=== PATIENT | female | born 1985 | race African-American/Black ===

== ENCOUNTER 2016-04-25 11:04 | Emergency (ER) | payer MEDICAID ==
[2016-04-25] MEDS ORDERED: IPRATROPIUM/ALBUTEROL 0.5-2.5 MG/3 ML AMPUL NEB ONE (11:44)
[2016-04-25] MEDS ORDERED: PREDNISONE 20 MG TABLET PO ONE (11:44)
--- NOTE | 2016-04-25 11:44 | ER Document Report ---
HPI - HPI Patient complains to provider of: cold sx, cough Onset: Other - few days Onset/Duration: Gradual Quality of pain: Achy Pain Level: 4 Context: 30 yo female c/o head, nasal congestion, cough. Some wheeze, hx asthma. NO fever or chills. No chest pain or SOB. Associated Symptoms: None Exacerbated by: Denies Relieved by: Denies Similar symptoms previously: Yes Recently seen / treated by doctor: No - ROS ROS below otherwise negative: Yes Systems Reviewed and Negative: Yes All other systems reviewed and negative - CONSTITUTIONAL Constitutional: REPORTS: Fever - at home, Chills - EENT EENT: REPORTS: Sore Throat, Nasal Drainage-Purulent, Congestion - NEURO Neurology: REPORTS: Headache - CARDIOVASCULAR Cardiovascular: REPORTS: Chest pain - with cough - RESPIRATORY Respiratory: REPORTS: Trouble Breathing, Coughing - DERM Skin Color: Normal, Silas Skin Problems: None Past Medical History - General Information source: Patient Last Menstrual Period: 04-15-16 - Social History Smoking Status: Never Smoker Cigarette use (# per day): No Chew tobacco use (# tins/day): No Frequency of alcohol use: None Lives with: Family Family History: Arthritis, CVA, DM, Hyperlipidemia, Hypertension - Past Medical History Cardiac Medical History: Reports: Hx Hypertension Pulmonary Medical History: Reports: Hx Asthma, Hx Pneumonia - Apr 2010 Past Surgical History: Reports: Hx Cholecystectomy - Immunizations Immunizations up to date: No Hx Diphtheria, Pertussis, Tetanus Vaccination: No Vertical Provider Document - CONSTITUTIONAL Agree With Documented VS: Yes Exam Limitations: No Limitations General Appearance: No Apparent Distress - INFECTION CONTROL TRAVEL OUTSIDE OF THE [place] IN LAST 30 DAYS: No - HEENT HEENT: Normocephalic, Pharyngeal Erythema. negative: Conjuctival Injection - NECK Neck: Supple - RESPIRATORY Respiratory: Breath Sounds Normal, No Respiratory Distress O2 Sat by Pulse Oximetry: 98 - CARDIOVASCULAR Cardiovascular: Regular Rate, Regular Rhythm - MUSCULOSKELETAL/EXTREMETIES Musculoskeletal/Extremeties: ROSIO DUMONT - DERM Integumentary: Warm, Dry, No Rash Course - Re-evaluation Re-evalutation: 04/25/16 13:25 Lungs clear and chest x-ray is negative - Vital Signs Vital signs: Temp Pulse Resp BP Pulse Ox 98.0 F 86 18 147/88 H 98 04/25/16 11:17 04/25/16 11:17 04/25/16 11:17 04/25/16 11:17 04/25/16 11:17 Discharge - Discharge Clinical Impression: upper respiratory infection, wheeze Condition: Good Disposition: HOME, SELF-CARE Instructions: Acetaminophen, Inhaled Bronchodilators ([facility]), Asthma ([facility]), Steroid Medication, Upper Respiratory Illness ([facility]) Additional Instructions: use the albuterol inhaler, 2 puffs every 3 hours for the cough to er if worse Prescriptions: Albuterol Sulfate [Proair HFA Inhalation Aerosol 8.5 gm MDI] 2 puff IH Q3HP PRN #1 [id number] PRN Reason: Prednisone [Deltasone 20 mg Tablet] 40 mg PO DAILY #8 tablet Forms: Return to Work Referrals: MINDI CONTE PA-C [Primary Care Provider] - Follow up as needed
[2016-04-25 13:24] VITALS: BP 138/98
== END 2016-04-25 13:25 | disposition home or self-care (01) ==
LOC: ER 11:04
DX: J06.9 Acute upper respiratory infection, unspecified (principal); J45.909 Unspecified asthma, uncomplicated; R05 Cough; R09.81 Nasal congestion; J02.9 Acute pharyngitis, unspecified; J34.89 Other specified disorders of nose and nasal sinuses; R07.89 Other chest pain; R06.00 Dyspnea, unspecified; I10 Essential (primary) hypertension; Z87.01 Personal history of pneumonia (recurrent)
CPT/HCPCS: 94640; 99284; 71020; J7512; J7620

== ENCOUNTER 2016-11-19 07:05 | Emergency (ER) | payer MEDICAID, OTHER ==
--- NOTE | 2016-11-19 07:41 | ER Document Report ---
HPI - HPI Patient complains to provider of: Smashed finger Onset: Just prior to arrival Onset/Duration: Sudden Pain Level: 5 Context: 31-year-old female smashed middle finger at the DIP joint of a freezer door at work this morning. There is a small subungual hematoma, pain with flexion of the DIP joint. No previous injury. Associated Symptoms: None Exacerbated by: Movement Relieved by: Denies - ROS ROS below otherwise negative: Yes Systems Reviewed and Negative: Yes All other systems reviewed and negative - REPRODUCTIVE Reproductive: DENIES: : - DERM Skin Color: Normal Past Medical History - General Information source: Patient - Social History Smoking Status: Never Smoker Frequency of alcohol use: None Drug Abuse: None Lives with: Family Family History: Arthritis, CVA, DM, Hyperlipidemia, Hypertension Patient has suicidal ideation: No Patient has homicidal ideation: No - Past Medical History Cardiac Medical History: Reports: Hx Hypertension Pulmonary Medical History: Reports: Hx Asthma, Hx Pneumonia - Apr 2010 Past Surgical History: Reports: Hx Cholecystectomy - Immunizations Immunizations up to date: No Hx Diphtheria, Pertussis, Tetanus Vaccination: No Vertical Provider Document - CONSTITUTIONAL Agree With Documented VS: Yes - hypertensive untreated Exam Limitations: No Limitations General Appearance: No Apparent Distress - INFECTION CONTROL TRAVEL OUTSIDE OF THE [place] IN LAST 30 DAYS: No - HEENT HEENT: Atraumatic - NECK Neck: Supple - RESPIRATORY O2 Sat by Pulse Oximetry: 98 - MUSCULOSKELETAL/EXTREMETIES Musculoskeletal/Extremeties: Tender, Eccymosis - distal middle left finger anterior and posterior, mild subungual hematoma mid finger, able to flex the distal phlanax using both flexor tendons, but the distal tendon strength weaker , n/v intact. Will refer to dr. mckeon because of the weakened distal flexor tendon, - NEURO Level of Consciousness: Awake, Alert Motor/Sensory: No Motor Deficit, No Sensory Deficit - DERM Integumentary: Warm, Dry Course - Re-evaluation Re-evalutation: 11/19/16 08:[address] villavicencio, splint in flexion 11/19/16 08:27 minimal tuft fx per radiologist - Vital Signs Vital signs: Temp Pulse Resp BP Pulse Ox 98.3 F 70 22 H 175/111 H 98 11/19/16 07:06 11/19/16 07:06 11/19/16 07:06 11/19/16 07:06 11/19/16 07:06 Procedures - Immobilization Left Finger 3rd digit Time completed: 08:45 Pre-Proc Neuro Vasc Exam: Normal Immobilizer type: Finger splint (Static) Performed by: RN Post-Proc Neuro Vasc Exam: Normal Alignment checked and good: Yes Discharge - Discharge Clinical Impression: Elevated blood pressure reading, minimal tuft fracture Finger contusion Qualifiers: Encounter type: initial encounter Finger: middle finger Damage to nail status: without damage Laterality: right Qualified Code(s): S60.031A - Contusion of right middle finger without damage to nail, initial encounter Condition: Good Disposition: HOME, SELF-CARE Instructions: Acetaminophen, Contusion ([facility]), Subungual Hematoma ([facility]), Temporary Splint ([facility]), Tuft Fracture of the Finger ([facility]), Oral Narcotic Medication ([facility]) Additional Instructions: keep the splint conduit installer for orthopedic appointment on tuesday to er any concenns see your doctor for blood pressure recheck next week, I suspect that you need to start on blood pressure medicaiton Please complete the patient satisfaction survey if you get one, and return it.. If you do not receive a survey, then you can go to the [facility] website, [email or web address] and place your comments about your very good care. Thank you very much. It was a pleasure being your medical provider today. Prescriptions: Hydrocodone Bit/Acetaminophen [Hydrocodon-Acetaminophen 5-325] 1 each PO Q4HP PRN #15 tablet PRN Reason: Forms: Return to Work Referrals: BRUCE MCKEON DO [ACTIVE STAFF] - Follow up as needed MINDI CONTE PA-C [Primary Care Provider] - Follow up as needed
[2016-11-19] MEDS ORDERED: ACETAMINOPHEN 325 MG TABLET PO ONE (08:09)
--- NOTE | 2016-11-19 08:10 | RADIOLOGY REPORT (SQ) ---
EXAM DESCRIPTION: FINGER LEFT COMPLETED DATE/TIME: 11/19/2016 7:52 am REASON FOR STUDY: left middle finger injury COMPARISON: None. NUMBER OF VIEWS: Three views. TECHNIQUE: AP, lateral, and oblique images acquired of the left third finger. LIMITATIONS: None. FINDINGS: MINERALIZATION: Normal. BONES: Minimal nondisplaced fracture of the tuft of the 3rd finger. SOFT TISSUES: No soft tissue swelling. No foreign body. OTHER: No other significant finding. IMPRESSION: MINIMAL NONDISPLACED FRACTURE OF THE TUFT OF THE LEFT 3RD FINGER. COMMENT: SITE OF TRAUMA/COMPLAINT MARKED/STAMP COMPLETED: YES. TECHNICAL DOCUMENTATION: JOB ID: [id number] [employer]- All Rights Reserved
[2016-11-19 08:20] VITALS: BP 143/101
== END 2016-11-19 08:44 | disposition home or self-care (01) ==
LOC: ER 07:05
DX: S62.663A Nondisplaced fracture of distal phalanx of left middle finger, initial encounter for closed fracture (principal); W23.0XXA Caught, crushed, jammed, or pinched between moving objects, initial encounter; Y99.0 Civilian activity done for income or pay; I10 Essential (primary) hypertension; J45.909 Unspecified asthma, uncomplicated
CPT/HCPCS: 99283

== ENCOUNTER 2017-05-13 20:49 | Emergency (ER) | payer SELFPAY ==
[2017-05-13 22:28] LABS: ABSOLUTE BASOPHILS # (AUTO) 0.1 10^3/uL (0.0-0.2); ABSOLUTE EOSINOPHILS # (AUTO) 0.4 10^3/uL (0.0-0.6); ABSOLUTE LYMPHOCYTES (AUTO) 2.9 10^3/uL (0.5-4.7); ABSOLUTE MONOCYTES (AUTO) 0.7 10^3/uL (0.1-1.4); ABSOLUTE NEUT (AUTO) 6.1 10^3/uL (1.7-8.2); BASOPHILS % (AUTO) 0.9 % (0-2); EOSINOPHILS % (AUTO) 3.8 % (0-6); HEMATOCRIT 37.6 % (36.0-47.0); HEMOGLOBIN 12.3 g/dL (12.0-15.5); LYMPHOCYTES % (AUTO) 28.3 % (13-45); MEAN CORPUSCULAR HEMOGLOBIN 27.8 pg (27.0-33.4); MEAN CORPUSCULAR HGB CONC 32.7 g/dL (32.0-36.0); MEAN CORPUSCULAR VOLUME 85 fl (80-97); MONOCYTES % (AUTO) 6.8 % (3-13); PLATELET COUNT 351 10^3/uL (150-450); RED BLOOD COUNT 4.42 10^6/uL (3.72-5.28); RED CELL DISTRIBUTION WIDTH 14.3 % (11.5-14.0); SEGMENTED NEUTROPHILS % (AUTO) 60.2 % (42-78); TOTAL CELLS COUNTED % (AUTO) 100 %; WHITE BLOOD COUNT 10.1 10^3/uL (4.0-10.5)
[2017-05-13 22:33] LABS: APPEARANCE,URINE CLEAR; BILIRUBIN,URINE NEGATIVE (NEGATIVE); COLOR,URINE YELLOW; GLUCOSE, URINE NEGATIVE (NEGATIVE); KETONES,URINE NEGATIVE (NEGATIVE); LEUKOCYTE ESTERASE,URINE NEGATIVE (NEGATIVE); NITRITE,URINE NEGATIVE (NEGATIVE); PROTEIN,URINE NEGATIVE (NEGATIVE); URINE SPECIFIC GRAVITY 1.015; UROBILINOGEN,URINE NEGATIVE mg/dL (<2.0)
--- NOTE | 2017-05-13 23:28 | ER Document Report ---
ED General - General Chief Complaint: Abdominal Pain Stated Complaint: ABDOMINAL PAIN Time Seen by Provider: 05/13/17 21:42 Notes: Patient is a 31-year-old female with a past medical history of asthma who presents with 24 hours of vomiting, diarrhea, and intermittent generalized abdominal pain. Pain is described as a mild, intermittent cramping most of the left side of her abdomen. Nothing improves or worsens the pain. She states that she has had difficulty tolerating any kind of food intake but has been able to tolerate water without difficulty. She continues to have 4-5 diarrheal bowel movements per day. She is uncertain if there have been any sick contacts. She denies a history of similar symptoms in the past. She has not seen her primary doctor regarding today's concerns. She denies any lightheadedness or syncope. TRAVEL OUTSIDE OF THE [place] IN LAST 30 DAYS: No - Related Data Allergies/Adverse Reactions: aspirin [Aspirin] Allergy (Severe, Verified 05/13/17 20:50) Edema ciprofloxacin [From Cipro] Allergy (Verified 05/13/17 20:50) Past Medical History - General Information source: Patient - Social History Smoking Status: Never Smoker Frequency of alcohol use: None Drug Abuse: None Lives with: Family Family History: Arthritis, CVA, DM, Hyperlipidemia, Hypertension Patient has suicidal ideation: No Patient has homicidal ideation: No - Past Medical History Cardiac Medical History: Reports: Hx Hypertension Denies: Hx Coronary Artery Disease, Hx Heart Attack Pulmonary Medical History: Reports: Hx Asthma, Hx Pneumonia - Apr 2010 Denies: Hx Bronchitis, Hx COPD Neurological Medical History: Denies: Hx Cerebrovascular Accident, Hx Seizures Renal/ Medical History: Denies: Hx Peritoneal Dialysis Musculoskeltal Medical History: Denies Hx Arthritis Past Surgical History: Reports: Hx Cholecystectomy. Denies: Hx Pacemaker - Immunizations Immunizations up to date: No Hx Diphtheria, Pertussis, Tetanus Vaccination: No Review of Systems - Review of Systems Notes: Constitutional: Negative for fever. HENT: Negative for sore throat. Eyes: Negative for visual changes. Cardiovascular: Negative for chest pain. Respiratory: Negative for shortness of breath. Gastrointestinal: Positive for abdominal cramping, vomiting and diarrhea Genitourinary: Negative for dysuria. Musculoskeletal: Negative for back pain. Skin: Negative for rash. Neurological: Negative for headaches, weakness or numbness. 10 point ROS negative except as marked above and in HPI. Physical Exam - Vital signs Vitals: Temp Pulse Resp BP Pulse Ox 98.0 F 77 20 156/97 H 98 05/13/17 21:21 05/13/17 21:21 05/13/17 21:21 05/13/17 21:21 05/13/17 21:21 Interpretation: Hypertensive Notes: PHYSICAL EXAMINATION: GENERAL: Well-appearing, well-nourished and in no acute distress. HEAD: Atraumatic, normocephalic. EYES: Pupils equal round and reactive to light, extraocular movements intact, sclera anicteric, conjunctiva are normal. ENT: nares patent, oropharynx clear without exudates. Moist mucous membranes. NECK: Normal range of motion, supple without lymphadenopathy LUNGS: Breath sounds clear to auscultation bilaterally and equal. No wheezes rales or rhonchi. HEART: Regular rate and rhythm without murmurs ABDOMEN: Soft, nontender, normoactive bowel sounds. No guarding, no rebound. No masses appreciated. EXTREMITIES: Normal range of motion, no pitting or edema. No cyanosis. NEUROLOGICAL: No focal neurological deficits. Moves all extremities spontaneously and on command. PSYCH: Normal mood, normal affect. SKIN: Warm, Dry, normal turgor, no rashes or lesions noted. Course - Re-evaluation Re-evalutation: 05/13/17 23:25 Presentation of an overall well-appearing patient in no acute distress with complaints of nausea, vomiting, diarrhea. Patient also reports some generalized abdominal cramping after multiple episodes of vomiting and diarrhea. This is consistent with likely viral gastroenteritis. Patient has no abdominal tenderness on exam and specifically no tenderness in the RLQ, LLQ, RUQ. Overall well hydrated on exam. Able to tolerate oral intake here in the emergency department. Low clinical suspicion for any acute life-threatening etiology based on exam and history including SBO, appendicitis, nephrolithiasis , or pylonephritis. CMP without evidence of acute hepatitis or significant dehydration. At this time will discharge with return precautions and follow-up recommendations. Verbal discharge instructions given a the bedside and opportunity for questions given. Medication warnings reviewed. Patient is in agreement with this plan and has verbalized understanding of return precautions and the need for primary care follow-up in the next 24-72 hours. - Vital Signs Vital signs: Temp Pulse Resp BP Pulse Ox 98.1 F 64 16 152/94 H 100 05/14/17 00:28 05/14/17 00:28 05/14/17 00:28 05/14/17 00:28 05/14/17 00:28 - Laboratory Result Diagrams: 05/13/17 22:18 05/13/17 23:08 Laboratory results interpreted by me: 05/13/17 05/13/17 22:05 22:18 RDW 14.3 H Urine Blood MODERATE H Discharge - Discharge Clinical Impression: Vomiting and diarrhea, Abdominal cramping Condition: Good Disposition: HOME, SELF-CARE Additional Instructions: Your symptoms are likely due to a viral illness and should resolve in the next several days. You can take [id number] loperamide also known as Imodium as needed for diarrhea per box instructions. Continue to stay hydrated with plenty of solution such as Gatorade or Pedialyte. You are being prescribed Zofran to take as needed for nausea and vomiting. Please return if you develop severe abdominal pain, pass out, become unable to tolerate any oral fluids for 12 more hours, or any other symptoms that are concerning to you. Prescriptions: Ondansetron [Zofran Odt 4 mg Tablet] 1 - 2 tab PO Q4H PRN #15 tab.rapdis PRN Reason: For Nausea/Vomiting Referrals: MINDI CONTE PA-C [Primary Care Provider] - Follow up as needed
[2017-05-13] MEDS ORDERED: NORMAL SALINE 1000 ML 1,000 ML IV ONE (23:31)
[2017-05-13] MEDS ORDERED: ONDANSETRON HCL INJ/PF 4 MG/2 ML SDV IV ONE (23:31)
[2017-05-13 23:56] LABS: ALANINE AMINOTRANSFERASE 41 U/L (9-52); ALKALINE PHOSPHATASE 53 U/L (38-126); ANION GAP 8 (5-19); ASPARTATE AMINO TRANSFERASE 23 U/L (14-36); BILIRUBIN,DIRECT 0.1 mg/dL (0.0-0.4); BILIRUBIN,TOTAL 0.2 mg/dL (0.2-1.3); BLOOD UREA NITROGEN 11 mg/dL (7-20); CALCIUM 8.8 mg/dL (8.4-10.2); CARBON DIOXIDE 29 mmol/L (22-30); CHLORIDE 102 mmol/L (98-107); GLUCOSE 85 mg/dL (75-110); LIPASE 105.1 U/L (23-300); POTASSIUM 4.2 mmol/L (3.6-5.0); SODIUM 138.5 mmol/L (137-145); TOTAL PROTEIN 7.1 g/dL (6.3-8.2)
[2017-05-14 00:30] VITALS: BP 152/94
== END 2017-05-14 00:28 | disposition home or self-care (01) ==
LOC: ER 20:49
DX: R11.2 Nausea with vomiting, unspecified (principal); R19.7 Diarrhea, unspecified; R10.84 Generalized abdominal pain; J45.909 Unspecified asthma, uncomplicated; I10 Essential (primary) hypertension; Z90.49 Acquired absence of other specified parts of digestive tract; Z88.6 Allergy status to analgesic agent; Z88.1 Allergy status to other antibiotic agents
CPT/HCPCS: 99284; 96361; 96374; 36415; 83690; 85025; 81025; 80053; 81001; J2405; J7030

== ENCOUNTER → 2017-06-21 | Outpatient (CLI) | payer SELFPAY ==
[2017-06-21 13:36] LABS: ABSOLUTE EOSINOPHILS # (AUTO) 0.2 10^3/uL (0.0-0.6); ABSOLUTE LYMPHOCYTES (AUTO) 2.1 10^3/uL (0.5-4.7); ABSOLUTE MONOCYTES (AUTO) 0.7 10^3/uL (0.1-1.4); ABSOLUTE NEUT (AUTO) 6.7 10^3/uL (1.7-8.2); BASOPHILS % (AUTO) 0.2 % (0-2); EOSINOPHILS % (AUTO) 1.9 % (0-6); HEMATOCRIT 37.6 % (36.0-47.0); HEMOGLOBIN 12.3 g/dL (12.0-15.5); MEAN CORPUSCULAR HEMOGLOBIN 27.2 pg (27.0-33.4); MEAN CORPUSCULAR HGB CONC 32.7 g/dL (32.0-36.0); MEAN CORPUSCULAR VOLUME 83 fl (80-97); PLATELET COUNT 268 10^3/uL (150-450); RED BLOOD COUNT 4.52 10^6/uL (3.72-5.28); RED CELL DISTRIBUTION WIDTH 14.7 % (11.5-14.0); SEGMENTED NEUTROPHILS % (AUTO) 68.9 % (42-78); TOTAL CELLS COUNTED % (AUTO) 100 %; WHITE BLOOD COUNT 9.7 10^3/uL (4.0-10.5)
--- NOTE | 2017-06-21 14:18 | RADIOLOGY REPORT (SQ) ---
EXAM DESCRIPTION: KUB COMPLETED DATE/TIME: 06/21/2017 1:30 pm REASON FOR STUDY: RIGHT LOWER QUADRANT PAIN COMPARISON: None. NUMBER OF VIEWS: One view. TECHNIQUE: Supine radiographic image of the abdomen acquired. LIMITATIONS: None. FINDINGS: BOWEL GAS PATTERN: There is abundant gas and fecal material throughout the colon, with mor e abundant gas in the right colon. CALCIFICATIONS: No suspicious calcifications. SOFT TISSUES: No gross mass or suggestion of organomegaly. HARDWARE: Clips right upper quadrant. BONES: No bone lesions or fracture. OTHER: No other significant finding. IMPRESSION: Ileus/fecal retention. Reading location - IP/workstation name: [email or web address]
== END ==
LOC: OD 12:48
PROVIDERS: ATTEND Physician Assistant
DX: R10.31 Right lower quadrant pain (principal); K52.9 Noninfective gastroenteritis and colitis, unspecified; K59.00 Constipation, unspecified
CPT/HCPCS: 36415; 74018; 85025

== ENCOUNTER 2017-06-27 10:33 | Emergency (ER) | payer SELFPAY ==
[2017-06-27 10:38] VITALS: BP 144/78
[2017-06-27] MEDS ORDERED: IPRATROPIUM/ALBUTEROL 0.5-2.5 MG/3 ML AMPUL NEB ONE ×2 (10:46→11:32)
[2017-06-27] MEDS ORDERED: PREDNISONE 20 MG TABLET PO ONE (10:46)
--- NOTE | 2017-06-27 11:21 | RADIOLOGY REPORT (SQ) ---
EXAM DESCRIPTION: CHEST PA/LAT COMPLETED DATE/TIME: 06/27/2017 11:06 am REASON FOR STUDY: cough/congest COMPARISON: None. EXAM PARAMETERS: NUMBER OF VIEWS: two views TECHNIQUE: Digital Frontal and Lateral radiographic views of the chest acquired. RADIATION DOSE: NA LIMITATIONS: none FINDINGS: LUNGS AND PLEURA: No opacities, masses or pneumothorax. No pleural effusion. MEDIASTINUM AND HILAR STRUCTURES: No masses or contour abnormalities. HEART AND VASCULAR STRUCTURES: Heart normal size. No evidence for failure. BONES: No acute findings. HARDWARE: None in the chest. OTHER: No other significant finding. IMPRESSION: NO SIGNIFICANT RADIOGRAPHIC FINDING IN THE CHEST. TECHNICAL DOCUMENTATION: JOB ID: [id number] [employer]- All Rights Reserved Reading location - IP/workstation name: [email or web address]
--- NOTE | 2017-06-27 11:25 | ER Document Report ---
ED Medical Screen (RME) - General Chief Complaint: Breathing Difficulty Stated Complaint: BREATHING DIFFICULTIES Time Seen by Provider: 06/27/17 10:46 Notes: Patient states she has been having an asthma exacerbation for 9 days that is progressively getting worse. She states she has had no fevers. She states she has had cough and congestion that is not being relieved with her inhaler or her nebulizer. No recent steroids. In triage patient did have wheezes in all [place]. Steroids were given and breathing treatment was given. No significant change was appreciated either subjectively or objectively. TRAVEL OUTSIDE OF THE [place] IN LAST 30 DAYS: No - Related Data Allergies/Adverse Reactions: aspirin [Aspirin] Allergy (Severe, Verified 06/27/17 10:34) Edema ciprofloxacin [From Cipro] Allergy (Verified 06/27/17 10:34) Past Medical History - Social History Chew tobacco use (# tins/day): No Frequency of alcohol use: None Drug Abuse: None - Past Medical History Cardiac Medical History: Reports: Hx Hypertension Denies: Hx Coronary Artery Disease, Hx Heart Attack Pulmonary Medical History: Reports: Hx Asthma, Hx Pneumonia - Apr 2010 Denies: Hx Bronchitis, Hx COPD Neurological Medical History: Denies: Hx Cerebrovascular Accident, Hx Seizures Renal/ Medical History: Denies: Hx Peritoneal Dialysis Musculoskeltal Medical History: Denies Hx Arthritis Past Surgical History: Reports: Hx Cholecystectomy. Denies: Hx Pacemaker - Immunizations Immunizations up to date: No Hx Diphtheria, Pertussis, Tetanus Vaccination: No Physical Exam - Vital signs Vitals: Temp Pulse Resp BP Pulse Ox 98.5 F 82 24 H 144/78 H 99 06/27/17 10:37 06/27/17 10:37 06/27/17 10:37 06/27/17 10:37 06/27/17 10:37 Course - Vital Signs Vital signs: Temp Pulse Resp BP Pulse Ox 98.5 F 82 24 H 144/78 H 99 06/27/17 10:37 06/27/17 10:37 06/27/17 10:37 06/27/17 10:37 06/27/17 10:37
[2017-06-27] MEDS ORDERED: ALBUTEROL SULFATE 0.083% NEB 2.5 MG/3 ML AMPUL NEB ONE (11:31)
--- NOTE | 2017-06-27 12:04 | ER Document Report ---
ED Respiratory Problem - General Chief Complaint: Breathing Difficulty Stated Complaint: BREATHING DIFFICULTIES Time Seen by Provider: 06/27/17 10:46 Mode of Arrival: Ambulatory Information source: Patient Notes: 31-year-old female presented to ED for complaint of asthma exacerbation for 9 days. She states is getting progressively worse. She states she went to her Dr. Mindi Wheatley last week and they told her it was not that bad and did not change any of her treatments. She states she has not been on any recent steroids. The provider in front states she did have wheezes in all hogan and triage. She had a minimal wheeze when I heard a after her prednisone and first breathing treatment. I will treated with 2 more breathing treatments and then reassess her lungs. Patient states she still feels very short of breath. TRAVEL OUTSIDE OF THE [place] IN LAST 30 DAYS: No - HPI Patient complains to provider of: Asthma Onset: Other Duration: Worse/persistent - 9 days Initiating Event: URI Quality of pain: Achy Severity: Moderate Pain Level: 4 Context: Hx asthma - Related Data Allergies/Adverse Reactions: aspirin [Aspirin] Allergy (Severe, Verified 06/27/17 10:34) Edema ciprofloxacin [From Cipro] Allergy (Verified 06/27/17 10:34) Past Medical History - General Information source: Patient - Social History Smoking Status: Never Smoker Cigarette use (# per day): No Chew tobacco use (# tins/day): No Smoking Education Provided: No Frequency of alcohol use: None Drug Abuse: None Lives with: Family Family History: Arthritis, CVA, DM, Hyperlipidemia, Hypertension. denies: CAD, COPD, Malignancy, Thyroid Disfunction Patient has suicidal ideation: No Patient has homicidal ideation: No - Past Medical History Cardiac Medical History: Reports: Hx Hypertension Pulmonary Medical History: Reports: Hx Asthma, Hx Pneumonia - Apr 2010 EENT Medical History: Reports: None Neurological Medical History: Reports: None Endocrine Medical History: Reports: None Renal/ Medical History: Reports: None Malignancy Medical History: Reports: None GI Medical History: Reports: None Musculoskeltal Medical History: Reports None Skin Medical History: Reports None Psychiatric Medical History: Reports: None Traumatic Medical History: Reports: None Infectious Medical History: Reports: None Past Surgical History: Reports: Hx Cholecystectomy - Immunizations Immunizations up to date: No Hx Diphtheria, Pertussis, Tetanus Vaccination: No Review of Systems - Review of Systems Notes: Constitutional: [PRESENT: as per HPI. ABSENT: chills, fever(s), headache(s), weight gain, weight loss] Eyes: [ABSENT: visual disturbances] Ears: [ABSENT: hearing changes] Nasopharyngeal: Runny nose congestion postnasal drip Cardiovascular: [ABSENT: chest pain, dyspnea on exertion, edema, orthropnea, palpitations] Respiratory: Cough congestion wheezing Gastrointestinal: [ABSENT: abdominal pain, constipation, diarrhea, hematemesis, hematochezia, nausea, vomiting] Genitourinary: [ABSENT: dysuria, hematuria] Musculoskeletal: [ABSENT: joint swelling] Integumentary: [ABSENT: rash, wounds] Neurological: [ABSENT: abnormal gait, abnormal speech, confusion, dizziness, focal weakness, syncope] Psychiatric: [ABSENT: anxiety, depression, homicidal ideation, suicidal ideation ] Endocrine: [ABSENT: cold intolerance, heat intolerance, menstrual abnormalities , polydipsia, polyuria] Hematologic/Lymphatic: [ABSENT: easy bleeding, easy bruising, lymphadenopathy] Physical Exam - Vital signs Vitals: Temp Pulse Resp BP Pulse Ox 98.5 F 82 24 H 144/78 H 99 06/27/17 10:37 06/27/17 10:37 06/27/17 10:37 06/27/17 10:37 06/27/17 10:37 - Notes Notes: PHYSICAL EXAMINATION: GENERAL: Well-appearing, well-nourished and in no acute distress. HEAD: Atraumatic, normocephalic. EYES: Pupils equal round and reactive to light, extraocular movements intact, conjunctiva are normal. ENT: Erythematous swollen nasal turbinates, oropharynx postnasal drip without exudates. Moist mucous membranes. NECK: Normal range of motion, supple without lymphadenopathy LUNGS: Minimal expiratory wheezes all hogan HEART: Regular rate and rhythm without murmurs ABDOMEN: Soft, nontender, nondistended abdomen. No guarding, no rebound. No masses appreciated. Female : deferred Musculoskeletal: Normal range of motion, no pitting or edema. No cyanosis. NEUROLOGICAL: Cranial nerves grossly intact. Normal speech, normal gait. Normal sensory, motor exams PSYCH: Normal mood, normal affect. SKIN: Warm, Dry, normal turgor, no rashes or lesions noted. Course - Re-evaluation Re-evalutation: 03/05/18 20:26 Patient was treated with DuoNeb's 2 albuterol 1 and prednisone. She was then discharged home with prescription for prednisone. Patient states she felt much better after the last nebulizer treatment. Patient was encouraged to follow-up with primary doctor for asthma treatment to prevent exacerbations. Patient was also given prescription for azithromycin as she has been experiencing these symptoms for 9 days. She was encouraged to follow-up with her primary doctor tomorrow and use the azithromycin if she develops any fevers from continued shortness of breath and asthma symptoms. Patient verbalized understanding that she was supposed to use the Zithromax and only for fevers chills. - Vital Signs Vital signs: Temp Pulse Resp BP Pulse Ox 98.5 F 82 24 H 144/78 H 99 06/27/17 10:37 06/27/17 10:37 06/27/17 10:37 06/27/17 10:37 06/27/17 10:37 - Diagnostic Test Radiology reviewed: Image reviewed, Reports reviewed Discharge - Discharge Clinical Impression: Asthma exacerbation Qualifiers: Asthma severity: moderate Asthma persistence: unspecified Qualified Code(s): J45.901 - Unspecified asthma with (acute) exacerbation Condition: Stable Disposition: HOME, SELF-CARE Additional Instructions: ASTHMA: You have been diagnosed as having asthma. This is a condition where there is episodic tightness in the bronchial tubes. Allergies, infections, and polluted or cold air may be contributing factors. Emergency treatment of a severe asthma attack may include adrenaline shots , or bronchodilator aerosol. You may feel lightheaded, have a decreased exercise tolerance and a rapid pulse for an hour or two. Rest and get plenty of fluids. Home treatment of asthma requires bronchodilator drugs. These can be administered by injection, inhalation, or by mouth. Antibiotics and corticosteroids may be required for some patients. You should avoid chemical fumes, dusts, pollens, and exercising in very cold or dry air. If you smoke, stop!! If you develop a fever, increased wheezing, chest pain, or severe shortness of breath, you should contact the doctor immediately. STEROID MEDICATION: You have been given an injection of or oral medicine of the cortisone/ steroid class. This medication is used to control inflammation or allergy. Max t is usually only given for a short period of time, until the acute process subsides. There are usually no side effects from short-term use of cortisone-like medications. Some persons feel an increased sense of well-being and are not sleepy at bedtime. Long-term use of cortisone medications is best avoided, unless required for a severe condition. If your condition does not remit, or relapses after the course of corticosteroid medication, you should consult your physician. INHALED BRONCHODILATORS: You have received treatment(s) of and/or prescription for an inhaled bronchodilator -- a medication which stimulates the airways in the lung to dilate. This improves the flow of air in asthma, bronchitis, and emphysema. These medicines have some similarity to adrenaline, and can cause similar side effects: shakiness, racing heart, and a sense of nervousness. These side effects decrease with time. Contact your doctor if these side effects are severe. Do not over-use the medicine. Too-frequent use of the inhaler may make it ineffective. Call your doctor if the inhaler is not controlling your symptoms at the prescribed doses. AZITHROMYCIN: Azithromycin (Zithromax) is a broad spectrum antibiotic in the same class as erythromycin. It can treat a variety of bacterial infections, but is most frequently used for respiratory infections. Azithromycin is extremely long-lasting. It accumulates in body tissues and continues to kill bacteria for many days. In order to improve absorption, Azithromycin should be taken at least one hour before or two hours after a meal. It does not have the same strong tendency to upset the stomach as erythromycin and is usually very well tolerated. Patients who have had a rash or other true allergic reactions to erythromycin should not take this medication. Call if you develop gastrointestinal distress, severe diarrhea, rash, hives, itching, or shortness of breath. USE OF ACETAMINOPHEN: Acetaminophen may be taken for pain relief or fever control. It's much safer than aspirin, offering a wider range of "safe" dosages. It is safe during . Some brand names are Tylenol, Panadol, Datril, Anacin 3, Tempra, and Liquiprin. Acetaminophen can be repeated every four hours. The following are maximum recommended dosages: USE OF ACETAMINOPHEN (Tylenol): Acetaminophen may be taken for pain relief or fever control. It's much safer than aspirin, offering a wider range of "safe" dosages. It is safe during . Some brand names are Tylenol, Panadol, Datril, Anacin 3, Tempra, and Liquiprin. Acetaminophen can be repeated every four hours. The following are maximum recommended dosages: WEIGHT Dose Drops Elixir Chewable( 80mg) (LBS.) drprs=droppers tsp=teaspoon 6 40 mg 0.4 ml (1/2) 6-11 80 mg 0.8 ml (full) tsp 1 tab 12-16 120 mg 1 1/2 drprs 3/4 tsp 1 1/2 tabs 17-23 160 mg 2 drprs 1 tsp 2 tabs 24-30 240 mg 3 drprs 1 1/2 tsp 3 tabs 30-35 320 mg 2 tsp 4 tabs 36-41 360 mg 2 1/4 tsp 4 1/2 tabs 42-47 400 mg 2 1/2 tsp 5 tabs 48-53 480 mg 3 tsp 6 tabs 54-59 520 mg 3 1/4 tsp 6 1/2 tabs 60-64 560 mg 3 1/2 tsp 7 tabs 65-70 600 mg 3 3/4 tsp 7 1/2 tabs 71-76 640 mg 4 tsp 8 tabs 77-82 720 mg 4 1/2 tsp 9 tabs 83-88 800 mg 5 tsp 10 tabs >89 pounds or adults 650 mg to 900 mg Acetaminophen can be repeated every four hours. Maximum dose not to exceed 4000 mg a day. These maximum recommended dosages are slightly higher than the dosages written on the product container, but these dosages are very safe and below the toxic dosage for acetaminophen. FOLLOW-UP CARE: If you have been referred to a physician for follow-up care, call the physician s office for an appointment as you were instructed or within the next two days. If you experience worsening or a significant change in your symptoms, notify the physician immediately or return to the Emergency Department at any time for re-evaluation. Prescriptions: Azithromycin [Zithromax 250 mg Tablet] 250 mg PO ASDIR PRN #6 tablet PRN Reason: Prednisone [Sterapred Ds] 1 pkg PO ASDIR PRN 12 Days tab.ds.pk PRN Reason: Forms: Elevated Blood Pressure, Return to Work Referrals: MINDI CONTE PA-C [Primary Care Provider] - 06/28/17
== END 2017-06-27 13:15 | disposition home or self-care (01) ==
LOC: ER 10:33
DX: J45.901 Unspecified asthma with (acute) exacerbation (principal); R09.82 Postnasal drip; R05 Cough; I10 Essential (primary) hypertension; R09.89 Other specified symptoms and signs involving the circulatory and respiratory systems; Z79.01 Long term (current) use of anticoagulants; Z88.6 Allergy status to analgesic agent; Z88.1 Allergy status to other antibiotic agents
CPT/HCPCS: 94640 ×2; 99284; 71046; J7512; J7620

== ENCOUNTER 2017-09-27 07:16 | Emergency (ER) | payer MEDICAID ==
[2017-09-27] MEDS ORDERED: IPRATROPIUM/ALBUTEROL 0.5-2.5 MG/3 ML AMPUL NEB ONE (07:42)
[2017-09-27] MEDS ORDERED: PREDNISONE 20 MG TABLET PO ONE (07:42)
[2017-09-27] MEDS ORDERED: ALBUTEROL SULFATE 0.083% NEB 2.5 MG/3 ML AMPUL NEB ONE ×2 (07:42→09:08)
--- NOTE | 2017-09-27 08:17 | RADIOLOGY REPORT (SQ) ---
EXAM DESCRIPTION: CHEST 2 VIEWS COMPLETED DATE/TIME: 09/27/2017 7:59 am REASON FOR STUDY: sob COMPARISON: 06/27/2017 EXAM PARAMETERS: NUMBER OF VIEWS: two views TECHNIQUE: Digital Frontal and Lateral radiographic views of the chest acquired. RADIATION DOSE: NA LIMITATIONS: none FINDINGS: LUNGS AND PLEURA: Patchy parenchymal opacity at the left base. Right lung is clear. MEDIASTINUM AND HILAR STRUCTURES: No masses or contour abnormalities. HEART AND VASCULAR STRUCTURES: Heart normal size. No evidence for failure. BONES: No acute findings. HARDWARE: None in the chest. OTHER: No other significant finding. IMPRESSION: Left lower lobe pneumonia. TECHNICAL DOCUMENTATION: JOB ID: [id number] [employer]- All Rights Reserved Reading location - IP/workstation name: [email or web address]
[2017-09-27] MEDS ORDERED: CEFTRIAXONE 1 GM/D5W RTU 1 GM/50 ML RTUPB IV ONE (09:07)
[2017-09-27] MEDS ORDERED: AZITHROMYCIN INJ 500 MG VIAL IV ONE (09:07)
[2017-09-27] MEDS ORDERED: TERBUTALINE SULFATE INJ/PF 1 MG/1 ML SDV SUBCUT ONE (09:07)
[2017-09-27] MEDS ORDERED: MAGNESIUM SULFATE/D5W 1 GM/100 ML RTUPB IV ONE (09:07)
[2017-09-27] MEDS ORDERED: NORMAL SALINE 1000 ML 1,000 ML IV ONE (09:08)
[2017-09-27 09:54] LABS: ABSOLUTE LYMPHOCYTES (AUTO) 1.3 10^3/uL (0.5-4.7); ABSOLUTE MONOCYTES (AUTO) 0.5 10^3/uL (0.1-1.4); ABSOLUTE NEUT (AUTO) 6.3 10^3/uL (1.7-8.2); BASOPHILS % (AUTO) 0.4 % (0-2); EOSINOPHILS % (AUTO) 0.5 % (0-6); HEMATOCRIT 37.2 % (36.0-47.0); HEMOGLOBIN 12.4 g/dL (12.0-15.5); LYMPHOCYTES % (AUTO) 16.4 % (13-45); MEAN CORPUSCULAR HEMOGLOBIN 28.5 pg (27.0-33.4); MEAN CORPUSCULAR HGB CONC 33.2 g/dL (32.0-36.0); MEAN CORPUSCULAR VOLUME 86 fl (80-97); MONOCYTES % (AUTO) 5.6 % (3-13); PLATELET COUNT 235 10^3/uL (150-450); RED BLOOD COUNT 4.33 10^6/uL (3.72-5.28); RED CELL DISTRIBUTION WIDTH 14.7 % (11.5-14.0); SEGMENTED NEUTROPHILS % (AUTO) 77.1 % (42-78); TOTAL CELLS COUNTED % (AUTO) 100 %; VENOUS BLOOD BASE EXCESS -0.2 mmol/L; VENOUS BLOOD HCO3 25.2 mmol/L (20-32); VENOUS BLOOD PCO2 43.5 mmHg (35-63); VENOUS BLOOD PH 7.38 (7.30-7.42); WHITE BLOOD COUNT 8.2 10^3/uL (4.0-10.5)
[2017-09-27 10:24] LABS: ALANINE AMINOTRANSFERASE 29 U/L (9-52); ALBUMIN 3.9 g/dL (3.5-5.0); ALKALINE PHOSPHATASE 75 U/L (38-126); ANION GAP 8 (5-19); ASPARTATE AMINO TRANSFERASE 29 U/L (14-36); BILIRUBIN,DIRECT 0.4 mg/dL (0.0-0.4); BILIRUBIN,TOTAL 0.5 mg/dL (0.2-1.3); BLOOD UREA NITROGEN 10 mg/dL (7-20); CALCIUM 9.1 mg/dL (8.4-10.2); CARBON DIOXIDE 29 mmol/L (22-30); CHLORIDE 101 mmol/L (98-107); GLUCOSE 96 mg/dL (75-110); LIPASE 70.8 U/L (23-300); SODIUM 137.9 mmol/L (137-145); TOTAL PROTEIN 7.3 g/dL (6.3-8.2)
--- NOTE | 2017-09-27 12:10 | ER Document Report ---
ED General - General Chief Complaint: Breathing Difficulty Stated Complaint: BREATHING ISSUES Time Seen by Provider: 09/27/17 07:38 TRAVEL OUTSIDE OF THE [place] IN LAST 30 DAYS: No - HPI Patient complains to provider of: Shortness of breath difficulty breathing productive cough Notes: Patient coming in for the above-stated symptoms. Patient states fever yesterday however no temperature was taken denies any chills or night sweats. Patient denies any recent antibiotics patient states she has been compliant with her asthma medications. No recent travel no recent steroids. Patient denies any chest pain abdominal pain. Patient otherwise is sitting up in the room upon my evaluation. Denies any ICU admissions or intubations - Related Data Allergies/Adverse Reactions: aspirin [Aspirin] Allergy (Severe, Verified 06/27/17 10:34) Edema ciprofloxacin [From Cipro] Allergy (Verified 06/27/17 10:34) Past Medical History - Social History Smoking Status: Unknown if Ever Smoked Chew tobacco use (# tins/day): No Frequency of alcohol use: None Drug Abuse: None Family History: Arthritis, CVA, DM, Hyperlipidemia, Hypertension. denies: CAD, COPD, Malignancy, Thyroid Disfunction Patient has suicidal ideation: No Patient has homicidal ideation: No - Past Medical History Cardiac Medical History: Reports: Hx Hypertension Denies: Hx Coronary Artery Disease, Hx Heart Attack Pulmonary Medical History: Reports: Hx Asthma, Hx Pneumonia - Apr 2010 Denies: Hx Bronchitis, Hx COPD Neurological Medical History: Denies: Hx Cerebrovascular Accident, Hx Seizures Renal/ Medical History: Denies: Hx Peritoneal Dialysis Musculoskeltal Medical History: Denies Hx Arthritis Past Surgical History: Reports: Hx Cholecystectomy. Denies: Hx Pacemaker - Immunizations Immunizations up to date: No Hx Diphtheria, Pertussis, Tetanus Vaccination: No Review of Systems - Review of Systems Constitutional: No symptoms reported EENT: No symptoms reported Cardiovascular: No symptoms reported Respiratory: Short of breath, Sputum, Wheezing Gastrointestinal: No symptoms reported Genitourinary: No symptoms reported Female Genitourinary: No symptoms reported Musculoskeletal: No symptoms reported Skin: No symptoms reported Hematologic/Lymphatic: No symptoms reported Neurological/Psychological: No symptoms reported Physical Exam - Vital signs Vitals: Temp Pulse Resp BP Pulse Ox 100.3 F 93 26 H 143/87 H 95 09/27/17 07:24 09/27/17 07:24 09/27/17 07:24 09/27/17 07:24 09/27/17 07:24 Interpretation: Normal - General General appearance: Appears well, Alert - HEENT Head: Normocephalic, Atraumatic Eyes: Normal Pupils: PERRL - Respiratory Respiratory status: No respiratory distress Chest status: Nontender Breath sounds: Productive cough, Wheezing Chest palpation: Normal - Cardiovascular Rhythm: Regular Heart sounds: Normal auscultation Murmur: No - Abdominal Inspection: Normal Distension: No distension Bowel sounds: Normal Tenderness: Nontender Organomegaly: No organomegaly - Back Back: Normal, Nontender - Extremities General upper extremity: Normal inspection, Nontender, Normal color, Normal ROM , Normal temperature General lower extremity: Normal inspection, Nontender, Normal color, Normal ROM , Normal temperature, Normal weight bearing. No: Shana's sign - Neurological Neuro grossly intact: Yes Cognition: Normal Orientation: AAOx4 Will Coma Scale Eye Opening: Spontaneous Wyatt Coma Scale Verbal: Oriented Wyatt Coma Scale Motor: Obeys Commands Will Coma Scale Total: 15 Speech: Normal Motor strength normal: LUE, RUE, LLE, RLE Sensory: Normal - Psychological Associated symptoms: Normal affect, Normal mood - Skin Skin Temperature: Warm Skin Moisture: Dry Skin Color: Normal Course - Re-evaluation Re-evalutation: 09/27/17 15:49 Chest x-ray shows development of left lower lobe pneumonia. No white count no temperature 100.1. Patient was given multiple treatments with improvement of her lung sounds no signs of hypoxia patient was ambulated around the ER again with no signs of hypoxia. Patient was to be a good candidate for outpatient treatment of her pneumonia. Patient was given Rocephin here will treat with Zithromax steroids bronchodilator therapy will add on Atrovent to her medication list patient agrees with plan was discharged home - Vital Signs Vital signs: Temp Pulse Resp BP Pulse Ox 100.3 F 93 16 144/96 H 96 09/27/17 07:24 09/27/17 07:24 09/27/17 12:02 09/27/17 12:02 09/27/17 12:02 - Laboratory Result Diagrams: 09/27/17 09:25 09/27/17 09:25 Laboratory results interpreted by me: 09/27/17 09:25 RDW 14.7 H Discharge - Discharge Clinical Impression: Asthma Qualifiers: Asthma severity: unspecified severity Asthma persistence: unspecified Asthma complication type: uncomplicated Qualified Code(s): J45.909 - Unspecified asthma , uncomplicated Pneumonia Qualifiers: Aspiration pneumonia type: unspecified Laterality: left Lung location: lower lobe of lung Condition: Good Instructions: Asthma ([facility]), Pneumonia ([facility]) Additional Instructions: Your evaluation today shows a or developing left lower lobe pneumonia more likely exacerbating her asthma. I recommend taking Tylenol Motrin for any fevers. Please take antibiotics as prescribed. Take steroids as prescribed please use your nebulizer at home 1 treatment every 2-4 hours please use the Atrovent once a day twice daily. Follow-up with your primary care physician return to ER symptoms worsen Prescriptions: Azithromycin 500 mg PO DAILY #4 tablet Ipratropium [place] [Atrovent 0.02% Neb 0.5 mg/2.5 ml Ampul] 0.5 mg NEB BID #30 vial.neb Prednisone [Deltasone] 60 mg PO DAILY #24 tablet Forms: Return to Work Referrals: MINDI CONTE PA-C [Primary Care Provider] - Follow up as needed
[2017-09-27 12:15] VITALS: BP 144/96
== END 2017-09-27 12:26 | disposition home or self-care (01) ==
LOC: ER 07:16
DX: J18.9 Pneumonia, unspecified organism (principal); J45.909 Unspecified asthma, uncomplicated; R06.02 Shortness of breath; R05 Cough; I10 Essential (primary) hypertension; Z79.899 Other long term (current) drug therapy; Z88.6 Allergy status to analgesic agent; Z88.1 Allergy status to other antibiotic agents
CPT/HCPCS: 94640 ×2; 99285; 96372; 96375; 96365; 96368; 36415; 87040; 83690; 83735; 85025; 80053; 82803; 71046; J3475; J7512; J3105; J7030; J0456; J0696; J7620

== ENCOUNTER 2018-02-01 06:02 | Emergency (ER) | payer SELFPAY ==
--- NOTE | 2018-02-01 07:17 | ER Document Report ---
ED General - General Chief Complaint: Abdominal Pain Stated Complaint: ABDOMINAL PAIN Time Seen by Provider: 02/01/18 06:39 Mode of Arrival: Ambulatory Information source: Patient Notes: 32-year-old female presents to the emergency department with complaints of lower abdominal pain, nausea, vomiting, diarrhea. Patient states that this is been ongoing for the last day. She denies any alleviating or exacerbating factors. No history of sick contacts. Patient denies any medical problems. She is not currently on any medications. Patient describes the pain as an aching sensation in the lower abdomen. No radiation of the pain. Patient denies any melena, hematochezia, hematemesis, vaginal bleeding, vaginal discharge, dysuria, hematuria. TRAVEL OUTSIDE OF THE [place] IN LAST 30 DAYS: No - HPI Onset: Other - Intermittent over the last year. Onset/Duration: Gradual Quality of pain: No pain Severity: None Associated symptoms: Shortness of breath Exacerbated by: Denies Relieved by: Denies Similar symptoms previously: Yes Recently seen / treated by doctor: No - Related Data Allergies/Adverse Reactions: aspirin [Aspirin] Allergy (Severe, Verified 06/27/17 10:34) Edema ciprofloxacin [From Cipro] Allergy (Verified 06/27/17 10:34) Past Medical History - Social History Smoking Status: Never Smoker Chew tobacco use (# tins/day): No Frequency of alcohol use: None Drug Abuse: None Family History: Arthritis, CVA, DM, Hyperlipidemia, Hypertension. denies: CAD, COPD, Malignancy, Thyroid Disfunction Patient has suicidal ideation: No Patient has homicidal ideation: No - Past Medical History Cardiac Medical History: Reports: Hx Hypertension Denies: Hx Coronary Artery Disease, Hx Heart Attack Pulmonary Medical History: Reports: Hx Asthma, Hx Pneumonia - Apr 2010 Denies: Hx Bronchitis, Hx COPD Neurological Medical History: Denies: Hx Cerebrovascular Accident, Hx Seizures Renal/ Medical History: Denies: Hx Peritoneal Dialysis Musculoskeletal Medical History: Denies Hx Arthritis Past Surgical History: Reports: Hx Cholecystectomy. Denies: Hx Pacemaker - Immunizations Immunizations up to date: No Hx Diphtheria, Pertussis, Tetanus Vaccination: No Review of Systems - Review of Systems Constitutional: No symptoms reported EENT: No symptoms reported Cardiovascular: Chest pain, Lightheaded Respiratory: Short of breath Gastrointestinal: No symptoms reported Genitourinary: No symptoms reported Musculoskeletal: No symptoms reported Skin: No symptoms reported Hematologic/Lymphatic: No symptoms reported Neurological/Psychological: No symptoms reported -: Yes All other systems reviewed and negative Physical Exam - Vital signs Vitals: Temp Pulse Resp BP Pulse Ox 98.7 F 69 20 149/104 H 99 02/01/18 06:05 02/01/18 06:05 02/01/18 06:05 02/01/18 06:05 02/01/18 06:05 - Notes Notes: PHYSICAL EXAMINATION: GENERAL: Well-appearing, well-nourished and in no acute distress. HEAD: Atraumatic, normocephalic. EYES: Pupils equal round and reactive to light, extraocular movements intact, conjunctiva are normal. ENT: Nares patent, oropharynx clear without exudates. Moist mucous membranes. NECK: Normal range of motion, supple without lymphadenopathy LUNGS: Breath sounds clear to auscultation bilaterally and equal. No wheezes rales or rhonchi. HEART: Regular rate and rhythm without murmurs ABDOMEN: Soft, suprapubic tenderness to palpation. Nondistended abdomen. No guarding, no rebound. No masses appreciated. No CVA tenderness. Female : deferred Musculoskeletal: Normal range of motion, no pitting or edema. No cyanosis. NEUROLOGICAL: Cranial nerves grossly intact. Normal speech, normal gait. Normal sensory, motor exams PSYCH: Normal mood, normal affect. SKIN: Warm, Dry, normal turgor, no rashes or lesions noted. Course - Re-evaluation Re-evalutation: 02/01/18 07:20 02/01/18 09:43 Labs and imaging obtained. Patient has elevated white blood cells and leukocyte esterase in the urine. Possible dirty specimen versus UTI. With the patient complaining of suprapubic pain and having suprapubic pubic tenderness to palpation, I will start the patient on Keflex. On re-evaluation, patient says the abdominal pain has resolved. She feels comfortable with discharge home and following up outpatient with her PCP. Patient instructed to take the medication as directed, to follow-up with her primary care physician this week, and to return to the emergency department for worsening symptoms. Patient is agreeable to plan of care. 02/01/18 09:51 - Vital Signs Vital signs: Temp Pulse Resp BP Pulse Ox 98.7 F 69 20 149/104 H 99 02/01/18 06:05 02/01/18 06:05 02/01/18 06:05 02/01/18 06:05 02/01/18 06:05 - Laboratory Result Diagrams: 02/01/18 07:56 02/01/18 07:56 Laboratory results interpreted by me: 02/01/18 02/01/18 07:56 07:56 RDW 15.1 H Urine Blood SMALL H Ur Leukocyte Esterase TRACE H Discharge - Discharge Clinical Impression: UTI (urinary tract infection) Qualifiers: Urinary tract infection type: acute cystitis Hematuria presence: with hematuria Qualified Code(s): N30.01 - Acute cystitis with hematuria Condition: Good Disposition: HOME, SELF-CARE Instructions: Abdominal Pain ([facility]), Urinary Tract Infection, Child ([facility]) Prescriptions: Cephalexin Monohydrate [Keflex 500 mg Capsule] 500 mg PO BID 5 Days #10 capsule Referrals: MINDI CONTE PA-C [Primary Care Provider] - Follow up as needed
[2018-02-01] MEDS ORDERED: ONDANSETRON 4 MG TAB.RAPDIS PO ONE (07:32)
[2018-02-01] MEDS ORDERED: MORPHINE SULFATE 10 MG/ML INJ IV ONE (07:33)
[2018-02-01 08:19] LABS: ABSOLUTE EOSINOPHILS # (AUTO) 0.2 10^3/uL (0.0-0.6); ABSOLUTE LYMPHOCYTES (AUTO) 2.3 10^3/uL (0.5-4.7); ABSOLUTE MONOCYTES (AUTO) 0.4 10^3/uL (0.1-1.4); ABSOLUTE NEUT (AUTO) 5.8 10^3/uL (1.7-8.2); BASOPHILS % (AUTO) 0.4 % (0-2); EOSINOPHILS % (AUTO) 2.3 % (0-6); HEMATOCRIT 38.2 % (36.0-47.0); HEMOGLOBIN 12.5 g/dL (12.0-15.5); LYMPHOCYTES % (AUTO) 25.8 % (13-45); MEAN CORPUSCULAR HEMOGLOBIN 27.6 pg (27.0-33.4); MEAN CORPUSCULAR HGB CONC 32.7 g/dL (32.0-36.0); MEAN CORPUSCULAR VOLUME 84 fl (80-97); MONOCYTES % (AUTO) 5.1 % (3-13); PLATELET COUNT 280 10^3/uL (150-450); RED BLOOD COUNT 4.52 10^6/uL (3.72-5.28); RED CELL DISTRIBUTION WIDTH 15.1 % (11.5-14.0); SEGMENTED NEUTROPHILS % (AUTO) 66.4 % (42-78); TOTAL CELLS COUNTED % (AUTO) 100 %; WHITE BLOOD COUNT 8.8 10^3/uL (4.0-10.5)
[2018-02-01 08:26] LABS: APPEARANCE,URINE CLEAR; BILIRUBIN,URINE NEGATIVE (NEGATIVE); COLOR,URINE YELLOW; GLUCOSE, URINE NEGATIVE (NEGATIVE); KETONES,URINE NEGATIVE (NEGATIVE); LEUKOCYTE ESTERASE,URINE TRACE (NEGATIVE); NITRITE,URINE NEGATIVE (NEGATIVE); PROTEIN,URINE NEGATIVE (NEGATIVE); UROBILINOGEN,URINE NEGATIVE mg/dL (<2.0)
[2018-02-01 08:32] LABS: URINE SPECIFIC GRAVITY 1.019
[2018-02-01 08:33] LABS: ALANINE AMINOTRANSFERASE 27 U/L (9-52); ALBUMIN 3.9 g/dL (3.5-5.0); ALKALINE PHOSPHATASE 73 U/L (38-126); ANION GAP 7 (5-19); ASPARTATE AMINO TRANSFERASE 25 U/L (14-36); BILIRUBIN,DIRECT 0.1 mg/dL (0.0-0.4); BILIRUBIN,TOTAL 0.5 mg/dL (0.2-1.3); BLOOD UREA NITROGEN 9 mg/dL (7-20); CALCIUM 8.9 mg/dL (8.4-10.2); CARBON DIOXIDE 30 mmol/L (22-30); CHLORIDE 102 mmol/L (98-107); GLUCOSE 85 mg/dL (75-110); LIPASE 79.1 U/L (23-300); POTASSIUM 4.1 mmol/L (3.6-5.0); SODIUM 138.6 mmol/L (137-145)
--- NOTE | 2018-02-01 09:07 | RADIOLOGY REPORT (SQ) ---
EXAM DESCRIPTION: ACUTE ABDOMEN SERIES COMPLETED DATE/TIME: 02/01/2018 8:57 am REASON FOR STUDY: diffuse abdominal pain COMPARISON: Chest films 09/27/2017, 06/27/2017 Supine and erect views the abdomen 06/21/2017 NUMBER OF VIEWS: Three views. TECHNIQUE: Frontal chest, supine abdomen and upright abdomen radiographic images acquired. LIMITATIONS: None. FINDINGS: CHEST: No acute infiltrates. No pleural effusion. No pneumothorax. No cardiomegaly. FREE AIR: None. No abnormal gas collections. BOWEL GAS PATTERN: Nonspecific nonobstructive bowel gas pattern with few borderline distended small b owel loops in the mid epigastrium. Stomach and colon decompressed. CALCIFICATIONS: No suspicious calcifications. HARDWARE: Clips right upper quadrant post cholecystectomy SOFT TISSUES: No gross mass or suggestion of organomegaly. BONES: No acute fracture. No worrisome bone lesions. OTHER: No other significant finding. IMPRESSION: Nonspecific bowel gas pattern with few air filled borderline distended small bowel loops in the mid epigastrium TECHNICAL DOCUMENTATION: JOB ID: [id number] [employer]- All Rights Reserved Reading location - IP/workstation name: [email or web address]
[2018-02-01 10:59] VITALS: BP 132/76
== END 2018-02-01 10:56 | disposition home or self-care (01) ==
LOC: ER 06:02
DX: N30.01 Acute cystitis with hematuria (principal); R10.30 Lower abdominal pain, unspecified; R11.2 Nausea with vomiting, unspecified; R19.7 Diarrhea, unspecified; I10 Essential (primary) hypertension; Z88.6 Allergy status to analgesic agent; Z88.3 Allergy status to other anti-infective agents; Z90.49 Acquired absence of other specified parts of digestive tract
CPT/HCPCS: 99284; 96374; 36415; 83690; 84703; 85025; 80053; 81001; 74022; S0119; J2270

== ENCOUNTER 2018-03-23 19:06 | Emergency (ER) | payer SELFPAY ==
[2018-03-23 19:44] VITALS: BP 152/89
--- NOTE | 2018-03-23 20:36 | ER Document Report ---
ED Respiratory Problem - General Chief Complaint: Cold Symptoms Stated Complaint: LEFT EAR HEARING LOSS, COLD CONGESTION Time Seen by Provider: 03/23/18 20:31 Mode of Arrival: Ambulatory Information source: Patient Notes: Chief complaint: Cough, left ear pain History of complain:( obtained from----patient) 32 years old female presents today with loss of hearing from the left ear, and nasal congestion coughing on and off for the last few days. No fever chills. Onset: As above Duration: Last few days Severity: Mild to moderate Quality: As above Context: As above Exacerbating factor and relieving factors: REVIEW OF SYSTEMS: CONSTITUTIONAL : Denies fever, chills, or sweats. Denies recent illness. EENT: Denies eye, ear, throat, or mouth pain or symptoms. Denies nasal or sinus congestion or discharge. Denies throat, tongue, or mouth swelling or difficulty swallowing. CARDIOVASCULAR: Denies chest pain. Denies palpitations or racing or irregular heart beat. Denies ankle edema. RESPIRATORY: Denies cough, cold, or chest congestion. Denies shortness of breath, difficulty breathing, or wheezing. GASTROINTESTINAL: Denies distention. Denies nausea, vomiting, or diarrhea. Denies blood in vomitus, stools, or per rectum. Denies black, tarry stools. Denies constipation. GENITOURINARY: Denies difficulty urinating, painful urination, burning, frequency, blood in urine, or discharge. FEMALE GENITOURINARY: Denies vaginal bleeding, heavy or abnormal periods, irregular periods. Denies vaginal discharge or odor. MUSCULOSKELETAL: Denies back or neck pain or stiffness. Denies joint pain or swelling. SKIN: Denies rash, lesions or sores. HEMATOLOGIC : Denies easy bruising or bleeding. LYMPHATIC: Denies swollen, enlarged glands. NEUROLOGICAL: Denies confusion or altered mental status. Denies passing out or loss of consciousness. Denies dizziness or lightheadedness. Denies headache. Denies weakness or paralysis or loss of use of either side. Denies problems with gait or speech. Denies sensory loss, numbness, or tingling. Denies seizures. PSYCHIATRIC: Denies anxiety or stress. Denies depression, suicidal ideation, or homicidal ideation. ALL OTHER SYSTEMS REVIEWED AND NEGATIVE. PHYSICAL EXAMINATION: GENERAL: Well-appearing, well-nourished and in mild acute distress. Morbid obesity HEAD: Atraumatic, normocephalic. EYES: Pupils equal round and reactive to light, extraocular movements intact, conjunctiva are normal. ENT: Nares patent, oropharynx clear w. Moist mucous membranes. Left ear is erythematous not bulging no discharges noted NECK: Normal range of motion, supple without lymphadenopathy LUNGS: Breath sounds clear to auscultation bilaterally and equal. No wheezes rales or rhonchi. HEART: Regular rate and rhythm without murmurs ABDOMEN: Soft, nontender, nondistended abdomen. No guarding, no rebound. No masses appreciated. Examination of genitals-deferred Musculoskeletal: Normal range of motion, no pitting or edema. No cyanosis. NEUROLOGICAL: Cranial nerves grossly intact. Normal speech, normal gait. Normal sensory, motor exams PSYCH: Normal mood, normal affect. SKIN: Warm, Dry, normal turgor, no rashes or lesions noted. Dictation was performed using [employer] voice recognition software TRAVEL OUTSIDE OF THE [place] IN LAST 30 DAYS: No - HPI Notes: Dictated - Related Data Allergies/Adverse Reactions: aspirin [Aspirin] Allergy (Severe, Verified 06/27/17 10:34) Edema ciprofloxacin [From Cipro] Allergy (Verified 06/27/17 10:34) Past Medical History - Social History Smoking Status: Never Smoker Frequency of alcohol use: None Lives with: Family Family History: Arthritis, CVA, DM, Hyperlipidemia, Hypertension. denies: CAD, COPD, Malignancy, Thyroid Disfunction - Past Medical History Cardiac Medical History: Reports: Hx Hypertension Denies: Hx Coronary Artery Disease, Hx Heart Attack Pulmonary Medical History: Reports: Hx Asthma, Hx Pneumonia - Apr 2010 Denies: Hx Bronchitis, Hx COPD Neurological Medical History: Denies: Hx Cerebrovascular Accident, Hx Seizures Renal/ Medical History: Denies: Hx Peritoneal Dialysis Musculoskeletal Medical History: Denies Hx Arthritis Past Surgical History: Reports: Hx Cholecystectomy. Denies: Hx Pacemaker - Immunizations Immunizations up to date: No Hx Diphtheria, Pertussis, Tetanus Vaccination: No Review of Systems - Review of Systems Notes: Dictated Physical Exam - Vital signs Vitals: Temp Pulse Resp BP Pulse Ox 98.2 F 73 16 152/89 H 99 03/23/18 19:43 03/23/18 19:43 03/23/18 19:43 03/23/18 19:43 03/23/18 19:43 - Notes Notes: Dictated Course - Vital Signs Vital signs: Temp Pulse Resp BP Pulse Ox 98.2 F 73 16 152/89 H 99 03/23/18 19:43 03/23/18 19:43 03/23/18 19:43 03/23/18 19:43 03/23/18 19:43 Discharge - Discharge Clinical Impression: Otitis media Qualifiers: Otitis media type: suppurative Chronicity: acute Laterality: left Recurrence: not specified as recurrent Spontaneous tympanic membrane rupture: without spontaneous rupture Qualified Code(s): H66.002 - Acute suppurative otitis media without spontaneous rupture of ear drum, left ear URI (upper respiratory infection) Qualifiers: URI type: unspecified viral URI Qualified Code(s): J06.9 - Acute upper respiratory infection, unspecified Condition: Fair Disposition: HOME, SELF-CARE Instructions: Upper Respiratory Infection, Infant or Child ([facility]), Serous Otitis Media ([facility]) Prescriptions: Amox Tr/Potassium Clavulanate [Augmentin 875-125 mg Tablet] 1 tab PO BID #20 tablet Hydrocodone/Chlorphen P-Stirex [Tussionex Pennkinetic Susp] 5 ml PO BID #90 [id number] Referrals: MINDI CONTE PA-C [Primary Care Provider] - Follow up as needed
== END 2018-03-23 20:38 | disposition home or self-care (01) ==
LOC: ER 19:06
DX: J06.9 Acute upper respiratory infection, unspecified (principal); H66.002 Acute suppurative otitis media without spontaneous rupture of ear drum, left ear; H91.92 Unspecified hearing loss, left ear; R05 Cough; H92.02 Otalgia, left ear
CPT/HCPCS: 99283

== ENCOUNTER 2018-05-30 02:42 | Emergency (ER) | payer SELFPAY ==
[2018-05-30] MEDS ORDERED: ONDANSETRON HCL INJ/PF 4 MG/2 ML SDV IV ONE (03:26)
[2018-05-30] MEDS ORDERED: NORMAL SALINE 1000 ML 1,000 ML IV ONE (03:26)
--- NOTE | 2018-05-30 03:28 | ER Document Report ---
ED General - General Chief Complaint: Flu Symptoms Stated Complaint: FLU SYMPTOMS Time Seen by Provider: 05/30/18 03:21 Primary Care Provider: MINDI CONTE PA-C [Primary Care Provider] - Follow up as needed Notes: Patient is a 32-year-old female who presents to the emergency department with a chief complaint of nausea, vomiting, and diarrhea. Symptoms started yesterday at 11:00 in the morning. She also has an associated runny nose. She states that she had a fever earlier and had taken some Tylenol for her fever. She also complains of abdominal cramping, in which she thinks is from her vomiting. She states that her cramping is "not that bad." She denies any dysuria, vaginal pain, or vaginal discharge. Denies hematochezia, hematemesis. She has not seen her primary care provider for this issue. She has a past medical history of endometriosis. Her last menstrual cycle was in the middle of April. TRAVEL OUTSIDE OF THE [place] IN LAST 30 DAYS: No - Related Data Allergies/Adverse Reactions: aspirin [Aspirin] Allergy (Severe, Verified 06/27/17 10:34) Edema ciprofloxacin [From Cipro] Allergy (Verified 06/27/17 10:34) Past Medical History - General Information source: Patient - Social History Smoking Status: Unknown if Ever Smoked Family History: Arthritis, CVA, DM, Hyperlipidemia, Hypertension. denies: CAD, COPD, Malignancy, Thyroid Disfunction - Past Medical History Cardiac Medical History: Reports: Hx Hypertension Denies: Hx Coronary Artery Disease, Hx Heart Attack Pulmonary Medical History: Reports: Hx Asthma, Hx Pneumonia - Apr 2010 Denies: Hx Bronchitis, Hx COPD Neurological Medical History: Denies: Hx Cerebrovascular Accident, Hx Seizures Renal/ Medical History: Denies: Hx Peritoneal Dialysis Musculoskeletal Medical History: Denies Hx Arthritis Past Surgical History: Reports: Hx Cholecystectomy. Denies: Hx Pacemaker - Immunizations Immunizations up to date: No Hx Diphtheria, Pertussis, Tetanus Vaccination: No Review of Systems - Review of Systems Notes: REVIEW OF SYSTEMS: CONSTITUTIONAL : Denies recent illness. Denies recent unintentional weight loss. Denies fever, chills, or sweats. EENT: Denies eye, ear, throat, or mouth pain, discharge, or symptoms. Denies nasal or sinus congestion. CARDIOVASCULAR: Denies chest pain. RESPIRATORY: Denies shortness of breath, cough, congestion, difficulty breathing, or wheezing. GASTROINTESTINAL: See HPI GENITOURINARY: Denies difficulty urinating, burning, blood in urine, urgency or frequency. MUSCULOSKELETAL: Denies neck and back pain. Denies joint pain or swelling. SKIN: Denies rash, itchiness, or lesions HEMATOLOGIC : Denies easy bruising or bleeding. LYMPHATIC: Denies swollen, painful, enlarged glands. NEUROLOGICAL: Denies no numbness or tingling denies weakness. Denies headache. Denies altered mental status. Denies alteration in speech. PSYCHIATRIC: Denies stress, anxiety, alteration in sleep patterns, or depression. All other systems reviewed and negative. Physical Exam - Vital signs Vitals: Temp Pulse Resp BP Pulse Ox 98.6 F 85 16 146/88 H 98 05/30/18 02:48 05/30/18 02:48 05/30/18 02:48 05/30/18 02:48 05/30/18 02:48 - Notes Notes: PHYSICAL EXAMINATION: GENERAL: Appears well, obese, well-nourished, no acute distress. HEAD: Normocephalic, atraumatic. EYES: PERRL, conjunctiva normal, all extraocular movements intact, sclera nonicteric ENT: Dry mucous membranes. NECK: Supple, no noticeable swelling, redness, rash. Normal range of motion. LUNGS: Equal breath sounds bilaterally and clear to auscultation. No wheezes rales or rhonchi. CARDIOVASCULAR: S1-S2, regular rate, regular rhythm. Radial pulses 2+, normal. ABDOMEN: Normoactive bowel sounds. Soft, nontender, no guarding, no rebound tenderness, and no masses palpated. EXTREMITIES: Normal strength and range of motion, no pitting or edema. No cyanosis. NEUROLOGICAL: Moves all extremities upon command. Strength 5/5 in all extremities. PSYCH: Normal mood, normal affect. SKIN: Warm, dry. No rash, lesions, ulcerations noted. Normal skin turgor. Course - Re-evaluation Re-evalutation: 05/30/18 The patient does feel better after receiving Zofran and IV fluids. The fact that she has not been given pain medication and her states she feels better, makes me suspect she has gastroenteritis. I do not suspect she has acute appendicitis. Her CBC is unremarkable. Her chemistries are normal. Her hCG is negative. Her lipase is negative, no indication of pancreatitis. She states that she was diagnosed with endometriosis. She denies any dysuria or flank pain, therefore I do not suspect a urinary tract infection at this time. She does have some blood in her urine, but has very minimal pain in her abdomen. I have discussed with her return precautions if she continues to have symptoms or abdominal pain. Verbal discharge instructions were given to the patient. They verbalized understanding. They are stable for discharge. - Vital Signs Vital signs: Temp Pulse Resp BP Pulse Ox 97.9 F 66 18 142/84 H 100 05/30/18 06:00 05/30/18 06:00 05/30/18 06:00 05/30/18 06:00 05/30/18 06:00 - Laboratory Result Diagrams: 05/30/18 03:40 05/30/18 03:40 Laboratory results interpreted by me: 05/30/18 05/30/18 03:40 03:40 RDW 14.6 H Urine Blood MODERATE H Ur Leukocyte Esterase SMALL H Discharge - Discharge Clinical Impression: Runny nose Vomiting Qualifiers: Vomiting type: unspecified Vomiting Intractability: non-intractable Nausea presence: with nausea Qualified Code(s): R11.2 - Nausea with vomiting, unspecified Diarrhea Qualifiers: Diarrhea type: unspecified type Qualified Code(s): R19.7 - Diarrhea, unspecified Condition: Stable Disposition: HOME, SELF-CARE Additional Instructions: You were seen today in the emergency department for vomiting, diarrhea, and cold symptoms. Your symptoms are most consistent with gastroenteritis. You have been provided Zofran, nausea medication to help with your nausea and vomiting. Please make sure you stay well-hydrated. If you develop a fever greater than 100.4 F, or unable to keep any food or water down while on Zofran, or have any symptoms that are worrisome to you, please return to the emergency department. Referrals: MINDI CONTE PA-C [Primary Care Provider] - Follow up as needed
[2018-05-30 03:55] LABS: ABSOLUTE EOSINOPHILS # (AUTO) 0.1 10^3/uL (0.0-0.6); ABSOLUTE LYMPHOCYTES (AUTO) 1.1 10^3/uL (0.5-4.7); ABSOLUTE MONOCYTES (AUTO) 0.4 10^3/uL (0.1-1.4); BASOPHILS % (AUTO) 0.2 % (0-2); EOSINOPHILS % (AUTO) 2.1 % (0-6); HEMOGLOBIN 12.5 g/dL (12.0-15.5); MEAN CORPUSCULAR HEMOGLOBIN 27.8 pg (27.0-33.4); MEAN CORPUSCULAR HGB CONC 32.8 g/dL (32.0-36.0); MEAN CORPUSCULAR VOLUME 85 fl (80-97); MONOCYTES % (AUTO) 5.8 % (3-13); PLATELET COUNT 249 10^3/uL (150-450); RED BLOOD COUNT 4.49 10^6/uL (3.72-5.28); RED CELL DISTRIBUTION WIDTH 14.6 % (11.5-14.0); SEGMENTED NEUTROPHILS % (AUTO) 75.9 % (42-78); TOTAL CELLS COUNTED % (AUTO) 100 %; WHITE BLOOD COUNT 6.6 10^3/uL (4.0-10.5)
[2018-05-30 03:57] LABS: APPEARANCE,URINE CLOUDY; BILIRUBIN,URINE NEGATIVE (NEGATIVE); COLOR,URINE YELLOW; GLUCOSE, URINE NEGATIVE (NEGATIVE); KETONES,URINE NEGATIVE (NEGATIVE); LEUKOCYTE ESTERASE,URINE SMALL (NEGATIVE); NITRITE,URINE NEGATIVE (NEGATIVE); PROTEIN,URINE NEGATIVE (NEGATIVE); URINE SPECIFIC GRAVITY 1.021; UROBILINOGEN,URINE NEGATIVE mg/dL (<2.0)
[2018-05-30 04:14] LABS: ALANINE AMINOTRANSFERASE 29 U/L (9-52); ALBUMIN 3.9 g/dL (3.5-5.0); ALKALINE PHOSPHATASE 69 U/L (38-126); ANION GAP 8 (5-19); ASPARTATE AMINO TRANSFERASE 29 U/L (14-36); BILIRUBIN,DIRECT 0.2 mg/dL (0.0-0.4); BILIRUBIN,TOTAL 0.8 mg/dL (0.2-1.3); BLOOD UREA NITROGEN 11 mg/dL (7-20); CALCIUM 8.5 mg/dL (8.4-10.2); CARBON DIOXIDE 29 mmol/L (22-30); CHLORIDE 102 mmol/L (98-107); GLUCOSE 83 mg/dL (75-110); LIPASE 86.7 U/L (23-300); POTASSIUM 3.9 mmol/L (3.6-5.0); SODIUM 139.2 mmol/L (137-145)
[2018-05-30] MEDS ORDERED: ONDANSETRON ODT 4 MG TAB (6 TAB/ER DISP) PO PRN (05:46)
[2018-05-30 06:16] VITALS: BP 142/84
== END 2018-05-30 06:17 | disposition home or self-care (01) ==
LOC: ER 02:42
DX: R11.2 Nausea with vomiting, unspecified (principal); R19.7 Diarrhea, unspecified; R09.89 Other specified symptoms and signs involving the circulatory and respiratory systems; R31.9 Hematuria, unspecified; R50.9 Fever, unspecified; R10.9 Unspecified abdominal pain; E66.9 Obesity, unspecified; I10 Essential (primary) hypertension; J45.909 Unspecified asthma, uncomplicated; Z88.1 Allergy status to other antibiotic agents; Z90.49 Acquired absence of other specified parts of digestive tract
CPT/HCPCS: 99284; 96361; 96374; 36415; 83690; 85025; 81025; 80053; 81001; J2405; J7030

== ENCOUNTER 2018-08-26 04:58 | Emergency (ER) | payer OTHER ==
[2018-08-26 06:33] LABS: APPEARANCE,URINE SLIGHTLY-CLOUDY; BILIRUBIN,URINE NEGATIVE (NEGATIVE); COLOR,URINE YELLOW; GLUCOSE, URINE NEGATIVE (NEGATIVE); KETONES,URINE NEGATIVE (NEGATIVE); LEUKOCYTE ESTERASE,URINE LARGE (NEGATIVE); NITRITE,URINE NEGATIVE (NEGATIVE); PROTEIN,URINE 100 mg/dL (NEGATIVE); URINE SPECIFIC GRAVITY 1.011; UROBILINOGEN,URINE NEGATIVE mg/dL (<2.0)
[2018-08-26] MEDS ORDERED: FENTANYL CITRATE INJ/PF 100 MCG/2 ML AMPUL IV ONE (06:33)
[2018-08-26] MEDS ORDERED: ONDANSETRON HCL INJ/PF 4 MG/2 ML SDV IV ONE (06:34)
--- NOTE | 2018-08-26 06:41 | ER Document Report ---
ED General - General TRAVEL OUTSIDE OF THE [place] IN LAST 30 DAYS: No <BREANNECHEYENNELORIEEUNICEKOMAL - Last Filed: 08/26/18 08:14> <DAKSHA OTTO - Last Filed: 08/26/18 17:50> - General Chief Complaint: Sore Throat Stated Complaint: SORE THROAT/ABDOMINAL PAIN Time Seen by Provider: 08/26/18 06:33 Primary Care Provider: MINDI CONTE PA-C [Primary Care Provider] - Follow up as needed Notes: Patient is a morbidly obese 33-year-old female presents to the emergency department for generalized right lower abdominal pain for last 24 hours. Patient is also complaining of generalized nausea but is denying any vomiting or diarrhea. Patient is denying any fever. Patient is complaining of dysuria but is denying any vaginal discharge. Patient is also complaining of a generalized sore throat. Last menstrual period 08/14/2018 (RAMONASILVESTRE) - Related Data Allergies/Adverse Reactions: aspirin [Aspirin] Allergy (Severe, Verified 06/27/17 10:34) Edema ciprofloxacin [From Cipro] Allergy (Verified 06/27/17 10:34) Past Medical History - General Information source: Patient - Social History Smoking Status: Never Smoker Frequency of alcohol use: Occasional Drug Abuse: None Family History: Arthritis, CVA, DM, Hyperlipidemia, Hypertension. denies: CAD, COPD, Malignancy, Thyroid Disfunction Patient has suicidal ideation: No Patient has homicidal ideation: No - Past Medical History Cardiac Medical History: Reports: Hx Hypertension Denies: Hx Coronary Artery Disease, Hx Heart Attack Pulmonary Medical History: Reports: Hx Asthma, Hx Pneumonia - Apr 2010 Denies: Hx Bronchitis, Hx COPD Neurological Medical History: Denies: Hx Cerebrovascular Accident, Hx Seizures Renal/ Medical History: Denies: Hx Peritoneal Dialysis Musculoskeletal Medical History: Denies Hx Arthritis Past Surgical History: Reports: Hx Cholecystectomy, Hx Oral Surgery - Various dental surgeries. Denies: Hx Pacemaker - Immunizations Immunizations up to date: No Hx Diphtheria, Pertussis, Tetanus Vaccination: No <SILVESTRE GREENE - Last Filed: 08/26/18 08:14> Review of Systems - Review of Systems Constitutional: No symptoms reported. denies: Fever EENT: See HPI Cardiovascular: No symptoms reported Respiratory: No symptoms reported Gastrointestinal: See HPI Genitourinary: See HPI Female Genitourinary: See HPI Musculoskeletal: No symptoms reported Skin: No symptoms reported Hematologic/Lymphatic: No symptoms reported Neurological/Psychological: No symptoms reported <SILVESTRE GREENE - Last Filed: 08/26/18 08:14> Physical Exam <SILVESTRE GREENE - Last Filed: 08/26/18 08:14> - Vital signs Vitals: Temp Pulse Resp BP Pulse Ox 97.6 F 84 16 152/93 H 100 08/26/18 04:59 08/26/18 04:59 08/26/18 04:59 08/26/18 04:59 08/26/18 04:59 - Notes Notes: GENERAL: Alert, interacts well. No acute distress. HEAD: Normocephalic, atraumatic. EYES: Pupils equal, round, and reactive to light. Extraocular movements intact. ENT: Oral mucosa moist, tongue midline. Nares patent, TM's intact, nonerythematous, nonbulging bilaterally. Pharynx minorly erythematous no palatal petechiae noted NECK: Full range of motion. Supple. Trachea midline. No lymphadenopathy appreciated LUNGS: Clear to auscultation bilaterally, no wheezes, rales, or rhonchi. No respiratory distress. HEART: Regular rate and rhythm. No murmur ABDOMEN: Soft, morbidly obese, positive right lower quadrant and left lower quadrant abdominal pain noted. More so right lower quadrant than on the left lower quadrant. Non-distended. Bowel sounds present in all 4 quadrants. EXTREMITIES: Moves all 4 extremities spontaneously. No edema, normal radial and dorsalis pedis pulses bilaterally. No cyanosis. BACK: no cervical, thoracic, lumbar midline tenderness. No saddle anesthesia, normal distal neurovascular exam. No CVA tenderness noted bilaterally NEUROLOGICAL: Alert and oriented x3. Normal speech. cranial nerves II through XII grossly intact PSYCH: Normal affect, normal mood. SKIN: Warm, dry, normal turgor. No rashes or lesions noted. (TRACYMONSTERSILVESTRE) Course - Laboratory Result Diagrams: 08/26/18 06:52 08/26/18 06:52 <TRACYLORIE HOOKCHRISSY - Last Filed: 08/26/18 08:14> - Laboratory Result Diagrams: 08/26/18 06:52 08/26/18 06:52 <DAKSHA OTTO - Last Filed: 08/26/18 17:50> - Re-evaluation Re-evalutation: 08/26/18 06:39 Patient's urine does appear infected. Sent for culture. I have discussed with patient treatment modalities. Discussed use of antibiotics for urinary tract infection and chocking lower abdominal pain due to that urinary tract infection. I have also discussed the risks versus benefits of continued evaluation of her abdominal pain with CT imaging. Patient wishes for CT imaging at this time. Continue with treatment plan. 08/26/18 08:15 Nurse brings to my attention that the patient had an episode of emesis in CT. Patient states she continues to feel nauseated after Zofran administration. Patient was treated with Phenergan. Currently awaiting CT imaging results. Patient care and report transferred to Richard Lara PA-C for review of patient's CT imaging, and hopeful discharge. (SILVESTRE GREENE) 08/26/18 17:50 Late entry: CT was negative for any evidence of bowel obstruction, perforation, vascular pathology, did show a large stool burden. Patient symptoms most consistent with a urinary tract infection and she has been treated appropriately with Keflex and discharged home. Signs were stable at discharge. (DAKSHA OTTO) - Vital Signs Vital signs: Temp Pulse Resp BP Pulse Ox 98 F 70 18 133/69 H 100 08/26/18 10:37 08/26/18 10:37 08/26/18 10:37 08/26/18 10:37 08/26/18 10:37 - Laboratory Laboratory results interpreted by me: 08/26/18 08/26/18 05:47 06:52 WBC 13.0 H Hgb 11.5 L MCH 26.9 L RDW 14.9 H Absolute Neutrophils 10.1 H Urine Protein 100 H Urine Blood LARGE H Ur Leukocyte Esterase LARGE H Discharge <SILVESTRE GREENE - Last Filed: 08/26/18 08:14> <DAKSHA OTTO - Last Filed: 08/26/18 17:50> - Discharge Clinical Impression: Urinary tract infection Qualifiers: Urinary tract infection type: acute cystitis Hematuria presence: with hematuria Qualified Code(s): N30.01 - Acute cystitis with hematuria Condition: Good Disposition: HOME, SELF-CARE Additional Instructions: You were seen in the emergency department this morning for abdominal pain. CT scan did not show any concerning findings that would require surgery or hospital admission. The cause of your pain and discomfort is from a urinary tract infection. Your urine shows findings consistent with a urinary tract infection. Please take all the antibiotics as directed even if your symptoms have improved. Please follow-up with your primary care physician as needed. Return to emergency room if you develop fever >101F, persistent vomiting, become l ethargic, have severe pain in your sides, or any other symptoms that are concerning to you. Prescriptions: Cephalexin Monohydrate [Keflex 500 mg Capsule] 500 mg PO BID 7 Days capsule Referrals: MINDI CONTE PA-C [Primary Care Provider] - Follow up as needed
[2018-08-26 07:21] LABS: ABSOLUTE EOSINOPHILS # (AUTO) 0.2 10^3/uL (0.0-0.6); ABSOLUTE LYMPHOCYTES (AUTO) 1.9 10^3/uL (0.5-4.7); ABSOLUTE MONOCYTES (AUTO) 0.8 10^3/uL (0.1-1.4); ABSOLUTE NEUT (AUTO) 10.1 10^3/uL (1.7-8.2); BASOPHILS % (AUTO) 0.3 % (0-2); EOSINOPHILS % (AUTO) 1.4 % (0-6); HEMOGLOBIN 11.5 g/dL (12.0-15.5); LYMPHOCYTES % (AUTO) 14.4 % (13-45); MEAN CORPUSCULAR HEMOGLOBIN 26.9 pg (27.0-33.4); MEAN CORPUSCULAR HGB CONC 32.1 g/dL (32.0-36.0); MEAN CORPUSCULAR VOLUME 84 fl (80-97); PLATELET COUNT 263 10^3/uL (150-450); RED CELL DISTRIBUTION WIDTH 14.9 % (11.5-14.0); SEGMENTED NEUTROPHILS % (AUTO) 77.9 % (42-78); TOTAL CELLS COUNTED % (AUTO) 100 %
[2018-08-26] MEDS ORDERED: CEFTRIAXONE 1 GM/D5W RTU 1 GM/50 ML RTUPB IV ONE (07:30)
[2018-08-26 07:36] LABS: ALANINE AMINOTRANSFERASE 29 U/L (9-52); ALBUMIN 3.7 g/dL (3.5-5.0); ALKALINE PHOSPHATASE 68 U/L (38-126); ANION GAP 9 (5-19); ASPARTATE AMINO TRANSFERASE 22 U/L (14-36); BILIRUBIN,DIRECT 0.2 mg/dL (0.0-0.4); BILIRUBIN,TOTAL 0.5 mg/dL (0.2-1.3); BLOOD UREA NITROGEN 13 mg/dL (7-20); CALCIUM 8.9 mg/dL (8.4-10.2); CARBON DIOXIDE 27 mmol/L (22-30); CHLORIDE 103 mmol/L (98-107); GLUCOSE 83 mg/dL (75-110); POTASSIUM 4.1 mmol/L (3.6-5.0); SODIUM 139.4 mmol/L (137-145); TOTAL PROTEIN 6.8 g/dL (6.3-8.2)
[2018-08-26] MEDS ORDERED: PROMETHAZINE HCL INJ 25 MG/1 ML VIAL IV ONE (07:58)
--- NOTE | 2018-08-26 08:23 | RADIOLOGY REPORT (SQ) ---
EXAM DESCRIPTION: CT ABD/PELVIS WITH IV ONLY COMPLETED DATE/TIME: 08/26/2018 8:00 am REASON FOR STUDY: RLQ pain COMPARISON: None. TECHNIQUE: CT scan of the abdomen and pelvis performed using helical scanning technique with dynamic intravenous contrast injection. No oral contrast. Images reviewed with lung, soft tissue, and bone windows. Reconstructed coronal and sagittal MPR images reviewed. Delayed images for evaluation of the urinary system also acquired. All images stored on PACS. All CT scanners at this facility use dose modulation, iterative reconstruction, and/or weight based d osing when appropriate to reduce radiation dose to as low as reasonably achievable (ALARA). [facility]: Dose Right [facility]: CareDose [facility]: Dose Right [facility]: Teradose 4D [facility]: [place] CONTRAST TYPE AND DOSE: contrast/concentration: Isovue 350.00 mg/ml; Total Contrast Delivered: 100.0 ml; Total Saline Delivered: 72.0 ml RENAL FUNCTION: None required. The patient is less than 50 years old. RADIATION DOSE: CT Rad equipment meets quality standard of care and radiation dose reduction techniq ues were employed. CTDIvol: 21.1 - 29.6 mGy. DLP: 3137 mGy-cm.. LIMITATIONS: None. FINDINGS: LOWER CHEST: No significant findings. No nodules or infiltrates. LIVER: Normal size. No masses. No dilated ducts. SPLEEN: Normal size. No focal lesions. PANCREAS: No masses. No significant calcifications. No adjacent inflammation or peripancreatic fluid collections. Pancreatic duct not dilated. GALLBLADDER: Surgically absent. ADRENAL GLANDS: No significant masses or asymmetry. RIGHT KIDNEY AND URETER: No solid masses. No significant calcifications. No hydronephrosis or hyd roureter. LEFT KIDNEY AND URETER: No solid masses. No significant calcifications. No hydronephrosis or hydr oureter. AORTA AND VESSELS: No aneurysm. No dissection. Renal arteries, SMA, celiac without stenosis. RETROPERITONEUM: No retroperitoneal adenopathy, hemorrhage or masses. BOWEL AND PERITONEAL CAVITY: No masses or inflammatory changes. No free fluid or peritoneal masses. APPENDIX: Normal. PELVIS: No mass. Minimal physiologic pelvic free fluid. Normal bladder. ABDOMINAL WALL: No masses. No hernias. BONES: No significant or acute findings. OTHER: No other significant finding. IMPRESSION: NO SIGNIFICANT OR ACUTE FINDING IN THE ABDOMEN OR PELVIS ON CT SCAN WITH IV CONTRAST. TECHNICAL DOCUMENTATION: JOB ID: [id number] Quality ID # [id number]: Final reports with documentation of one or more dose reduction techniques (e.g., Au tomated exposure control, adjustment of the mA and/or kV according to patient size, use of iterative reconstruction technique) 2010 [employer]- All Rights Reserved Reading location - IP/workstation name: [email or web address]
[2018-08-26 10:38] VITALS: BP 133/69
== END 2018-08-26 10:41 | disposition home or self-care (01) ==
LOC: ER 04:58
DX: N30.01 Acute cystitis with hematuria (principal); R10.31 Right lower quadrant pain; R10.32 Left lower quadrant pain; R11.2 Nausea with vomiting, unspecified; R30.0 Dysuria; J02.9 Acute pharyngitis, unspecified; I10 Essential (primary) hypertension; J45.909 Unspecified asthma, uncomplicated; Z88.6 Allergy status to analgesic agent; Z88.1 Allergy status to other antibiotic agents
CPT/HCPCS: 99283; 96375; 96365; 36415; 87070; 87086; 87880; 85025; 81025; 87088; 80053; 81001; 87186; 74177; J3010; J2550; J2405; J0696

== ENCOUNTER 2018-11-06 09:15 | Emergency (ER) | payer OTHER ==
[2018-11-06] MEDS ORDERED: OXYCODONE-ACETAMINOPHEN 5-325 MG TABLET PO ONE (11:04)
[2018-11-06] MEDS ORDERED: LIDOCAINE 1.5% INJ-MPF (15 MG/ML) 20 ML AMPUL INJ ONE (11:12)
--- NOTE | 2018-11-06 12:02 | ER Document Report ---
HPI - HPI Patient complains to provider of: wound re-check Time Seen by Provider: 11/06/18 11:00 Pain Level: 4 Context: Patient is an otherwise healthy 33-year-old female presents to the emergency department for her packing to be removed. Patient presented to this facility on 11/03/2018 for an abscess noted to her left upper back. That abscess was incised and drained with packing placed. Patient states she is been taking antibiotics as prescribed, Keflex, Bactrim. Patient states she was not given any pain medication, is denying taking any generalized Tylenol or Motrin for pain. Patient's denying any history of MRSA infections in the past. - CONSTITUTIONAL Constitutional: DENIES: Fever, Chills - NEURO Neurology: DENIES: Headache - REPRODUCTIVE Reproductive: DENIES: : Past Medical History - General Information source: Patient - Social History Smoking Status: Unknown if Ever Smoked Family History: Arthritis, CVA, DM, Hyperlipidemia, Hypertension. denies: CAD, COPD, Malignancy, Thyroid Disfunction Patient has suicidal ideation: No Patient has homicidal ideation: No - Past Medical History Cardiac Medical History: Reports: Hx Hypertension Denies: Hx Coronary Artery Disease, Hx Heart Attack Pulmonary Medical History: Reports: Hx Asthma, Hx Pneumonia - Apr 2010 Denies: Hx Bronchitis, Hx COPD Neurological Medical History: Denies: Hx Cerebrovascular Accident, Hx Seizures Renal/ Medical History: Denies: Hx Peritoneal Dialysis Musculoskeletal Medical History: Denies Hx Arthritis Past Surgical History: Reports: Hx Cholecystectomy, Hx Oral Surgery - Various dental surgeries. Denies: Hx Pacemaker - Immunizations Immunizations up to date: No Hx Diphtheria, Pertussis, Tetanus Vaccination: No Vertical Provider Document - CONSTITUTIONAL Agree With Documented VS: Yes Notes: GENERAL: Alert, interacts well. No acute distress. HEAD: Normocephalic, atraumatic. EYES: Pupils equal, round, and reactive to light. Extraocular movements intact. ENT: Oral mucosa moist, tongue midline. NECK: Full range of motion. Supple. Trachea midline. LUNGS: Clear to auscultation bilaterally, no wheezes, rales, or rhonchi. No respiratory distress. HEART: Regular rate and rhythm. No murmur ABDOMEN: Soft, non-tender. Non-distended. Bowel sounds present in all 4 quadrants. EXTREMITIES: Moves all 4 extremities spontaneously. No edema, normal radial and dorsalis pedis pulses bilaterally. No cyanosis. BACK: no cervical, thoracic, lumbar midline tenderness. No saddle anesthesia, normal distal neurovascular exam. NEUROLOGICAL: Alert and oriented x3. Normal speech. cranial nerves II through XII grossly intact PSYCH: Normal affect, normal mood. SKIN: Warm, dry, normal turgor. Area of erythema noted left upper back with a approximately 1 cm opening noted with continued copious purulent drainage. - INFECTION CONTROL TRAVEL OUTSIDE OF THE [place] IN LAST 30 DAYS: No Course - Re-evaluation Re-evalutation: 11/06/18 11:58 Patient's family member in the room states "oh that looks a lot better." Family member states the redness has decreased in significance since initial visit. Patient was in significant pain upon my initial evaluation of the wound. Oral medications given. Wounds was then anesthetized with lidocaine as packing was not easily found. Easy exploration of the wounds showed packing and broke up more loculations, copious amounts of purulent drainage noted. Patient tolerated well. Discussed with patient her cultures grew back MRSA. Discussed Bactrim is the appropriate treatment. Discussed continued use of Keflex and Bactrim. At this time will discharge with return precautions and follow-up recommendations. Verbal discharge instructions given a the bedside and opportunity for questions given. Medication warnings reviewed. Patient is in agreement with this plan and has verbalized understanding of return precautions and the need for primary care follow-up in the next 24-72 hours. This medical record was dictated with voice recognizing software. There may be grammatical, syntax errors that are unintended. - Vital Signs Vital signs: Temp Pulse Resp BP Pulse Ox 97.9 F 82 16 117/54 L 98 11/06/18 09:30 11/06/18 09:30 11/06/18 09:30 11/06/18 09:30 11/06/18 09:30 Discharge - Discharge Clinical Impression: Encounter for wound re-check, MRSA cellulitis Condition: Stable Disposition: HOME, SELF-CARE Instructions: MRSA Cellulitis ([facility]), Abscess ([facility]), Cellulitis ([facility]), Oral Narcotic Medication ([facility]) Additional Instructions: As we discussed you have been seen and treated in the emergency department for removal of your packing. Please make sure you continue to take both antibiotics as prescribed. Please also make sure you take [id number] Motrin for generalized pain. Please make sure you only take narcotic medication for breakthrough pain. Please follow-up with your primary care provider in the next 24 to 48 hours. Please return to the emergency room for any other concerns. Prescriptions: Hydrocodone/Acetaminophen [[place] 5-325 mg Tablet] 1 tab PO Q4 PRN #15 tablet PRN Reason: Forms: Return to Work Referrals: MINDI CONTE PA-C [Primary Care Provider] - Follow up as needed
[2018-11-06 12:30] VITALS: BP 127/73
== END 2018-11-06 12:30 | disposition home or self-care (01) ==
LOC: ER 09:15
DX: Z48.01 Encounter for change or removal of surgical wound dressing (principal); L03.90 Cellulitis, unspecified; B95.62 Methicillin resistant Staphylococcus aureus infection as the cause of diseases classified elsewhere; L02.212 Cutaneous abscess of back [any part, except buttock and flank]; I10 Essential (primary) hypertension; J45.909 Unspecified asthma, uncomplicated
CPT/HCPCS: 99282; J3490

== ENCOUNTER 2019-03-05 09:23 | Emergency (ER) | payer OTHER ==
--- NOTE | 2019-03-05 10:51 | ER Document Report ---
ED General - General Chief Complaint: Asthma Exacerbation Stated Complaint: ASTHMA ISSUES Time Seen by Provider: 03/05/19 10:24 Primary Care Provider: MINDI CONTE PA-C [Primary Care Provider] - Follow up as needed TRAVEL OUTSIDE OF THE [place] IN LAST 30 DAYS: No - Related Data Allergies/Adverse Reactions: aspirin [Aspirin] Allergy (Severe, Verified 06/27/17 10:34) Edema ciprofloxacin [From Cipro] Allergy (Verified 06/27/17 10:34) Home Medications: albuterol Past Medical History - Social History Smoking Status: Never Smoker Frequency of alcohol use: None Drug Abuse: None Family History: Arthritis, CVA, DM, Hyperlipidemia, Hypertension. denies: CAD, COPD, Malignancy, Thyroid Disfunction Patient has suicidal ideation: No Patient has homicidal ideation: No - Past Medical History Cardiac Medical History: Reports: Hx Hypertension Denies: Hx Coronary Artery Disease, Hx Heart Attack Pulmonary Medical History: Reports: Hx Asthma, Hx Pneumonia - Apr 2010 Denies: Hx Bronchitis, Hx COPD Neurological Medical History: Denies: Hx Cerebrovascular Accident, Hx Seizures Renal/ Medical History: Denies: Hx Peritoneal Dialysis Musculoskeletal Medical History: Denies Hx Arthritis Past Surgical History: Reports: Hx Cholecystectomy, Hx Oral Surgery - Various dental surgeries. Denies: Hx Pacemaker - Immunizations Immunizations up to date: No Hx Diphtheria, Pertussis, Tetanus Vaccination: No Physical Exam - Notes Notes: Patient presents with some ongoing shortness of breath is going on for the past week. This is able to cough this been nonproductive and some URI symptoms. She reports she had fevers for the past 2 days up to 101. Is also had some chest pain that started yesterday. Is in the substernal area going down across the right costal margin. Pain is been constant. Increases with breathing and coughing. Has some nausea with this but no vomiting or abdominal pain no urinary symptoms diarrhea or rash. Using a machine about 3 times a day with only minimal relief. Also reports some intermittent blurry vision the left eye drainage. Right eye is normal Past medical history is negative for hypertension diabetes or coronary artery disease. social history does not smoke drink at all. Last missed period was February 08. She status post BTL. Family history is noncontributory medications she denies being on control pills Review of systems pertinent positives and negatives as in HPI otherwise all the systems were reviewed and acutely negative PHYSICAL EXAMINATION: Vital signs were noted GENERAL: Well-appearing, well-nourished and in no acute distress. HEAD: Atraumatic, normocephalic. EYES: Pupils equal round and reactive to light, extraocular movements intact, sclera anicteric, conjunctiva are normal. ENT: nares patent, and congested oropharynx clear without exudates. Tonsils are nonenlarged. The uvula is midline there is no trismus is lane secretions well TMs are clear she is. Face is nontender moist mucous membranes. NECK: Normal range of motion, supple without lymphadenopathy LUNGS: Breath sounds clear to auscultation bilaterally and equal. There is an occasional wheeze. She does have some tenderness along the parasternal border that reproduces her pain. There is no crepitus HEART: Regular rate and rhythm without murmurs ABDOMEN: Soft, nontender, normoactive bowel sounds. EXTREMITIES: No deformity no pitting or edema. No cyanosis. No palpable cords no calf or thigh tenderness NEUROLOGICAL: Cranial nerves symmetrical smile facies and shoulder shrug. Strength is symmetric throughout. Sensation intact to light touch. Negative Romberg and normal gait PSYCH: Normal mood, normal affect. SKIN: Warm, Dry, normal turgor, no rashes or lesions noted. Back is nontender in the midline Course - Re-evaluation Re-evalutation: 03/05/19 13:13 ED patient is remained stable she is given prednisone and a DuoNeb repeat exam she says she is feeling better she seems to move more air and I do not appreciate any wheezes. Visual acuity was 20/50 on the right 20/70 on the left and 20/50 bilaterally Medical decision-making patient presents with exacerbation of her asthma. She is known to have a pneumonia. Suspect the fever is more related to a viral syndrome. O2 sats are good she looks chronically to be discharged home. We will go ahead and add Atrovent to use with her albuterol prescription for pre dnisone and advised only to follow-up with an eye doctor to recheck her vision with the current readings she will probably need glasses the pain appears to be related to her asthma. I see no life-threatening cause of her chest pain also advised only to have her blood pressure rechecked - Diagnostic Test Radiology reviewed: Reports reviewed Discharge - Discharge Clinical Impression: Elevated blood pressure reading Asthmatic bronchitis with acute exacerbation Qualifiers: Asthma severity: mild Asthma persistence: intermittent Qualified Code(s): J45.21 - Mild intermittent asthma with (acute) exacerbation Disposition: HOME, SELF-CARE Instructions: Asthma ([facility]) Additional Instructions: Use your aerosol machine 4 times a day-be sure to use the albuterol and the Atrovent which we will give you a prescription for Please review the discharge instructions Follow-up with your family doctor in 2 3 days if not improved otherwise in 2 weeks. Return to the ED if you get worse Your blood pressure was elevated today needs to be rechecked again in 1 to 2 weeks. If untreated high blood pressure can cause heart attack and stroke You need to have your eyes checked again in the next 3 to 5 days to determine if you need glasses Prescriptions: Ipratropium [place] [Atrovent 0.02% Neb 0.5 Mg/2.5 Ml Vial.Neb] 0.5 mg IH QID #1 vial.neb Prednisone [Deltasone 20 mg Tablet] 60 mg PO DAILY #15 tablet Forms: Elevated Blood Pressure Referrals: MINDI CONTE PA-C [Primary Care Provider] - Follow up as needed
[2019-03-05] MEDS ORDERED: PREDNISONE 20 MG TABLET PO ONE (10:59)
[2019-03-05] MEDS ORDERED: IPRATROPIUM/ALBUTEROL 0.5-2.5 MG/3 ML AMPUL NEB ONE (10:59)
--- NOTE | 2019-03-05 12:01 | RADIOLOGY REPORT (SQ) ---
EXAM DESCRIPTION: CHEST 2 VIEWS COMPLETED DATE/TIME: 03/05/2019 11:23 am REASON FOR STUDY: Short of breath COMPARISON: 09/27/2017 EXAM PARAMETERS: NUMBER OF VIEWS: two views TECHNIQUE: Digital Frontal and Lateral radiographic views of the chest acquired. RADIATION DOSE: NA LIMITATIONS: none FINDINGS: LUNGS AND PLEURA: Resolution of previously seen left lower lobe pneumonia. No pleural eff usion or pneumothorax. MEDIASTINUM AND HILAR STRUCTURES: No masses or contour abnormalities. HEART AND VASCULAR STRUCTURES: Heart normal size. No evidence for failure. BONES: No acute findings. HARDWARE: None in the chest. OTHER: Bilateral nipple piercings noted. IMPRESSION: Resolution of previously seen left lower lobe pneumonia. No evidence of new acute cardi opulmonary process. TECHNICAL DOCUMENTATION: JOB ID: [id number] [employer]- All Rights Reserved Reading location - IP/workstation name: [email or web address]
[2019-03-05 14:02] VITALS: BP 149/94
== END 2019-03-05 14:15 | disposition home or self-care (01) ==
LOC: ER 09:23
DX: J45.21 Mild intermittent asthma with (acute) exacerbation (principal); Z79.899 Other long term (current) drug therapy; R03.0 Elevated blood-pressure reading, without diagnosis of hypertension; R06.02 Shortness of breath; R07.2 Precordial pain; R50.9 Fever, unspecified; R11.0 Nausea; H53.8 Other visual disturbances; Z88.8 Allergy status to other drugs, medicaments and biological substances; Z88.1 Allergy status to other antibiotic agents
CPT/HCPCS: 71046; J7512; J7620; 94640; 99284

== ENCOUNTER 2019-03-08 11:52 | Emergency (ER) | payer OTHER ==
[2019-03-08] MEDS ORDERED: DEXAMETHASONE SOD PHOS INJ 10 MG/1 ML VIAL IV ONE (16:01)
--- NOTE | 2019-03-08 16:03 | ER Document Report ---
ED General - General Chief Complaint: Leg Pain Stated Complaint: LEG NUMBNESS Time Seen by Provider: 03/08/19 15:27 Primary Care Provider: MINDI CONTE PA-C [Primary Care Provider] - Follow up as needed TRAVEL OUTSIDE OF THE [place] IN LAST 30 DAYS: No - HPI Notes: Patient is a 33-year-old female presents emergency department for evaluation of bilateral leg numbness and weakness. 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 She turned around, had a sudden pain feeling that went from her back to bilateral legs. She states that her legs felt "rubbery." She states that she felt numbness and tingling. She did not fall to the ground, but was afraid to walk as she thought she would not be able to. She was lowered to a sitting position, and needed assistance with standing upon EMS arrival. She states she still feels weak, has numbness and tingling. She has a history of chronic back issues, but she states that this is more intense. She points to her mid lumbar region. - Related Data Allergies/Adverse Reactions: aspirin [Aspirin] Allergy (Severe, Verified 06/27/17 10:34) Edema ciprofloxacin [From Cipro] Allergy (Verified 06/27/17 10:34) Home Medications: Prednisone, albuterol Past Medical History - General Information source: Patient - Social History Smoking Status: Never Smoker Family History: Arthritis, CVA, DM, Hyperlipidemia, Hypertension. denies: CAD, COPD, Malignancy, Thyroid Disfunction Patient has suicidal ideation: No Patient has homicidal ideation: No - Past Medical History Cardiac Medical History: Reports: Hx Hypertension Denies: Hx Coronary Artery Disease, Hx Heart Attack Pulmonary Medical History: Reports: Hx Asthma, Hx Pneumonia - Apr 2010 Denies: Hx Bronchitis, Hx COPD Neurological Medical History: Denies: Hx Cerebrovascular Accident, Hx Seizures Renal/ Medical History: Denies: Hx Peritoneal Dialysis Musculoskeletal Medical History: Denies Hx Arthritis Past Surgical History: Reports: Hx Cholecystectomy, Hx Oral Surgery - Various dental surgeries. Denies: Hx Pacemaker - Immunizations Immunizations up to date: No Hx Diphtheria, Pertussis, Tetanus Vaccination: No Review of Systems - Review of Systems Constitutional: No symptoms reported EENT: No symptoms reported Cardiovascular: No symptoms reported Respiratory: See HPI Gastrointestinal: No symptoms reported Genitourinary: No symptoms reported Musculoskeletal: See HPI Skin: No symptoms reported Neurological/Psychological: See HPI Physical Exam - Vital signs Vitals: Resp 16 03/08/19 12:02 - Notes Notes: This is an obese 33-year-old female who appears her stated age, no acute distress. Vital signs reviewed, please refer to chart. Head is normocephalic, atraumatic. Pupils equal round, reactive to light. Neck is supple without meningismus. Heart is regular rate and rhythm. Lungs are clear to auscultation bilaterally. Abdomen is soft, nontender, normoactive bowel sounds throughout. Extremities without cyanosis, clubbing. Posterior calves are nontender. Peripheral pulses are equal. Skin is warm and dry. Examination of the spine yields midline tenderness at approximately L3-L4 without associated step-off. She has paraspinal musculature tenderness bilaterally in the corresponding a reas. Strength testing revealed minimally diminished strength in dorsiflexion, but I suspect this is somewhat secondary to pain. Reflexes were difficult secondary to patient's body habitus. She did have 2+ Achilles, 1+ patellar reflexes. Patient complains of diminished sensation to the inner thighs bilaterally regarding light touch. Course - Re-evaluation Re-evalutation: 03/08/19 16:08 Patient presents to the emergency department for evaluation. I am concerned about possible electrolyte abnormality or a spinal lesion that could be causing this patient's symptoms. Laboratory investigations were obtained, MRI ordered, steroids given. We will continue to monitor. 03/08/19 20:03 Patient's laboratory investigations were unremarkable. Her MRI revealed absolutely no signs of significant disc disease or foraminal narrowing. At this point I do not have a clear etiology for her symptoms. We will have her follow- up with primary care. I will send her home with muscle relaxers for her back pain. She is follow-up with primary care, return to the ED with worsening. - Vital Signs Vital signs: Temp Pulse Resp BP Pulse Ox 16 03/08/19 12:02 - Laboratory Result Diagrams: 03/08/19 15:59 03/08/19 16:40 Laboratory results interpreted by me: 03/08/19 03/08/19 03/08/19 12:51 15:59 16:40 WBC 12.4 H RDW 15.1 H Absolute Neuts (auto) 8.3 H Sodium 136.7 L Glucose 73 L Urine Blood SMALL H Ur Leukocyte Esterase SMALL H - Diagnostic Test Radiology reviewed: Reports reviewed Radiology results interpreted by me: 03/08/19 20:04 Lumbar Spine MRI 03/08/19 16:00 IMPRESSION: No disc protrusion or nerve root compression. Discharge - Discharge Clinical Impression: Numbness and tingling of both legs Low back pain Qualifiers: Chronicity: chronic Back pain laterality: bilateral Sciatica presence: without sciatica Qualified Code(s): M54.5 - Low back pain; G89.29 - Other chronic pain Condition: Stable Disposition: HOME, SELF-CARE Instructions: Numbness or Paresthesia ([facility]), Low Back Pain ([facility]) Additional Instructions: No clear cause was found today for your symptoms. These take muscle relaxers as needed for back pain. Follow-up with primary care next week. If you develop incontinence of bowel or bladder, increased weakness, numbness, or any other new or concerning symptoms, return immediately to the emergency department for re evaluation. Referrals: MINDI CONTE PA-C [Primary Care Provider] - Follow up as needed
[2019-03-08 16:53] LABS: ABSOLUTE BASOPHILS # (AUTO) 0.2 10^3/uL (0.0-0.2); ABSOLUTE EOSINOPHILS # (AUTO) 0.3 10^3/uL (0.0-0.6); ABSOLUTE LYMPHOCYTES (AUTO) 3.1 10^3/uL (0.5-4.7); ABSOLUTE MONOCYTES (AUTO) 0.5 10^3/uL (0.1-1.4); ABSOLUTE NEUT (AUTO) 8.3 10^3/uL (1.7-8.2); BASOPHILS % (AUTO) 1.3 % (0-2); EOSINOPHILS % (AUTO) 2.1 % (0-6); HEMATOCRIT 36.7 % (36.0-47.0); MEAN CORPUSCULAR HEMOGLOBIN 27.7 pg (27.0-33.4); MEAN CORPUSCULAR HGB CONC 32.7 g/dL (32.0-36.0); MEAN CORPUSCULAR VOLUME 85 fl (80-97); MONOCYTES % (AUTO) 4.4 % (3-13); PLATELET COUNT 281 10^3/uL (150-450); RED BLOOD COUNT 4.35 10^6/uL (3.72-5.28); RED CELL DISTRIBUTION WIDTH 15.1 % (11.5-14.0); SEGMENTED NEUTROPHILS % (AUTO) 67.2 % (42-78); TOTAL CELLS COUNTED % (AUTO) 100 %; WHITE BLOOD COUNT 12.4 10^3/uL (4.0-10.5)
[2019-03-08 17:10] LABS: ALBUMIN 4.1 g/dL (3.5-5.0); ALKALINE PHOSPHATASE 73 U/L (38-126); ANION GAP 7 (5-19); ASPARTATE AMINO TRANSFERASE 30 U/L (14-36); BILIRUBIN,DIRECT 0.1 mg/dL (0.0-0.4); BILIRUBIN,TOTAL 0.4 mg/dL (0.2-1.3); BLOOD UREA NITROGEN 13 mg/dL (7-20); CALCIUM 9.1 mg/dL (8.4-10.2); CARBON DIOXIDE 29 mmol/L (22-30); CHLORIDE 101 mmol/L (98-107); GLUCOSE 73 mg/dL (75-110); POTASSIUM 4.3 mmol/L (3.6-5.0); TOTAL PROTEIN 7.8 g/dL (6.3-8.2)
[2019-03-08 18:04] LABS: APPEARANCE,URINE TURBID; BILIRUBIN,URINE NEGATIVE (NEGATIVE); GLUCOSE, URINE NEGATIVE (NEGATIVE); KETONES,URINE NEGATIVE (NEGATIVE); LEUKOCYTE ESTERASE,URINE SMALL (NEGATIVE); NITRITE,URINE NEGATIVE (NEGATIVE); PROTEIN,URINE NEGATIVE (NEGATIVE); URINE SPECIFIC GRAVITY 1.025; UROBILINOGEN,URINE NEGATIVE mg/dL (<2.0)
[2019-03-08 18:09] LABS: COLOR,URINE DARK YELLOW
--- NOTE | 2019-03-08 19:50 | RADIOLOGY REPORT (SQ) ---
EXAM DESCRIPTION: MRI LUMBAR SPINE WITHOUT COMPLETED DATE/TIME: 03/08/2019 7:22 pm REASON FOR STUDY: back pain, leg weakness COMPARISON: None. TECHNIQUE: Sagittal and Axial imaging includes T1, T2, STIR and gradient echo sequences. Coronal T2/ HASTE imaging. LIMITATIONS: None. FINDINGS: VISUALIZED UPPER ABDOMEN: Limited evaluation. No acute or suspicious findings suggested. SEGMENTATION: No transitional anatomy. The lowest well-developed disc space is labeled L5-S1. ALIGNMENT: Minimal levoscoliosis. VERTEBRAE: Intact. BONE MARROW: Few scattered small hemangiomas. No marrow replacement or reactive changes. DISC SIGNAL: Minimal disc desiccation at the L5-S1 level. No significant loss of height. POSTERIOR ELEMENTS: Generally intact. No pars defect evident. HARDWARE: None in the spine. CORD AND CONUS: Normal in size and signal intensity. Conus at the appropriate level. SOFT TISSUES: No aortic aneurysm seen. No bulky retroperitoneal adenopathy or mass. No paraspinal mas s or fluid. L1-L2: No significant spinal stenosis or exit foraminal stenosis. L2-L3: No significant spinal stenosis or exit foraminal stenosis. L3-L4: No significant spinal stenosis or exit foraminal stenosis. L4-L5: No significant spinal stenosis or exit foraminal stenosis. L5-S1: No significant spinal stenosis or exit foraminal stenosis. LOWER THORACIC: Incompletely imaged. No stenosis seen. SACRUM: Visualized upper sacrum intact. OTHER: No other significant findings. IMPRESSION: No disc protrusion or nerve root compression. TECHNICAL DOCUMENTATION: JOB ID: [id number] 2010 [employer]- All Rights Reserved Reading location - IP/workstation name: [email or web address]
--- NOTE | 2019-03-08 20:14 | EKG REPORT ---
SEVERITY:- BORDERLINE ECG - SINUS RHYTHM BORDERLINE T WAVE ABNORMALITIES : Confirmed by: Ladonna Lilly MD 08-Mar-2019 20:13:43
[2019-03-08 20:32] VITALS: BP 147/74
== END 2019-03-08 20:32 | disposition home or self-care (01) ==
LOC: ER 11:52
DX: R20.0 Anesthesia of skin (principal); R20.2 Paresthesia of skin; M54.5 Low back pain; G89.29 Other chronic pain; R53.1 Weakness; E66.9 Obesity, unspecified; I10 Essential (primary) hypertension; J45.909 Unspecified asthma, uncomplicated; Z79.899 Other long term (current) drug therapy; Z79.52 Long term (current) use of systemic steroids; Z88.8 Allergy status to other drugs, medicaments and biological substances; Z88.1 Allergy status to other antibiotic agents
CPT/HCPCS: 93005; 36415; 84703; 85025; 80053; 81001; 72148; 93010; J1100

== ENCOUNTER 2019-03-09 12:41 | Inpatient (IN) | payer OTHER ==
[2019-03-09 13:19] LABS: ABSOLUTE BASOPHILS # (AUTO) 0.1 10^3/uL (0.0-0.2); ABSOLUTE EOSINOPHILS # (AUTO) 0.1 10^3/uL (0.0-0.6); ABSOLUTE LYMPHOCYTES (AUTO) 2.6 10^3/uL (0.5-4.7); ABSOLUTE MONOCYTES (AUTO) 0.7 10^3/uL (0.1-1.4); ABSOLUTE NEUT (AUTO) 12.3 10^3/uL (1.7-8.2); BASOPHILS % (AUTO) 0.8 % (0-2); EOSINOPHILS % (AUTO) 0.5 % (0-6); HEMATOCRIT 38.7 % (36.0-47.0); HEMOGLOBIN 12.6 g/dL (12.0-15.5); LYMPHOCYTES % (AUTO) 16.6 % (13-45); MEAN CORPUSCULAR HEMOGLOBIN 27.6 pg (27.0-33.4); MEAN CORPUSCULAR HGB CONC 32.7 g/dL (32.0-36.0); MEAN CORPUSCULAR VOLUME 85 fl (80-97); MONOCYTES % (AUTO) 4.1 % (3-13); PLATELET COUNT 305 10^3/uL (150-450); RED BLOOD COUNT 4.57 10^6/uL (3.72-5.28); TOTAL CELLS COUNTED % (AUTO) 100 %; WHITE BLOOD COUNT 15.7 10^3/uL (4.0-10.5)
[2019-03-09 13:23] LABS: INTERNATIONAL RATION (INR) 0.94
[2019-03-09 13:24] LABS: PARTIAL THROMBOPLASTIN TIME 26.1 SEC (23.5-35.8)
[2019-03-09 13:27] LABS: PROTHROMBIN TIME 12.6 SEC (11.4-15.4)
[2019-03-09 13:42] LABS: ALKALINE PHOSPHATASE 78 U/L (38-126); ANION GAP 9 (5-19); ASPARTATE AMINO TRANSFERASE 25 U/L (14-36); BILIRUBIN,DIRECT 0.1 mg/dL (0.0-0.4); BILIRUBIN,TOTAL 0.4 mg/dL (0.2-1.3); BLOOD UREA NITROGEN 12 mg/dL (7-20); CALCIUM 9.6 mg/dL (8.4-10.2); CARBON DIOXIDE 27 mmol/L (22-30); CHLORIDE 104 mmol/L (98-107); CREATINE KINASE 134 U/L (30-135); GLUCOSE 78 mg/dL (75-110); POTASSIUM 4.2 mmol/L (3.6-5.0); TOTAL PROTEIN 7.9 g/dL (6.3-8.2)
--- NOTE | 2019-03-09 13:49 | ER Document Report ---
ED General - General Chief Complaint: S/S of Possible Stroke Stated Complaint: POSSIBLE STROKE Time Seen by Provider: 03/09/19 13:03 Primary Care Provider: MINDI CONTE PA-C [Primary Care Provider] - Follow up as needed Mode of Arrival: Wheelchair Information source: Patient, Parent TRAVEL OUTSIDE OF THE [place] IN LAST 30 DAYS: No - HPI Notes: 33-year-old female being seen for stroke evaluation. Patient has a long- standing history of asthma and was seen here 2 days ago for mild asthma exacerbation given her metered-dose inhaler. While she was at work yesterday around 11 AM she suddenly developed some clumsiness muscular weakness and sensory changes in the right lower extremity. She presented to the emergency department was evaluated by another provider. They were concerned about the possibility of pathology in lumbar spine and the patient had an MRI of the lumbar spine which was read as normal. Patient was seen by primary care provider today with persistence of her complaints. They sent her for an outpatient brain MRI which has been read as positive for an ischemic stroke in the left WILTON distribution. She was sent directly to the emergency department. She complains of continued motor impairment right lower extremity and decreased sensation of right lower extremity. She has some dull headache. She denies nausea vomiting visual changes speech problems or swallowing problems. The patient's mother had a stroke at age 27 and was left with a permanent right hemiparesis. The patient is a non-smoker. She has no known history of coagulation disorder diabetes mellitus hyperlipidemia or hypertension. She denies any use of illicit drugs. The patient says she uses a metered-dose inhaler as needed. She is on no other medications. She reports allergies to aspirin and ciprofloxacin. - Related Data Allergies/Adverse Reactions: aspirin [Aspirin] Allergy (Severe, Verified 06/27/17 10:34) Edema ciprofloxacin [From Cipro] Allergy (Verified 06/27/17 10:34) Past Medical History - General Information source: Patient, Parent - Social History Smoking Status: Never Smoker Family History: Arthritis, CVA, DM, Hyperlipidemia, Hypertension. denies: CAD, COPD, Malignancy, Thyroid Disfunction - Past Medical History Cardiac Medical History: Reports: Hx Hypertension Denies: Hx Coronary Artery Disease, Hx Heart Attack Pulmonary Medical History: Reports: Hx Asthma, Hx Pneumonia - Apr 2010 Denies: Hx Bronchitis, Hx COPD Neurological Medical History: Denies: Hx Cerebrovascular Accident, Hx Seizures Renal/ Medical History: Denies: Hx Peritoneal Dialysis Musculoskeletal Medical History: Denies Hx Arthritis Past Surgical History: Reports: Hx Cholecystectomy, Hx Oral Surgery - Various dental surgeries. Denies: Hx Pacemaker - Immunizations Immunizations up to date: No Hx Diphtheria, Pertussis, Tetanus Vaccination: No Review of Systems - Review of Systems Notes: Constitutional: Negative for fever. HENT: Negative for sore throat. Eyes: Negative for visual changes. Cardiovascular: Negative for chest pain. Respiratory: Negative for shortness of breath. Gastrointestinal: Negative for abdominal pain, vomiting or diarrhea. Genitourinary: Negative for dysuria. Musculoskeletal: Negative for back pain. Skin: Negative for rash. Neurological: As per HPI. 10 point ROS negative except as marked above and in HPI. Physical Exam - Vital signs Notes: GENERAL: Well-developed well-nourished appearing in no acute distress. SKIN: Good turgor no rashes. HEAD: Normocephalic atraumatic. EYES: PERRLA. Conjunctivae and sclerae clear. EARS: CANALS AND TMS CLEAR. NOSE: CLEAR. MOUTH: Moist mucosa. Good dentition. No stridor or edema. No drooling. NECK: Supple. No masses or thyromegaly. No adenopathy. Carotids 2+ without bruits. No JVD. BACK: Symmetrical without tenderness. CHEST: Respirations unlabored. Breath sounds clear and symmetrical. HEART: Regular rhythm. No murmur gallop or rub. ABDOMEN: Soft nontender without masses, organomegaly or rebound. Bowel sounds normally active. No bruits. GENITALIA: Deferred. EXTREMITIES: No edema. No calf tenderness. Cap refill less than 1.5 seconds. Dorsalis pedis and posterior tibial pulses 3+ and symmetrical. NEUROLOGICAL: GCS 15. Alert and oriented x3. Patient is unable to stand with out assistance.. Fluent speech. Cranial nerves II through XII intact. Patient has profound muscular weakness of right lower extremity and decreased sensation over the entire right lower extremity. She has minimal drift on muscular testing of left lower extremity. Her sensation on the left lower extremity is normal. Normal tone. Psychiatric: Anxious. Course - Re-evaluation Re-evalutation: 03/09/19 14:00 Findings are consistent with a stroke which probably occurred greater than 24 hours ago. She is clearly outside the window for administration of IV TPA or other acute intervention. We have no neurology coverage at this hospital and patient will require transfer. Family has requested that we arrange referral to [facility] in [facility]. 03/09/19 14:39 Case was discussed with Dr. Sommer the neurologist on-call for the stroke service at [facility]. He says he has no specific intervention to offer and will be happy to further consult on the case as necessary but recommends admission by the local hospitalist and further studies to include CTA of head and neck as well as an echo with bubble study and administration of aspirin. Patient will be admitted at this time by Dr.'s Ryan 03/09/19 14:49 - Laboratory Result Diagrams: 03/09/19 13:00 03/09/19 13:00 Laboratory results interpreted by me: 03/09/19 13:00 WBC 15.7 H RDW 15.0 H Absolute Neuts (auto) 12.3 H - Diagnostic Test Radiology reviewed: Reports reviewed - Radiologist reports MRI scan shows changes consistent with acute infarction and left WILTON distribution. Discharge - Discharge Clinical Impression: Acute CVA (cerebrovascular accident) Disposition: ADMITTED INPATIENT Admitting Provider: Connor (Hospitalist) Unit Admitted: IMCU Referrals: MINDI CONTE PA-C [Primary Care Provider] - Follow up as needed
[2019-03-09 13:56] LABS: CREATINE KINASE MB 1.34 ng/mL (<4.55); TROPONIN I < 0.012 ng/mL
--- NOTE | 2019-03-09 14:35 | RADIOLOGY REPORT (SQ) ---
EXAM DESCRIPTION: CHEST SINGLE VIEW COMPLETED DATE/TIME: 03/09/2019 2:19 pm REASON FOR STUDY: stroke sxs COMPARISON: 03/05/2019. EXAM PARAMETERS: NUMBER OF VIEWS: One view. TECHNIQUE: Single frontal radiographic view of the chest acquired. RADIATION DOSE: NA LIMITATIONS: None. FINDINGS: LUNGS AND PLEURA: No opacities, masses or pneumothorax. No pleural effusion. MEDIASTINUM AND HILAR STRUCTURES: No masses. Contour normal. HEART AND VASCULAR STRUCTURES: Heart normal in size. Normal vasculature. BONES: No acute findings. HARDWARE: None in the chest. OTHER: No other significant finding. IMPRESSION: NO ACUTE RADIOGRAPHIC FINDING IN THE CHEST. TECHNICAL DOCUMENTATION: JOB ID: [id number] [employer]- All Rights Reserved Reading location - IP/workstation name: [email or web address]
[2019-03-09] MEDS ORDERED: PROMETHAZINE HCL INJ 25 MG/1 ML VIAL IV PRN (14:57)
[2019-03-09] MEDS ORDERED: IPRATROPIUM/ALBUTEROL 0.5-2.5 MG/3 ML AMPUL NEB PRN (14:57)
[2019-03-09] MEDS ORDERED: ONDANSETRON HCL INJ/PF 4 MG/2 ML SDV IV PRN (14:57)
[2019-03-09] MEDS ORDERED: NORMAL SALINE 1000 ML 1,000 ML IV PRN (14:57)
[2019-03-09] MEDS ORDERED: ACETAMINOPHEN 325 MG TABLET PO PRN (14:57)
[2019-03-09] MEDS ORDERED: HYDRALAZINE HCL INJ/PF 20 MG/1 ML SDV IV PRN (15:01)
[2019-03-09] MEDS ORDERED: METOPROLOL TARTRATE PF/INJ 5 MG/5 ML SDV IV PRN (15:01)
--- NOTE | 2019-03-09 15:28 | PDOC H&P ---
History of Present Illness Admission Date/PCP: 03/09/19 14:54 MINDI CONTE PA-C History of Present Illness: LUZ PUENTES is a 33 year old female past medical history of obesity, asthma sent to ED by PCP for evaluation of acute stroke. Patient was seen at [facility] ED 1 day prior to admission complaining of clumsiness and weakness of right lower extremity and MRI of lumbar spine did not show any acute abnormalities and patient was sent home. Patient was seen by PCP today who ordered an MRI head as outpatient and patient was found to have a acute ischemic stroke in the left WIL[place] distribution. Patient presented to [facility] again, ED physician called [facility] patient was outside TPA window that was suggested for patient to be admitted here at [facility] and started on antiplatelets. Patient is stating that she has left-sided headache, right-sided vision changes, and right upper and lower extremity weakness and numbness, and dragging her right foot when she tries to stand up. Family history: Mother: Had ischemic a stroke at age 27 with residual right-sided hemiparesis, 2 miscarriages. No further work-up done. Sister: Sister had a blood clot while . Patient herself endorses history of getting these sunburns. Patient is a non- smoker, nondiabetic, no illicit drug abuse, denies any history of hypercoagulable, rheumatologic, autoimmune or any structural heart disease. On neurological examination patient has decreased sensation of RU/RL extremity, decreased proprioception on the RLE, decreased strength on BLE. Reflexes are normal. Negative Babinski. Negative clonus. Patient also complaining of being nauseous otherwise denies any fever, chills, nausea, shortness of breath, chest pain, abdominal pain, diarrhea, constipation or any urinary symptoms. Past Medical History Cardiac Medical History: Reports: Hypertension Denies: Coronary Artery Disease, Myocardial Infarction Pulmonary Medical History: Reports: Asthma, Pneumonia - Apr 2010 Denies: Bronchitis, Chronic Obstructive Pulmonary Disease (COPD) Neurological Medical History: Denies: Seizures Musculoskeltal Medical History: Denies: Arthritis Hematology: Denies: Anemia Past Surgical History Past Surgical History: Reports: Cholecystectomy Denies: Pacemaker Social History Smoking Status: Never Smoker Family History Family History: Arthritis, CVA, DM, Hyperlipidemia, Hypertension. denies: CAD, COPD, Malignancy, Thyroid Disfunction Parental Family History Reviewed: Yes - CVA Children Family History Reviewed: Yes Sibling(s) Family History Reviewed.: Yes Medication/Allergy Allergies/Adverse Reactions: aspirin [Aspirin] Allergy (Severe, Verified 06/27/17 10:34) Edema ciprofloxacin [From Cipro] Allergy (Verified 06/27/17 10:34) Review of Systems Review of Systems: as per hpi Physical Exam General appearance: PRESENT: morbidly obese Respiratory exam: PRESENT: clear to auscultation kelby. ABSENT: rales, rhonchi, wheezes Cardiovascular exam: PRESENT: RRR. ABSENT: diastolic murmur, rubs, systolic murmur Pulses: PRESENT: normal dorsalis pedis pul Extremities exam: ABSENT: calf tenderness, clubbing, pedal edema Neurological exam: PRESENT: alert, awake, oriented to person, oriented to place, oriented to time, oriented to situation, reflexes normal, abnormal gait, CN II- XII grossly intact, motor sensory deficit - decreased sensation of RU/RL extremity, decreased proprioception on the RLE, decreased strength on BLE. Reflexes are normal. Negative Babinski. Negative clonus. Results Laboratory Results: 03/09/19 13:00 03/09/19 13:00 03/09/19 03/09/19 13:00 13:00 WBC 15.7 H RBC 4.57 Hgb 12.6 Hct 38.7 MCV 85 MCH 27.6 MCHC 32.7 RDW 15.0 H Plt Count 305 Seg Neutrophils % 78.0 Sodium 140.4 Potassium 4.2 Chloride 104 Carbon Dioxide 27 Anion Gap 9 BUN 12 Creatinine 0.69 Est GFR ( Amer) > 60 Glucose 78 Calcium 9.6 Total Bilirubin 0.4 AST 25 Alkaline Phosphatase 78 Total Protein 7.9 Albumin 4.0 03/09/19 03/09/19 13:00 13:00 Creatine Kinase 134 CK-MB (CK-2) 1.34 Troponin I < 0.012 Impressions: Chest X-Ray 03/09/19 13:10 IMPRESSION: NO ACUTE RADIOGRAPHIC FINDING IN THE CHEST. Assessment and Plan - Diagnosis (1) Acute CVA (cerebrovascular accident) Is this a current diagnosis for this admission?: Yes Plan: Acute ischemic left [place]IL[place] territory stroke is on outpatient MRI head. Not a TPA candidate. [facility] consulted by ED physician. No need for tertiary care transfer. Denies any history of hypertension. Denies any history of rheumatologic, autoimmune, hyperlipidemia, diabetes or structural heart disease. Denies any history of smoking or any IV drug abuse. Given patient's age and family history will work-up for secondary cause of stroke. 2D echo to rule out any structural heart disease. CTA head/CTA brain to rule out any vascular abnormalies. Factor V Leiden, prothrombin gene mutation, protein S and S deficiency, Antithrombin III gene mutation, antiphospholipid antibodies, anticardiolipin antibodies to rule out any hypercoagulable state. Antinuclear antibody with reflex, rheumatoid factor to rule out any autoimmune or rheumatological disease. Admit to IMCU, antiplatelets, statins, optimize BP, PT/OT/ST. (2) HTN (hypertension) Is this a current diagnosis for this admission?: Yes (3) Morbid obesity Is this a current diagnosis for this admission?: Yes Plan: Morbid obesity. BMI 55. Will obtain A1c, lipid panel and TSH. Diet and lifestyle modification recommended. (4) Asthma Qualifiers: Asthma severity: mild Is this a current diagnosis for this admission?: Yes Plan: Not acutely exacerbated. Restart home meds.
[2019-03-09] MEDS: CLOPIDOGREL BISULFATE 75 MG TABLET PO SCH (16:51)
[2019-03-09] MEDS: PANTOPRAZOLE SODIUM 40 MG TABLET.DR PO SCH (16:51)
--- NOTE | 2019-03-09 17:38 | RADIOLOGY REPORT (SQ) ---
EXAM DESCRIPTION: CTA HEAD; CTA NECK COMPLETED DATE/TIME: 03/09/2019 5:14 pm REASON FOR STUDY: acute WILTON stroke COMPARISON: MRI brain 05/09/2018 TECHNIQUE: Post IV contrast scanning, thin section axial imaging through the brain to evaluate the a rterial structures. Source and MIP images are saved and reviewed on PACS. Post IV contrast scanning, thin section axial imaging through the neck soft tissues to evaluate the c ervical carotid and vertebral artery is. Source and MIPS images are saved and reviewed on PACs. Advanced 3D imaging as volume-rendering, MIPs, SSD performed? yes All CT scanners at this facility use dose modulation, iterative reconstruction, and/or weight based d osing when appropriate to reduce radiation dose to as low as reasonably achievable (ALARA). [facility]: Dose Right [facility]: CareDose [facility]: Dose Right [facility]: Teradose 4D [facility]: Crunchfish CONTRAST TYPE AND DOSE: contrast/concentration: Isovue 350.00 mg/ml; Total Contrast Delivered: 70.0 ml; Total Saline Delivered: 75.0 ml RENAL FUNCTION: None required. The patient is less than 50 years old. LIMITATIONS: None. FINDINGS: INTRACRANIAL CT ANGIO [place]: The anterior, middle, posterior cerebral arteries are all patent. No evidence of a neurysm or focal stenosis. POSTERIOR CIRCULATION: The distal vertebral arteries are patent as is the basilar artery. No aneurysm . BRAIN: No gross enhancing lesions as visualized. The superior cerebral hemispheres are not included in the field of view. BONES: Intact as visualized. SINUSES: No fluid or mucosal thickening. EXTRACRANIAL CT ANGIO CAROTID AND VERTEBRAL ARTERIES: AORTIC ARCH AND GREAT VESSELS: No thoracic aortic aneurysm. Proximal brachiocephalic artery, left c ommon carotid artery, right and left subclavian arteries are normal. Prominent central main pulmonar y artery, greater than 3 cm in diameter. Question pulmonary hypertension RIGHT CAROTID SYSTEM: Widely patent right common and internal cervical carotid artery. No intimal i rregularity worrisome for dissection or fibromuscular dysplasia. LEFT CAROTID SYSTEM: Widely patent left common carotid and internal cervical carotid artery. No int imal irregularity worrisome for dissection or fibromuscular dysplasia. VERTEBROBASILAR SYSTEM: Codominant vertebral arteries, no stenosis or irregularity worrisome for dis section or fibromuscular dysplasia NECK SOFT TISSUES: No masses or adenopathy. Airway widely patent. Lung apices clear. OTHER: No other significant finding. IMPRESSION: NO CTA EVIDENCE OF STENOSIS OR ANEURYSM OF THE [place]. UNREMARKABLE CTA OF THE CERVICAL CAROTID AND VERTEBRAL ARTERIES. TECHNICAL DOCUMENTATION: JOB ID: [id number] Quality ID # [id number]: Final reports with documentation of one or more dose reduction techniques (e.g., Au tomated exposure control, adjustment of the mA and/or kV according to patient size, use of iterative reconstruction technique) 2010 [employer]- All Rights Reserved Reading location - IP/workstation name: [email or web address]
--- NOTE | 2019-03-09 17:38 | RADIOLOGY REPORT (SQ) ---
EXAM DESCRIPTION: CTA HEAD; CTA NECK COMPLETED DATE/TIME: 03/09/2019 5:14 pm REASON FOR STUDY: acute [place]IL[place] stroke COMPARISON: MRI brain 05/09/2018 TECHNIQUE: Post IV contrast scanning, thin section axial imaging through the brain to evaluate the a rterial structures. Source and MIP images are saved and reviewed on PACS. Post IV contrast scanning, thin section axial imaging through the neck soft tissues to evaluate the c ervical carotid and vertebral artery is. Source and MIPS images are saved and reviewed on PACs. Advanced 3D imaging as volume-rendering, MIPs, SSD performed? yes All CT scanners at this facility use dose modulation, iterative reconstruction, and/or weight based d osing when appropriate to reduce radiation dose to as low as reasonably achievable (ALARA). [facility]: Dose Right [facility]: CareDose [facility]: Dose Right [facility]: Teradose 4D [facility]: [email or web address]mobi CONTRAST TYPE AND DOSE: contrast/concentration: Isovue 350.00 mg/ml; Total Contrast Delivered: 70.0 ml; Total Saline Delivered: 75.0 ml RENAL FUNCTION: None required. The patient is less than 50 years old. LIMITATIONS: None. FINDINGS: INTRACRANIAL CT ANGIO [place]: The anterior, middle, posterior cerebral arteries are all patent. No evidence of a neurysm or focal stenosis. POSTERIOR CIRCULATION: The distal vertebral arteries are patent as is the basilar artery. No aneurysm . BRAIN: No gross enhancing lesions as visualized. The superior cerebral hemispheres are not included in the field of view. BONES: Intact as visualized. SINUSES: No fluid or mucosal thickening. EXTRACRANIAL CT ANGIO CAROTID AND VERTEBRAL ARTERIES: AORTIC ARCH AND GREAT VESSELS: No thoracic aortic aneurysm. Proximal brachiocephalic artery, left c ommon carotid artery, right and left subclavian arteries are normal. Prominent central main pulmonar y artery, greater than 3 cm in diameter. Question pulmonary hypertension RIGHT CAROTID SYSTEM: Widely patent right common and internal cervical carotid artery. No intimal i rregularity worrisome for dissection or fibromuscular dysplasia. LEFT CAROTID SYSTEM: Widely patent left common carotid and internal cervical carotid artery. No int imal irregularity worrisome for dissection or fibromuscular dysplasia. VERTEBROBASILAR SYSTEM: Codominant vertebral arteries, no stenosis or irregularity worrisome for dis section or fibromuscular dysplasia NECK SOFT TISSUES: No masses or adenopathy. Airway widely patent. Lung apices clear. OTHER: No other significant finding. IMPRESSION: NO CTA EVIDENCE OF STENOSIS OR ANEURYSM OF THE [place]. UNREMARKABLE CTA OF THE CERVICAL CAROTID AND VERTEBRAL ARTERIES. TECHNICAL DOCUMENTATION: JOB ID: [id number] Quality ID # [id number]: Final reports with documentation of one or more dose reduction techniques (e.g., Au tomated exposure control, adjustment of the mA and/or kV according to patient size, use of iterative reconstruction technique) 2010 [employer]- All Rights Reserved Reading location - IP/workstation name: [email or web address]
[2019-03-09] MEDS: DOCUSATE SODIUM 100 MG CAPSULE PO SCH (17:48)
[2019-03-09] MEDS ORDERED: INFLUENZA QUAD (6MOS+) 2019-20 VAC 0.5 ML SYR IM ONE (18:21)
[2019-03-09] MEDS: HEPARIN SOD (PORCINE) 5,000 UNIT/ML 1 ML VIAL SUBCUT SCH (21:29)
[2019-03-09] MEDS: ATORVASTATIN CALCIUM 80 MG TABLET PO SCH (21:29)
[2019-03-09] MEDS: OXYCODONE-ACETAMINOPHEN 5-325 MG TABLET PO PRN (21:29)
[2019-03-10 03:48] LABS: HEMATOCRIT 35.4 % (36.0-47.0); HEMOGLOBIN 11.4 g/dL (12.0-15.5); MEAN CORPUSCULAR HEMOGLOBIN 27.1 pg (27.0-33.4); MEAN CORPUSCULAR HGB CONC 32.2 g/dL (32.0-36.0); MEAN CORPUSCULAR VOLUME 84 fl (80-97); PLATELET COUNT 268 10^3/uL (150-450); RED CELL DISTRIBUTION WIDTH 14.9 % (11.5-14.0); WHITE BLOOD COUNT 9.7 10^3/uL (4.0-10.5)
[2019-03-10 04:14] LABS: ALBUMIN 3.1 g/dL (3.5-5.0); ALKALINE PHOSPHATASE 63 U/L (38-126); ASPARTATE AMINO TRANSFERASE 21 U/L (14-36); BILIRUBIN,DIRECT 0.1 mg/dL (0.0-0.4); BILIRUBIN,TOTAL 0.5 mg/dL (0.2-1.3); BLOOD UREA NITROGEN 11 mg/dL (7-20); CALCIUM 8.3 mg/dL (8.4-10.2); CHOLESTEROL 126.08 mg/dL (0-200); GLUCOSE 78 mg/dL (75-110); POTASSIUM 3.6 mmol/L (3.6-5.0); TOTAL PROTEIN 6.1 g/dL (6.3-8.2); TRIGLYCERIDES 105 mg/dL (<150)
[2019-03-10 04:23] LABS: ANION GAP 6 (5-19); CARBON DIOXIDE 27 mmol/L (22-30); CHLORIDE 104 mmol/L (98-107)
[2019-03-10 04:25] LABS: DIRECT LDL 49 mg/dL (<100)
[2019-03-10 04:31] LABS: FREE T3 2.47 pg/mL (2.77-5.27); FREE T4 (FREE THYROXINE) 0.88 ng/dL (0.78-2.19)
[2019-03-10] MEDS: PANTOPRAZOLE SODIUM 40 MG TABLET.DR PO SCH ×2 (05:44→17:31)
[2019-03-10] MEDS: HEPARIN SOD (PORCINE) 5,000 UNIT/ML 1 ML VIAL SUBCUT SCH ×3 (05:44→22:50)
[2019-03-10] MEDS ORDERED: DIPHENHYDRAMINE HCL 25 MG CAPSULE PO ONE (09:00)
[2019-03-10] MEDS: CLOPIDOGREL BISULFATE 75 MG TABLET PO SCH (09:45)
[2019-03-10] MEDS: DOCUSATE SODIUM 100 MG CAPSULE PO SCH ×2 (09:45→17:31)
[2019-03-10] MEDS: ENALAPRIL MALEATE 2.5 MG TABLET PO SCH (09:45)
--- NOTE | 2019-03-10 10:18 | PDOC PROGRESS REPORT ---
Subjective Progress Note for:: 03/10/19 Subjective:: LUZ PUENTES is a 33 year old female past medical history of obesity, asthma sent to ED by PCP for evaluation of acute stroke. Patient was seen at [facility] ED 1 day prior to admission complaining of clumsiness and weakness of right lower extremity and MRI of lumbar spine did not show any acute abnormalities and patient was sent home. Patient was seen by PCP today who ordered an MRI head as outpatient and patient was found to have a acute ischemic stroke in the left [place] distribution. Patient presented to [facility] again, ED physician called [facility] patient was outside [facility] window that was suggested for patient to be admitted here at [facility] and started on antiplatelets. Patient is stating that she has left-sided headache, right-sided vision changes, and right upper and lower extremity weakness and numbness, and dragging her right foot when she tries to stand up. Family history: Mother: Had ischemic a stroke at age 27 with residual right-sided hemiparesis, 2 miscarriages. No further work-up done. Sister: Sister had a blood clot while . Patient herself endorses history of getting these sunburns. Patient is a non- smoker, nondiabetic, no illicit drug abuse, denies any history of hypercoagulable, rheumatologic, autoimmune or any structural heart disease. On neurological examination patient has decreased sensation of RU/RL extremity, decreased proprioception on the RLE, decreased strength on BLE. Reflexes are normal. Negative Babinski. Negative clonus. Patient also complaining of being nauseous otherwise denies any fever, chills, nausea, shortness of breath, chest pain, abdominal pain, diarrhea, constipation or any urinary symptoms. 03/10/2018. No acute changes overnight. Complaining of mild itching since CTA head and neck were done. No significant neurological improvement. Still complaining of left eyes blurry vision, right upper and lower extremity weakness and numbness. Has passed swallow eval. Pending PT/OT evaluation. Denies any fever, chills, nausea, vomiting, diarrhea, constipation or any urinary symptoms. Reason For Visit: ACUTE CVA Physical Exam Vital Signs: Temp Pulse Resp BP Pulse Ox 97.9 F 70 16 136/74 H 100 03/10/19 07:39 03/10/19 07:39 03/10/19 07:39 03/10/19 07:39 03/10/19 07:39 Intake & Output 03/09/19 03/10/19 03/11/19 06:59 06:59 06:59 Intake Total 0 Output Total 200 Balance -200 Weight 153.7 kg General appearance: PRESENT: no acute distress, well-developed, well-nourished Head exam: PRESENT: atraumatic, normocephalic Respiratory exam: PRESENT: clear to auscultation kelby. ABSENT: rales, rhonchi, wheezes Cardiovascular exam: PRESENT: RRR. ABSENT: diastolic murmur, rubs, systolic murmur GI/Abdominal exam: PRESENT: normal bowel sounds, soft. ABSENT: distended, guarding, mass, organolmegaly, rebound, tenderness Neurological exam: PRESENT: alert, awake, oriented to person, oriented to place, oriented to time, oriented to situation, reflexes normal, abnormal gait, CN II- XII grossly intact. ABSENT: motor sensory deficit - Left upper/lower extremity weakness and dull sensations. Results Laboratory Results: 03/10/19 03:13 03/10/19 03:13 03/09/19 03/09/19 03/10/19 13:00 13:00 03:13 WBC 15.7 H 9.7 RBC 4.57 4.20 Hgb 12.6 11.4 L Hct 38.7 35.4 L MCV 85 84 MCH 27.6 27.1 MCHC 32.7 32.2 RDW 15.0 H 14.9 H Plt Count 305 268 Seg Neutrophils % 78.0 Sodium 140.4 Potassium 4.2 Chloride 104 Carbon Dioxide 27 Anion Gap 9 BUN 12 Creatinine 0.69 Est GFR ( Amer) > 60 Glucose 78 Calcium 9.6 Magnesium Total Bilirubin 0.4 AST 25 Alkaline Phosphatase 78 Total Protein 7.9 Albumin 4.0 Triglycerides Cholesterol LDL Cholesterol Direct VLDL Cholesterol HDL Cholesterol TSH Free T4 Free T3 pg/mL 03/10/19 03/10/19 03:13 03:13 WBC RBC Hgb Hct MCV MCH MCHC RDW Plt Count Seg Neutrophils % Sodium 136.8 L Potassium 3.6 Chloride 104 Carbon Dioxide 27 Anion Gap 6 BUN 11 Creatinine 0.72 Est GFR ( Amer) > 60 Glucose 78 Calcium 8.3 L Magnesium 1.9 Total Bilirubin 0.5 AST 21 Alkaline Phosphatase 63 Total Protein 6.1 L Albumin 3.1 L Triglycerides 105 Cholesterol 126.08 LDL Cholesterol Direct 49 VLDL Cholesterol 21.0 HDL Cholesterol 42 TSH 4.00 Free T4 0.88 Free T3 pg/mL 2.47 L 03/09/19 03/09/19 13:00 13:00 Creatine Kinase 134 CK-MB (CK-2) 1.34 Troponin I < 0.012 Impressions: Head CTA 03/09/19 00:00 IMPRESSION: NO CTA EVIDENCE OF STENOSIS OR ANEURYSM OF THE [place]. UNREMARKABLE CTA OF THE CERVICAL CAROTID AND VERTEBRAL ARTERIES. Neck CTA 03/09/19 00:00 IMPRESSION: NO CTA EVIDENCE OF STENOSIS OR ANEURYSM OF THE [place]. UNREMARKABLE CTA OF THE CERVICAL CAROTID AND VERTEBRAL ARTERIES. Chest X-Ray 03/09/19 13:10 IMPRESSION: NO ACUTE RADIOGRAPHIC FINDING IN THE CHEST. Assessment and Plan - Diagnosis (1) Acute CVA (cerebrovascular accident) Is this a current diagnosis for this admission?: Yes Plan: No significant improvement of neurological changes. Denies any new neurological symptoms. Normotensive and euvolemic. Acute ischemic left [place] territory stroke. Not a TPA candidate. [facility] consulted by ED physician. No need for tertiary care transfer. Hemoglobin A1c, lipid panel and TSH WNL. Denies any history of hypertension. Denies any history of rheumatologic, autoimmune or structural heart disease. Denies any history of smoking or any IV drug abuse. 03/09/2019. CTA head/neck negative for any acute abnormalities. Given patient's age and family history will work-up for secondary cause of stroke. Pending 2D echo to rule out any structural heart disease. Pending factor V Leiden, prothrombin gene mutation, protein S and S deficiency, Antithrombin III gene mutation, antiphospholipid antibodies, anticardiolipin an tibodies to rule out any hypercoagulable state. Pending antinuclear antibody with reflex, rheumatoid factor to rule out any autoimmune or rheumatological disease. Continue telemetry, antiplatelets, statins, optimize BP, PT/OT/ST. (2) HTN (hypertension) Is this a current diagnosis for this admission?: Yes Plan: Euvolemic. Normotensive. Continue enalapril 10 mg p.o. daily. (3) Morbid obesity Is this a current diagnosis for this admission?: Yes Plan: Morbid obesity. BMI 55. Hemoglobin A1c, lipid panel and TSH WNL. Diet and lifestyle modification recommended. (4) Asthma Qualifiers: Asthma severity: mild Is this a current diagnosis for this admission?: Yes Plan: Not acutely exacerbated. Restart home meds.
--- NOTE | 2019-03-10 11:42 | EKG REPORT ---
SEVERITY:- ABNORMAL ECG - SINUS RHYTHM PROBABLE LEFT VENTRICULAR HYPERTROPHY : Confirmed by: Ladonna Lilly MD 10-Mar-2019 11:41:56
[2019-03-10] MEDS: OXYCODONE-ACETAMINOPHEN 5-325 MG TABLET PO PRN (20:38)
[2019-03-10] MEDS: ATORVASTATIN CALCIUM 80 MG TABLET PO SCH (22:49)
[2019-03-11] MEDS: PANTOPRAZOLE SODIUM 40 MG TABLET.DR PO SCH ×2 (06:40→18:00)
[2019-03-11] MEDS: HEPARIN SOD (PORCINE) 5,000 UNIT/ML 1 ML VIAL SUBCUT SCH ×3 (06:40→22:03)
[2019-03-11] MEDS: ENALAPRIL MALEATE 2.5 MG TABLET PO SCH (11:16)
[2019-03-11] MEDS: CLOPIDOGREL BISULFATE 75 MG TABLET PO SCH (11:16)
[2019-03-11] MEDS: DOCUSATE SODIUM 100 MG CAPSULE PO SCH ×2 (11:16→18:00)
--- NOTE | 2019-03-11 11:32 | XCELERA REPORT ---
[address] [address] Transthoracic Echocardiogram Report Name: LUZ PUENTES Age: 33 yrs Gender: Female : 1985 Patient Status: Inpatient Patient Location: [place] [address]^A Study Date: 03/09/2019 04:38 PM Height: 67 in Weight: 330 lb BSA: 2.5 m2 Procedure: A two-dimensional transthoracic echocardiogram with color flow and Doppler was performed. The study was technically limited with all images being suboptimal in quality. Agitated Saline contrast study done. Reason For Study: acute [place] Stroke. Please do with agitated saline History: CVA. Ordering Physician: BAMBI LINDSAY Performed By: Ninfa Mario Interpretation Summary There is no obvious cardiac source of embolus noted on this transthoracic echocardiogram. Follow-up with a [facility] is suggested if cardiac source is still suspected. The left ventricle is normal in size. There is normal left ventricular wall thickness. LV EF is 65% Left ventricular systolic function is normal. Doppler measurements suggest normal left ventricular diastolic function The left ventricular wall motion is normal. There is no thrombus. No ASD ,VSD ,or PFO seen.Agitated Saline contrast study done.This is negative for intrcardiac shunts. The right ventricle is grossly normal size. The right ventricle is not well visualized secondary to technical limitations The right atrium is normal. The left atrial size is normal. There is no evidence of mitral valve prolapse. There is no vegetation seen on the mitral valve. There is no mitral valve stenosis. There is a trace amount of mitral regurgitation There is no aortic valve stenosis There is no LVOT obstruction. There is a trace amount of aortic regurgitation There is no tricuspid stenosis. There is a trace amount of tricuspid regurgitation Tricuspid regurgitation jet envelope not well defined to measure RV systolic pressure accurately. There is no pulmonic valvular stenosis. There is no pulmonic valvular regurgitation. The aortic root is normal size. The inferior vena cava appeared normal and decreased > 50% with respiration (RAP 5-10 mmHg) There is no pericardial effusion. There is no obvious cardiac source of embolus noted on this transthoracic echocardiogram. Follow-up with a [facility] is suggested if cardiac source is still suspected MMode/2D Measurements & Calculations IVSd: 1.1 cm LVIDd: 3.8 cm FS: 35.3 % Ao root diam: 2.8 cm LVIDs: 2.5 cm EDV(Teich): 63.4 ml Ao root area: 6.1 cm2 LVPWd: 1.1 cm ESV(Teich): 21.9 ml EF(Teich): 65.4 % Doppler Measurements & Calculations MV E max brad: MV dec slope: Ao V2 max: LV V1 max P.2 cm/sec 646.8 cm/sec2 174.0 cm/sec 6.0 mmHg MV A max brad: MV dec time: 0.14 secAo max PG: LV V1 max: 56.7 cm/sec 12.1 mmHg 122.6 cm/sec MV E/A: 1.6 PA V2 max: Pulm Sys Brad: 107.6 cm/sec 46.6 cm/sec PA max P.6 mmHg Pulm Gutierrez Brad: 60.1 cm/sec Pulm A Revs Brad: 19.5 cm/sec Pulm A Revs Dur: 0.10 sec Pulm S/D: 0.78 Left Ventricle The left ventricle is normal in size. There is normal left ventricular wall thickness. LV EF is 65%. Left ventricular systolic function is normal. Doppler measurements suggest normal left ventricular diastolic function. The left ventricular wall motion is normal. There is no thrombus. No ASD ,VSD ,or PFO seen.Agitated Saline contrast study done.This is negative for intrcardiac shunts. Right Ventricle The right ventricle is grossly normal size. The right ventricle is not well visualized secondary to technical limitations. Atria The right atrium is normal. The left atrial size is normal. Mitral Valve There is no evidence of mitral valve prolapse. There is no vegetation seen on the mitral valve. There is no mitral valve stenosis. There is a trace amount of mitral regurgitation. Aortic Valve There is no aortic valve stenosis. There is no LVOT obstruction. There is a trace amount of aortic regurgitation. Tricuspid Valve There is no tricuspid stenosis. There is a trace amount of tricuspid regurgitation. Tricuspid regurgitation jet envelope not well defined to measure RV systolic pressure accurately. Pulmonic Valve There is no pulmonic valvular stenosis. There is no pulmonic valvular regurgitation. Great Vessels The aortic root is normal size. The inferior vena cava appeared normal and decreased > 50% with respiration (RAP 5-10 mmHg). Effusions There is no pericardial effusion. : BAMBI LINDSAY Lakshmi
--- NOTE | 2019-03-11 11:50 | PDOC PROGRESS REPORT ---
Subjective Progress Note for:: 03/11/19 Subjective:: LUZ PUENTES is a 33 year old female past medical history of obesity, asthma sent to ED by PCP for evaluation of acute stroke. Patient was seen at [facility] ED 1 day prior to admission complaining of clumsiness and weakness of right lower extremity and MRI of lumbar spine did not show any acute abnormalities and patient was sent home. Patient was seen by PCP today who ordered an MRI head as outpatient and patient was found to have a acute ischemic stroke in the left [place] distribution. Patient presented to [facility] again, ED physician called [facility] patient was outside [facility] window that was suggested for patient to be admitted here at [facility] and started on antiplatelets. Patient is stating that she has left-sided headache, right-sided vision changes, and right upper and lower extremity weakness and numbness, and dragging her right foot when she tries to stand up. Family history: Mother: Had ischemic a stroke at age 27 with residual right-sided hemiparesis, 2 miscarriages. No further work-up done. Sister: Sister had a blood clot while . Patient herself endorses history of getting these sunburns. Patient is a non- smoker, nondiabetic, no illicit drug abuse, denies any history of hypercoagulable, rheumatologic, autoimmune or any structural heart disease. On neurological examination patient has decreased sensation of RU/RL extremity, decreased proprioception on the RLE, decreased strength on BLE. Reflexes are normal. Negative Babinski. Negative clonus. Patient also complaining of being nauseous otherwise denies any fever, chills, nausea, shortness of breath, chest pain, abdominal pain, diarrhea, constipation or any urinary symptoms. 03/10/2018. No acute changes overnight. Complaining of mild itching since CTA head and neck were done. No significant neurological improvement. Still complaining of left eyes blurry vision, right upper and lower extremity weakness and numbness. Has passed swallow eval. Pending PT/OT evaluation. Denies any fever, chills, nausea, vomiting, diarrhea, constipation or any urinary symptoms. 03/11/2019. No acute events overnight. No significant neurological changes. Still complaining of left blurry vision, right upper lower extremity weakness and numbness. Denies any fever, chills, nausea, vomiting, diarrhea, constipation or urinary symptoms. Possible DC home tomorrow with outpatient PT and home health. Reason For Visit: ACUTE CVA Physical Exam Vital Signs: Temp Pulse Resp BP Pulse Ox 97.8 F 61 17 130/78 H 99 03/11/19 07:43 03/11/19 07:43 03/11/19 07:43 03/11/19 11:16 03/11/19 07:43 Intake & Output 03/10/19 03/11/19 03/12/19 06:59 06:59 06:59 Intake Total 0 908 Output Total 200 800 Balance -200 108 Weight 153.7 kg 149.6 kg General appearance: PRESENT: morbidly obese Respiratory exam: PRESENT: clear to auscultation kelby. ABSENT: rales, rhonchi, wheezes Cardiovascular exam: PRESENT: RRR. ABSENT: diastolic murmur, rubs, systolic murmur GI/Abdominal exam: PRESENT: normal bowel sounds, soft. ABSENT: distended, guarding, mass, organolmegaly, rebound, tenderness Neurological exam: PRESENT: alert, awake, oriented to person, oriented to place, oriented to time, oriented to situation, CN II-XII grossly intact. ABSENT: motor sensory deficit - Right upper strength 3/5. Left upper extremity 4/5. Results Laboratory Results: 03/10/19 03:13 03/10/19 03:13 03/09/19 03/09/19 13:00 13:00 Creatine Kinase 134 CK-MB (CK-2) 1.34 Troponin I < 0.012 Impressions: Head CTA 03/09/19 00:00 IMPRESSION: NO CTA EVIDENCE OF STENOSIS OR ANEURYSM OF THE [place]. UNREMARKABLE CTA OF THE CERVICAL CAROTID AND VERTEBRAL ARTERIES. Neck CTA 03/09/19 00:00 IMPRESSION: NO CTA EVIDENCE OF STENOSIS OR ANEURYSM OF THE [place]. UNREMARKABLE CTA OF THE CERVICAL CAROTID AND VERTEBRAL ARTERIES. Chest X-Ray 03/09/19 13:10 IMPRESSION: NO ACUTE RADIOGRAPHIC FINDING IN THE CHEST. Assessment and Plan - Diagnosis (1) Acute CVA (cerebrovascular accident) Is this a current diagnosis for this admission?: Yes Plan: No significant improvement of neurological changes. Denies any new neurological symptoms. Normotensive and euvolemic. Acute ischemic left [place] territory stroke. Not a TPA candidate. [facility] consulted by ED physician. No need for tertiary care transfer. Hemoglobin A1c, lipid panel and TSH WNL. Denies any history of hypertension. Denies any history of rheumatologic, autoimmune or structural heart disease. Denies any history of smoking or any IV drug abuse. 03/09/2019. CTA head/neck negative for any acute abnormalities. Given patient's age and family history will work-up for secondary cause of stroke. Pending 2D echo to rule out any structural heart disease. Pending factor V Leiden, prothrombin gene mutation, protein S and S deficiency, Antithrombin III gene mutation, antiphospholipid antibodies, anticardiolipin antibodies to rule out any hypercoagulable state. Pending antinuclear antibody with reflex, rheumatoid factor to rule out any autoimmune or rheumatological disease. Continue telemetry, antiplatelets, statins, optimize BP, PT/OT/ST. (2) HTN (hypertension) Is this a current diagnosis for this admission?: Yes Plan: Euvolemic. Normotensive. Continue enalapril 10 mg p.o. daily. (3) Morbid obesity Is this a current diagnosis for this admission?: Yes Plan: Morbid obesity. BMI 55. Hemoglobin A1c, lipid panel and TSH WNL. Diet and lifestyle modification recommended. (4) Asthma Qualifiers: Asthma severity: mild Is this a current diagnosis for this admission?: Yes Plan: Not acutely exacerbated. Restart home meds.
[2019-03-11] MEDS: ATORVASTATIN CALCIUM 80 MG TABLET PO SCH (22:03)
[2019-03-11] MEDS: OXYCODONE-ACETAMINOPHEN 5-325 MG TABLET PO PRN (22:06)
[2019-03-12] MEDS: PANTOPRAZOLE SODIUM 40 MG TABLET.DR PO SCH ×2 (06:08→18:00)
[2019-03-12] MEDS: HEPARIN SOD (PORCINE) 5,000 UNIT/ML 1 ML VIAL SUBCUT SCH ×3 (06:10→21:09)
[2019-03-12 07:21] LABS: ANTITHROMBIN III ANTIGEN 74 % (72-124)
[2019-03-12] MEDS: OXYCODONE-ACETAMINOPHEN 5-325 MG TABLET PO PRN ×4 (07:58→22:31)
[2019-03-12] MEDS: ENALAPRIL MALEATE 2.5 MG TABLET PO SCH (10:39)
[2019-03-12] MEDS: CLOPIDOGREL BISULFATE 75 MG TABLET PO SCH (10:39)
[2019-03-12] MEDS: DOCUSATE SODIUM 100 MG CAPSULE PO SCH ×2 (10:39→18:11)
[2019-03-12 12:38] LABS: ANTINUCLEAR ANTIBODIES Negative (Negative)
[2019-03-12] MEDS ORDERED: PROMETHAZINE HCL INJ 25 MG/1 ML VIAL IV PRN (14:00)
--- NOTE | 2019-03-12 14:27 | PDOC PROGRESS REPORT ---
Subjective Progress Note for:: 03/12/19 Subjective:: LUZ PUENTES is a 33 year old female past medical history of obesity, asthma sent to ED by PCP for evaluation of acute stroke. Patient was seen at [facility] ED 1 day prior to admission complaining of clumsiness and weakness of right lower extremity and MRI of lumbar spine did not show any acute abnormalities and patient was sent home. Patient was seen by PCP today who ordered an MRI head as outpatient and patient was found to have a acute ischemic stroke in the left [place] distribution. Patient presented to [facility] again, ED physician called [facility] patient was outside [facility] window that was suggested for patient to be admitted here at [facility] and started on antiplatelets. Patient is stating that she has left-sided headache, right-sided vision changes, and right upper and lower extremity weakness and numbness, and dragging her right foot when she tries to stand up. Family history: Mother: Had ischemic a stroke at age 27 with residual right-sided hemiparesis, 2 miscarriages. No further work-up done. Sister: Sister had a blood clot while . Patient herself endorses history of getting these sunburns. Patient is a non- smoker, nondiabetic, no illicit drug abuse, denies any history of hypercoagulable, rheumatologic, autoimmune or any structural heart disease. On neurological examination patient has decreased sensation of RU/RL extremity, decreased proprioception on the RLE, decreased strength on BLE. Reflexes are normal. Negative Babinski. Negative clonus. Patient also complaining of being nauseous otherwise denies any fever, chills, nausea, shortness of breath, chest pain, abdominal pain, diarrhea, constipation or any urinary symptoms. 03/10/2018. No acute changes overnight. Complaining of mild itching since CTA head and neck were done. No significant neurological improvement. Still complaining of left eyes blurry vision, right upper and lower extremity weakness and numbness. Has passed swallow eval. Pending PT/OT evaluation. Denies any fever, chills, nausea, vomiting, diarrhea, constipation or any urinary symptoms. 03/11/2019. No acute events overnight. No significant neurological changes. Still complaining of left blurry vision, right upper lower extremity weakness and numbness. Denies any fever, chills, nausea, vomiting, diarrhea, constipation or urinary symptoms. Possible DC home tomorrow with outpatient PT and home health. 03/13/2019. No acute events overnight. Mild improvement of right upper extremity weakness. Persistent weakness and numbness of the right lower extremity. Denies any fever, chills, nausea, vomiting, diarrhea, constipation or any urinary symptoms. Reason For Visit: ACUTE CVA Physical Exam Vital Signs: Temp Pulse Resp BP Pulse Ox 97.4 F 69 17 144/88 H 100 03/12/19 12:16 03/12/19 12:16 03/12/19 12:16 03/12/19 12:16 03/12/19 12:16 Intake & Output 03/11/19 03/12/19 03/13/19 06:59 06:59 06:59 Intake Total 908 1540 480 Output Total 800 2700 600 Balance 108 -1160 -120 Weight 149.6 kg 148.6 kg General appearance: PRESENT: no acute distress, morbidly obese, well-developed, well-nourished Respiratory exam: PRESENT: clear to auscultation kelby. ABSENT: rales, rhonchi, wheezes Cardiovascular exam: PRESENT: RRR. ABSENT: diastolic murmur, rubs, systolic mur mur GI/Abdominal exam: PRESENT: normal bowel sounds, soft. ABSENT: distended, guarding, mass, organolmegaly, rebound, tenderness Neurological exam: PRESENT: alert, awake, oriented to person, oriented to place, oriented to time, oriented to situation, CN II-XII grossly intact, motor sensory deficit - Right upper extremity strength 4/5. Right lower extremity strength 1/5. Results Laboratory Results: 03/10/19 03:13 03/10/19 03:13 03/09/19 03/09/19 13:00 13:00 Creatine Kinase 134 CK-MB (CK-2) 1.34 Troponin I < 0.012 Impressions: Head CTA 03/09/19 00:00 IMPRESSION: NO CTA EVIDENCE OF STENOSIS OR ANEURYSM OF THE [place]. UNREMARKABLE CTA OF THE CERVICAL CAROTID AND VERTEBRAL ARTERIES. Neck CTA 03/09/19 00:00 IMPRESSION: NO CTA EVIDENCE OF STENOSIS OR ANEURYSM OF THE [place]. UNREMARKABLE CTA OF THE CERVICAL CAROTID AND VERTEBRAL ARTERIES. Chest X-Ray 03/09/19 13:10 IMPRESSION: NO ACUTE RADIOGRAPHIC FINDING IN THE CHEST. Assessment and Plan - Diagnosis (1) Acute CVA (cerebrovascular accident) Is this a current diagnosis for this admission?: Yes Plan: No significant improvement of neurological changes. Denies any new neurological symptoms. Normotensive and euvolemic. Acute ischemic left [place] territory stroke. Not a TPA candidate. [facility] consulted by ED physician. No need for tertiary care transfer. Hemoglobin A1c, lipid panel and TSH WNL. Denies any history of hypertension. Denies any history of rheumatologic, autoimmune or structural heart disease. Denies any history of smoking or any IV drug abuse. 03/09/2019. CTA head/neck negative for any acute abnormalities. Given patient's age and family history will work-up for secondary cause of stroke. Pending 2D echo to rule out any structural heart disease. Pending factor V Leiden, prothrombin gene mutation, protein S and S deficiency, Antithrombin III gene mutation, antiphospholipid antibodies, anticardiolipin antibodies to rule out any hypercoagulable state. Pending antinuclear antibody with reflex, rheumatoid factor to rule out any autoimmune or rheumatological disease. Continue telemetry, antiplatelets, statins, optimize BP, PT/OT/ST. DC home once outpatient PT/OT, home health arranged. Social workers working on it. Contact social workers if any questions. (2) HTN (hypertension) Is this a current diagnosis for this admission?: Yes Plan: Euvolemic. Normotensive. Continue enalapril 10 mg p.o. daily. (3) Morbid obesity Is this a current diagnosis for this admission?: Yes Plan: Morbid obesity. BMI 55. Hemoglobin A1c, lipid panel and TSH WNL. Diet and lifestyle modification recommended. (4) Asthma Qualifiers: Asthma severity: mild Is this a current diagnosis for this admission?: Yes Plan: Not acutely exacerbated. Restart home meds.
[2019-03-12] MEDS: ATORVASTATIN CALCIUM 80 MG TABLET PO SCH (21:10)
[2019-03-13 04:36] LABS: PROTEIN C ANTIGEN 94 % (60-150)
[2019-03-13] MEDS: PANTOPRAZOLE SODIUM 40 MG TABLET.DR PO SCH ×2 (05:26→16:02)
[2019-03-13] MEDS: HEPARIN SOD (PORCINE) 5,000 UNIT/ML 1 ML VIAL SUBCUT SCH ×3 (05:26→21:08)
[2019-03-13 07:05] LABS: PROTEIN S FREE 81 % (57-157); PROTEIN S FUNCTIONAL 88 % (63-140); PROTEIN S TOTAL 77 % (60-150)
[2019-03-13 07:05] LABS: ANTICARDIOLIPIN IGA AB <9 APL U/mL (0-11); ANTICARDIOLIPIN IGG AB <9 GPL U/mL (0-14); ANTICARDIOLIPIN IGM AB <9 MPL U/mL (0-12)
[2019-03-13 07:06] LABS: PROTEIN C ACTIVITY 121 % (73-180)
[2019-03-13] MEDS: DOCUSATE SODIUM 100 MG CAPSULE PO SCH ×2 (09:12→17:20)
[2019-03-13] MEDS: CLOPIDOGREL BISULFATE 75 MG TABLET PO SCH (09:16)
[2019-03-13] MEDS: ENALAPRIL MALEATE 2.5 MG TABLET PO SCH (09:16)
--- NOTE | 2019-03-13 15:36 | Physical Med & Rehab Consult ---
Consultation Consult Date: 03/13/19 Attending physician:: JOSE DOLAN Provider Consulted: DIANA CRAVEN Consult reason:: Evaluation for admission to acute inpatient rehabilitation History of Present Illness Admission Date/PCP: 03/09/19 14:54 MINDI CONTE PA-C Patient complains of: Right-sided weakness History of Present Illness: LUZ TILLMAN is a 33-year-old left-handed female with past medical history of morbid obesity with BMI of 45.2, asthma, hypertension, pneumonia in 2010, and cholecystectomy admitted to [facility] on 03/09/2019 after being sent to the emergency department by her primary care physician following an outpatient MRI of the brain that demonstrated an acute ischemic stroke in the left WILTON distribution. Her presenting symptoms included coordination deficits, right-sided weakness, left-sided headache, right-sided vision changes, and right-sided sensory changes. Of note, her mother has a history of acute ischemic stroke at age 27 with residual right-sided hemiparesis. Further stroke work-up demonstrated LVEF of 65% with no interatrial shunt on echocardiogram; and no CTA evidence of stenosis or aneurysm of the [place] and unremarkable CTA of the cervical carotid and vertebral arteries. Laboratory studies demonstrated total cholesterol of 126, LDL of 49, triglycerides of 105, hemoglobin A1c of 5.8%, negative rheumatoid factor, negative anticardiolipin antibodies, and negative MAC. Further coagulation studies, including protein C and S, Antithrombin III, and factor II activity, have been within normal limits. Factor V Leiden and antiphospholipid syndrome results are pending. She is currently on Plavix 75 mg daily and atorvastatin 80 mg nightly for secondary stroke prophylaxis. Physical medicine and rehabilitation consultation was requested to evaluate the patient for admission to acute inpatient rehabilitation. Today, the patient was seen and examined in her room with her physical therapist at bedside. She complains of headache, shortness of breath with exertion, and right-sided weakness. She also admits to sensory deficits on the right side of her body. She denies any constipation or difficulty with urination. Past Medical History Cardiac Medical History: Reports: Hypertension Denies: Coronary Artery Disease, Myocardial Infarction Pulmonary Medical History: Reports: Asthma, Pneumonia - Apr 2010 Denies: Bronchitis, Chronic Obstructive Pulmonary Disease (COPD) Neurological Medical History: Denies: Seizures Musculoskeltal Medical History: Denies: Arthritis Hematology: Denies: Anemia Past Surgical History Past Surgical History: Reports: Cholecystectomy Denies: Pacemaker Social History Smoking Status: Never Smoker Electronic Cigarette use?: No Frequency of Alcohol Use: Rare Hx Recreational Drug Use: No Drugs: None Hx Prescription Drug Abuse: No Past Social History Note: Luz Tillman lives with her 11-year-old son in a 1 level home with 14 steps to enter and 0 steps to the bedroom and bathroom. 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 Her parents live nearby, and she intends to discharge to their home following hospitalization. They live on the first floor. Additionally, she has a sister that may be available to provide some assistance upon discharge. Prior Functional Status: Active and independent with mobility and all ADLs. Ambulates without an assist device. Current Functional Status: Per therapy notes, the patient currently requires minimum assistance for ambulation of 25 feet with a rolling walker, minimum assistance for bed mobility, minimum to moderate assistance for transfers, moderate assistance for upper body dressing, and maximum assistance for lower body dressing. 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 Family History: Her mother had a CVA at age 27 with residual right-sided weakness as well as 2 miscarriages, and her sister had a blood clot while . - Advance Directive Resuscitation Status: Full Code Family History Family History: Arthritis, CVA, DM, Hyperlipidemia, Hypertension. denies: CAD, COPD, Malignancy, Thyroid Disfunction Parental Family History Reviewed: Yes Children Family History Reviewed: NA Sibling(s) Family History Reviewed.: Yes Medication/Allergy Home Medications: Albuterol Sulfate [Albuterol Sulfate Hfa] 2 puff IH Q6HP PRN 03/09/19 Albuterol Sulfate [Ventolin 0.083% Neb 2.5 mg/3 ml Ampul] 1 vial NEB Q6HP PRN 03/09/19 Allergies/Adverse Reactions: aspirin [Aspirin] Allergy (Severe, Verified 06/27/17 10:34) Edema ciprofloxacin [From Cipro] Allergy (Verified 06/27/17 10:34) Review of Systems Review of Systems: Constitutional: No fevers, chills, sweats, weight loss Eye: Positive for blurry vision on the left ENMT: No ear pain, nasal congestion, sore throat Respiratory: Positive for shortness of breath with exertion. Cardiovascular: No chest pain, palpitations, syncope Gastrointestinal: No nausea, vomiting, diarrhea, abdominal pain Genitourinary: No hematuria, dysuria, flank or suprapubic pain Jamie/Lymph: Negative for bruising tendency, swollen lymph glands Endocrine: Negative for excessive thirst, excessive hunger, extreme fatigue Musculoskeletal: No back pain, neck pain, joint pain, muscle pain, decreased range of motion Integumentary: No rash, pruritus, abrasions Neurologic: Positive for headache, focal weakness on the right, decreased sensation on the right Psychiatric: No anxiety, depression Physical Exam Vital Signs: Temp Pulse Resp BP Pulse Ox 98.0 F 70 18 139/77 H 100 03/13/19 11:46 03/13/19 12:00 03/13/19 12:00 03/13/19 12:00 03/13/19 12:00 Intake & Output 03/12/19 03/13/19 03/14/19 06:59 06:59 06:59 Intake Total 1540 880 340 Output Total 2700 900 900 Balance -1160 -20 -560 Weight 148.6 kg 130.9 kg Exam: General: Awake and Alert. No acute distress. Resting comfortably in chair. Head: Normocephalic. Atraumatic. Eyes: Pupils equal, round, and reactive to light. EOMI. Sclera white. Does have some photophobia. Ears: No drainage noted. Nose: Nares normal & without exudate. Oropharynx: Moist mucous membranes. Neck: Supple movements. Cardiovascular: Regular rate & rhythm. No murmurs, rubs, or gallops appreciated. Pulmonary: Lungs with mild wheezing bilaterally. No increased work of breathing. Gastrointestinal: Abdomen soft, obese, non-tender, non-distended. Normoactive bowel sounds. Skin: Texture and turgor normal. Warm and dry. Psychiatric: Judgement and insight appear to be good. Patient is oriented to date, location, and situation. Affect appropriate. Extremities: Mild edema of all 4 extremities. No clubbing or cyanosis. Neurological: CN III-XII grossly intact, except mild right lower facial droop and decreased sensation of left V1 and V2 and right V3 dermatomes. Sensation to light touch is diminished on the right upper and lower extremities. Tone is normal. Proprioception is diminished on the right. No Briceno's. No Babinski. Speech is fluent with good content. Muscle Strength: Full 5/5 strength in all major muscle groups of the left-sided extremities, except 4/5 strength of left hip flexors and knee extensors. She has 4/5 strength of the major muscle groups of the right upper extremity and distal right lower extremity. She has 0/5 strength of right hip flexors and knee extensors, but she was able to hold her right knee in extension for a few seconds. Results Laboratory Results: 03/10/19 03:13 03/10/19 03:13 03/09/19 03/09/19 13:00 13:00 Creatine Kinase 134 CK-MB (CK-2) 1.34 Troponin I < 0.012 Impressions: Head CTA 03/09/19 00:00 IMPRESSION: NO CTA EVIDENCE OF STENOSIS OR ANEURYSM OF THE [place]. UNREMARKABLE CTA OF THE CERVICAL CAROTID AND VERTEBRAL ARTERIES. Neck CTA 03/09/19 00:00 IMPRESSION: NO CTA EVIDENCE OF STENOSIS OR ANEURYSM OF THE [place]. UNREMARKABLE CTA OF THE CERVICAL CAROTID AND VERTEBRAL ARTERIES. Chest X-Ray 03/09/19 13:10 IMPRESSION: NO ACUTE RADIOGRAPHIC FINDING IN THE CHEST. Assessment and Plan - Plan Summary Summary: 33-year-old female with left WIL[place] distribution CVA resulting in right (nondominant) hemiparesis. 1. Gait and ADL Dysfunction secondary to left [place] distribution CVA resulting in right (nondominant) hemiparesis. - Continue PT and OT to maximize mobility, safety, endurance, and self-care. 2. Left [place] distribution CVA resulting in right (nondominant) hemiparesis - Needs continued PT & OT & SAND MILL OPERATOR to maximize functional mobility, safety and self-care as well as communication needs. - Hypercoagulable work-up thus far is negative, but a few items remain pending. Risk Factor Modification: - Hypertension: Dietary and activity modifications, avoid hypotension and hypertension - Glycemic Control: HgBA1c = 5.8%, continue dietary and activity modifications, avoid hyperglycemia and hypoglycemia - Lipids: LDL is 49, continue dietary and activity modifications, continue statin - Smoking: The patient does not smoke - Alcohol: The patient does not drink alcohol - Antiplatelet: Continue Plavix - Cardioembolic Event: No cardio embolic source identified on echocardiogram - Vascular: No hemodynamically significant stenosis on CT angiogram of the neck Dysphagia: - Bedside swallow evaluation completed. - Continue regular solids with thin liquids diet. - Aspiration precautions, dysphagia diet, SAND MILL OPERATOR following. VTE Prophylaxis: - Continue SQ heparin Risk of Neurogenic Bladder/UTI: - Monitor for retention, incontinence, UTI. Risk of Skin Breakdown: - Frequent turning/position changes. - Optimize nutritional status. 3. Hypertension - Continue enalapril 2.5 milligrams daily - Continue management per internal medicine 4. Asthma - Continue nebulizers per internal medicine 5. Disposition - Based on the patient's diagnosis, medical co-morbidities, and current functional status, she is a good candidate for acute inpatient rehabilitation as she would benefit from 3 hours per day of intensive therapies in at least 2 disciplines under the close medical supervision of a physician. The patient is expected to make significant gains in a relatively short period of time to the point that she can safely be discharged home with supervision and assistance f rom family. Barring any unforeseen events or complications, there is a plan to admit the patient to acute inpatient rehabilitation at [facility] on 03/14/2019. Transport has been scheduled for pickup at 10 AM on 03/14/2019. Nursing should call report to [phone] prior to the patient's discharge. This case was discussed with the patient's acute care therapists and site planner. Thank you for allowing us to participate in the care of this patient. Please call with any questions. CC: The above listed referring/attending physician.
--- NOTE | 2019-03-13 16:45 | PDOC PROGRESS REPORT ---
Subjective Progress Note for:: 03/13/19 Subjective:: This is a 33 year old female past medical history of obesity, hypertension and asthma who was admitted for acute ischemic stroke in the left WILTON distribution. No acute event overnight. Patient denies any chest pain or shortness of breath. Her right arm weakness continues to slowly and gradually improve. She continues to have significant weakness in the right leg. She is awaiting acute rehab placement. Reason For Visit: ACUTE CVA Physical Exam Vital Signs: Temp Pulse Resp BP Pulse Ox 97.9 F 80 18 140/66 H 100 03/13/19 15:32 03/13/19 16:00 03/13/19 16:00 03/13/19 16:00 03/13/19 16:00 Intake & Output 03/12/19 03/13/19 03/14/19 06:59 06:59 06:59 Intake Total 1540 880 340 Output Total 2700 900 900 Balance -1160 -20 -560 Weight 327 lb 9.71 oz 288 lb 9.361 oz General appearance: PRESENT: no acute distress, well-developed, well-nourished Head exam: PRESENT: atraumatic, normocephalic Eye exam: PRESENT: conjunctiva pink, EOMI, PERRLA. ABSENT: scleral icterus Ear exam: PRESENT: normal external ear exam Mouth exam: PRESENT: moist, tongue midline Neck exam: ABSENT: carotid bruit, JVD, lymphadenopathy, thyromegaly Respiratory exam: PRESENT: clear to auscultation kelby. ABSENT: rales, rhonchi, wheezes Cardiovascular exam: PRESENT: RRR. ABSENT: diastolic murmur, rubs, systolic murmur Pulses: PRESENT: normal dorsalis pedis pul GI/Abdominal exam: PRESENT: normal bowel sounds, soft. ABSENT: distended, guarding, mass, organolmegaly, rebound, tenderness Rectal exam: PRESENT: deferred Neurological exam: PRESENT: alert, awake, oriented to person, oriented to place, oriented to time, oriented to situation, CN II-XII grossly intact, motor sensory deficit - 1/5-right leg 2/5-right arm Results Laboratory Results: 03/10/19 03:13 03/10/19 03:13 03/09/19 03/09/19 13:00 13:00 Creatine Kinase 134 CK-MB (CK-2) 1.34 Troponin I < 0.012 Impressions: Head CTA 03/09/19 00:00 IMPRESSION: NO CTA EVIDENCE OF STENOSIS OR ANEURYSM OF THE [place]. UNREMARKABLE CTA OF THE CERVICAL CAROTID AND VERTEBRAL ARTERIES. Neck CTA 03/09/19 00:00 IMPRESSION: NO CTA EVIDENCE OF STENOSIS OR ANEURYSM OF THE [place]. UNREMARKABLE CTA OF THE CERVICAL CAROTID AND VERTEBRAL ARTERIES. Chest X-Ray 03/09/19 13:10 IMPRESSION: NO ACUTE RADIOGRAPHIC FINDING IN THE CHEST. Assessment and Plan - Diagnosis (1) Acute CVA (cerebrovascular accident) Is this a current diagnosis for this admission?: Yes Plan: Continue Plavix and statin. Hypercoagulable work-up has been sent with pending results. Her mother does have a history of premature CVA in her late 20s. Patient sister also had a miscarriage. Patient is medically stable for final disposition. Awaiting acute rehab placement. (2) Asthma Qualifiers: Asthma severity: mild Is this a current diagnosis for this admission?: Yes Plan: Stable. Continue home meds. (3) HTN (hypertension) Is this a current diagnosis for this admission?: Yes Plan: Continue enalapril. (4) Morbid obesity Is this a current diagnosis for this admission?: Yes Plan: Morbid obesity. BMI 55. Counseled on weight loss. - Time Time Spent with patient: 25-34 minutes
[2019-03-13] MEDS: ATORVASTATIN CALCIUM 80 MG TABLET PO SCH (21:08)
[2019-03-13] MEDS: OXYCODONE-ACETAMINOPHEN 5-325 MG TABLET PO PRN (22:26)
[2019-03-14] MEDS: HEPARIN SOD (PORCINE) 5,000 UNIT/ML 1 ML VIAL SUBCUT SCH (05:36)
[2019-03-14] MEDS: PANTOPRAZOLE SODIUM 40 MG TABLET.DR PO SCH (05:36)
--- NOTE | 2019-03-14 08:33 | PDOC TRANSFER SUMMARY ---
Impression - Admit/DC Date/PCP Admission Date/Primary Care Provider: 03/09/19 14:54 MINDI CONTE PA-C Discharge Date: 03/14/19 - Discharge Diagnosis (1) Acute CVA (cerebrovascular accident) Is this a current diagnosis for this admission?: Yes (2) Asthma Is this a current diagnosis for this admission?: Yes (3) HTN (hypertension) Is this a current diagnosis for this admission?: Yes (4) Morbid obesity Is this a current diagnosis for this admission?: Yes - Additional Information Resuscitation Status: Full Code Referrals: MINDI CONTE PA-C [Primary Care Provider] - 03/26/19 10:45 am Prescriptions: Atorvastatin Calcium [Lipitor 40 mg Tablet] 40 mg PO QHS #30 tablet Clopidogrel Bisulfate [Plavix 75 mg Tablet] 75 mg PO DAILY #30 tablet Enalapril Maleate [Vasotec 2.5 mg Tablet] 2.5 mg PO DAILY #30 tablet Home Medications: Albuterol Sulfate [Albuterol Sulfate Hfa] 2 puff IH Q6HP PRN 03/09/19 Albuterol Sulfate [Ventolin 0.083% Neb 2.5 mg/3 mL Ampul] 1 vial NEB Q6HP PRN 03/09/19 Atorvastatin Calcium [Lipitor 40 mg Tablet] 40 mg PO QHS #30 tablet 03/14/19 Clopidogrel Bisulfate [Plavix 75 mg Tablet] 75 mg PO DAILY #30 tablet 03/14/19 Enalapril Maleate [Vasotec 2.5 mg Tablet] 2.5 mg PO DAILY #30 tablet 03/14/19 History of Present Illiness History of Present Illness: Admitting hospitalist's H&P: LUZ PUENTES is a 33 year old female past medical history of obesity, asthma sent to ED by PCP for evaluation of acute stroke. Patient was seen at [facility] ED 1 day prior to admission complaining of clumsiness an d weakness of right lower extremity and MRI of lumbar spine did not show any acute abnormalities and patient was sent home. Patient was seen by PCP today who ordered an MRI head as outpatient and patient was found to have a acute ischemic stroke in the left WILTON distribution. Patient presented to [facility] again, ED physician called [facility] patient was outside [facility] window that was suggested for patient to be admitted here at [facility] and started on antiplatelets. Patient is stating that she has left-sided headache, right-sided vision changes, and right upper and lower extremity weakness and numbness, and dragging her right foot when she tries to stand up. Hospital Course Hospital Course: This is a 33 year old female past medical history of obesity, hypertension and asthma who was admitted for acute ischemic stroke in the left WIL[place] distribution. She was started on aspirin and statin. She was also started on low dose enalapril. Her right arm weakness continues to slowly and gradually improve. She continues to have significant weakness in the right leg. [facility] is [facility]. He rmother had a CVA in her late 20s and her sister had a history of miscarriage as well. A hypercoagulable work-up was pursued (sent out). Preliminary results have been unremarkable so far. Pending results will be forwarded to PCP. Physical Exam Vital Signs: Temp Pulse Resp BP Pulse Ox 97.9 F 80 18 140/66 H 100 03/13/19 15:32 03/13/19 16:00 03/13/19 16:00 03/13/19 16:00 03/13/19 16:00 Intake & Output 03/12/19 03/13/19 03/14/19 06:59 06:59 06:59 Intake Total 1540 880 340 Output Total 2700 900 900 Balance -1160 -20 -560 Weight 327 lb 9.71 oz 288 lb 9.361 oz General appearance: PRESENT: no acute distress, well-developed, well-nourished Head exam: PRESENT: atraumatic, normocephalic Eye exam: PRESENT: conjunctiva pink, EOMI, PERRLA. ABSENT: scleral icterus Ear exam: PRESENT: normal external ear exam Mouth exam: PRESENT: moist, tongue midline Neck exam: ABSENT: carotid bruit, JVD, lymphadenopathy, thyromegaly Respiratory exam: PRESENT: clear to auscultation kelby. ABSENT: rales, rhonchi, wheezes Cardiovascular exam: PRESENT: RRR. ABSENT: diastolic murmur, rubs, systolic murmur Pulses: PRESENT: normal dorsalis pedis pul GI/Abdominal exam: PRESENT: normal bowel sounds, soft. ABSENT: distended, guarding, mass, organolmegaly, rebound, tenderness Rectal exam: PRESENT: deferred Extremities exam: PRESENT: full ROM. ABSENT: calf tenderness, clubbing, pedal edema Neurological exam: PRESENT: alert, awake, oriented to person, oriented to place, oriented to time, oriented to situation, CN II-XII grossly intact, motor sensory deficit - 1/5-right leg 2/5-right arm Results Laboratory Results: WBC 9.7 10^3/uL (4.0-10.5) 03/10/19 03:13 RBC 4.20 10^6/uL (3.72-5.28) 03/10/19 03:13 Hgb 11.4 g/dL (12.0-15.5) L 03/10/19 03:13 Hct 35.4 % (36.0-47.0) L 03/10/19 03:13 MCV 84 fl (80-97) 03/10/19 03:13 MCH 27.1 pg (27.0-33.4) 03/10/19 03:13 MCHC 32.2 g/dL (32.0-36.0) 03/10/19 03:13 RDW 14.9 % (11.5-14.0) H 03/10/19 03:13 Plt Count 268 10^3/uL (150-450) 03/10/19 03:13 Lymph % (Auto) 16.6 % (13-45) 03/09/19 13:00 Cataño % (Auto) 4.1 % (3-13) 03/09/19 13:00 Eos % (Auto) 0.5 % (0-6) 03/09/19 13:00 Baso % (Auto) 0.8 % (0-2) 03/09/19 13:00 Absolute Neuts (auto) 12.3 10^3/uL (1.7-8.2) H 03/09/19 13:00 Absolute Lymphs (auto) 2.6 10^3/uL (0.5-4.7) 03/09/19 13:00 Absolute Monos (auto) 0.7 10^3/uL (0.1-1.4) 03/09/19 13:00 Absolute Eos (auto) 0.1 10^3/uL (0.0-0.6) 03/09/19 13:00 Absolute Basos (auto) 0.1 10^3/uL (0.0-0.2) 03/09/19 13:00 Seg Neutrophils % 78.0 % (42-78) 03/09/19 13:00 PT 12.6 SEC (11.4-15.4) 03/09/19 13:00 INR 0.94 03/09/19 13:00 APTT 26.1 SEC (23.5-35.8) 03/09/19 13:00 Protein C Antigen 94 % (60-150) 03/09/19 19:02 Protein C Activity 121 % (73-180) 03/09/19 19:02 Functional Protein S 88 % (63-140) 03/09/19 19:02 Free Protein S 81 % (57-157) 03/09/19 19:02 Total Protein S 77 % (60-150) 03/09/19 19:02 Antithrombin III Ag 74 % (72-124) 03/09/19 18:45 Antithrombin III Activ 93 % (75-135) 03/09/19 18:45 Factor II Activity 130 % (50-154) 03/09/19 19:02 Sodium 136.8 mmol/L (137-145) L 03/10/19 03:13 Potassium 3.6 mmol/L (3.6-5.0) 03/10/19 03:13 Chloride 104 mmol/L (98-107) 03/10/19 03:13 Carbon Dioxide 27 mmol/L (22-30) 03/10/19 03:13 Anion Gap 6 (5-19) 03/10/19 03:13 BUN 11 mg/dL (7-20) 03/10/19 03:13 Creatinine 0.72 mg/dL (0.52-1.25) 03/10/19 03:13 Est GFR ( Amer) > 60 (>60) 03/10/19 03:13 Est GFR (MDRD) Non-Af > 60 (>60) 03/10/19 03:13 Glucose 78 mg/dL (75-110) 03/10/19 03:13 POC Glucose 75 mg/dL (70-110) 03/09/19 13:38 Hemoglobin A1c % 5.8 % (4.7-6.0) 03/10/19 03:13 Calcium 8.3 mg/dL (8.4-10.2) L 03/10/19 03:13 Magnesium 1.9 mg/dL (1.6-2.3) 03/10/19 03:13 Total Bilirubin 0.5 mg/dL (0.2-1.3) 03/10/19 03:13 Direct Bilirubin 0.1 mg/dL (0.0-0.4) 03/10/19 03:13 Neonat Total Bilirubin Not Reportable 03/10/19 03:13 Neonat Direct Bilirubin Not Reportable 03/10/19 03:13 Neonat Indirect Bili Not Reportable 03/10/19 03:13 AST 21 U/L (14-36) 03/10/19 03:13 ALT 17 U/L (<35) 03/10/19 03:13 Alkaline Phosphatase 63 U/L (38-126) 03/10/19 03:13 Creatine Kinase 134 U/L (30-135) 03/09/19 13:00 CK-MB (CK-2) 1.34 ng/mL (<4.55) 03/09/19 13:00 Troponin I < 0.012 ng/mL 03/09/19 13:00 Total Protein 6.1 g/dL (6.3-8.2) L 03/10/19 03:13 Albumin 3.1 g/dL (3.5-5.0) L 03/10/19 03:13 Triglycerides 105 mg/dL (<150) 03/10/19 03:13 Cholesterol 126.08 mg/dL (0-200) 03/10/19 03:13 LDL Cholesterol Direct 49 mg/dL (<100) 03/10/19 03:13 VLDL Cholesterol 21.0 mg/dL (10-31) 03/10/19 03:13 HDL Cholesterol 42 mg/dL (>40) 03/10/19 03:13 TSH 4.00 uIU/mL (0.47-4.68) 03/10/19 03:13 Free T4 0.88 ng/dL (0.78-2.19) 03/10/19 03:13 Free T3 pg/mL 2.47 pg/mL (2.77-5.27) L 03/10/19 03:13 Rheumatoid Factor NEGATIVE (NEGATIVE) 03/09/19 19:02 Anti-Nuclear Antibody Negative (Negative) 03/09/19 19:02 Anti-Cardiolipin IgG Ab <9 GPL U/mL (0-14) 03/09/19 18:45 Anti-Cardiolipin IgA Ab <9 APL U/mL (0-11) 03/09/19 18:45 Anti-Cardiolipin IgM Ab <9 MPL U/mL (0-12) 03/09/19 18:45 03/09/19 13:00 CK-MB (CK-2) 1.34 Troponin I < 0.012 Impressions: Head CTA 03/09/19 00:00 IMPRESSION: NO CTA EVIDENCE OF STENOSIS OR ANEURYSM OF THE [place]. UNREMARKABLE CTA OF THE CERVICAL CAROTID AND VERTEBRAL ARTERIES. Neck CTA 03/09/19 00:00 IMPRESSION: NO CTA EVIDENCE OF STENOSIS OR ANEURYSM OF THE [place]. UNREMARKABLE CTA OF THE CERVICAL CAROTID AND VERTEBRAL ARTERIES. Chest X-Ray 03/09/19 13:10 IMPRESSION: NO ACUTE RADIOGRAPHIC FINDING IN THE CHEST. Stroke Is this a Stroke Patient?: Yes Acute Heart Failure - Is this a Heart Failure Patient?: No
[2019-03-14] MEDS: CLOPIDOGREL BISULFATE 75 MG TABLET PO SCH (09:29)
[2019-03-14] MEDS: DOCUSATE SODIUM 100 MG CAPSULE PO SCH (09:29)
[2019-03-14] MEDS: OXYCODONE-ACETAMINOPHEN 5-325 MG TABLET PO PRN (09:30)
[2019-03-14] MEDS ORDERED: INFLUENZA QUAD (6MOS+) 2019-20 VAC 0.5 ML SYR IM ONE (09:35)
[2019-03-14] MEDS: ENALAPRIL MALEATE 2.5 MG TABLET PO SCH (09:36)
[2019-03-14 11:02] VITALS: BP 126/60
== END 2019-03-14 10:59 | disposition short-term general hospital (02) | DRG 65 ==
LOC: ER 12:41 → EH 14:54 → 3W 17:31
PROVIDERS: ADMIT Internal Medicine; ATTEND Internal Medicine
DX: I63.522 Cerebral infarction due to unspecified occlusion or stenosis of left anterior cerebral artery (principal); Z68.42 Body mass index [BMI] 45.0-49.9, adult; G81.91 Hemiplegia, unspecified affecting right dominant side; Z68.43 Body mass index [BMI] 50.0-59.9, adult; J45.909 Unspecified asthma, uncomplicated; E66.9 Obesity, unspecified; I10 Essential (primary) hypertension; H53.9 Unspecified visual disturbance; R20.9 Unspecified disturbances of skin sensation; R29.810 Facial weakness; R44.8 Other symptoms and signs involving general sensations and perceptions; Z82.3 Family history of stroke; Z83.3 Family history of diabetes mellitus; Z83.438 Family history of other disorder of lipoprotein metabolism and other lipidemia; Z82.61 Family history of arthritis; Z82.49 Family history of ischemic heart disease and other diseases of the circulatory system; Z79.52 Long term (current) use of systemic steroids; Z88.6 Allergy status to analgesic agent; Z90.49 Acquired absence of other specified parts of digestive tract; Z23 Encounter for immunization; Z79.51 Long term (current) use of inhaled steroids
CPT/HCPCS: 36415; 70496; 70498; 71045; 80053; 80061; 81241; 82550; 82553; 82962; 83036; 83735; 84439; 84443; 84481; 84484; 85025; 85027; 85210; 85300; 85301; 85302; 85305; 85306; 85597; 85598; 85610; 85613; 85730; 85732; 86038; 86146; 86147; 86148; 86430; 86849; 90686; 93005; 93010; 93306; 94799; 99285; J0360; J1644; J2405; J3490; J7030

== ENCOUNTER → 2019-03-09 | Outpatient (CLI) | payer OTHER ==
--- NOTE | 2019-03-09 13:01 | RADIOLOGY REPORT (SQ) ---
EXAM DESCRIPTION: MRI HEAD WITHOUT COMPLETED DATE/TIME: 03/09/2019 12:40 pm REASON FOR STUDY: WEAKNESS OF LOWER EXTREMITY R29.898 OTH SYMPTOMS AND SIGNS INVOLVING THE MUSCULOS KELETAL COMPARISON: None. TECHNIQUE: Multiplanar imaging includes non-contrasted T1, T2, FLAIR, and diffusion with ADC map seq uences. Images stored on PACS. LIMITATIONS: None. FINDINGS: There is a focus of restricted diffusion in the left pre-central gyrus that demonstrates m ild increased signal on the FLAIR sequence. There is no other hand T2 or FLAIR signal abnormality. There is no acute intracranial hemorrhage, mass, mass effect, extra-axial fluid collection, or midlin e shift. There is no effacement of the cerebral sulci or basal subarachnoid cisterns. The mireles-whit e matter differentiation is preserved. The caliber the ventricles is concordant with the degree of s ulcation. The orbits and globes are normal. The paranasal sinuses and the mastoid air cells are clear. The co rpus callosum, sella turcica, and craniocervical junction are normal in appearance. There is no marrow signal abnormality. The intracranial vascular flow voids are preserved. IMPRESSION: Focus of restricted diffusion in the left precentral gyrus (in the distribution of the l eft WILTON). EVIDENCE OF ACUTE STROKE: YES. LEFT WILTON TECHNICAL DOCUMENTATION: JOB ID: [id number] [employer]- All Rights Reserved Reading location - IP/workstation name: [email or web address]
== END ==
LOC: RAD 11:59
PROVIDERS: ATTEND Physician Assistant
DX: I63.9 Cerebral infarction, unspecified (principal)
CPT/HCPCS: 70551

== ENCOUNTER 2019-04-07 05:42 | Emergency (ER) | payer MEDICAID ==
--- NOTE | 2019-04-07 05:53 | ER Document Report ---
ED Medical Screen (RME) - General Chief Complaint: Wrist Pain Stated Complaint: RIGHT WRIST PAIN/ARM NUMBNESS Primary Care Provider: MINDI CONTE PA-C [Primary Care Provider] - Follow up as needed Notes: 33-year-old female with recent history of stroke presents for right-sided weakness that started at 10 PM tonight. Patient states this is the same side that was affected with a stroke recently. Patient has been in physical therapy to help regain strength in arm and leg. No facial droop however weakness is noted to right upper and right lower extremity. No tongue deviation. I have greeted and performed a rapid initial assessment of this patient. A comprehensive ED assessment and evaluation of the patient, analysis of test results and completion of the medical decision making process with be conducted by additional ED providers. TRAVEL OUTSIDE OF THE [place] IN LAST 30 DAYS: No - Related Data Allergies/Adverse Reactions: aspirin [Aspirin] Allergy (Severe, Verified 06/27/17 10:34) Edema ciprofloxacin [From Cipro] Allergy (Verified 06/27/17 10:34) Past Medical History - Past Medical History Cardiac Medical History: Reports: Hx Hypertension Denies: Hx Coronary Artery Disease, Hx Heart Attack Pulmonary Medical History: Reports: Hx Asthma, Hx Pneumonia - Apr 2010 Denies: Hx Bronchitis, Hx COPD Neurological Medical History: Denies: Hx Cerebrovascular Accident, Hx Seizures Renal/ Medical History: Denies: Hx Peritoneal Dialysis Musculoskeltal Medical History: Denies Hx Arthritis Past Surgical History: Reports: Hx Cholecystectomy, Hx Oral Surgery - Various de ntal surgeries. Denies: Hx Pacemaker - Immunizations Immunizations up to date: No Hx Diphtheria, Pertussis, Tetanus Vaccination: No Doctor's Discharge - Discharge Referrals: MINDI CONTE PA-C [Primary Care Provider] - Follow up as needed
--- NOTE | 2019-04-07 06:57 | RADIOLOGY REPORT (SQ) ---
EXAM DESCRIPTION: XR CHEST 2 VIEWS COMPLETED DATE/TME: 04/07/2019 05:51 CLINICAL HISTORY: 33 years, Female, right sided weakness COMPARISON: 03/09/2019 chest NUMBER OF VIEWS: 2 TECHNIQUE: 2 views of the chest LIMITATIONS: None. FINDINGS: Heart size normal. Lungs clear. No pneumothorax IMPRESSION: Negative chest copyright 2010 [employer]- All Rights Reserved
--- NOTE | 2019-04-07 07:01 | RADIOLOGY REPORT (SQ) ---
EXAM: CT head without IV contrast CLINICAL DATA: right sided weakness since 10pm, recent hx stroke TECHNICAL DATA: Multiple axial CT images of the brain were performed followed by sagittal and coronal reconstructed images. The CT study is performed according to ALARA (as low as reasonably achievable) or ALARA/IMAGE GENTLY, with automatic adjustment of mA and/or kV according to patient size. Performed on: 04/07/2019 at 6:01 AM Comparisons: Brain MRI performed on 03/09/2019. FINDINGS: There is no evidence of mass, acute mass effect or midline shift. There are no acute extra-axial fluid collections. There is no evidence of acute intracranial hemorrhage. The cerebral sulci and ventricles are normal in size and configuration. There are no focal abnormal areas of increased or decreased attenuation. There is trace mucosal thickening of the paranasal sinuses. The mastoid air cells are clear. The orbital contents are grossly unremarkable. No acute osseous abnormalities are identified. No focal soft tissue abnormalities are identified. IMPRESSION: 1. There is no evidence of acute intracranial pathology.
[2019-04-07 07:15] LABS: ABSOLUTE BASOPHILS # (AUTO) 0.1 10^3/uL (0.0-0.2); ABSOLUTE EOSINOPHILS # (AUTO) 0.4 10^3/uL (0.0-0.6); ABSOLUTE LYMPHOCYTES (AUTO) 1.9 10^3/uL (0.5-4.7); ABSOLUTE MONOCYTES (AUTO) 0.4 10^3/uL (0.1-1.4); ABSOLUTE NEUT (AUTO) 8.7 10^3/uL (1.7-8.2); BASOPHILS % (AUTO) 0.5 % (0-2); EOSINOPHILS % (AUTO) 3.2 % (0-6); LYMPHOCYTES % (AUTO) 16.8 % (13-45); MEAN CORPUSCULAR HEMOGLOBIN 27.8 pg (27.0-33.4); MEAN CORPUSCULAR HGB CONC 32.5 g/dL (32.0-36.0); MEAN CORPUSCULAR VOLUME 86 fl (80-97); MONOCYTES % (AUTO) 3.5 % (3-13); PLATELET COUNT 271 10^3/uL (150-450); RED BLOOD COUNT 4.32 10^6/uL (3.72-5.28); RED CELL DISTRIBUTION WIDTH 15.1 % (11.5-14.0); TOTAL CELLS COUNTED % (AUTO) 100 %; WHITE BLOOD COUNT 11.4 10^3/uL (4.0-10.5)
[2019-04-07 07:29] LABS: INTERNATIONAL RATION (INR) 0.99; PROTHROMBIN TIME 13.1 SEC (11.4-15.4)
[2019-04-07 07:30] LABS: PARTIAL THROMBOPLASTIN TIME 32.6 SEC (23.5-35.8)
[2019-04-07 07:31] LABS: APPEARANCE,URINE SLIGHTLY-CLOUDY; BILIRUBIN,URINE NEGATIVE (NEGATIVE); COLOR,URINE YELLOW; GLUCOSE, URINE NEGATIVE (NEGATIVE); KETONES,URINE NEGATIVE (NEGATIVE); PROTEIN,URINE NEGATIVE (NEGATIVE); URINE SPECIFIC GRAVITY 1.021; UROBILINOGEN,URINE NEGATIVE mg/dL (<2.0)
[2019-04-07 07:33] LABS: ALBUMIN 3.8 g/dL (3.5-5.0); ALKALINE PHOSPHATASE 77 U/L (38-126); ANION GAP 10 (5-19); ASPARTATE AMINO TRANSFERASE 24 U/L (14-36); BILIRUBIN,DIRECT 0.1 mg/dL (0.0-0.4); BILIRUBIN,TOTAL 0.4 mg/dL (0.2-1.3); BLOOD UREA NITROGEN 11 mg/dL (7-20); CARBON DIOXIDE 25 mmol/L (22-30); CHLORIDE 103 mmol/L (98-107); GLUCOSE 89 mg/dL (75-110); POTASSIUM 3.9 mmol/L (3.6-5.0); TOTAL PROTEIN 7.3 g/dL (6.3-8.2)
--- NOTE | 2019-04-07 07:38 | EKG REPORT ---
SEVERITY:- NORMAL ECG - SINUS RHYTHM : Confirmed by: Jonn Hicks MD 07-Apr-2019 07:37:58
--- NOTE | 2019-04-07 09:39 | RADIOLOGY REPORT (SQ) ---
EXAM DESCRIPTION: WRIST RIGHT 3 VIEWS COMPLETED DATE/TIME: 04/07/2019 9:07 am REASON FOR STUDY: bone tenderness COMPARISON: None. NUMBER OF VIEWS: Three views right wrist LIMITATIONS: None. FINDINGS: There is no acute or significant bone, joint or soft tissue abnormality. OTHER: No other significant finding. IMPRESSION: NORMAL STUDY. TECHNICAL DOCUMENTATION: JOB ID: [id number] Reading location - IP/workstation name: [email or web address]
[2019-04-07] MEDS ORDERED: PREDNISONE 20 MG TABLET PO ONE (10:42)
[2019-04-07] MEDS ORDERED: IPRATROPIUM/ALBUTEROL 0.5-2.5 MG/3 ML AMPUL NEB ONE (10:42)
[2019-04-07] MEDS ORDERED: HYDROCODONE/ACETAMINOPHEN 5-325 MG TABLET PO ONE (10:42)
--- NOTE | 2019-04-07 10:53 | ER Document Report ---
ED General - General Chief Complaint: Numbness of Arm Stated Complaint: RIGHT WRIST PAIN/ARM NUMBNESS Time Seen by Provider: 04/07/19 09:36 Primary Care Provider: MINDI CONTE PA-C [Primary Care Provider] - Follow up as needed TRAVEL OUTSIDE OF THE [place] IN LAST 30 DAYS: No - Related Data Allergies/Adverse Reactions: aspirin [Aspirin] Allergy (Severe, Verified 06/27/17 10:34) Edema ciprofloxacin [From Cipro] Allergy (Verified 06/27/17 10:34) Home Medications: plavix. lisinopril. lipitor Past Medical History - Social History Smoking Status: Never Smoker Chew tobacco use (# tins/day): No Frequency of alcohol use: None Drug Abuse: None Family History: Arthritis, CVA, DM, Hyperlipidemia, Hypertension. denies: CAD, COPD, Malignancy, Thyroid Disfunction Patient has suicidal ideation: No Patient has homicidal ideation: No - Past Medical History Cardiac Medical History: Reports: Hx Hypertension Denies: Hx Coronary Artery Disease, Hx Heart Attack Pulmonary Medical History: Reports: Hx Asthma, Hx Pneumonia - Apr 2010 Denies: Hx Bronchitis, Hx COPD Neurological Medical History: Denies: Hx Cerebrovascular Accident, Hx Seizures Renal/ Medical History: Denies: Hx Peritoneal Dialysis Musculoskeletal Medical History: Denies Hx Arthritis Past Surgical History: Reports: Hx Cholecystectomy, Hx Oral Surgery - Various dental surgeries. Denies: Hx Pacemaker - Immunizations Immunizations up to date: No Hx Diphtheria, Pertussis, Tetanus Vaccination: No Physical Exam - Vital signs Vitals: Temp Pulse Resp BP Pulse Ox 98.1 F 92 20 147/92 H 97 04/07/19 05:45 04/07/19 05:45 04/07/19 05:45 04/07/19 05:45 04/07/19 05:45 Patient presents emerged department complaining of pain and swelling in her right wrist for the past 3 days. Denies any trauma or falls. However she does report that she is in physical therapy for her previous stroke and has been using her walker. Says she has some increasing numbness in the arm and may be a little bit weaker but she says is very painful to move the fingers and because of that it feels like it is weak. She has any headaches or abnormal vision neck pain chest pain nausea vomiting or abdominal pain. Is no increased numbness or weakness on the right leg She is also complaining of shortness of breath for the past several days which only partially relieved with her inhaler she is using 4 times a day with a spacer Medical history is significant for hypertension asthma and recent CVA with right-sided weakness. Social history she does not smoke or drink at all. Her last menstrual period was is March 08 Family history significant for mom with a CVA at an early age Review of systems pertinent positives and negatives in HPI otherwise all the systems were reviewed and acutely negative E1 PHYSICIAN EXAM -vital signs are noted triage note and note from triage reviewed GENERAL: Well-appearing, well-nourished and in _no acute distress HEAD: Atraumatic, normocephalic. EYES: Pupils equal round and reactive to light, extraocular movements intact, sclera anicteric, conjunctiva are normal. ENT: nares patent, oropharynx clear without exudates. Moist mucous membranes. NECK: supple without lymphadenopathy LUNGS: Good breath sounds bilaterally with scattered wheezes throughout slightly tachypneic but no respiratory distress. HEART: Regular rate and rhythm without murmurs ABDOMEN: Soft, nontender, normoactive bowel sounds. EXTREMITIES: Lower extremities are nontender with no edema right upper extremity the clavicle and elbow are nontender. She is able to flex the elbow without discomfort. She does have tenderness over the distal aspect of the wrist over the dorsal surface extending into the snuffbox that increases with extension and also extends into the metacarpals but not the fingers. She does have a positive Chanda sign and some mild swelling of the distal wrist. There is no increase warmth or redness and no lesions noted. NEUROLOGICAL: She is alert oriented x4 cranial nerves she is symmetrical smile faces and shoulder shrug strength is 5/5 the left. 4/5 in the right lower extremity which he says is at baseline. The right upper extremity flexion extension of the elbow is 5/5. Strength is decreased to about 3/5 but it seems to be more related to pain is any movement of the fingers I will increase pain in her wrist sensation is intact to light touch she is unable to perform Romberg Differential diagnosis includes tendinitis fracture strain asthma bronchitis pneumonia . PSYCH: Normal mood, normal affect. SKIN: Warm, Dry, normal turgor, no rashes or lesions noted. BACK-nontender in the midline Course - Re-evaluation Re-evalutation: 04/07/19 15:47 ED patient is remained stable she is had serial exams and neurologic exam is unchanged. Chest he says that she feels like the strength in her hand is better now that the pain is decreased. Given 3 DuoNeb treatments here significant provement of her wheezing and feels better. Medical decision making patient presents with right wrist pain for 3 days with no history of trauma however she is undergoing physical therapy and I suspect she has a strain. This is an infection. She also has an exacerbation of her asthma she is feeling better and can be discharged home I discussed results of laboratory findings and diagnostic test with patient/family. The treatment plan was explained and I reviewed the discharge instructions with them. Questions were answered. The patient/family verbalizes understanding Dictation was done using voice recognition software. There may be some grammatical errors which are unintentional - Vital Signs Vital signs: Temp Pulse Resp BP Pulse Ox 98.0 F 79 20 147/86 H 95 04/07/19 14:16 04/07/19 14:16 04/07/19 14:16 04/07/19 14:16 04/07/19 14:16 - Laboratory Result Diagrams: 04/07/19 06:30 04/07/19 06:30 Laboratory results interpreted by me: 04/07/19 04/07/19 06:30 06:50 WBC 11.4 H RDW 15.1 H Absolute Neuts (auto) 8.7 H Urine Blood MODERATE H Leukocyte Esterase Rfl MODERATE H 04/07/19 15:49 Urine was noted she has no urinary symptoms so we will obtain a culture which has had UTIs in the past - Diagnostic Test Radiology reviewed: Reports reviewed - EKG Interpretation by Me Additional EKG results interpreted by me: 04/07/19 15:49 EKG shows a normal sinus rhythm with a normal axis and QRS and no nonspecific changes Discharge - Discharge Clinical Impression: Asthmatic bronchitis Qualifiers: Asthma severity: moderate Asthma complication type: uncomplicated Wrist sprain Qualifiers: Encounter type: sequela Laterality: right Qualified Code(s): S63.501S - Unspecified sprain of right wrist, sequela Condition: Good Disposition: HOME, SELF-CARE Additional Instructions: Sprain Your injury is a sprain. A sprain results from stretching or tearing of the ligaments, usually from a twisting injury. The ligaments will require time and protection in order to heal properly. Many sprains are quite disabling and should be taken seriously. The usual initial treatment of sprains is cold packs, elevation, and rest of the injured area. Your physician has assessed the seriousness of your ligament injury, and has outlined a treatment plan. Understand that this treatme nt may change, depending on how you progress. If a re-examination was recommended, it is important that you follow up as instructed. Call the doctor any time if there is severe pain, numbness, or loss of function in the injured area. Asthma You have been diagnosed as having asthma. This is a condition where there is episodic tightness in the bronchial tubes. Allergies, infections, and polluted or cold air may be contributing factors. Emergency treatment of a severe asthma attack may include adrenaline shots, or bronchodilator aerosol. You may feel lightheaded, have a decreased exercise tolerance and a rapid pulse for an hour or two. Rest and get plenty of fluids. Home treatment of asthma requires bronchodilator drugs. These can be administered by injection, inhalation, or by mouth. Antibiotics and corticosteroids may be required for some patients. You should avoid chemical fumes, dusts, pollens, and exercising in very cold or dry air. If you smoke, stop!! If you develop a fever, increased wheezing, chest pain, or severe shortness of breath, you should contact the doctor immediately Please review the discharge instructions, they will tell you about your disease/injury and what you need to return to the ED for Return to the ED if you feel worse or can follow-up with your family doctor Stop using the albuterol inhaler and use the new inhaler Use your inhaler with a spacer-take 2-4 puffs 4 times a day for the next 5 days then as needed for shortness of breath you have an aerosol machine you can use the machine 4 times a day for the next 5 days then as needed for cough or shortness of breath Follow-up with your family doctor to 3 days if not better otherwise in 1 week Wear the splint for 1 week then as needed for pain Prescriptions: Ipratropium/Albuterol Sulfate [Combivent Inhaler] 14.7 gm IH ASDIR PRN #1 aer.w.adap PRN Reason: Prednisone [Deltasone 20 mg Tablet] 60 mg PO DAILY #15 tablet Forms: Elevated Blood Pressure Referrals: BUNDLE,MINDI, PA-C [Primary Care Provider] - Follow up as needed
[2019-04-07] MEDS ORDERED: LEVETIRACETAM 1000 MG/NACL-ISO 1,000 MG/100 ML RTUPB IV ONE (12:43)
[2019-04-07 14:17] VITALS: BP 147/86
== END 2019-04-07 14:25 | disposition home or self-care (01) ==
LOC: ER 05:42
DX: S63.501A Unspecified sprain of right wrist, initial encounter (principal); X58.XXXA Exposure to other specified factors, initial encounter; J45.901 Unspecified asthma with (acute) exacerbation; R06.02 Shortness of breath; I10 Essential (primary) hypertension; R20.0 Anesthesia of skin; Z79.02 Long term (current) use of antithrombotics/antiplatelets; Z79.899 Other long term (current) drug therapy; Z88.8 Allergy status to other drugs, medicaments and biological substances; Z88.1 Allergy status to other antibiotic agents
CPT/HCPCS: 93005; 36415; 87086; 85025; 85610; 85730; 81025; 80053; 81001; 84484; 71046; 73110; 70450; 93010; L3908; J7512; J7620; 94640; 99284

== ENCOUNTER 2019-06-25 21:14 | Emergency (ER) | payer MEDICAID ==
--- NOTE | 2019-06-25 23:26 | RADIOLOGY REPORT (SQ) ---
CT HEAD WITHOUT IV CONTRAST CLINICAL STATEMENT: fall/on blood thinners TECHNIQUE: Axial CT images from skull base to vertex without IV contrast. This exam was performed according to our departmental dose optimization program, and includes the following measures where applicable: automated exposure control, adjustment of the mAs and/or kVp according to patient size and/or exam, and an iterative reconstruction algorithm. COMPARISON: CT scan of the brain without contrast 04/07/2019 FINDINGS: There is no acute intracranial hemorrhage, mass, mass effect or abnormal extra-axial fluid collection. No evidence of an acute territorial infarct is identified. The ventricles are normal. Calvaria: The skull base and calvaria demonstrate no abnormality. Paranasal sinuses: Visualized portions of the orbits and paranasal sinuses are unremarkable. skull base: Unremarkable IMPRESSION: No acute process. No significant interval change.
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
[2019-06-26] MEDS ORDERED: PROMETHAZINE HCL 25 MG TABLET PO ONE (00:05)
[2019-06-26] MEDS ORDERED: ACETAMINOPHEN WITH CODEINE #3 TABLET PO ONE (00:05)
[2019-06-26 00:34] VITALS: BP 150/96
== END 2019-06-26 00:33 | disposition home or self-care (01) ==
LOC: ER 21:14
DX: S09.90XA Unspecified injury of head, initial encounter (principal); Y04.0XXA Assault by unarmed brawl or fight, initial encounter; I10 Essential (primary) hypertension; Z79.02 Long term (current) use of antithrombotics/antiplatelets; Z90.49 Acquired absence of other specified parts of digestive tract
CPT/HCPCS: 99284; 70450; J3490

== ENCOUNTER 2019-07-03 09:32 | Emergency (ER) | payer MEDICAID ==
[2019-07-03 10:04] LABS: ABSOLUTE EOSINOPHILS # (AUTO) 0.2 10^3/uL (0.0-0.6); ABSOLUTE LYMPHOCYTES (AUTO) 1.9 10^3/uL (0.5-4.7); ABSOLUTE MONOCYTES (AUTO) 0.5 10^3/uL (0.1-1.4); ABSOLUTE NEUT (AUTO) 3.8 10^3/uL (1.7-8.2); BASOPHILS % (AUTO) 0.3 % (0-2); EOSINOPHILS % (AUTO) 3.2 % (0-6); HEMATOCRIT 36.4 % (36.0-47.0); HEMOGLOBIN 11.8 g/dL (12.0-15.5); LYMPHOCYTES % (AUTO) 30.1 % (13-45); MEAN CORPUSCULAR HEMOGLOBIN 27.4 pg (27.0-33.4); MEAN CORPUSCULAR HGB CONC 32.3 g/dL (32.0-36.0); MEAN CORPUSCULAR VOLUME 85 fl (80-97); MONOCYTES % (AUTO) 7.1 % (3-13); PLATELET COUNT 279 10^3/uL (150-450); RED BLOOD COUNT 4.29 10^6/uL (3.72-5.28); RED CELL DISTRIBUTION WIDTH 14.6 % (11.5-14.0); SEGMENTED NEUTROPHILS % (AUTO) 59.3 % (42-78); TOTAL CELLS COUNTED % (AUTO) 100 %; WHITE BLOOD COUNT 6.5 10^3/uL (4.0-10.5)
[2019-07-03 10:38] LABS: PROTHROMBIN TIME 13.2 SEC (11.4-15.4)
[2019-07-03] MEDS ORDERED: MORPHINE SULFATE 10 MG/ML INJ IV ONE (10:43)
[2019-07-03] MEDS ORDERED: ONDANSETRON HCL INJ/PF 4 MG/2 ML SDV IV ONE (10:43)
--- NOTE | 2019-07-03 10:49 | ER Document Report ---
ED General - General Chief Complaint: Weakness Stated Complaint: GENERAL WEAKNESS Time Seen by Provider: 07/03/19 09:46 Primary Care Provider: MINDI CONTE PA-C [Primary Care Provider] - Follow up as needed TRAVEL OUTSIDE OF THE [place] IN LAST 30 DAYS: No - HPI Notes: Patient is a 33-year-old female with a history of ischemic stroke back in February who presents emergency department for evaluation of right-sided numbness and weakness, worsened slurred speech. Patient had an ischemic stroke back in February. She had been going through physical therapy. Her symptoms had eventually progressed to similar to what she has today. The patient states now she was walking without assistance. She did have some mild weakness in her right lower extremity, mild numbness in her right leg and right arm as well. Today between 8 and 830, she had sudden onset worsened right leg weakness. She sat down and was unable to stand up. She complained of some weakness in both of her legs, again similar to when she had her CVA back in February. She states then she progressed to right arm weakness and numbness, and worsened dysarthria, expressive aphasia. She also complains of a right-sided headache, behind her eye, that she currently rates at 8 out of 10. Parents are both present, states this is all worsened from her baseline at this time. Patient states she has been taking all of her medications as prescribed, but is unsure as to what her medications are. - Related Data Allergies/Adverse Reactions: aspirin [Aspirin] Allergy (Severe, Verified 06/25/19 22:29) Edema ciprofloxacin [From Cipro] Allergy (Verified 06/25/19 22:29) Iodinated Contrast Media Allergy (Verified 06/25/19 22:29) Past Medical History - General Information source: Patient, Parent - Social History Smoking Status: Never Smoker Family History: Arthritis, CVA, DM, Hyperlipidemia, Hypertension. denies: CAD, COPD, Malignancy, Thyroid Disfunction Patient has suicidal ideation: No Patient has homicidal ideation: No - Past Medical History Cardiac Medical History: Reports: Hx Hypertension Denies: Hx Coronary Artery Disease, Hx Heart Attack Pulmonary Medical History: Reports: Hx Asthma, Hx Pneumonia - Apr 2010 Denies: Hx Bronchitis, Hx COPD Neurological Medical History: Reports: Hx Cerebrovascular Accident. Denies: Hx Seizures Renal/ Medical History: Denies: Hx Peritoneal Dialysis Musculoskeletal Medical History: Denies Hx Arthritis Past Surgical History: Reports: Hx Cholecystectomy, Hx Oral Surgery - Various dental surgeries. Denies: Hx Pacemaker - Immunizations Immunizations up to date: No Hx Diphtheria, Pertussis, Tetanus Vaccination: No Review of Systems - Review of Systems Constitutional: See HPI Neurological/Psychological: See HPI -: Yes All other systems reviewed and negative Physical Exam - Vital signs Vitals: Resp BP Pulse Ox 10 L 149/88 H 100 07/03/19 09:38 07/03/19 09:38 07/03/19 09:38 - Notes Notes: This is a very pleasant 33-year-old female who appears her stated age in no acute distress. Head is normocephalic and atraumatic, pupils are equal round, reactive to light. Oral mucosa is moist. Uvula is midline. Heart is regular rate and rhythm, lungs are clear to auscultation bilaterally. Abdomen is soft, nontender, normoactive bowel sounds. Extremities without cyanosis or clubbing. No posterior calf tenderness. Peripheral pulses are equal. Patient is awake, alert, oriented x3. She has some mild nasolabial fold asymmetry, diminished sensation to light touch to the entire right side of the face. The remainder of cranial nerves II through XII are grossly intact without focal neurological deficits. Strength is plus 5 out of 5 left upper extremity, 4+ out of 5 left lower extremity. She has 3 out of 5 strength of the right upper extremity, and no motion against gravity to the right lower extremity. She is hyperreflexive on the right. Sensation is diminished to light touch to the right lower extremity, right upper extremity as well. Cerebellar testing limited secondary to weakness. Course - Re-evaluation Re-evalutation: 07/03/19 11:14 Patient presents to the emergency department for evaluation. She had onset of stroke symptoms at approximately 8 this morning, she states absolutely no earlier than 8 AM. Her symptoms are extremely similar to the stroke that she had back in February. Multiple neurological exams were performed, she did not have any variation in her symptoms. Given this information, as well as her age, her NIH of 10, and her other risk factors, I spoke with Dr. Crawford, stroke neurologist at [facility], at 1105. [facility] was their preference in regards to stroke centers. We discussed her symptoms at length. She does meet TPA criteria. She is just outside of the 3-month window for history of ischemic stroke. Dr. Crawford explains that it is difficult to determine at this point whether or not the patient is actually having an acute CVA, or if her symptoms are just waxing and waning from some other abnormality from her prior stroke. He recommends that an MRI and MRA be performed of the head and neck. He recommends a vel discussion with the family in regards to her TPA inclusion criteria, the fact that this may in fact not be an ischemic CVA, and there is a real possibility she will not see any significant improvement from the TPA. Of course, she does still have the additional risk factors associated with this medication. We talked at length, myself, the patient, sister, both parents. They are currently discussing it privately. Awaiting decision. It was explained to them that the window to administer this medication is limited. 07/03/19 11:24 After discussion with family, they have decided to go forth with TPA therapy. 07/03/19 12:12 Patient with TPA infusing. She has had no improvement in her symptoms. MRI and MRA had been ordered. I was notified by distribution engineering technologist that the patient does not fit properly in the machine to have a full C-spine performed. I spoke again with Dr. Crawford. Given her age, continued deficits, and other complications regarding her diagnostics and treatment, decision was made that most appropriate care could be administered at [facility]. Dr. Crawford has accepted the patient for further care. 07/03/19 12:51 Patient is currently stable, being transported to [facility] at this time. - Vital Signs Vital signs: Temp Pulse Resp BP Pulse Ox 98.4 F 69 10 L 125/63 100 07/03/19 09:50 07/03/19 12:39 07/03/19 12:39 07/03/19 12:39 07/03/19 12:39 - Laboratory Result Diagrams: 07/03/19 09:50 07/03/19 09:50 Laboratory results interpreted by me: 07/03/19 07/03/19 07/03/19 09:50 09:50 10:50 Hgb 11.8 L RDW 14.6 H Calcium 8.3 L Urine Blood MODERATE H Ur Leukocyte Esterase TRACE H - Diagnostic Test Radiology reviewed: Reports reviewed Radiology results interpreted by me: 07/03/19 11:[address] 07/03/19 10:23 IMPRESSION: NORMAL BRAIN CT WITHOUT CONTRAST. EVIDENCE OF ACUTE STROKE: NO. Chest X-Ray 07/03/19 10:28 IMPRESSION: NO ACUTE RADIOGRAPHIC FINDING IN THE CHEST. - EKG Interpretation by Me Additional EKG results interpreted by me: 07/03/19 11:16 Sinus mechanism with a rate of 63 bpm. Normal axis and intervals. No acute ST changes concerning for ischemia or infarction. Critical Care Note - Critical Care Note Total time excluding time spent on procedures (mins): 40 Discharge - Discharge Clinical Impression: Acute CVA (cerebrovascular accident) Condition: Stable Disposition: [facility] Admitting Provider: Dr. Crawford Referrals: MINDI CONTE PA-C [Primary Care Provider] - Follow up as needed
--- NOTE | 2019-07-03 10:57 | RADIOLOGY REPORT (SQ) ---
EXAM DESCRIPTION: CT HEAD WITHOUT COMPLETED DATE/TIME: 07/03/2019 10:39 am REASON FOR STUDY: right sided weakness COMPARISON: MRI brain 03/09/2019 CT brain 06/25/2019, 04/07/2019, 03/09/2019 TECHNIQUE: Axial images acquired through the brain without intravenous contrast. Images reviewed wi th bone, brain and subdural windows. Additional sagittal and coronal reconstructions were generated. Images stored on PACS. All CT scanners at this facility use dose modulation, iterative reconstruction, and/or weight based d osing when appropriate to reduce radiation dose to as low as reasonably achievable (ALARA). [facility]: Dose Right [facility]: CareDose [facility]: Dose Right [facility]: Teradose 4D [facility]: REALTIME.CO RADIATION DOSE: CT Rad equipment meets quality standard of care and radiation dose reduction techniq ues were employed. CTDIvol: 53.2 mGy. DLP: 1070 mGy-cm. mGy. LIMITATIONS: None. FINDINGS: VENTRICLES: Normal size and contour. CEREBRUM: No masses. No hemorrhage. No midline shift. No evidence for acute infarction. Normal gra y/white matter differentiation. No areas of low density in the white matter. CEREBELLUM: No masses. No hemorrhage. No alteration of density. No evidence for acute infarction. EXTRAAXIAL SPACES: No fluid collections. No masses. ORBITS AND GLOBE: No intra- or extraconal masses. Normal contour of globe without masses. CALVARIUM: No fracture. PARANASAL SINUSES: No fluid or mucosal thickening. SOFT TISSUES: No mass or hematoma. OTHER: No other significant finding. IMPRESSION: NORMAL BRAIN CT WITHOUT CONTRAST. EVIDENCE OF ACUTE STROKE: NO. COMMENT: Pertinent findings on the imaging study reported as a CRITICAL RESULT to ETHAN Galeano t10:41 on 07/03/2019. Category of Critical Result: CT code stroke Quality ID # 436: Final reports with documentation of one or more dose reduction techniques (e.g., Au tomated exposure control, adjustment of the mA and/or kV according to patient size, use of iterative reconstruction technique) TECHNICAL DOCUMENTATION: JOB ID: [id number] 2010 [employer]- All Rights Reserved Reading location - IP/workstation name: [email or web address]
--- NOTE | 2019-07-03 11:01 | RADIOLOGY REPORT (SQ) ---
EXAM DESCRIPTION: CHEST SINGLE VIEW COMPLETED DATE/TIME: 07/03/2019 10:48 am REASON FOR STUDY: right sided weakness COMPARISON: Chest films 03/05/2019, 03/09/2019, 04/07/2019 EXAM PARAMETERS: NUMBER OF VIEWS: One view. TECHNIQUE: Single frontal radiographic view of the chest acquired. RADIATION DOSE: NA LIMITATIONS: None. FINDINGS: LUNGS AND PLEURA: No opacities, masses or pneumothorax. No pleural effusion. MEDIASTINUM AND HILAR STRUCTURES: No masses. Contour normal. HEART AND VASCULAR STRUCTURES: Heart normal in size. Normal vasculature. BONES: No acute findings. HARDWARE: None in the chest. OTHER: No other significant finding. IMPRESSION: NO ACUTE RADIOGRAPHIC FINDING IN THE CHEST. TECHNICAL DOCUMENTATION: JOB ID: [id number] 2010 [employer]- All Rights Reserved Reading location - IP/workstation name: [email or web address]
[2019-07-03 11:03] LABS: ALBUMIN 3.6 g/dL (3.5-5.0); ALKALINE PHOSPHATASE 74 U/L (38-126); ANION GAP 9 (5-19); ASPARTATE AMINO TRANSFERASE 36 U/L (14-36); BILIRUBIN,TOTAL 0.3 mg/dL (0.2-1.3); BLOOD UREA NITROGEN 9 mg/dL (7-20); CALCIUM 8.3 mg/dL (8.4-10.2); CARBON DIOXIDE 27 mmol/L (22-30); CHLORIDE 102 mmol/L (98-107); GLUCOSE 85 mg/dL (75-110); TOTAL PROTEIN 6.9 g/dL (6.3-8.2)
[2019-07-03 11:04] LABS: ALCOHOL < 10 mg/dL (NONE DETECTED)
[2019-07-03] MEDS ORDERED: ALTEPLASE INJ 100 MG VIAL IV ONE (11:24)
[2019-07-03 11:25] LABS: APPEARANCE,URINE SLIGHTLY-CLOUDY; BILIRUBIN,URINE NEGATIVE (NEGATIVE); COLOR,URINE YELLOW; GLUCOSE, URINE NEGATIVE (NEGATIVE); KETONES,URINE NEGATIVE (NEGATIVE); LEUKOCYTE ESTERASE,URINE TRACE (NEGATIVE); NITRITE,URINE NEGATIVE (NEGATIVE); PROTEIN,URINE NEGATIVE (NEGATIVE); URINE SPECIFIC GRAVITY 1.014; UROBILINOGEN,URINE NEGATIVE mg/dL (<2.0)
--- NOTE | 2019-07-03 11:40 | EKG REPORT ---
SEVERITY:- NORMAL ECG - SINUS RHYTHM : Confirmed by: Nathaniel Morales 03-Jul-2019 11:39:39
[2019-07-03 11:49] LABS: URINE AMPHETAMINES SCREEN NEGATIVE; URINE BARBITURATES SCREEN NEGATIVE; URINE BENZODIAZEPINES SCREEN NEGATIVE; URINE COCAINE SCREEN NEGATIVE; URINE MARIJUANA (THC) SCREEN NEGATIVE; URINE METHADONE SCREEN NEGATIVE; URINE PHENCYCLIDINE SCREEN NEGATIVE
[2019-07-03 12:45] VITALS: BP 125/63
== END 2019-07-03 12:52 | disposition short-term general hospital (02) ==
LOC: ER 09:32
DX: I63.9 Cerebral infarction, unspecified (principal); G81.91 Hemiplegia, unspecified affecting right dominant side; R47.81 Slurred speech; R20.0 Anesthesia of skin; R51 Headache; I10 Essential (primary) hypertension; J45.909 Unspecified asthma, uncomplicated; Z88.8 Allergy status to other drugs, medicaments and biological substances; Z88.1 Allergy status to other antibiotic agents; Z91.041 Radiographic dye allergy status
CPT/HCPCS: 93005; 99291; 96375; 96365; 36415; 82962; 80307 ×2; 83735; 85025; 85610; 85730; 81025; 80053; 81001; 71045; 70450; 93010; J2270; J2997; J2405

== ENCOUNTER 2019-07-09 21:00 | Emergency (ER) | payer MEDICAID ==
--- NOTE | 2019-07-09 21:15 | ER Document Report ---
ED General - General Chief Complaint: S/S of Possible Stroke Stated Complaint: POSSIBLE STROKE Time Seen by Provider: 07/09/19 21:07 Primary Care Provider: MINDI CONTE PA-C [Primary Care Provider] - Follow up as needed Mode of Arrival: Medic Information source: Patient TRAVEL OUTSIDE OF THE [place] IN LAST 30 DAYS: No - HPI Onset: Other - at 730PM Onset/Duration: Sudden Quality of pain: No pain Severity: Moderate Pain Level: 2 Associated symptoms: Other - word finding difficulty, right sided weakness Exacerbated by: Denies Relieved by: Denies Similar symptoms previously: No Recently seen / treated by doctor: Yes - patient seen in this ER on 07/03/19 and given TPA for similar symptoms Notes: 33 year old female with a history of HTN and a prior stroke with residual right sided weakness (she was seen in this ER last week for the same and had TPA administered here at [facility] prior to transfer to [facility]) brought in by EMS for word finding difficulty, right arm and leg numbness, and right leg weakness (more than baseline for her) along with a headache which she thinks started at 730Pm. The patient says this feels somewhat like the last time she was seen and evaluated for a stroke. The patient ended up having an MRI at [facility] after getting the TPA on her last visit here in the ER and the MRI showed no evidence of a stroke. The patient was tearful on ER arrival. - Related Data Allergies/Adverse Reactions: aspirin [Aspirin] Allergy (Severe, Verified 06/25/19 22:29) Edema ciprofloxacin [From Cipro] Allergy (Verified 06/25/19 22:29) Iodinated Contrast Media Allergy (Verified 06/25/19 22:29) Past Medical History - General Information source: Patient - Social History Smoking Status: Never Smoker Frequency of alcohol use: None Drug Abuse: None Family History: Arthritis, CVA, DM, Hyperlipidemia, Hypertension. denies: CAD, COPD, Malignancy, Thyroid Disfunction - Past Medical History Cardiac Medical History: Reports: Hx Hypertension Denies: Hx Coronary Artery Disease, Hx Heart Attack Pulmonary Medical History: Reports: Hx Asthma, Hx Pneumonia - Apr 2010 Denies: Hx Bronchitis, Hx COPD Neurological Medical History: Reports: Hx Cerebrovascular Accident. Denies: Hx Seizures Renal/ Medical History: Denies: Hx Peritoneal Dialysis Musculoskeletal Medical History: Denies Hx Arthritis Past Surgical History: Reports: Hx Cholecystectomy, Hx Oral Surgery - Various dental surgeries. Denies: Hx Pacemaker - Immunizations Immunizations up to date: No Hx Diphtheria, Pertussis, Tetanus Vaccination: No Review of Systems - Review of Systems Constitutional: No symptoms reported EENT: No symptoms reported Cardiovascular: No symptoms reported Respiratory: No symptoms reported Gastrointestinal: No symptoms reported Genitourinary: No symptoms reported Female Genitourinary: No symptoms reported Musculoskeletal: No symptoms reported Skin: No symptoms reported Hematologic/Lymphatic: No symptoms reported Neurological/Psychological: Weakness - right sided, Headaches, Numbness - right sided, Tingling - right sided, Other - trouble speaking Physical Exam - Vital signs Vitals: Resp Pulse Ox 18 100 07/09/19 21:22 07/09/19 21:22 - Notes Notes: GENERAL: Well-appearing, well-nourished. Patient is emotional and tearful HEAD: Atraumatic, normocephalic. EYES: Pupils equal round and reactive to light, extraocular movements intact, sclera anicteric, conjunctiva are normal. ENT: Nares patent, oropharynx clear without exudates. Moist mucous membranes. NECK: Normal range of motion, supple without lymphadenopathy or JVD. LUNGS: Breath sounds clear to auscultation bilaterally and equal. No wheezes rales or rhonchi. HEART: Regular rate and rhythm without murmurs, rubs or gallops. ABDOMEN: Soft, nontender, normoactive bowel sounds. No guarding, no rebound. No masses appreciated. EXTREMITIES: Normal range of motion, no pitting or edema. No clubbing or cyanosis. NEUROLOGICAL: Cranial nerves II through XII grossly intact. Speech is slow to come out but fairly clear to me. Patient does not want to lift her right leg much at all against gravity but some of this seems effort dependent. Patient is endorsing numbness and tingling in right arm and leg. Patient endorsing a headache. NIH stroke scale of 4 (weakness of right lower leg, mild numbness of right arm and right leg, mild word finding issues). but some of her exam seems effort dependent. PSYCH: Normal mood, normal affect. SKIN: Warm, Dry, normal turgor, no rashes or lesions noted. Course - Re-evaluation Re-evalutation: 07/10/19 16:17 The patient was a stroke code on ER arrival since she was in the window for TPA. That said, her symptoms improved and me nor the Neurologist at [facility] (Dr. Crawford) I consulted and who saw the patient last week are not convinced the patient is actually having a true stroke. The patient has had headaches with her transient right sided numbness, tingling, weakness and word finding issues. The patient's symptoms improved on her own some while in the ER. Dr. Crawford told me the patient had no evidence of a stroke on her MRI at their facility last week after getting TPA at [facility]. Dr. Crawford does not think TPA is indicated again this week since she just had it last week and had no evidence of a stroke on MRI imaging. The patient was told this and she agreed. The patient was pre treated with Benadryl, Steroids, Pepcid for possibel contrast allergey and a CTA head and neck were done. No large vessel occlusion seen. Dr. Crawford feels the patient is safe for outpatient Neurology follow up at [facility] and I agree with this plan. The patient agreed with this plan as well. Her headache was improved prior to discharge. Complicated headache seems most likely as the cause of her symptoms. - Vital Signs Vital signs: Temp Pulse Resp BP Pulse Ox 98.1 F 60 19 142/76 H 99 07/09/19 21:47 07/09/19 21:47 07/10/19 01:00 07/09/19 23:01 07/09/19 23:01 - Laboratory Result Diagrams: 07/09/19 21:20 07/09/19 21:20 Laboratory results interpreted by me: 07/09/19 07/09/19 21:20 21:20 WBC 13.6 H RDW 14.7 H Absolute Neuts (auto) 10.0 H Sodium 135.1 L - Diagnostic Test Radiology reviewed: Image reviewed, Reports reviewed - EKG Interpretation by Me EKG shows normal: Sinus rhythm, [place], Intervals, QRS Complexes, ST-T Waves Rate: Normal Rhythm: NSR Discharge - Discharge Clinical Impression: Headache Qualifiers: Headache type: unspecified Headache chronicity pattern: unspecified pattern Intractability: not intractable Qualified Code(s): R51 - Headache Condition: Stable Disposition: HOME, SELF-CARE Instructions: Headache ([facility]), Transient Ischemic Attack ([facility]) Additional Instructions: Follow up with outpatient Neurology at [facility] as previously prescribed. Use the prescribed Fioricet for headaches. Continue to take your previously prescribed medications. Return to an ER for stroke like symptoms. Prescriptions: Butalb/Acetaminophen/Caffeine [Fioricet (50-325-40 mg) Tablet] 1 tab PO Q8H #15 tab Referrals: MINDI CONTE PA-C [Primary Care Provider] - Follow up as needed
[2019-07-09 21:30] LABS: ABSOLUTE BASOPHILS # (AUTO) 0.1 10^3/uL (0.0-0.2); ABSOLUTE EOSINOPHILS # (AUTO) 0.2 10^3/uL (0.0-0.6); ABSOLUTE LYMPHOCYTES (AUTO) 2.6 10^3/uL (0.5-4.7); ABSOLUTE MONOCYTES (AUTO) 0.7 10^3/uL (0.1-1.4); BASOPHILS % (AUTO) 0.6 % (0-2); EOSINOPHILS % (AUTO) 1.8 % (0-6); HEMATOCRIT 37.7 % (36.0-47.0); HEMOGLOBIN 12.2 g/dL (12.0-15.5); LYMPHOCYTES % (AUTO) 19.1 % (13-45); MEAN CORPUSCULAR HEMOGLOBIN 27.4 pg (27.0-33.4); MEAN CORPUSCULAR HGB CONC 32.2 g/dL (32.0-36.0); MEAN CORPUSCULAR VOLUME 85 fl (80-97); MONOCYTES % (AUTO) 4.9 % (3-13); PLATELET COUNT 334 10^3/uL (150-450); RED BLOOD COUNT 4.44 10^6/uL (3.72-5.28); RED CELL DISTRIBUTION WIDTH 14.7 % (11.5-14.0); SEGMENTED NEUTROPHILS % (AUTO) 73.6 % (42-78); TOTAL CELLS COUNTED % (AUTO) 100 %; WHITE BLOOD COUNT 13.6 10^3/uL (4.0-10.5)
[2019-07-09 21:33] LABS: INTERNATIONAL RATION (INR) 0.89
[2019-07-09 21:34] LABS: PARTIAL THROMBOPLASTIN TIME 28.4 SEC (23.5-35.8)
--- NOTE | 2019-07-09 21:38 | RADIOLOGY REPORT (SQ) ---
EXAM DESCRIPTION: Noncontrast CT head CLINICAL HISTORY: 33 years Female STROKE PROTOCOL TECHNIQUE: Noncontrast CT head. All CT scans at this facility use dose modulation, iterative reconstruction, and/or weight based dosing when appropriate to reduce radiation dose to as low as reasonably achievable. COMPARISON: July 03 2019 FINDINGS: Mata matter, white matter, ventricles, and cisterns are within normal limits. No acute hemorrhage or mass effect. Visualized portions of paranasal sinuses and mastoids are clear. Visualized portions of the calvarium are within normal limits. IMPRESSION: 1. No acute intracranial findings. If there is clinical concern for acute stroke, MRI brain should be considered as a more sensitive evaluation.
--- NOTE | 2019-07-09 21:38 | RADIOLOGY REPORT (SQ) ---
EXAM DESCRIPTION: XR CHEST 1 VIEW COMPLETED DATE/TME: 07/09/2019 00:00 CLINICAL HISTORY: 33 years, Female, STROKE PROTOCOL COMPARISON: Prior study from 07/03/2019 NUMBER OF VIEWS: One TECHNIQUE: Single frontal view of the chest was obtained portably LIMITATIONS: None. FINDINGS: Cardiac and mediastinal contours are stable. Lungs are clear. No pleural effusion or pneumothorax. IMPRESSION: No acute disease. copyright 2010 [employer]- All Rights Reserved
--- NOTE | 2019-07-09 21:46 | EKG REPORT ---
SEVERITY:- NORMAL ECG - SINUS RHYTHM : Confirmed by: Ladonna Lilly MD 09-Jul-2019 21:45:45
[2019-07-09 21:48] LABS: ALBUMIN 3.7 g/dL (3.5-5.0); ALKALINE PHOSPHATASE 70 U/L (38-126); ANION GAP 6 (5-19); ASPARTATE AMINO TRANSFERASE 23 U/L (14-36); BILIRUBIN,TOTAL 0.2 mg/dL (0.2-1.3); BLOOD UREA NITROGEN 15 mg/dL (7-20); CALCIUM 8.9 mg/dL (8.4-10.2); CARBON DIOXIDE 29 mmol/L (22-30); CHLORIDE 100 mmol/L (98-107); CREATINE KINASE 63 U/L (30-135); GLUCOSE 96 mg/dL (75-110); POTASSIUM 4.4 mmol/L (3.6-5.0); TOTAL PROTEIN 7.2 g/dL (6.3-8.2)
[2019-07-09 22:00] LABS: CREATINE KINASE MB 0.54 ng/mL (<4.55)
[2019-07-09 22:01] LABS: TROPONIN I < 0.012 ng/mL
[2019-07-09] MEDS ORDERED: METHYLPREDNISOLONE INJ 125 MG/2 ML SDV IV ONE (22:05)
[2019-07-09] MEDS ORDERED: DIPHENHYDRAMINE HCL 50 MG/ML VIAL IV ONE (22:05)
[2019-07-09] MEDS ORDERED: FAMOTIDINE INJ/PF 20 MG/2 ML SDV IV ONE (22:06)
[2019-07-09] MEDS ORDERED: KETOROLAC TROMETHAMINE INJ/PF 30 MG/1 ML SDV IV ONE (22:10)
[2019-07-09 23:38] VITALS: BP 142/76
--- NOTE | 2019-07-09 23:41 | RADIOLOGY REPORT (SQ) ---
EXAM DESCRIPTION: CT NECK ANGIOGRAPHY WITHOUT THEN WITH IV CONTRAST, CT HEAD ANGIOGRAPHY WITHOUT THEN WITH IV CONTRAST COMPLETED DATE/TME: 07/09/2019 21:26 CLINICAL HISTORY: 33 years, Female, rule out stroke. right sided weakness. GUADARRAMA. COMPARISON: Prior CT head from earlier the same day TECHNIQUE: Contrast enhanced CTA of the neck was acquired after the uneventful administration of 70 mL of Omnipaque 350 intravenous contrast. MIPS were created. Images stored on PACS. All CT scanners at this facility use dose modulation, iterative reconstruction, and/or weight based dosing when appropriate to reduce radiation dose to as low as reasonably achievable (ALARA). [facility]: Dose Right [facility]: CareDose [facility]: Dose Right [facility]: Teradose 4D [facility]: [employer] LIMITATIONS: None. FINDINGS: Limited evaluation of the chest reveals clear lung apices. Thyroid gland enhances symmetrically. The hypopharynx, oropharynx, and nasopharynx show no suspicious abnormality although the adenoids are somewhat hypertrophic. A few small intraparotid lymph nodes are noted bilaterally. These appear unchanged from the previous exam dated 03/09/2019. Bilateral submandibular glands appear normal. No suspicious deep cervical lymphadenopathy is appreciated though there are a few small/nonenlarged bilateral level IIa and IIb lymph nodes. Globes and orbits show no suspicious finding. Limited evaluation of the brain parenchyma reveals no suspicious finding. The thoracic aortic arch opacifies with contrast normally. Origins of the great vessels appear normal as well. The bilateral common and internal carotid arteries opacify with contrast normally throughout their cervical portions. Intracranially, the internal carotid arteries, middle cerebral arteries, and anterior cerebral arteries appear normal. Likewise, the bilateral vertebral arteries, basilar artery, and both posterior cerebral arteries appear normal. Osseous structures show no suspicious abnormality. IMPRESSION: No evidence of major arterial vessel occlusion, aneurysm, or dissection within the head or neck. TECHNICAL DOCUMENTATION: Quality ID # 436: Final reports with documentation of one or more dose reduction techniques (e.g., Automated exposure control, adjustment of the mA and/or kV according to patient size, use of iterative reconstruction technique) copyright 2011 [employer]- All Rights Reserved
== END 2019-07-10 01:50 | disposition home or self-care (01) ==
LOC: ER 21:00
DX: R51 Headache (principal); R20.0 Anesthesia of skin; R20.2 Paresthesia of skin; I69.341 Monoplegia of lower limb following cerebral infarction affecting right dominant side; R29.818 Other symptoms and signs involving the nervous system; I10 Essential (primary) hypertension; J45.909 Unspecified asthma, uncomplicated; Z88.8 Allergy status to other drugs, medicaments and biological substances; Z88.1 Allergy status to other antibiotic agents; Z91.041 Radiographic dye allergy status
CPT/HCPCS: 93005; 99285; 96374; 96375; 36415; 82553; 82550; 85025; 85610; 85730; 80053; 84484; 71045; 70450; 70496; 70498; 93010; J1200; J2930; J1885; S0028

== ENCOUNTER 2019-07-12 02:05 | Emergency (ER) | payer MEDICAID ==
[2019-07-12] MEDS ORDERED: PROCHLORPERAZINE EDISYLATE INJ 10 MG/2 ML VIAL IV ONE (02:10)
[2019-07-12] MEDS ORDERED: DIPHENHYDRAMINE HCL 50 MG/ML VIAL IV ONE (02:11)
[2019-07-12] MEDS ORDERED: HYDROMORPHONE HCL INJ/PF 2 MG/ML AMPULE IV ONE (02:11)
--- NOTE | 2019-07-12 02:17 | ER Document Report ---
ED General - General Stated Complaint: HEADACHE Time Seen by Provider: 07/12/19 02:09 Primary Care Provider: MINDI CONTE PA-C [Primary Care Provider] - Follow up as needed Information source: Patient Notes: 33-year-old black female arrives by EMS with acute onset of right temporal and occipital headache over the last 1 hour around 7 out of 10 in intensity. She also admits to some chest pain but is quite tachypneic upon arrival. Patient is endomorphic in body habitus and reports she has a history of migraine headaches. She was here recently and sent to [facility] because of question of CVA like symptoms associated with her migraine headache. CT reported on last visit no obvious lesions. TRAVEL OUTSIDE OF THE [place] IN LAST 30 DAYS: No - Related Data Allergies/Adverse Reactions: aspirin [Aspirin] Allergy (Severe, Verified 06/25/19 22:29) Edema ciprofloxacin [From Cipro] Allergy (Verified 06/25/19 22:29) Iodinated Contrast Media Allergy (Verified 06/25/19 22:29) Past Medical History - General Information source: Patient, Emergency Med Personnel - Social History Smoking Status: Never Smoker Cigarette use (# per day): No Chew tobacco use (# tins/day): No Smoking Education Provided: No Frequency of alcohol use: None Drug Abuse: None Lives with: Family Family History: Arthritis, CVA, DM, Hyperlipidemia, Hypertension. denies: CAD, COPD, Malignancy, Thyroid Disfunction Patient has suicidal ideation: No Patient has homicidal ideation: No - Past Medical History Cardiac Medical History: Reports: Hx Hypertension Denies: Hx Coronary Artery Disease, Hx Heart Attack Pulmonary Medical History: Reports: Hx Asthma, Hx Pneumonia - Apr 2010 Denies: Hx Bronchitis, Hx COPD Neurological Medical History: Reports: Hx Cerebrovascular Accident. Denies: Hx Seizures Renal/ Medical History: Denies: Hx Peritoneal Dialysis Musculoskeletal Medical History: Denies Hx Arthritis Past Surgical History: Reports: Hx Cholecystectomy, Hx Oral Surgery - Various dental surgeries. Denies: Hx Pacemaker - Immunizations Immunizations up to date: No Hx Diphtheria, Pertussis, Tetanus Vaccination: No Review of Systems - Review of Systems Constitutional: See HPI, Weakness EENT: No symptoms reported Cardiovascular: No symptoms reported Respiratory: No symptoms reported Gastrointestinal: No symptoms reported Genitourinary: No symptoms reported Female Genitourinary: No symptoms reported Musculoskeletal: No symptoms reported Skin: No symptoms reported Hematologic/Lymphatic: No symptoms reported Neurological/Psychological: No symptoms reported, Anxiety, Weakness, Headaches Physical Exam - Vital signs Vitals: Resp 17 07/12/19 02:10 Interpretation: Normal - General General appearance: Anxious - HEENT Head: Normocephalic Eyes: Normal Conjunctiva: Normal Cornea: Normal Extraocular movements intact: Yes Eyelashes: Normal Pupils: PERRL Sinus: Normal Nasal: Normal Mucous membranes: Normal Pharynx: Normal Neck: Normal - Respiratory Respiratory status: No respiratory distress Chest status: Nontender Breath sounds: Normal Chest palpation: Normal - Cardiovascular Rhythm: Regular Heart sounds: Normal auscultation Murmur: No Friction rub: No Nakit's crunch: No - Abdominal Inspection: Normal Distension: No distension Bowel sounds: Normal Tenderness: Nontender Organomegaly: No organomegaly - Back Back: Normal - Extremities General upper extremity: Normal inspection General lower extremity: Normal inspection - Neurological Neuro grossly intact: Yes Cognition: Normal Orientation: AAOx4 Will Coma Scale Eye Opening: Spontaneous Will Coma Scale Verbal: Oriented Basye Coma Scale Motor: Obeys Commands Basye Coma Scale Total: 15 Speech: Normal Cranial nerves: Normal Cerebellar coordination: Normal Motor strength normal: LUE, RUE, LLE, RLE - Psychological Associated symptoms: Anxious - Skin Skin Temperature: Warm Skin Moisture: Dry Course - Vital Signs Vital signs: Temp Pulse Resp BP Pulse Ox 98.1 F 16 158/88 H 100 07/12/19 02:34 07/12/19 04:29 07/12/19 04:29 07/12/19 04:29 - Laboratory Result Diagrams: 07/12/19 02:15 07/12/19 02:15 Laboratory results interpreted by me: 07/12/19 07/12/19 02:15 02:15 WBC 13.2 H Hgb 11.4 L Hct 34.2 L RDW 14.6 H Absolute Neuts (auto) 8.8 H Glucose 127 H - Diagnostic Test Radiology reviewed: Reports reviewed - EKG Interpretation by Me EKG shows normal: Sinus rhythm Rate: Normal Rhythm: Other - [facility] Critical Care Note - Critical Care Note Total time excluding time spent on procedures (mins): 90 Comments: Re-assessment of the patient at 0 515 reveals cessation of headache but patient feels shaky Discharge - Discharge Clinical Impression: Morbid obesity Migraine Qualifiers: Migraine type: unspecified Status migrainosus presence: without status migrainosus Intractability: not intractable Qualified Code(s): G43.909 - Migraine, unspecified, not intractable, without status migrainosus Disposition: HOME, SELF-CARE Prescriptions: Cephalexin Monohydrate [Keflex 500 mg Capsule] 500 mg PO BID 5 Days #10 capsule Cyproheptadine HCl [Periactin 4 Mg Tablet] 4 mg PO HSP PRN #30 tablet PRN Reason: Acyclovir [Zovirax 200 mg Capsule] 200 mg PO TID 7 Days #21 capsule Forms: Return to Work Referrals: MINDI CONTE PA-C [Primary Care Provider] - Follow up as needed
[2019-07-12 02:31] LABS: ABSOLUTE BASOPHILS # (AUTO) 0.1 10^3/uL (0.0-0.2); ABSOLUTE EOSINOPHILS # (AUTO) 0.1 10^3/uL (0.0-0.6); ABSOLUTE LYMPHOCYTES (AUTO) 3.3 10^3/uL (0.5-4.7); ABSOLUTE MONOCYTES (AUTO) 0.9 10^3/uL (0.1-1.4); ABSOLUTE NEUT (AUTO) 8.8 10^3/uL (1.7-8.2); BASOPHILS % (AUTO) 0.8 % (0-2); EOSINOPHILS % (AUTO) 1.1 % (0-6); HEMATOCRIT 34.2 % (36.0-47.0); HEMOGLOBIN 11.4 g/dL (12.0-15.5); LYMPHOCYTES % (AUTO) 24.8 % (13-45); MEAN CORPUSCULAR HEMOGLOBIN 28.1 pg (27.0-33.4); MEAN CORPUSCULAR HGB CONC 33.4 g/dL (32.0-36.0); MEAN CORPUSCULAR VOLUME 84 fl (80-97); MONOCYTES % (AUTO) 6.6 % (3-13); PLATELET COUNT 313 10^3/uL (150-450); RED BLOOD COUNT 4.06 10^6/uL (3.72-5.28); RED CELL DISTRIBUTION WIDTH 14.6 % (11.5-14.0); SEGMENTED NEUTROPHILS % (AUTO) 66.7 % (42-78); TOTAL CELLS COUNTED % (AUTO) 100 %; WHITE BLOOD COUNT 13.2 10^3/uL (4.0-10.5)
[2019-07-12 02:37] LABS: INTERNATIONAL RATION (INR) 0.92; PROTHROMBIN TIME 12.4 SEC (11.4-15.4)
[2019-07-12 02:50] LABS: ALBUMIN 3.7 g/dL (3.5-5.0); ALKALINE PHOSPHATASE 83 U/L (38-126); ANION GAP 9 (5-19); ASPARTATE AMINO TRANSFERASE 32 U/L (14-36); BILIRUBIN,DIRECT 0.3 mg/dL (0.0-0.4); BILIRUBIN,TOTAL 0.3 mg/dL (0.2-1.3); BLOOD UREA NITROGEN 16 mg/dL (7-20); CALCIUM 8.7 mg/dL (8.4-10.2); CARBON DIOXIDE 24 mmol/L (22-30); CHLORIDE 105 mmol/L (98-107); CREATINE KINASE 68 U/L (30-135); GLUCOSE 127 mg/dL (75-110); TOTAL PROTEIN 7.2 g/dL (6.3-8.2)
[2019-07-12] MEDS ORDERED: HALOPERIDOL LACTATE INJ 5 MG/1 ML VIAL IV ONE (02:56)
[2019-07-12] MEDS ORDERED: LORAZEPAM INJ 2 MG/1 ML VIAL IV ONE (02:56)
--- NOTE | 2019-07-12 03:53 | RADIOLOGY REPORT (SQ) ---
CLINICAL HISTORY: cp/baez COMPARISON: 07/11/2019 TECHNIQUE: XR CHEST 2 VIEWS 07/12/2019 2:10 AM CDT FINDINGS: Cardiac silhouette is normal in size. Lungs are clear without consolidation, atelectasis, mass or edema. There is no pleural effusion. There is no pneumothorax. There are no acute osseous findings. IMPRESSION: Clear lungs.
--- NOTE | 2019-07-12 03:56 | RADIOLOGY REPORT (SQ) ---
CLINICAL HISTORY: headache COMPARISON: 07/11/2018. TECHNIQUE: CT HEAD WITHOUT IV CONTRAST on 07/12/2019 2:30 AM CDT This exam was performed according to our departmental dose-optimization program, which includes automated exposure control, adjustment of the mA and/or kV according to patient size and/or use of iterative reconstruction technique. FINDINGS: There is no acute hemorrhage, mass effect or midline shift. Mata-white differentiation is preserved. There is no hydrocephalus. There is no significant volume loss for age. The calvarium is intact. Orbits and globes are unremarkable. The paranasal sinuses are clear. Mastoid air cells are clear. IMPRESSION: No acute intracranial findings.
[2019-07-12 05:59] VITALS: BP 156/84
--- NOTE | 2019-07-12 15:52 | EKG REPORT ---
SEVERITY:- ABNORMAL ECG - SINUS RHYTHM PROBABLE LEFT VENTRICULAR HYPERTROPHY : Confirmed by: Ladonna Lilly MD 12-Jul-2019 15:51:54
== END 2019-07-12 05:40 | disposition home or self-care (01) ==
LOC: ER 02:05
DX: G43.909 Migraine, unspecified, not intractable, without status migrainosus (principal); E66.01 Morbid (severe) obesity due to excess calories; I11.9 Hypertensive heart disease without heart failure; R07.9 Chest pain, unspecified; R06.82 Tachypnea, not elsewhere classified; R53.1 Weakness; J45.909 Unspecified asthma, uncomplicated; Z88.8 Allergy status to other drugs, medicaments and biological substances; Z88.1 Allergy status to other antibiotic agents; Z91.041 Radiographic dye allergy status
CPT/HCPCS: 93005; 99291; 99292; 96374; 96375; 36415; 82550; 85025; 85610; 85730; 80053; 71046; 70450; 93010; J1200; J1170; J0780

== ENCOUNTER 2019-07-15 20:31 | Emergency (ER) | payer MEDICAID ==
--- NOTE | 2019-07-15 22:46 | ER Document Report ---
ED General - General Chief Complaint: Vomiting Stated Complaint: CHOKING Time Seen by Provider: 07/15/19 22:43 Primary Care Provider: MINDI CONTE PA-C [Primary Care Provider] - Follow up as needed Mode of Arrival: Medic Information source: Patient TRAVEL OUTSIDE OF THE [place] IN LAST 30 DAYS: No - HPI Onset: Other - over the last several days Onset/Duration: Gradual Quality of pain: Achy Severity: Mild Pain Level: 2 Associated symptoms: Other - sore throat, sensation throat is swelling Exacerbated by: Other - eating Relieved by: Denies Similar symptoms previously: No Recently seen / treated by doctor: No Notes: 33 year old female with a history of HTN, HLD, Asthma, Reported Prior CVA, and high utilization of the ER here a sore throat, nausea, vomiting, and sensation her throat is swelling. The patient denies recent change in her medications, sensation something is stuck in her throat, fevers, chills, sweats, hives, skin rash. The patient is emotional and tearful during my exam. The patient denies known sick contacts or recent travel. - Related Data Allergies/Adverse Reactions: aspirin [Aspirin] Allergy (Severe, Verified 06/25/19 22:29) Edema ciprofloxacin [From Cipro] Allergy (Verified 06/25/19 22:29) Iodinated Contrast Media Allergy (Verified 06/25/19 22:29) Past Medical History - General Information source: Patient - Social History Smoking Status: Never Smoker Frequency of alcohol use: None Drug Abuse: None Family History: Arthritis, CVA, DM, Hyperlipidemia, Hypertension. denies: CAD, COPD, Malignancy, Thyroid Disfunction Patient has suicidal ideation: No Patient has homicidal ideation: No - Past Medical History Cardiac Medical History: Reports: Hx Hypertension Denies: Hx Coronary Artery Disease, Hx Heart Attack Pulmonary Medical History: Reports: Hx Asthma, Hx Pneumonia - Apr 2010 Denies: Hx Bronchitis, Hx COPD Neurological Medical History: Reports: Hx Cerebrovascular Accident. Denies: Hx Seizures Renal/ Medical History: Denies: Hx Peritoneal Dialysis Musculoskeletal Medical History: Denies Hx Arthritis Past Surgical History: Reports: Hx Cholecystectomy, Hx Oral Surgery - Various dental surgeries. Denies: Hx Pacemaker - Immunizations Immunizations up to date: No Hx Diphtheria, Pertussis, Tetanus Vaccination: No Review of Systems - Review of Systems Constitutional: Chills. denies: Fever EENT: Throat pain, Throat swelling - sensation Cardiovascular: No symptoms reported Respiratory: Other - patient says the throat swelling is making it hard for her to breath Gastrointestinal: Nausea, Vomiting Genitourinary: No symptoms reported Female Genitourinary: No symptoms reported Musculoskeletal: No symptoms reported Skin: No symptoms reported Hematologic/Lymphatic: No symptoms reported Neurological/Psychological: No symptoms reported -: Yes All other systems reviewed and negative Physical Exam - Vital signs Vitals: Temp Pulse Resp BP Pulse Ox 98.2 F 74 20 119/69 99 07/15/19 20:42 07/15/19 20:42 07/15/19 20:42 07/15/19 20:42 07/15/19 20:42 - Notes Notes: GENERAL: Well-appearing, well-nourished and in no acute distress. Patient is tearful and emotional however. HEAD: Atraumatic, normocephalic. EYES: Pupils equal round and reactive to light, extraocular movements intact, sclera anicteric, conjunctiva are normal. ENT: Nares patent, oropharynx with mild erythema but without exudates or swelling. Uvula midline and not swollen. Moist mucous membranes. NECK: Normal range of motion, supple without lymphadenopathy or JVD. LUNGS: Breath sounds clear to auscultation bilaterally and equal. No wheezes rales or rhonchi. No increased work of breathing. HEART: Regular rate and rhythm without murmurs, rubs or gallops. ABDOMEN: Soft, nontender, normoactive bowel sounds. No guarding, no rebound. No masses appreciated. EXTREMITIES: Normal range of motion, no pitting or edema. No clubbing or cyanosis. NEUROLOGICAL: Cranial nerves II through XII grossly intact. Normal speech, normal gait. PSYCH: Normal mood, normal affect. SKIN: Warm, Dry, normal turgor, no rashes or lesions noted. Course - Re-evaluation Re-evalutation: 07/15/19 23:15 The patient seems rather anxious and emotional. When speaking with her and examining her she is not having any trouble breathing. Patient has normal vital signs. Patient's throat is mild erythematous but she endorses vomiting so this could be due to irritation/inflammation. Patient tested in the ER for Strep which was negative and patient given a GI Cocktail and breathing treatment. No need for labs or imaging. Patient has recent labs from her previous ER visit this month. Patient's airway is not compromised in anyway and her mouth has no swelling on physical exam. 07/15/19 23:51 Patient felt better after a GI Cocktail and Duoneb. Will DC with a script for Reglan and have her follow up with her PCP. - Vital Signs Vital signs: Temp Pulse Resp BP Pulse Ox 98.2 F 74 20 119/69 99 07/15/19 20:42 07/15/19 20:42 07/15/19 20:42 07/15/19 20:42 07/15/19 20:42 - EKG Interpretation by Me EKG shows normal: Sinus rhythm, [place], Intervals, ST-T Waves Rate: Normal Rhythm: NSR Additional EKG results interpreted by me: 07/15/19 22:47 nonspecific intraventricular conduction delay Discharge - Discharge Clinical Impression: Sore throat Nausea & vomiting Qualifiers: Vomiting type: unspecified Vomiting Intractability: unspecified Qualified Code(s): R11.2 - Nausea with vomiting, unspecified Condition: Stable Disposition: HOME, SELF-CARE Instructions: Nausea or Vomiting, Nonspecific ([facility]), Sore Throat ([facility]) Additional Instructions: Use Reglan as needed for nausea, vomiting, GI upset. Drink plenty of fluids in the days to come. Eat a bland diet until your symptoms improve. Follow up with your primary care doctor. You tested negative for Strep Throat. Prescriptions: Metoclopramide HCl [Reglan 10 mg Tablet] 1 tab PO ASDIR PRN #10 tablet PRN Reason: Referrals: MINDI CONTE PA-C [Primary Care Provider] - Follow up as needed
[2019-07-15] MEDS ORDERED: LIDOCAINE 2% VISCOUS SOLN 15 ML UDCUP PO ONE (22:55)
[2019-07-15] MEDS ORDERED: METOCLOPRAMIDE HCL ORAL SOLN 10 MG/10 ML UDCUP PO ONE (22:55)
[2019-07-15] MEDS ORDERED: MAG HYDROX/AL HYDROX/SIMETH SUSP 30 ML UDCUP PO ONE (22:55)
[2019-07-15] MEDS ORDERED: IPRATROPIUM/ALBUTEROL 0.5-2.5 MG/3 ML AMPUL NEB ONE (23:00)
[2019-07-16 00:02] VITALS: BP 120/75
--- NOTE | 2019-07-16 05:48 | EKG REPORT ---
SEVERITY:- ABNORMAL ECG - SINUS RHYTHM NONSPECIFIC INTRAVENTRICULAR CONDUCTION DELAY : Confirmed by: Ladonna Lilly MD 16-Jul-2019 05:46:53
== END 2019-07-16 00:02 | disposition home or self-care (01) ==
LOC: ER 20:31
DX: J02.9 Acute pharyngitis, unspecified (principal); R11.2 Nausea with vomiting, unspecified; R68.83 Chills (without fever); I45.9 Conduction disorder, unspecified; I10 Essential (primary) hypertension; J45.909 Unspecified asthma, uncomplicated; Z88.8 Allergy status to other drugs, medicaments and biological substances; Z88.1 Allergy status to other antibiotic agents; Z91.040 Latex allergy status
CPT/HCPCS: 93005; 94640; 99285; 87070; 87880; 93010; J3490 ×3; J7620

== ENCOUNTER 2019-08-10 19:53 | Emergency (ER) | payer MEDICAID ==
[2019-08-10] MEDS ORDERED: IPRATROPIUM/ALBUTEROL 0.5-2.5 MG/3 ML AMPUL NEB ONE (20:14)
[2019-08-10] MEDS: ALBUTEROL SULFATE 0.083% NEB 2.5 MG/3 ML AMPUL NEB SCH (20:31)
[2019-08-10] MEDS ORDERED: PREDNISONE 20 MG TABLET PO ONE (20:47)
[2019-08-10] MEDS ORDERED: ONDANSETRON HCL INJ/PF 4 MG/2 ML SDV IV ONE (21:40)
[2019-08-10] MEDS ORDERED: NORMAL SALINE 1000 ML 1,000 ML IV ONE (21:40)
--- NOTE | 2019-08-10 21:43 | ER Document Report ---
ED General - General Chief Complaint: Shortness Of Breath Stated Complaint: SHORTNESS OF BREATH Time Seen by Provider: 08/10/19 21:18 Primary Care Provider: MINDI CONTE PA-C [Primary Care Provider] - Follow up in 3-5 days Notes: Patient is a 33-year-old female that comes to the emergency department for chief complaint of shortness of breath, wheezing, cough, and she also reports generalized weakness, she vomited once today and twice yesterday, she states she barely ate anything today. She denies diarrhea, she felt some slight pain on the right side of the abdomen earlier but denies abdominal pain now. She denies fever/chills. She denies sick contacts. She has a history of asthma, states she used her albuterol at home and it did not seem to help. Patient states she feels better after the DuoNeb given here but she still feels like she cannot catch her breath. Patient denies smoking. In addition to asthma past medical history includes hypertension, type 2 diabetes, and CVA on Plavix. She has had a cholecystectomy. TRAVEL OUTSIDE OF THE [place] IN LAST 30 DAYS: No - Related Data Allergies/Adverse Reactions: aspirin [Aspirin] Allergy (Severe, Verified 08/10/19 20:56) Edema ciprofloxacin [From Cipro] Allergy (Verified 08/10/19 20:56) Iodinated Contrast Media Allergy (Verified 08/10/19 20:56) Past Medical History - General Information source: Patient - Social History Smoking Status: Never Smoker Frequency of alcohol use: None Drug Abuse: None Lives with: Family Family History: Arthritis, CVA, DM, Hyperlipidemia, Hypertension. denies: CAD, COPD, Malignancy, Thyroid Disfunction Patient has suicidal ideation: No Patient has homicidal ideation: No - Past Medical History Cardiac Medical History: Reports: Hx Hypertension Denies: Hx Coronary Artery Disease, Hx Heart Attack Pulmonary Medical History: Reports: Hx Asthma, Hx Pneumonia - Apr 2010 Denies: Hx Bronchitis, Hx COPD Neurological Medical History: Reports: Hx Cerebrovascular Accident. Denies: Hx Seizures Endocrine Medical History: Reports: Hx Diabetes Mellitus Type 2 Renal/ Medical History: Denies: Hx Peritoneal Dialysis Musculoskeletal Medical History: Denies Hx Arthritis Past Surgical History: Reports: Hx Cholecystectomy, Hx Oral Surgery - Various dental surgeries. Denies: Hx Pacemaker - Immunizations Immunizations up to date: No Hx Diphtheria, Pertussis, Tetanus Vaccination: No Review of Systems - Review of Systems Constitutional: See HPI EENT: No symptoms reported Cardiovascular: See HPI Respiratory: See HPI Gastrointestinal: See HPI Genitourinary: No symptoms reported Female Genitourinary: No symptoms reported Musculoskeletal: No symptoms reported Skin: No symptoms reported Hematologic/Lymphatic: No symptoms reported Neurological/Psychological: No symptoms reported Physical Exam - Vital signs Vitals: Temp Resp BP Pulse Ox 98.4 F 18 155/94 H 100 08/10/19 19:56 08/10/19 19:56 08/10/19 19:56 08/10/19 19:56 - Notes Notes: GENERAL: Alert, responsive HEAD: Normocephalic, atraumatic. EYES: Pupils equal, round, and reactive to light. Extraocular movements intact. ENT: Oral mucosa dry, tongue midline. Oropharynx unremarkable. Airway patent. Nares patent, sinuses non-tender, ear canals unremarkable, TM's intact. NECK: Full range of motion. Supple. Trachea midline. No lymphadenopathy. LUNGS: Clear to auscultation bilaterally, no wheezes, rales, or rhonchi. No respiratory distress. Non-tender chest wall. Mild tachypnea HEART: Regular rate and rhythm. No murmur ABDOMEN: Soft, non-tender. Non-distended. EXTREMITIES: Moves all 4 extremities spontaneously. No edema, normal radial and dorsalis pedis pulses bilaterally. No cyanosis. BACK: no cervical, thoracic, lumbar midline tenderness. No saddle anesthesia, normal distal neurovascular exam. Moves all extremities in full range of motion. NEUROLOGICAL: Alert and oriented x3. Normal speech. Cranial nerves II through XII grossly intact. Strength 5/5 in all extremities. PSYCH: Slightly anxious, borderline hyperventilation SKIN: Warm, dry, normal turgor. No rashes or lesions noted. Course - Re-evaluation Re-evalutation: Patient already received DuoNeb and steroids before I saw her, reportedly patient was wheezing beforehand, wheezing has now resolved. On my exam patient has clear lungs, oxygen saturations 100%, after I started interviewing patient started hyperventilating and told me she could not catch her breath. She denies chest pain but states she feels "tight". Patient appears quite anxious at this time. There is no lower extremity swelling, personal or family history of blood clot, she is not on hormones, she does not smoke, denies recent travel, per criteria is negative. CBC unremarkable, chemistry unremarkable, troponin negative, test negative. Chest x-ray unremarkable. On reevaluation patient is more calm and relaxed after IV fluids and nausea medications. She states she feels significantly improved. She still feels some intermittent tightness in her chest. D-dimer was tested and negative, troponin cycled and negative, patient was given small amount of Ativan, on reevaluation symptoms have resolved. Patient does have some leukocytes in the urine although there are a few squamous epithelials as well. I discussed this with patient. Very low suspicion of acute intrathoracic etiology, I did discuss coronavirus testing but because patient had wheezing and sensations similar to asthma exacerbation along with vomiting she feels she does not have this, I still have a low suspicion of this, patient declined testing. Patient will be treated for potential UTI, provided with nausea medication, and have treatment of her asthma. Provided with spacer. Discussed follow-up and return precautions. Patient states appreciation and agreement. Stable and well-appearing at time of discharge. - Vital Signs Vital signs: Temp Pulse Resp BP Pulse Ox 98.7 F 70 21 H 137/94 H 99 08/11/19 01:50 08/11/19 01:50 08/11/19 01:50 08/11/19 01:50 08/11/19 01:50 - Laboratory Result Diagrams: 08/10/19 20:32 08/10/19 20:32 Laboratory results interpreted by me: 08/10/19 08/10/19 08/10/19 20:32 20:32 23:14 Hgb 11.4 L Hct 33.9 L RDW 15.1 H Sodium 134.1 L Urine Blood SMALL H Ur Leukocyte Esterase LARGE H - EKG Interpretation by Me Additional EKG results interpreted by me: EKG shows sinus rhythm at a rate of 77, QTC of 467, borderline left axis deviation. Borderline right bundle branch block. No T wave inversions or ST segment changes in consecutive leads, slightly flattened T waves inferiorly and anteriorly. No significant change from prior. Discharge - Discharge Clinical Impression: Wheezing, Cough Vomiting Qualifiers: Vomiting type: unspecified Vomiting Intractability: non-intractable Nausea presence: with nausea Qualified Code(s): R11.2 - Nausea with vomiting, unspecified Condition: Stable Disposition: HOME, SELF-CARE Additional Instructions: You have been evaluated and treated for an asthma exacerbation. Use your albuterol inhaler with a spacer or the nebulizer. Take the prednisone as prescribed. We are covering you for urinary tract infection as well. Take the nausea medication as prescribed if needed. Start with bland food and slowly progress. Return if you worsen including spiking fevers, difficulty breathing, uncontrolled vomiting, or any other concerning or worsening symptoms. Prescriptions: Prednisone [Deltasone 20 mg Tablet] 3 tab PO DAILY 4 Days #12 tablet Cephalexin Monohydrate [Keflex 500 mg Capsule] 500 mg PO BID 5 Days #10 capsule Promethazine HCl [Phenergan 25 mg Tablet] 25 mg PO Q6H PRN #15 tablet PRN Reason: Referrals: MINDI CONTE PA-C [Primary Care Provider] - Follow up in 3-5 days
[2019-08-10 21:58] LABS: ABSOLUTE EOSINOPHILS # (AUTO) 0.3 10^3/uL (0.0-0.6); ABSOLUTE LYMPHOCYTES (AUTO) 2.7 10^3/uL (0.5-4.7); ABSOLUTE MONOCYTES (AUTO) 0.5 10^3/uL (0.1-1.4); BASOPHILS % (AUTO) 0.2 % (0-2); EOSINOPHILS % (AUTO) 2.7 % (0-6); HEMATOCRIT 33.9 % (36.0-47.0); HEMOGLOBIN 11.4 g/dL (12.0-15.5); LYMPHOCYTES % (AUTO) 25.7 % (13-45); MEAN CORPUSCULAR HEMOGLOBIN 28.3 pg (27.0-33.4); MEAN CORPUSCULAR HGB CONC 33.7 g/dL (32.0-36.0); MEAN CORPUSCULAR VOLUME 84 fl (80-97); MONOCYTES % (AUTO) 5.1 % (3-13); PLATELET COUNT 276 10^3/uL (150-450); RED BLOOD COUNT 4.04 10^6/uL (3.72-5.28); RED CELL DISTRIBUTION WIDTH 15.1 % (11.5-14.0); SEGMENTED NEUTROPHILS % (AUTO) 66.3 % (42-78); TOTAL CELLS COUNTED % (AUTO) 100 %; WHITE BLOOD COUNT 10.5 10^3/uL (4.0-10.5)
[2019-08-10 22:08] LABS: ALBUMIN 3.8 g/dL (3.5-5.0); ALKALINE PHOSPHATASE 81 U/L (38-126); ANION GAP 8 (5-19); ASPARTATE AMINO TRANSFERASE 25 U/L (14-36); BILIRUBIN,TOTAL 0.3 mg/dL (0.2-1.3); BLOOD UREA NITROGEN 11 mg/dL (7-20); CALCIUM 8.9 mg/dL (8.4-10.2); CARBON DIOXIDE 25 mmol/L (22-30); CHLORIDE 101 mmol/L (98-107); GLUCOSE 86 mg/dL (75-110); POTASSIUM 3.8 mmol/L (3.6-5.0); TOTAL PROTEIN 7.2 g/dL (6.3-8.2)
--- NOTE | 2019-08-10 23:12 | RADIOLOGY REPORT (SQ) ---
EXAM DESCRIPTION: XR CHEST 1 VIEW COMPLETED DATE/TME: 08/10/2019 21:39 CLINICAL HISTORY: 33 years Female shortness of breath COMPARISON: 07/09/2019. FINDINGS: The cardiomediastinal silhouette appears unremarkable. No consolidating infiltrates or pleural effusions. No pneumothorax. IMPRESSION: No acute abnormality is identified.
[2019-08-10 23:40] LABS: APPEARANCE,URINE SLIGHTLY-CLOUDY; BILIRUBIN,URINE NEGATIVE (NEGATIVE); COLOR,URINE YELLOW; GLUCOSE, URINE NEGATIVE (NEGATIVE); KETONES,URINE NEGATIVE (NEGATIVE); LEUKOCYTE ESTERASE,URINE LARGE (NEGATIVE); NITRITE,URINE NEGATIVE (NEGATIVE); PROTEIN,URINE NEGATIVE (NEGATIVE); URINE SPECIFIC GRAVITY 1.011; UROBILINOGEN,URINE NEGATIVE mg/dL (<2.0)
[2019-08-10] MEDS ORDERED: LORAZEPAM INJ 2 MG/1 ML VIAL IV ONE (23:49)
[2019-08-11] MEDS ORDERED: CEPHALEXIN 500 MG CAPSULE PO ONE (01:27)
[2019-08-11 01:53] VITALS: BP 137/94
--- NOTE | 2019-08-11 08:45 | EKG REPORT ---
SEVERITY:- ABNORMAL ECG - SINUS RHYTHM INCOMPLETE RIGHT BUNDLE BRANCH BLOCK NONSPECIFIC ST-T CHANGES : Confirmed by: Jonn Hicks MD 11-Aug-2019 08:44:54
== END 2019-08-11 01:53 | disposition home or self-care (01) ==
LOC: ER 19:53
DX: R11.2 Nausea with vomiting, unspecified (principal); R06.02 Shortness of breath; R05 Cough; R53.1 Weakness; R10.9 Unspecified abdominal pain; J45.909 Unspecified asthma, uncomplicated; Z88.8 Allergy status to other drugs, medicaments and biological substances; I10 Essential (primary) hypertension; E11.9 Type 2 diabetes mellitus without complications
CPT/HCPCS: 93005; 94640; 99285; 96361; 96374; 96375; 36415; 83690; 84703; 85025; 80053; 81001; 84484; 85379; 71045; 93010; J2060; J7512; J2405; J7030; J7620

== ENCOUNTER 2019-08-15 22:50 | Emergency (ER) | payer MEDICAID ==
[2019-08-16] MEDS ORDERED: NORMAL SALINE 1000 ML 1,000 ML IV ONE (00:10)
[2019-08-16] MEDS ORDERED: LORAZEPAM INJ 2 MG/1 ML VIAL IV ONE (00:10)
[2019-08-16 00:43] LABS: ABSOLUTE BASOPHILS # (AUTO) 0.1 10^3/uL (0.0-0.2); ABSOLUTE MONOCYTES (AUTO) 0.9 10^3/uL (0.1-1.4); ABSOLUTE NEUT (AUTO) 11.6 10^3/uL (1.7-8.2); BASOPHILS % (AUTO) 0.3 % (0-2); EOSINOPHILS % (AUTO) 0.1 % (0-6); HEMATOCRIT 36.3 % (36.0-47.0); LYMPHOCYTES % (AUTO) 24.1 % (13-45); MEAN CORPUSCULAR HEMOGLOBIN 27.5 pg (27.0-33.4); MEAN CORPUSCULAR HGB CONC 32.9 g/dL (32.0-36.0); MEAN CORPUSCULAR VOLUME 84 fl (80-97); MONOCYTES % (AUTO) 5.4 % (3-13); PLATELET COUNT 341 10^3/uL (150-450); RED BLOOD COUNT 4.35 10^6/uL (3.72-5.28); RED CELL DISTRIBUTION WIDTH 15.1 % (11.5-14.0); SEGMENTED NEUTROPHILS % (AUTO) 70.1 % (42-78); TOTAL CELLS COUNTED % (AUTO) 100 %; WHITE BLOOD COUNT 16.6 10^3/uL (4.0-10.5)
[2019-08-16 01:06] LABS: ALBUMIN 4.3 g/dL (3.5-5.0); ALKALINE PHOSPHATASE 82 U/L (38-126); ANION GAP 7 (5-19); ASPARTATE AMINO TRANSFERASE 21 U/L (14-36); BILIRUBIN,TOTAL 0.5 mg/dL (0.2-1.3); BLOOD UREA NITROGEN 10 mg/dL (7-20); CARBON DIOXIDE 28 mmol/L (22-30); CHLORIDE 100 mmol/L (98-107); GLUCOSE 86 mg/dL (75-110); POTASSIUM 3.4 mmol/L (3.6-5.0); TOTAL PROTEIN 7.7 g/dL (6.3-8.2)
--- NOTE | 2019-08-16 01:42 | RADIOLOGY REPORT (SQ) ---
INDICATION: dysphagia. COMPARISON: July 12, 2019 CORRELATION: None TECHNIQUE: Noncontrast spiral axial CT images were obtained from the skull base to vertex. This exam was performed according to our departmental dose-optimization program, which includes automated exposure control, adjustment of the mA and/or kV according to patient size and/or use of iterative reconstruction techniques. FINDINGS: There is no evidence of acute intracranial hemorrhage, midline shift, mass effect or mass lesion. Mata-white differentiation is normal. There is no evidence of acute large territory infarct. Ventricles and extracerebral spaces are within normal limits, for age. The visualized paranasal sinuses are grossly clear. The orbits and eyeballs are unremarkable. The mastoid air cells are clear. Skull base and calvarium appear intact. IMPRESSION: No acute intracranial process is identified.
--- NOTE | 2019-08-16 02:07 | ER Document Report ---
ED General - General Chief Complaint: Difficulty Swallowing Stated Complaint: DIFFICULTY SWALLOWING Time Seen by Provider: 08/15/19 23:58 Primary Care Provider: MINDI CONTE PA-C [Primary Care Provider] - Follow up as needed TRAVEL OUTSIDE OF THE [place] IN LAST 30 DAYS: No - HPI Notes: Patient is a 34-year-old female who presents to the emergency department for evaluation. She states she feels like her throat is swelling and she cannot swallow. This is been going on since Tuesday. She denies any new exposures. She denies any itching. No shortness of breath, difficulty breathing. The patient states that she just feels like she cannot swallow. She is keeping her medications down, getting them down, although she states she has to crush them. She is getting down some fluids. She states she really has not had any food in the last several days. She saw her primary care provider, and a new internal medicine physician today, who told her that it may be related to her prior history of stroke. Patient presents here for further evaluation. - Related Data Allergies/Adverse Reactions: aspirin [Aspirin] Allergy (Severe, Verified 08/10/19 20:56) Edema ciprofloxacin [From Cipro] Allergy (Verified 08/10/19 20:56) Iodinated Contrast Media Allergy (Verified 08/10/19 20:56) Past Medical History - General Information source: Patient - Social History Smoking Status: Never Smoker Chew tobacco use (# tins/day): No Frequency of alcohol use: None Drug Abuse: None Family History: Arthritis, CVA, DM, Hyperlipidemia, Hypertension. denies: CAD, COPD, Malignancy, Thyroid Disfunction Patient has suicidal ideation: No Patient has homicidal ideation: No - Past Medical History Cardiac Medical History: Reports: Hx Hypertension Denies: Hx Coronary Artery Disease, Hx Heart Attack Pulmonary Medical History: Reports: Hx Asthma, Hx Pneumonia - Apr 2010 Denies: Hx Bronchitis, Hx COPD Neurological Medical History: Reports: Hx Cerebrovascular Accident. Denies: Hx Seizures Endocrine Medical History: Reports: Hx Diabetes Mellitus Type 2 Renal/ Medical History: Denies: Hx Peritoneal Dialysis Musculoskeletal Medical History: Denies Hx Arthritis Past Surgical History: Reports: Hx Cholecystectomy, Hx Oral Surgery - Various dental surgeries. Denies: Hx Pacemaker - Immunizations Immunizations up to date: No Hx Diphtheria, Pertussis, Tetanus Vaccination: No Review of Systems - Review of Systems EENT: See HPI Neurological/Psychological: See HPI -: Yes All other systems reviewed and negative Physical Exam - Vital signs Vitals: Temp 98.7 F 08/15/19 23:04 - Notes Notes: This is a 34-year-old female who appears her stated age. She is anxious in appearance, intermittently tearful. Vital signs reviewed, please refer to chart. Head is normocephalic, atraumatic. Pupils equal round, reactive to light. Oral mucosa is moist. Uvula is midline. Patient has mildly enlarged tonsils, but no asymmetry, no posterior pharyngeal edema. The remainder of the oral mucosa is within normal limits, no swelling of the tongue or face. Neck is supple without meningismus. Heart is regular rate and rhythm. Lungs are clear to auscultation bilaterally. Abdomen is soft, nontender, normoactive bowel sounds throughout. Extremities without cyanosis, clubbing. Posterior calves are nontender. Patient is awake, alert, oriented x3. Cranial nerves II - XII are grossly intact without focal neurological deficits. Strength is plus 5 out of 5 bilateral upper and left lower extremities. Right lower extremity shows 4 out of 5 strength. Sensation is intact. Hyperreflexive on the right. Intact [id number], rapid alternating movements, [id number]. Course - Re-evaluation Re-evalutation: 08/16/19 02:06 Patient presents to the emergency department for evaluation. She is concerned about difficulty swallowing. I walked the patient in the room, she handled her her own saliva without difficulty, had no choking episodes. She did clear her throat frequently. Given her history of CVA I did order a CT scan of the head, which showed no acute process. Certainly, this still could be a neurological issue, but she is 5 days out from onset of symptoms. I do not feel that any urgent treatment would be indicated. I am concerned that there also might be an etiology of anxiety involved, she was given some Ativan and had minor improvement. Patient has a mild leukocytosis, but otherwise her lab work is unremarkable for any acute changes from baseline. We talked at length, and discussed her need for a swallow study/barium swallow to evaluate her dysphagia. She voiced understanding to this. She is to follow-up with primary care tomorrow, return to the ER with worsening or new concerning symptoms of any sort. - Vital Signs Vital signs: Temp Pulse Resp BP Pulse Ox 98.7 F 71 22 H 168/107 H 100 08/15/19 23:12 08/15/19 23:12 08/15/19 23:12 08/15/19 23:12 08/15/19 23:12 - Laboratory Result Diagrams: 08/16/19 00:31 08/16/19 00:31 Laboratory results interpreted by me: 08/16/19 08/16/19 00:31 00:31 WBC 16.6 H RDW 15.1 H Absolute Neuts (auto) 11.6 H Sodium 134.7 L Potassium 3.4 L - Diagnostic Test Radiology results interpreted by me: 08/16/19 02:[address] 08/16/19 00:10 IMPRESSION: No acute intracranial process is identified. Discharge - Discharge Clinical Impression: Dysphagia Qualifiers: Dysphagia type: unspecified Qualified Code(s): R13.10 - Dysphagia, unspecified Condition: Stable Disposition: HOME, SELF-CARE Instructions: Dysphagia ([facility]) Additional Instructions: You will likely need further evaluation of your dysphagia, including a possible swallowing study. Discussed this with your primary care provider and follow-up tomorrow. Return to the emergency department with worsening or new concerning symptoms of any sort. Referrals: MINDI CONTE PA-C [Primary Care Provider] - Follow up as needed
[2019-08-16 02:54] VITALS: BP 150/98
== END 2019-08-16 02:00 | disposition home or self-care (01) ==
LOC: ER 22:50
DX: R13.10 Dysphagia, unspecified (principal); J35.1 Hypertrophy of tonsils; D72.829 Elevated white blood cell count, unspecified; I10 Essential (primary) hypertension; J45.909 Unspecified asthma, uncomplicated; E11.9 Type 2 diabetes mellitus without complications; Z86.73 Personal history of transient ischemic attack (TIA), and cerebral infarction without residual deficits; Z88.8 Allergy status to other drugs, medicaments and biological substances; Z88.1 Allergy status to other antibiotic agents; Z91.041 Radiographic dye allergy status
CPT/HCPCS: 99284; 96361; 96374; 36415; 85025; 80053; 70450; J2060; J7030

== ENCOUNTER → 2019-09-20 | Outpatient (CLI) | payer MEDICAID ==
--- NOTE | 2019-09-20 09:07 | ST Modified Barium Swallow ---
Recommendation - Recommendations Recommendations: No recommended dysphagia treatment at this time, oral and pharngeal phases appear within functional limits. Recommend patient continue current diet for comfort, patient has adequate swallowing skills for regular textures. Medical Diagnoses - Medical Diagnoses Medical Diagnosis Description & ICD-10 Code(s): dysphagia R13.14, CVA I67.89 Other Medical Diagnoses/Co-Morbidities: CVA in Feb 2019 affecting R side of body. Asthma. HTN. Hyperlipidemia. Morbid Obesity. Insulin Resistance. Insomnia. - ICD-10 Tx Diagnosis Coding (1) Dysphagia ICD-10 Code(s): R13.10 - DYSPHAGIA, UNSPECIFIED (2) Acute CVA (cerebrovascular accident) ICD-10 Code(s): I63.9 - CEREBRAL INFARCTION, UNSPECIFIED ST Modified Barium Swallow - General Date: 09/20/19 Referring Physician: Dr. Boo Risks/Precautions: Falls Date of Onset: 07/04/19 Reason for Referral: difficulty swallowing - History -: Medical - Patient evaluated in outpatient setting for swallowing on 08/30/19 with the following history. MBSS subsequently recommended: Pt. is a 34 year old female referred for dysphagia evaluation with a diagnosis of "dysphagia as a late result of CVA" and an order by Wily Lopez DO. Pt reports of initial stroke occurring 03/08/19. She went back to work Apr at [employer] working at the [employer] ~ 2 months. Pt reports some symptoms of stroke returned early June while at work: headaches, weakness to R side ( leg more than arm ). Admitted at [facility], then transferred to [facility] for 3 days prior to DC to home on 07/04/19. Initial speech evaluation at [facility] with speech and language found grossly intact, provided with dysarthria strategies and education. Three weeks after CVA started having difficulty swallowing. Reports most difficulty with foods, stating "They get stuck and I have to force it. I cough foods back up." Good appetite, but poor intake leading to weight loss. Reports primarily liquid diet, including broths, Ensure, and Gatorade.Frequent vomiting (3x/week). Recently prescribed acid reflux medication, with pt. reporting having to break pill up in small pieces to get it to go down. Reports easier to swallow purees than solid foods, but still feels Globus sensation with purees. Reports not being seen by speech language pathologist in the acute setting to evaluate her swallow post CVA and was immediately placed on a diet. Reports coughing and choking when drinking water. Gastrointestinal evaluation scheduled for later today with Dr. Ty Boo. Medications: Metform, Lisinopril, Clopidogrel. Atovastatin, ProAir HFA, pantoprazole, fish oil Allergies: Aspirin, Ciprofloxacin. - Functional Status Prior Functional Status: INDEPENDENT: feeding - independent Current Functional Limitations: feeding - modifying diet to soft foods - Subjective Patient/caregiver goal(s): safe swallow Cognitive-Linguistic Function: WNL Speech Intelligibility: WNL Current Nutritional Means: PO Current PO diet: Soft - with thin liquids Current symptoms: Weight loss, Coughing, c/o Globus sensation Pain: Patient reports, 4/5 - back pain, chronic - Objective Assessment: Upright, Left Lateral - Food Trials Used Food trials used: Thin liquids, Pureed, Regular The patient: Was Able to Self Feed - Oral-Motor Skills Dentition: Full Velo-pharyngeal function: Unremarkable Laryngeal Function: clear voicing - Assessment Oral prep: Normal Labial closure: Adequate Leakage: None Mastication: Adequate Lingual Movement: Normal Oral stage: Normal for this Procedure Oral Stage: with solids, some piecemeal swallowing seen, requiring multiple swallow to clear oral cavity - Pharyngeal Stage Initiation of Pharyngeal Stage Reflex: Delayed - inconsistent delay of swallow with solids, bolus seen to sit on base of tongue and extend into valleculae prior to the swallow x1, also seen to sit on base of tongue for 1-2 seconds with other trials Decreased laryngeal elevation: No Reduced Velopharyngeal Closure: no Reduced pressure generation: No reduced tongue-based retraction: No Pre-swallow pooling in valleculae: Mild Pre-Swallow pooling in pyriforms: None Reduced Thyro-Hyoid approximation: No Reduced epiglottic excursion: No Reduced pharyngeal peristalsis/contraction: No Post-swallow residulas vallecular: None Post-Swallow residuals in pyriforms: None Post-Swallow Residuals: no residuals - Fall Risk Assessment Medications/Conditions that increase fall risks include: Antidepressants, sedatives, anti-arrhythmic, diuretic, benzodiazipenes, neuroleptics. BP regulation problems, cardiac problems, balance or gait deficits, neurological problems. Fall Risk Actions Taken: No action needed - Behavioral Observations During evaluation process patient: was cooperative, able to answer questions - Treatment / Educational Needs: Treatment/Education Needs: Treatment consisted of patient education on the role of the Speech Pathologist. Patient's plan of care and golas were communicated as well as scheduling and attendance policies. Recommendations for initial home program were shared. Patient demonstrated understanding and verbalized agreement. - Impression/Summary Laryngeal Penetration: No Tracheal Aspiration: no Patient presents with: Normal swallow at eval Risk of Aspiration: Minimal Evaluation and Findings: Patient presents with functional oral and pharyngeal phase swallowing skills. Patient did demonstrate some occasional delayed swallow from oral to pharyngeal phase, however, this was not consistent and did not place the patient at higher risk of aspiration. - Recommendations Solid diet recommendations: Regular - patient may wish to continue modifying her diet (soft solids) for comfort reasons Liquid Diet Modification: Thin Pt/Family education and followup with MD: Yes Dysphagia therapy with MAINTENANCE AND ENGINEERING MANAGER: no Reflux Precautions: Taught to Patient Recommended techniques: Fully Upright During Meal, Small Bites and Sips Information, Precautions and Recommendations: Patient (Written), Patient (Verbal) Other recommendations: patient scheduled to have barium swallow following modified barium swallow (videoflouroscopic swallow) - Time Total Time: 30 - Plan of Care Strategies to optimize patient understanding include:: ongoing assessment of educational needs, implementation of educational strategies, and re-education. - - -: Thank you for the opportunity to work with this patient and his/her family. Should you have any questions about this patient's plan or progress, I can be r eached at [phone].
--- NOTE | 2019-09-20 11:37 | RADIOLOGY REPORT (SQ) ---
EXAM DESCRIPTION: COOKIE SWALLOW IMAGES COMPLETED DATE/TIME: 09/20/2019 9:22 am REASON FOR STUDY: R13.14 DYSPHAGIA, PHARYNGOESOPHAGEAL PHASE, I67.89 OTHER CEREBROVASCULAR DI R13.14 DYSPHAGIA, PHARYNGOESOPHAGEAL PHASE I67.89 OTHER CEREBROVASCULAR DISEASE COMPARISON: None. TECHNIQUE: Videofluoroscopic swallowing examination was performed in conjunction with speech patholo gy. Videofluoroscopic imaging was obtained and reviewed and these are the findings: According to [facility] speech pathologist, there is no laryngeal penetration or tracheal aspiration seen. Mild cricophary ngeal hypertrophy noted. A barium swallow was then performed. Under fluoroscopic guidance, patient ingested effervescent granules followed by thick and thin barium . Fluoroscopic spot images and routine radiographic images acquired and stored on PACS. 12 MM BARIUM TABLET GIVEN: Yes. No significant delay in passage. LIMITATIONS: None. FLUOROSCOPY TIME: FLUORO TIME: 3.1 minutes of fluoroscopy was used 10 images saved to PACS. FINDINGS: NEUROMUSCULAR COORDINATION OF SWALLOW: Normal. No aspiration. Mild cricopharyngeal hypert rophy. ESOPHAGEAL MOTILITY: Normal peristalsis. No esophageal spasm. ESOPHAGEAL MUCOSA: Normal mucosa without masses or ulceration. GASTRO-ESOPHAGEAL JUNCTION: No hiatal hernia. Mild gastroesophageal reflux seen. 12 mm barium table t passed through the GE junction without delay. NON-GI TRACT STRUCTURES: No significant finding. OTHER: No other significant finding. IMPRESSION: NO EVIDENCE OF LARYNGEAL PENETRATION OR TRACHEAL ASPIRATION. PLEASE SEE SPEECH PATHOLOG Y REPORT FOR OTHER FINDINGS AND RECOMMENDATIONS. MILD GASTROESOPHAGEAL REFLUX. COMMENT: Quality ID [id number]: Final reports for procedures using fluoroscopy that document radiation exp osure indices, or exposure time and number of fluorographic images (if radiation exposure indices are not available) TECHNICAL DOCUMENTATION: JOB ID: [id number] 2010 [employer]- All Rights Reserved Reading location - IP/workstation name: [email or web address] [id number]
== END ==
LOC: RAD 08:12
PROVIDERS: ATTEND Internal Medicine Gastroenterology
DX: I67.89 Other cerebrovascular disease (principal); R13.14 Dysphagia, pharyngoesophageal phase
CPT/HCPCS: 74230

== ENCOUNTER 2019-10-01 11:19 | Emergency (ER) | payer MEDICAID ==
--- NOTE | 2019-10-01 12:04 | ER Document Report ---
ED Medical Screen (RME) - General Chief Complaint: Shortness Of Breath Stated Complaint: SHORTNESS OF BREATH Time Seen by Provider: 10/01/19 12:03 Primary Care Provider: KILO GRAF MD [Primary Care Provider] - Follow up as needed Mode of Arrival: Wheelchair Information source: Patient Notes: 34-year-old female presented to ED for shortness of breath pain in the back of her throat muscle aches all over that started today. She does have a history of a stroke x2 due to a blood clot in the brain. A heart murmur, high blood pressure, she has had her gallbladder removed. She states her last menstrual period was September 23. She is alert oriented respirations regular and unlabored speaking in full sentences. She was brought in by EMS. I have greeted and performed a rapid initial assessment of this patient. A comprehensive ED assessment and evaluation of the patient, analysis of test results and completion of medical decision making process will be conducted by an additional ED providers. TRAVEL OUTSIDE OF THE [place] IN LAST 30 DAYS: No - Related Data Allergies/Adverse Reactions: aspirin [Aspirin] Allergy (Severe, Verified 08/10/19 20:56) Edema ciprofloxacin [From Cipro] Allergy (Verified 08/10/19 20:56) Iodinated Contrast Media Allergy (Verified 08/10/19 20:56) Past Medical History - Past Medical History Cardiac Medical History: Reports: Hx Hypertension Denies: Hx Coronary Artery Disease, Hx Heart Attack Pulmonary Medical History: Reports: Hx Asthma, Hx Pneumonia - Apr 2010 Denies: Hx Bronchitis, Hx COPD Neurological Medical History: Reports: Hx Cerebrovascular Accident. Denies: Hx Seizures Endocrine Medical History: Reports: Hx Diabetes Mellitus Type 2 Renal/ Medical History: Denies: Hx Peritoneal Dialysis Musculoskeltal Medical History: Denies Hx Arthritis Past Surgical History: Reports: Hx Cholecystectomy, Hx Oral Surgery - Various dental surgeries. Denies: Hx Pacemaker - Immunizations Immunizations up to date: No Hx Diphtheria, Pertussis, Tetanus Vaccination: No Physical Exam - Vital signs Vitals: Temp Pulse Resp BP Pulse Ox 98.8 F 81 24 H 138/86 H 98 10/01/19 11:47 10/01/19 11:47 10/01/19 11:47 10/01/19 11:47 10/01/19 11:47 Course - Vital Signs Vital signs: Temp Pulse Resp BP Pulse Ox 98.8 F 81 24 H 138/86 H 98 10/01/19 11:47 10/01/19 11:47 10/01/19 11:47 10/01/19 11:47 10/01/19 11:47 Doctor's Discharge - Discharge Referrals: KILO GRAF MD [Primary Care Provider] - Follow up as needed
[2019-10-01 13:01] LABS: ABSOLUTE EOSINOPHILS # (AUTO) 0.3 10^3/uL (0.0-0.6); ABSOLUTE LYMPHOCYTES (AUTO) 2.3 10^3/uL (0.5-4.7); ABSOLUTE MONOCYTES (AUTO) 0.4 10^3/uL (0.1-1.4); ABSOLUTE NEUT (AUTO) 6.8 10^3/uL (1.7-8.2); BASOPHILS % (AUTO) 0.5 % (0-2); EOSINOPHILS % (AUTO) 2.9 % (0-6); HEMATOCRIT 36.1 % (36.0-47.0); HEMOGLOBIN 11.6 g/dL (12.0-15.5); LYMPHOCYTES % (AUTO) 23.1 % (13-45); MEAN CORPUSCULAR HEMOGLOBIN 26.6 pg (27.0-33.4); MEAN CORPUSCULAR HGB CONC 32.1 g/dL (32.0-36.0); MEAN CORPUSCULAR VOLUME 83 fl (80-97); MONOCYTES % (AUTO) 4.3 % (3-13); PLATELET COUNT 309 10^3/uL (150-450); RED BLOOD COUNT 4.36 10^6/uL (3.72-5.28); RED CELL DISTRIBUTION WIDTH 15.1 % (11.5-14.0); SEGMENTED NEUTROPHILS % (AUTO) 69.2 % (42-78); TOTAL CELLS COUNTED % (AUTO) 100 %; WHITE BLOOD COUNT 9.8 10^3/uL (4.0-10.5)
[2019-10-01 13:07] LABS: APPEARANCE,URINE SLIGHTLY-CLOUDY; BILIRUBIN,URINE NEGATIVE (NEGATIVE); COLOR,URINE YELLOW; GLUCOSE, URINE NEGATIVE (NEGATIVE); KETONES,URINE NEGATIVE (NEGATIVE); LEUKOCYTE ESTERASE,URINE SMALL (NEGATIVE); NITRITE,URINE NEGATIVE (NEGATIVE); PROTEIN,URINE NEGATIVE (NEGATIVE); URINE SPECIFIC GRAVITY 1.025
--- NOTE | 2019-10-01 13:08 | RADIOLOGY REPORT (SQ) ---
EXAM DESCRIPTION: CHEST SINGLE VIEW IMAGES COMPLETED DATE/TIME: 10/01/2019 12:56 pm REASON FOR STUDY: Short of breath COMPARISON: AP view of the chest from 08/10/2019. EXAM PARAMETERS: NUMBER OF VIEWS: One view. TECHNIQUE: An AP view of the chest was obtained. RADIATION DOSE: NA LIMITATIONS: None. FINDINGS: LUNGS AND PLEURA: No consolidation, pleural effusion or pneumothorax. MEDIASTINUM AND HILAR STRUCTURES: No mediastinal or hilar contour abnormality. HEART AND VASCULAR STRUCTURES: The cardiac silhouette and pulmonary vasculature are within normal woods its. BONES: No acute findings. HARDWARE: None in the chest. OTHER: No other finding. IMPRESSION: No acute cardiopulmonary process. TECHNICAL DOCUMENTATION: JOB ID: [id number] 2010 [employer]- All Rights Reserved Reading location - IP/workstation name: [email or web address]
[2019-10-01 13:18] LABS: ALBUMIN 3.8 g/dL (3.5-5.0); ALKALINE PHOSPHATASE 78 U/L (38-126); ANION GAP 5 (5-19); ASPARTATE AMINO TRANSFERASE 24 U/L (14-36); BILIRUBIN,TOTAL 0.3 mg/dL (0.2-1.3); BLOOD UREA NITROGEN 12 mg/dL (7-20); CARBON DIOXIDE 28 mmol/L (22-30); CHLORIDE 103 mmol/L (98-107); GLUCOSE 94 mg/dL (75-110); POTASSIUM 4.1 mmol/L (3.6-5.0); TOTAL PROTEIN 7.2 g/dL (6.3-8.2)
[2019-10-01 13:30] LABS: NT PRO BNP 32 pg/mL (<125); TROPONIN I < 0.012 ng/mL
[2019-10-01 13:59] VITALS: BP 119/68
--- NOTE | 2019-10-01 14:00 | ER Document Report ---
ED Respiratory Problem - General Chief Complaint: Shortness Of Breath Stated Complaint: SHORTNESS OF BREATH Time Seen by Provider: 10/01/19 12:03 Primary Care Provider: KILO GRAF MD [Primary Care Provider] - Follow up as needed Mode of Arrival: Wheelchair Information source: Patient Notes: 34-year-old female past medical history significant for asthma, CVA, hyper tension, diabetes, hyperlipidemia, GERD presents to the emergency room complaining of sore throat, shortness of breath, general body aches that started earlier today. Denies fever, denies nausea, denies vomiting. States she took ibuprofen this morning with some relief.. Eating and drinking thor lly. No ill contacts. No recent travel. No COVID-19 exposure. TRAVEL OUTSIDE OF THE [place] IN LAST 30 DAYS: No - Related Data Allergies/Adverse Reactions: aspirin [Aspirin] Allergy (Severe, Verified 10/01/19 12:06) Edema ciprofloxacin [From Cipro] Allergy (Verified 10/01/19 12:06) Iodinated Contrast Media Allergy (Verified 10/01/19 12:06) Home Medications: metformin/lisinopril/clopidogrel/atorvastatin/fish oil/pro air/albuterol/pantoprazole Past Medical History - General Information source: Patient - Social History Smoking Status: Never Smoker Chew tobacco use (# tins/day): No Frequency of alcohol use: None Drug Abuse: None Family History: Arthritis, CVA, DM, Hyperlipidemia, Hypertension Patient has homicidal ideation: No - Past Medical History Cardiac Medical History: Reports: Hx Hypertension Denies: Hx Coronary Artery Disease, Hx Heart Attack Pulmonary Medical History: Reports: Hx Asthma, Hx Pneumonia - Apr 2010 Denies: Hx Bronchitis, Hx COPD Neurological Medical History: Reports: Hx Cerebrovascular Accident. Denies: Hx Seizures Endocrine Medical History: Reports: Hx Diabetes Mellitus Type 2 Renal/ Medical History: Denies: Hx Peritoneal Dialysis Musculoskeletal Medical History: Denies Hx Arthritis Past Surgical History: Reports: Hx Cholecystectomy, Hx Oral Surgery - Various dental surgeries. Denies: Hx Pacemaker - Immunizations Immunizations up to date: No Hx Diphtheria, Pertussis, Tetanus Vaccination: No Review of Systems - Review of Systems Constitutional: No symptoms reported EENT: Throat pain Cardiovascular: No symptoms reported Respiratory: Short of breath Gastrointestinal: No symptoms reported Musculoskeletal: No symptoms reported Skin: No symptoms reported Neurological/Psychological: No symptoms reported -: Yes All other systems reviewed and negative Physical Exam - Vital signs Vitals: Temp Pulse Resp BP Pulse Ox 98.8 F 81 24 H 138/86 H 98 10/01/19 11:47 10/01/19 11:47 10/01/19 11:47 10/01/19 11:47 10/01/19 11:47 - General General appearance: Appears well, Alert In distress: Mild - HEENT Head: Normocephalic, Atraumatic Eyes: Normal Pupils: PERRL Ears: Normal External canal: Normal Tympanic membrane: Normal Sinus: Normal Nasal: Normal Pharynx: Normal, Erythema. No: Exudate, Peritonsillar abscess Neck: No: Lymphadenopathy - Respiratory Respiratory status: No respiratory distress Chest status: Nontender Breath sounds: Normal Chest palpation: Normal - Cardiovascular Rhythm: Regular Heart sounds: Normal auscultation Murmur: No - Neurological Neuro grossly intact: Yes Cognition: Normal Orientation: AAOx4 Will Coma Scale Eye Opening: Spontaneous Will Coma Scale Verbal: Oriented Will Coma Scale Motor: Obeys Commands [place] Coma Scale Total: 15 Speech: Normal Motor strength normal: LUE, RUE, LLE, RLE Sensory: Normal - Skin Skin Temperature: Warm Skin Moisture: Dry Skin Color: Normal Course - Re-evaluation Re-evalutation: 10/01/19 13:55 Patient's resting comfortably she is afebrile, nontoxic-appearing, able to tolerate p.o. fluids. Reviewed all test results with patient. Counseled on need to follow-up outpatient with her primary care physician if not improving in 2 to 3 days. Patient was given strict return to the emergency room guidelines. Return for any new or worsening symptoms. All questions were answered. Patient verbalized understanding and agrees with plan of care. - Vital Signs Vital signs: Temp Pulse Resp BP Pulse Ox 98.7 F 81 22 H 119/68 98 10/01/19 14:25 10/01/19 11:47 10/01/19 13:00 10/01/19 12:38 10/01/19 13:00 - Laboratory Result Diagrams: 10/01/19 12:35 10/01/19 12:35 Laboratory results interpreted by me: 10/01/19 10/01/19 10/01/19 12:35 12:35 12:45 Hgb 11.6 L MCH 26.6 L RDW 15.1 H Sodium 135.9 L Urine Urobilinogen 2.0 H Ur Leukocyte Esterase SMALL H Urine Ascorbic Acid 40 H - Diagnostic Test Radiology reviewed: Reports reviewed Discharge - Discharge Clinical Impression: Dyspnea Qualifiers: Dyspnea type: unspecified Qualified Code(s): R06.00 - Dyspnea, unspecified Acute pharyngitis Qualifiers: Pharyngitis/tonsillitis etiology: unspecified etiology Qualified Code(s): J02.9 - Acute pharyngitis, unspecified Condition: Stable Disposition: HOME, SELF-CARE Instructions: Dyspnea, Nonspecific ([facility]), Sore Throat ([facility]), Upper Respiratory Illness ([facility]) Additional Instructions: Your strep test is negative. Your symptoms are likely due to an viral infection and will resolve in the next 1-2 weeks. You have also been given a dose of steroids to help with your throat discomfort. Please Tylenol 500 mg every 6 hours as needed for throat discomfort. You can also gargle with salt water. Continue to drink plenty of fluids. Follow-up with your primary care doctor in the next several days. Return if you become unable to swallow, have difficulty breathing, pass out, have persistent vomiting that prevents you from being able to tolerate fluids, or have any other symptoms that are concerning to you. Referrals: KILO GRAF MD [Primary Care Provider] - Follow up as needed
--- NOTE | 2019-10-01 14:58 | EKG REPORT ---
SEVERITY:- ABNORMAL ECG - SINUS RHYTHM PROBABLE LEFT VENTRICULAR HYPERTROPHY : Confirmed by: Ladonna Lilly MD 01-Oct-2019 14:57:54
== END 2019-10-01 14:26 | disposition home or self-care (01) ==
LOC: ER 11:19
DX: J45.909 Unspecified asthma, uncomplicated (principal); J02.9 Acute pharyngitis, unspecified; R06.02 Shortness of breath; I10 Essential (primary) hypertension; E78.5 Hyperlipidemia, unspecified; K21.9 Gastro-esophageal reflux disease without esophagitis; E11.9 Type 2 diabetes mellitus without complications; Z79.84 Long term (current) use of oral hypoglycemic drugs; Z79.899 Other long term (current) drug therapy; Z87.01 Personal history of pneumonia (recurrent); Z88.8 Allergy status to other drugs, medicaments and biological substances; Z88.1 Allergy status to other antibiotic agents; Z91.041 Radiographic dye allergy status
CPT/HCPCS: 36415; 71045; 80053; 81001; 83880; 84484; 84703; 85025; 87070; 87880; 93005; 93010; 99285

== ENCOUNTER 2019-11-03 23:02 | Emergency (ER) | payer MEDICAID ==
[2019-11-03] MEDS ORDERED: ONDANSETRON HCL INJ/PF 4 MG/2 ML SDV IV ONE (23:18)
[2019-11-03] MEDS ORDERED: MECLIZINE HCL 25 MG TABLET PO ONE (23:18)
--- NOTE | 2019-11-03 23:18 | ER Document Report ---
ED Medical Screen (RME) - General Chief Complaint: Ear Pain Stated Complaint: EAR PAIN, DIZZINESS, RIGHT SIDE NUMBNESS Time Seen by Provider: 11/03/19 23:10 Primary Care Provider: KILO GRAF MD [Primary Care Provider] - Follow up as needed Mode of Arrival: Ambulatory Information source: Patient Notes: HPI; 34-year-old female past medical history significant for stroke presents to the emergency room complaining of right ear pain for the past 3 weeks. States she now has a headache and feels dizzy states she feels off balance when she walks. Headache and dizziness have been going on for the past week. She states every time she stands or moves she feels like the room is spinning. No medications for symptoms. PE: Oriented x3. Moderate distress noted. PERRLA positive nystagmus to the left. Right tympanic membrane dull and retracted with clear fluid noted. Lungs: Clear to auscultation without rales, rhonchi, wheezes. Heart: Regular rate rhythm without murmurs, rubs, gallops. I have greeted and performed a rapid initial assessment of this patient. A comprehensive ED assessment and evaluation of the patient, analysis of test results and completion of the medical decision making process will be conducted by additional ED providers. I have specifically instructed the patient or family members with the patient to immediately return to any nursing staff should anything change in the patient's condition or with their chief complaint. TRAVEL OUTSIDE OF THE [place] IN LAST 30 DAYS: No - Related Data Allergies/Adverse Reactions: aspirin [Aspirin] Allergy (Severe, Verified 10/01/19 12:06) Edema ciprofloxacin [From Cipro] Allergy (Verified 10/01/19 12:06) Iodinated Contrast Media Allergy (Verified 10/01/19 12:06) Past Medical History - Past Medical History Cardiac Medical History: Reports: Hx Hypertension Denies: Hx Coronary Artery Disease, Hx Heart Attack Pulmonary Medical History: Reports: Hx Asthma, Hx Pneumonia - Apr 2010 Denies: Hx Bronchitis, Hx COPD Neurological Medical History: Reports: Hx Cerebrovascular Accident. Denies: Hx Seizures Endocrine Medical History: Reports: Hx Diabetes Mellitus Type 2 Renal/ Medical History: Denies: Hx Peritoneal Dialysis Musculoskeltal Medical History: Denies Hx Arthritis Past Surgical History: Reports: Hx Cholecystectomy, Hx Oral Surgery - Various dental surgeries. Denies: Hx Pacemaker - Immunizations Immunizations up to date: No Hx Diphtheria, Pertussis, Tetanus Vaccination: No Physical Exam - Vital signs Vitals: Temp Pulse Resp BP Pulse Ox 98.6 F 77 18 175/97 H 99 11/03/19 23:08 11/03/19 23:08 11/03/19 23:08 11/03/19 23:08 11/03/19 23:08 Course - Vital Signs Vital signs: Temp Pulse Resp BP Pulse Ox 98.6 F 77 18 175/97 H 99 11/03/19 23:08 11/03/19 23:08 11/03/19 23:08 11/03/19 23:08 11/03/19 23:08 Doctor's Discharge - Discharge Referrals: KILO GRAF MD [Primary Care Provider] - Follow up as needed
[2019-11-03 23:42] LABS: ABSOLUTE BASOPHILS # (AUTO) 0.1 10^3/uL (0.0-0.2); ABSOLUTE EOSINOPHILS # (AUTO) 0.4 10^3/uL (0.0-0.6); ABSOLUTE LYMPHOCYTES (AUTO) 2.5 10^3/uL (0.5-4.7); ABSOLUTE MONOCYTES (AUTO) 0.5 10^3/uL (0.1-1.4); ABSOLUTE NEUT (AUTO) 7.7 10^3/uL (1.7-8.2); BASOPHILS % (AUTO) 0.6 % (0-2); EOSINOPHILS % (AUTO) 3.3 % (0-6); HEMATOCRIT 33.7 % (36.0-47.0); HEMOGLOBIN 11.1 g/dL (12.0-15.5); LYMPHOCYTES % (AUTO) 22.3 % (13-45); MEAN CORPUSCULAR HEMOGLOBIN 26.7 pg (27.0-33.4); MEAN CORPUSCULAR VOLUME 81 fl (80-97); MONOCYTES % (AUTO) 4.6 % (3-13); PLATELET COUNT 292 10^3/uL (150-450); RED BLOOD COUNT 4.17 10^6/uL (3.72-5.28); SEGMENTED NEUTROPHILS % (AUTO) 69.2 % (42-78); TOTAL CELLS COUNTED % (AUTO) 100 %; WHITE BLOOD COUNT 11.1 10^3/uL (4.0-10.5)
[2019-11-03 23:58] LABS: ALBUMIN 3.8 g/dL (3.5-5.0); ALKALINE PHOSPHATASE 84 U/L (38-126); ANION GAP 5 (5-19); ASPARTATE AMINO TRANSFERASE 26 U/L (14-36); BILIRUBIN,TOTAL 0.2 mg/dL (0.2-1.3); BLOOD UREA NITROGEN 14 mg/dL (7-20); CALCIUM 8.9 mg/dL (8.4-10.2); CARBON DIOXIDE 27 mmol/L (22-30); CHLORIDE 103 mmol/L (98-107); GLUCOSE 97 mg/dL (75-110); TOTAL PROTEIN 7.3 g/dL (6.3-8.2)
--- NOTE | 2019-11-04 00:01 | RADIOLOGY REPORT (SQ) ---
CT HEAD WITHOUT IV CONTRAST CLINICAL STATEMENT: dizzy TECHNIQUE: Axial CT images from skull base to vertex without IV contrast. This exam was performed according to our departmental dose optimization program, and includes the following measures where applicable: automated exposure control, adjustment of the mAs and/or kVp according to patient size and/or exam, and an iterative reconstruction algorithm. COMPARISON: Unenhanced CT scan of the brain 08/16/2019 FINDINGS: There is no acute intracranial hemorrhage, mass, mass effect or abnormal extra-axial fluid collection. No evidence of an acute territorial infarct is identified. The ventricles are normal. Calvaria: The skull base and calvaria demonstrate no abnormality. Paranasal sinuses: Visualized portions of the orbits and paranasal sinuses are unremarkable. skull base: Unremarkable IMPRESSION: No acute process. No significant interval change.
[2019-11-04 00:02] LABS: INTERNATIONAL RATION (INR) 0.98
[2019-11-04 00:15] LABS: APPEARANCE,URINE SLIGHTLY-CLOUDY; BILIRUBIN,URINE NEGATIVE (NEGATIVE); COLOR,URINE YELLOW; GLUCOSE, URINE NEGATIVE (NEGATIVE); KETONES,URINE NEGATIVE (NEGATIVE); LEUKOCYTE ESTERASE,URINE LARGE (NEGATIVE); NITRITE,URINE NEGATIVE (NEGATIVE); PROTEIN,URINE NEGATIVE (NEGATIVE); UROBILINOGEN,URINE NEGATIVE mg/dL (<2.0)
[2019-11-04 01:59] VITALS: BP 136/77
--- NOTE | 2019-11-04 05:28 | ER Document Report ---
Entered by JANELLE ANDINO SCRIBE 11/04/19 0111 Acting as scribe for:ARMEN URIARTE IV, MD ED General - General Chief Complaint: Ear Pain Stated Complaint: EAR PAIN, DIZZINESS, RIGHT SIDE NUMBNESS Time Seen by Provider: 11/03/19 23:10 Primary Care Provider: KILO GRAF MD [ACTIVE STAFF] - Follow up as needed Mode of Arrival: Ambulatory Information source: Patient Notes: This 34 year old female patient presents to the ED today with complaints of bilateral ear pain for the past x3 weeks, worse in the last week. Patient notes associated yellow-green discharge from bilateral ears, bilateral maxillary fullness, nose congestion, and clear/green nasal discharge. She also reports headache, dizziness, and nausea/vomiting for the past x1 week. Denies fever or chills. TRAVEL OUTSIDE OF THE [place] IN LAST 30 DAYS: No - Related Data Allergies/Adverse Reactions: aspirin [Aspirin] Allergy (Severe, Verified 10/01/19 12:06) Edema ciprofloxacin [From Cipro] Allergy (Verified 10/01/19 12:06) Iodinated Contrast Media Allergy (Verified 10/01/19 12:06) Past Medical History - General Information source: Patient - Social History Smoking Status: Never Smoker Cigarette use (# per day): No Chew tobacco use (# tins/day): No Smoking Education Provided: No Frequency of alcohol use: None Drug Abuse: None Family History: Reviewed & Not Pertinent, Arthritis, CVA, DM, Hyperlipidemia, Hypertension Patient has suicidal ideation: No Patient has homicidal ideation: No - Past Medical History Cardiac Medical History: Reports: Hx Hypertension Pulmonary Medical History: Reports: Hx Asthma, Hx Pneumonia - Apr 2010 Neurological Medical History: Reports: Hx Cerebrovascular Accident Endocrine Medical History: Reports: Hx Diabetes Mellitus Type 2 Past Surgical History: Reports: Hx Cholecystectomy, Hx Oral Surgery - Various dental surgeries - Immunizations Immunizations up to date: No Hx Diphtheria, Pertussis, Tetanus Vaccination: No Review of Systems - Review of Systems Constitutional: See HPI. denies: Chills, Fever EENT: See HPI, Ear pain, Ear discharge, Nose discharge, Sinus pressure Cardiovascular: See HPI, Dizziness Respiratory: No symptoms reported Gastrointestinal: See HPI, Nausea, Vomiting Genitourinary: No symptoms reported Female Genitourinary: No symptoms reported Musculoskeletal: No symptoms reported Skin: No symptoms reported Hematologic/Lymphatic: No symptoms reported Neurological/Psychological: See HPI, Headaches Physical Exam - Vital signs Vitals: Temp Pulse Resp BP Pulse Ox 98.6 F 77 18 175/97 H 99 11/03/19 23:08 11/03/19 23:08 11/03/19 23:08 11/03/19 23:08 11/03/19 23:08 - General General appearance: Alert In distress: None - HEENT Head: Normocephalic, Atraumatic Eyes: Normal Pupils: PERRL External canal: Erythema - Bilaterally, more so on the right side which is also edematous Sinus: Maxillary, Tenderness - Bilaterally Nasal: Other - Nasal mucosa is erythematous and boggy bilaterally - Respiratory Respiratory status: No respiratory distress Chest status: Nontender Breath sounds: Normal Chest palpation: Normal - Cardiovascular Rhythm: Regular Heart sounds: Normal auscultation Murmur: No Friction rub: No Gallop: None auscultated - Abdominal Inspection: Normal Distension: No distension Bowel sounds: Normal Tenderness: Nontender - Abdomen soft Organomegaly: No organomegaly - Back Back: Normal, Nontender - Extremities General upper extremity: Normal inspection General lower extremity: Normal inspection - Neurological Neuro grossly intact: Yes Orientation: AAOx4 Muse Coma Scale Eye Opening: Spontaneous Will Coma Scale Verbal: Oriented Will Coma Scale Motor: Obeys Commands Muse Coma Scale Total: 15 - Psychological Associated symptoms: Normal affect, Normal mood - Skin Skin Temperature: Warm Skin Moisture: Dry Skin Color: Normal Course - Re-evaluation Re-evalutation: 11/04/19 01:33 Results and ED MSE discussed with patient. All questions were answered prior to discharge. Emergency signs and symptoms, reasons to return to the emergency department discussed with patient. - Vital Signs Vital signs: Temp Pulse Resp BP Pulse Ox 98.6 F 77 18 175/97 H 99 11/03/19 23:08 11/03/19 23:08 11/03/19 23:08 11/03/19 23:08 11/03/19 23:08 - Laboratory Result Diagrams: 11/03/19 23:25 11/03/19 23:25 Laboratory results interpreted by me: 11/03/19 11/03/19 11/03/19 23:25 23:25 23:59 WBC 11.1 H Hgb 11.1 L Hct 33.7 L MCH 26.7 L RDW 15.0 H Sodium 134.7 L Urine Blood SMALL H Ur Leukocyte Esterase LARGE H - Diagnostic Test Radiology reviewed: Reports reviewed Discharge - Discharge Clinical Impression: Otitis externa Qualifiers: Otitis externa type: unspecified type Chronicity: acute Laterality: bilateral Qualified Code(s): H60.503 - Unspecified acute noninfective otitis externa, bilateral Sinusitis Qualifiers: Sinusitis location: maxillary Chronicity: acute Recurrence: not specified as recurrent Qualified Code(s): J01.00 - Acute maxillary sinusitis, unspecified Condition: Stable Disposition: HOME, SELF-CARE Instructions: Otitis Externa ([facility]) Additional Instructions: Return to the Emergency Department without delay if any worse. HOME CARE INSTRUCTIONS & INFORMATION: Thank you for choosing us for your medical needs. We hope you're satisfied with the care you received. After you leave, you must properly care for your problem and, at the same time, observe its progress. Any condition can change. Some illnesses can change rapidly over hours or days. If your condition worsens, return to the Emergency Department or see your physician promptly. ABOUT YOUR X-RAYS AND EKG'S: If you had an EKG or X-rays taken, they have been read by the Emergency Physician. The X-rays and EKG's will also be read by a Radiologist or Credentialing Manager within 24 hours. If discrepancies are noted, you will be notified by telephone. Please be certain the ED has a correct telephone number & address where you can be reached. Also, realize that some fractures or abnormalities do not show up on initial X-rays. If your symptoms continue, see your physician. ABOUT YOUR LABORATORY TEST: If you had laboratory tests, the results have been reviewed by the Emergency Physician. Some test results (for example cultures) may not be available for several days. You will be contacted if any test result shows you need additional treatment. Please be certain the ED has a correct telephone number and address where you can be reached. ABOUT YOUR MEDICATIONS: You will receive instructions on how to take your medicine on the prescription label you receive. Additional information may be provided by the Pharmacy. If you have questions afterwards, call the ED for clarification or further instructions. Some prescribed medications may cause drowsiness. Do not perform tasks such as driving a car or operating machinery without consulting your Pharmacist. If you feel you need a refill of pain medication, your condition will need re-evaluation. Please do not call for a refill of any medication. ABOUT YOUR SIGNATURE: Signature of this document acknowledges to followin. Understanding that you received emergency treatment and that you may be released before al medical problems are known or treated. Please be certain the ED has a correct phone number & address where you can be reached. 2. Acknowledgement that you will arrange for follow-up care as recommended. 3. Authorization for the Emergency Physician to provide information to your follow-up Physician in order to maximize your care. AT ANY TIME, IF YOUR SYMPTOMS CHANGE SIGNIFICANTLY OR WORSEN OR YOU DEVELOP NEW SYMPTOMS, RETURN TO THE EMERGENCY DEPARTMENT IMMEDIATELY FOR RE-EVALUATION. OUR GOAL IS TO PROVIDE EXCELLENT MEDICAL CARE! WE HOPE THAT WE HAVE MET YOUR EXPECTATIONS DURING YOUR EMERGENCY DEPARTMENT VISIT AND THAT YOU FEEL YOU HAVE RECEIVED EXCELLENT CARE! Sinusitis You have sinusitis, an infection of the sinus cavities of the face. The sinuses are air-filled chambers which open into the inside of the nose. Bacteria and pus fill a sinus, causing pain, drainage, and fever. Sinusitis is treated with antibiotics. Often, expectorants (to thin the sinus mucous) or decongestants (to reduce swelling) are prescribed as well. H ealing requires seven to 10 days. Avoid chemical fumes, pollens, dusts, and smoke (especially cigarette smoke). Keep the air humidified in your bedroom and work area and take plenty of liquids by mouth. This condition can be serious if the infection spreads. If your symptoms worsen, or if you develop severe headache, high fever, stiff neck, or a rash, you must call the doctor or return for re-evaluation. Prescriptions: Cefdinir 600 mg PO DAILY 10 Days #20 capsule Neomy Sulf/Polymyx B Sulf/Hc [Cortisporin Otic Susp] 4 drop BTH_EAR QID 10 Days #2 bottle Referrals: KILO GRAF MD [ACTIVE STAFF] - Follow up as needed I personally performed the services described in the documentation, reviewed and edited the documentation which was dictated to the scribe in my presence, and it accurately records my words and actions.
--- NOTE | 2019-11-04 08:15 | EKG REPORT ---
SEVERITY:- BORDERLINE ECG - SINUS RHYTHM NONSPECIFIC ST-T CHANGES : Confirmed by: Jonn Hicks MD 04-Nov-2019 08:15:17
== END 2019-11-04 01:58 | disposition home or self-care (01) ==
LOC: ER 23:02
DX: H60.503 Unspecified acute noninfective otitis externa, bilateral (principal); J01.00 Acute maxillary sinusitis, unspecified; H92.03 Otalgia, bilateral; R09.81 Nasal congestion; R51 Headache; R42 Dizziness and giddiness; R11.2 Nausea with vomiting, unspecified; I10 Essential (primary) hypertension; J45.909 Unspecified asthma, uncomplicated; E11.9 Type 2 diabetes mellitus without complications; Z88.8 Allergy status to other drugs, medicaments and biological substances; Z88.1 Allergy status to other antibiotic agents; Z91.041 Radiographic dye allergy status; Z86.73 Personal history of transient ischemic attack (TIA), and cerebral infarction without residual deficits
CPT/HCPCS: 93005; 99284; 96374; 36415; 84703; 85025; 85610; 80053; 81001; 84484; 70450; 93010; J2405

== ENCOUNTER 2019-11-05 10:06 | Emergency (ER) | payer MEDICAID ==
[2019-11-05 10:13] VITALS: BP 150/99
--- NOTE | 2019-11-05 10:40 | ER Document Report ---
ED Medical Screen (RME) - General Chief Complaint: Facial Swelling Stated Complaint: FACIAL SWOLLEN/HEADACHE Time Seen by Provider: 11/05/19 10:34 Primary Care Provider: MINDI CONTE PA-C [Primary Care Provider] - Follow up as needed Notes: HPI: 34-year-old female presenting back to the emergency department for reevaluation of facial pain. Began with facial pain, ear drainage 2 to 3 days ago was seen in the emergency department had CT imaging of the head 2 days ago that was negative for acute findings. Was placed on Ceftin ear orally as well as eardrops now returning with left facial pain and swelling that she woke up with this morning. No definite fever. Also reports generalized pain on the right side of her body. PHYSICAL EXAMINATION: There is moderate facial swelling on the left in the periorbital region, left cheek and face without overlying erythema mild tenderness on palpation over this region without a definitive indurated region I have greeted and performed a rapid initial assessment of this patient. A comprehensive ED assessment and evaluation of the patient, analysis of test results and completion of medical decision making process will be conducted by an additional ED providers. TRAVEL OUTSIDE OF THE [place] IN LAST 30 DAYS: No - Related Data Allergies/Adverse Reactions: aspirin [Aspirin] Allergy (Severe, Verified 10/01/19 12:06) Edema ciprofloxacin [From Cipro] Allergy (Verified 10/01/19 12:06) Iodinated Contrast Media Allergy (Verified 10/01/19 12:06) Past Medical History - Social History Frequency of alcohol use: None Drug Abuse: None - Past Medical History Cardiac Medical History: Reports: Hx Hypertension Denies: Hx Coronary Artery Disease, Hx Heart Attack Pulmonary Medical History: Reports: Hx Asthma, Hx Pneumonia - Apr 2010 Denies: Hx Bronchitis, Hx COPD Neurological Medical History: Reports: Hx Cerebrovascular Accident. Denies: Hx Seizures Endocrine Medical History: Reports: Hx Diabetes Mellitus Type 2 Renal/ Medical History: Denies: Hx Peritoneal Dialysis Musculoskeltal Medical History: Denies Hx Arthritis Past Surgical History: Reports: Hx Cholecystectomy, Hx Oral Surgery - Various dental surgeries. Denies: Hx Pacemaker - Immunizations Immunizations up to date: No Hx Diphtheria, Pertussis, Tetanus Vaccination: No Physical Exam - Vital signs Vitals: Temp Pulse Resp BP Pulse Ox 98.5 F 74 20 150/99 H 97 11/05/19 10:10 11/05/19 10:10 11/05/19 10:10 11/05/19 10:10 11/05/19 10:10 Course - Vital Signs Vital signs: Temp Pulse Resp BP Pulse Ox 98.5 F 74 20 150/99 H 97 11/05/19 10:10 11/05/19 10:10 11/05/19 10:10 11/05/19 10:10 11/05/19 10:10 Doctor's Discharge - Discharge Referrals: MINDI CONTE PA-C [Primary Care Provider] - Follow up as needed
[2019-11-05 11:08] LABS: ABSOLUTE BASOPHILS # (AUTO) 0.1 10^3/uL (0.0-0.2); ABSOLUTE EOSINOPHILS # (AUTO) 0.3 10^3/uL (0.0-0.6); ABSOLUTE LYMPHOCYTES (AUTO) 2.1 10^3/uL (0.5-4.7); ABSOLUTE MONOCYTES (AUTO) 0.4 10^3/uL (0.1-1.4); ABSOLUTE NEUT (AUTO) 6.2 10^3/uL (1.7-8.2); BASOPHILS % (AUTO) 0.6 % (0-2); EOSINOPHILS % (AUTO) 3.9 % (0-6); HEMATOCRIT 37.3 % (36.0-47.0); MEAN CORPUSCULAR HEMOGLOBIN 26.2 pg (27.0-33.4); MEAN CORPUSCULAR HGB CONC 32.1 g/dL (32.0-36.0); MEAN CORPUSCULAR VOLUME 82 fl (80-97); MONOCYTES % (AUTO) 4.4 % (3-13); PLATELET COUNT 321 10^3/uL (150-450); RED BLOOD COUNT 4.58 10^6/uL (3.72-5.28); RED CELL DISTRIBUTION WIDTH 15.2 % (11.5-14.0); SEGMENTED NEUTROPHILS % (AUTO) 68.1 % (42-78); TOTAL CELLS COUNTED % (AUTO) 100 %
[2019-11-05 11:26] LABS: ALBUMIN 3.9 g/dL (3.5-5.0); ALKALINE PHOSPHATASE 86 U/L (38-126); ASPARTATE AMINO TRANSFERASE 24 U/L (14-36); BILIRUBIN,TOTAL 0.4 mg/dL (0.2-1.3); BLOOD UREA NITROGEN 11 mg/dL (7-20); CALCIUM 8.9 mg/dL (8.4-10.2); CHLORIDE 103 mmol/L (98-107); GLUCOSE 107 mg/dL (75-110); POTASSIUM 4.1 mmol/L (3.6-5.0); TOTAL PROTEIN 7.3 g/dL (6.3-8.2)
[2019-11-05 11:32] LABS: ANION GAP 6 (5-19); CARBON DIOXIDE 28 mmol/L (22-30)
--- NOTE | 2019-11-05 11:36 | ER Document Report ---
ED General - General Chief Complaint: Facial Swelling Stated Complaint: FACIAL SWOLLEN/HEADACHE Time Seen by Provider: 11/05/19 10:34 Primary Care Provider: MINDI CONTE PA-C [Primary Care Provider] - Follow up tomorrow (Call tomorrow for an outpatient follow-up appointment.) Mode of Arrival: Ambulatory Information source: Patient Notes: 34-year-old female past medical history significant for CVA, asthma, Maya's palsy presents emergency room stating that she woke up this morning with left- sided facial swelling also having pain to her right leg. Patient was seen here 2 days ago for dizziness and right ear pain. States she was diagnosed with an ear infection as well as sinusitis was discharged home on antibiotics and eardrops. Patient been taking the medications but does not feel that she is improving. States she has been more sedentary than normal lately denies any recent travel. Not taking any control. Is not taking any medications for pain. Patient states "I am on enough medications for my stroke that I do not want anymore pain medications" TRAVEL OUTSIDE OF THE [place] IN LAST 30 DAYS: No - Related Data Allergies/Adverse Reactions: aspirin [Aspirin] Allergy (Severe, Verified 10/01/19 12:06) Edema ciprofloxacin [From Cipro] Allergy (Verified 10/01/19 12:06) Iodinated Contrast Media Allergy (Verified 10/01/19 12:06) Past Medical History - General Information source: Patient - Social History Smoking Status: Never Smoker Frequency of alcohol use: None Drug Abuse: None Family History: Reviewed & Not Pertinent, Arthritis, CVA, DM, Hyperlipidemia, Hypertension - Past Medical History Cardiac Medical History: Reports: Hx Hypertension Denies: Hx Coronary Artery Disease, Hx Heart Attack Pulmonary Medical History: Reports: Hx Asthma, Hx Pneumonia - Apr 2010 Denies: Hx Bronchitis, Hx COPD Neurological Medical History: Reports: Hx Cerebrovascular Accident. Denies: Hx Seizures Endocrine Medical History: Reports: Hx Diabetes Mellitus Type 2 Renal/ Medical History: Denies: Hx Peritoneal Dialysis Musculoskeletal Medical History: Denies Hx Arthritis Past Surgical History: Reports: Hx Cholecystectomy, Hx Oral Surgery - Various dental surgeries. Denies: Hx Pacemaker - Immunizations Immunizations up to date: No Hx Diphtheria, Pertussis, Tetanus Vaccination: No Review of Systems - Review of Systems Constitutional: No symptoms reported EENT: Ear pain, Other - Facial swelling Cardiovascular: No symptoms reported Respiratory: No symptoms reported Gastrointestinal: No symptoms reported Musculoskeletal: Muscle pain Skin: No symptoms reported Neurological/Psychological: No symptoms reported -: Yes All other systems reviewed and negative Physical Exam - Vital signs Vitals: Temp Pulse Resp BP Pulse Ox 98.5 F 74 20 150/99 H 97 11/05/19 10:10 11/05/19 10:10 11/05/19 10:10 11/05/19 10:10 11/05/19 10:10 - General General appearance: Appears well, Alert In distress: Mild - HEENT Head: Normocephalic, Atraumatic Eyes: Normal Conjunctiva: Normal Extraocular movements intact: Yes Pupils: PERRL Ears: Other - There is tenderness on palpation to the left mastoid gland, no erythema. No lymphadenopathy. External canal: Normal Tympanic membrane: Injected, Retracted - Bilateral tympanic membranes are dull and retracted with clear fluid noted behind bilateral TMs. Sinus: Normal Nasal: Normal Mouth/Lips: Normal, Other - Did not appreciate any facial swelling. Did not see any dental abscesses that could be causing "her facial swelling" Mucous membranes: Normal Pharynx: Normal Neck: Normal. No: Lymphadenopathy, Meningismus, Thyromegally - Respiratory Respiratory status: No respiratory distress Chest status: Nontender Breath sounds: Normal Chest palpation: Normal - Cardiovascular Rhythm: Regular Heart sounds: Normal auscultation Murmur: No - Extremities General upper extremity: Normal inspection General lower extremity: Tender - Numbness on palpation to the right upper thigh. There is no swelling. No obvious deformity noted. Thigh: Tender. No: Deformity, Unable to bear weight - Neurological Neuro grossly intact: Yes Cognition: Normal Orientation: AAOx4 Will Coma Scale Eye Opening: Spontaneous Will Coma Scale Verbal: Oriented Powell Coma Scale Motor: Obeys Commands Wlil Coma Scale Total: 15 Speech: Normal Motor strength normal: LUE, RUE, LLE, RLE Additional motor exam normals: Equal blade changer. No: Weakness Sensory: Normal Notes: Positive right pedal pulse. Negative Homans on the right. - Skin Skin Temperature: Warm Skin Moisture: Dry Skin Color: Normal Course - Re-evaluation Re-evalutation: 11/05/2019 Patient with multiple planes. Was seen and evaluated 2 days ago with a negative CT of the brain, patient at that time had presented with dizziness and ear pain. Patient was diagnosed with an ear infection as well as a sinusitis. She was di scharged home on Ceftin ear and Cortisporin otic. Patient states she has been more sedentary because she is not been feeling well over the past week. She denies any recent travel denies use of control. Will get venous Doppler of the right lower extremity, also complaining of left mastoid tenderness will get CT the mastoid. And reevaluate. 11/05/19 16:58 Patient is resting states her symptoms have not improved. She is afebrile, she is nontoxic-appearing, she ambulates with the use of her cane. Reviewed all diagnosis with patient. Patient does not want any additional pain medication. Patient was counseled on need to follow-up outpatient with her primary care physician. Patient was given strict return to the emergency room guidelines. Return for any new or worsening symptoms. All questions were answered. Patient verbalized understanding and agrees with plan of care. 11/05/19 18:27 11/05/19 18:27 - Vital Signs Vital signs: Temp Pulse Resp BP Pulse Ox 98.5 F 74 20 150/99 H 97 11/05/19 10:10 11/05/19 10:10 11/05/19 10:10 11/05/19 10:10 11/05/19 10:10 - Laboratory Result Diagrams: 11/05/19 10:55 11/05/19 10:55 Laboratory results interpreted by me: 11/05/19 11/05/19 11/05/19 10:55 10:55 13:35 MCH 26.2 L RDW 15.2 H Sodium 136.6 L Urine Ketones TRACE H Urine Urobilinogen 2.0 H Ur Leukocyte Esterase SMALL H - Diagnostic Test Radiology reviewed: Reports reviewed Discharge - Discharge Clinical Impression: Right leg pain Mastoid pain Qualifiers: Laterality: left Qualified Code(s): H92.02 - Otalgia, left ear Condition: Stable Disposition: HOME, SELF-CARE Instructions: Leg Pain Nonspecific ([facility]) Additional Instructions: Continue with your antibiotics as previously prescribed. It is important that you follow-up outpatient with your primary care physician as soon as possible. Return for any new or worsening symptoms. Referrals: MINDI CONTE PA-C [Primary Care Provider] - Follow up tomorrow (Call tomorrow for an outpatient follow-up appointment.)
[2019-11-05] MEDS ORDERED: HYDROCODONE/ACETAMINOPHEN 5-325 MG TABLET PO ONE (11:39)
--- NOTE | 2019-11-05 12:33 | RADIOLOGY REPORT (SQ) ---
EXAM DESCRIPTION: CT ORBIT/SELLA WITHOUT IMAGES COMPLETED DATE/TIME: 11/05/2019 11:51 am REASON FOR STUDY: left mastoid tenderness COMPARISON: CT brain 11/03/2019, 07/12/2019 TECHNIQUE: Noncontrasted thin section axial images through the temporal bones and skull base were ob tained and reviewed at bone windows and bone algorithm with coronal and sagittal reconstructions. All CT scanners at this facility use dose modulation, iterative reconstruction, and/or weight based d osing when appropriate to reduce radiation dose to as low as reasonably achievable (ALARA). [facility]: Dose Right [facility]: CareDose [facility]: Dose Right [facility]: Teradose 4D [facility]: [employer] RADIATION DOSE: CT Rad equipment meets quality standard of care and radiation dose reduction techniq ues were employed. CTDIvol: 60.6 mGy. DLP: 485 mGy-cm. mGy. LIMITATIONS: None. FINDINGS: RIGHT SIDE: EXTERNAL AUDITORY CANAL: Widely patent. TYMPANIC MEMBRANE: No masses, thickening or medial retraction. OSSICLES AND MIDDLE EAR CAVITY: Normal ossicles. No middle ear masses or fluid. INNER EAR STRUCTURES: Normal vestibule and cochlea. Normal aqueducts. INTERNAL AUDITORY CANAL: Normal bony canal without narrowing or widening. No calcified or ossified m asses. TEMPOROMANDIBULAR JOINT: Normal. MASTOID AIR CELLS: Clear. LEFT SIDE: EXTERNAL AUDITORY CANAL: Widely patent. TYMPANIC MEMBRANE: No masses, thickening or medial retraction. OSSICLES AND MIDDLE EAR CAVITY: Normal ossicles. No middle ear masses or fluid. INNER EAR STRUCTURES: Normal vestibule and cochlea. Normal aqueducts. INTERNAL AUDITORY CANAL: Normal bony canal without narrowing or widening. No calcified or ossified m asses. TEMPOROMANDIBULAR JOINT: Normal. MASTOID AIR CELLS: Clear. CENTRAL SKULL BASE: Normal foramina. No lytic or blastic lesions. INFERIOR BRAIN: Limited view. No acute findings. LIMITED VIEW OF PARANASAL SINUSES IN THE FIELD OF VIEW: Normal. IMPRESSION: UNREMARKABLE NONCONTRASTED TEMPORAL BONE CT. TECHNICAL DOCUMENTATION: JOB ID: [id number] Quality ID # [id number]: Final reports with documentation of one or more dose reduction techniques (e.g., Au tomated exposure control, adjustment of the mA and/or kV according to patient size, use of iterative reconstruction technique) 2010 [employer]- All Rights Reserved Reading location - IP/workstation name: [email or web address]
[2019-11-05 13:50] LABS: APPEARANCE,URINE SLIGHTLY-CLOUDY; BILIRUBIN,URINE NEGATIVE (NEGATIVE); COLOR,URINE YELLOW; GLUCOSE, URINE NEGATIVE (NEGATIVE); KETONES,URINE TRACE mg/dL (NEGATIVE); LEUKOCYTE ESTERASE,URINE SMALL (NEGATIVE); NITRITE,URINE NEGATIVE (NEGATIVE); PROTEIN,URINE NEGATIVE (NEGATIVE); URINE SPECIFIC GRAVITY 1.016
--- NOTE | 2019-11-05 16:03 | RADIOLOGY REPORT (SQ) ---
EXAM DESCRIPTION: VENOUS UNILATERAL LOWER IMAGES COMPLETED DATE/TIME: 11/05/2019 3:55 pm REASON FOR STUDY: right leg pain COMPARISON: None. TECHNIQUE: Dynamic and static mireles scale and color images acquired of the right leg venous system. S elected spectral images acquired with additional compression and augmentation maneuvers. The contrala teral common femoral vein and saphenofemoral junction were also imaged. Images stored on PACS. LIMITATIONS: None. FINDINGS: COMMON FEMORAL: Normal phasicity, compression and augmentation. No visualized echogenic ma terial on mireles scale. No defects on color images. FEMORAL: Normal compression and augmentation. No visualized echogenic material on mireles scale. No defe cts on color images. POPLITEAL: Normal compression, augmentation. No visualized echogenic material on mireles scale. No defec ts on color images. CALF VESSELS: Normal compression, augmentation. No visualized echogenic material on mireles scale. No de fects on color images. GSV and SSV: Normal compression, augmentation. No visualized echogenic material on mireles scale. No def ects on color images. ANY DEEP VENOUS INSUFFICIENCY: Not evaluated. ANY EVIDENCE OF POPLITEAL CYST: No. OTHER: No other significant finding. CONTRALATERAL COMMON FEMORAL VEIN AND SAPHENOFEMORAL JUNCTION: Normal phasicity, compression and augmentation. No visualized echogenic material on mireles scale. No de fects on color images. IMPRESSION: NO EVIDENCE DVT OR SVT IN THE RIGHT LEG. TECHNICAL DOCUMENTATION: JOB ID: [id number] 2010 [employer]- All Rights Reserved Reading location - IP/workstation name: [email or web address]
== END 2019-11-05 17:34 | disposition home or self-care (01) ==
LOC: ER 10:06
DX: M79.604 Pain in right leg (principal); H66.90 Otitis media, unspecified, unspecified ear; J32.9 Chronic sinusitis, unspecified; H92.02 Otalgia, left ear; R42 Dizziness and giddiness; J45.909 Unspecified asthma, uncomplicated; M79.10 Myalgia, unspecified site; R20.0 Anesthesia of skin; I10 Essential (primary) hypertension; E11.9 Type 2 diabetes mellitus without complications; Z86.73 Personal history of transient ischemic attack (TIA), and cerebral infarction without residual deficits; Z79.899 Other long term (current) drug therapy; Z88.8 Allergy status to other drugs, medicaments and biological substances; Z88.1 Allergy status to other antibiotic agents; Z91.041 Radiographic dye allergy status
CPT/HCPCS: 36415; 70480; 80053; 81001; 84703; 85025; 93971; 99284

== ENCOUNTER 2020-01-04 01:01 | Emergency (ER) | payer MEDICAID ==
--- NOTE | 2020-01-04 06:41 | ER Document Report ---
Entered by JANELLE ANDINO SCRIBE 01/04/20 06 Acting as scribe for:GULSHAN YOO MD ED General - General Chief Complaint: Breathing Difficulty Stated Complaint: HEADACHE,BREATHING PROBLEMS Primary Care Provider: MINDI CONTE PA-C [PHYSICIAN HOME HEALTH OUTREACH COORDINATOR] - Follow up as needed Mode of Arrival: Ambulatory Information source: Patient Notes: This 34 year old female patient with a history of asthma, HTN, and CVA presents to the ED today with a chief complaint of shortness of breath for the past x2-3 days. She reports associated right-sided headache, nausea, diarrhea, and dizziness. Denies fever, vomiting, cough, wheezing, or loss of taste/smell. Patient states that she and her son became ill around the same time and tested negative for COVID over a month ago. Denies any other complaints. TRAVEL OUTSIDE OF THE [place] IN LAST 30 DAYS: No - Related Data Allergies/Adverse Reactions: aspirin [Aspirin] Allergy (Severe, Verified 10/01/19 12:06) Edema ciprofloxacin [From Cipro] Allergy (Verified 10/01/19 12:06) Iodinated Contrast Media Allergy (Verified 10/01/19 12:06) lisinopril Allergy (Verified 01/04/20 05:08) Home Medications: Metformin Past Medical History - General Information source: Patient, [facility] Records - Social History Smoking Status: Never Smoker Cigarette use (# per day): No Chew tobacco use (# tins/day): No Smoking Education Provided: No Lives with: Family Family History: Reviewed & Not Pertinent, Arthritis, CVA, DM, Hyperlipidemia, Hypertension Patient has suicidal ideation: No Patient has homicidal ideation: No - Past Medical History Cardiac Medical History: Reports: Hx Hypertension Pulmonary Medical History: Reports: Hx Asthma, Hx Pneumonia - Apr 2010 Neurological Medical History: Reports: Hx Cerebrovascular Accident Endocrine Medical History: Reports: Hx Diabetes Mellitus Type 2 Past Surgical History: Reports: Hx Cholecystectomy, Hx Oral Surgery - Various dental surgeries - Immunizations Immunizations up to date: No Hx Diphtheria, Pertussis, Tetanus Vaccination: No Review of Systems - Review of Systems Constitutional: See HPI. denies: Fever EENT: See HPI, Other - Loss of taste/smell Cardiovascular: See HPI, Dizziness Respiratory: See HPI, Short of breath. denies: Cough, Wheezing Gastrointestinal: See HPI, Diarrhea, Nausea. denies: Vomiting Genitourinary: No symptoms reported Female Genitourinary: No symptoms reported Musculoskeletal: No symptoms reported Skin: No symptoms reported Hematologic/Lymphatic: No symptoms reported Neurological/Psychological: See HPI, Headaches -: Yes All other systems reviewed and negative Physical Exam - Vital signs Vitals: Temp Pulse Resp BP Pulse Ox 98.3 F 91 20 141/104 H 100 01/04/20 02:58 01/04/20 02:58 01/04/20 02:58 01/04/20 02:58 01/04/20 02:58 - General General appearance: Alert In distress: None - HEENT Head: Normocephalic, Atraumatic Eyes: Normal Extraocular movements intact: Yes Pupils: PERRL Pharynx: Normal. No: Erythema Neck: Normal. No: Lymphadenopathy - Respiratory Respiratory status: No respiratory distress Chest status: Nontender Breath sounds: Normal Chest palpation: Normal - Cardiovascular Rhythm: Regular Heart sounds: Normal auscultation, S1 appreciated, S2 appreciated Murmur: No Friction rub: No Gallop: None auscultated - Abdominal Inspection: Obese Distension: No distension Bowel sounds: Normal Tenderness: Nontender - Abdomen soft Organomegaly: No organomegaly - Back Back: Normal, Nontender - Extremities General upper extremity: Normal inspection General lower extremity: Normal inspection. No: Edema - Neurological Neuro grossly intact: Yes Orientation: AAOx4 [place] Coma Scale Eye Opening: Spontaneous Will Coma Scale Verbal: Oriented Will Coma Scale Motor: Obeys Commands [place] Coma Scale Total: 15 - Psychological Associated symptoms: Normal affect, Normal mood - Skin Skin Temperature: Warm Skin Moisture: Dry Skin Color: Normal Course - Re-evaluation Re-evalutation: 01/04/20 06:38 Patient resting comfortably not showing any signs of distress at this time. - Vital Signs Vital signs: Temp Pulse Resp BP Pulse Ox 98.3 F 91 20 144/78 H 99 01/04/20 02:58 01/04/20 02:58 01/04/20 05:01 01/04/20 05:01 01/04/20 05:01 01/04/20 06:39 Vital signs stable afebrile pulse ox 99% Discharge - Discharge Clinical Impression: Viral upper respiratory infection, Suspected COVID-19 virus infection, Asthma Disposition: HOME, SELF-CARE Instructions: Viral Syndrome ([facility]), Upper Respiratory Illness ([facility]), COVID-19 Guidance for Persons Under Investigation Referrals: MINDI CONTE PA-C [PHYSICIAN HOME HEALTH OUTREACH COORDINATOR] - Follow up as needed I personally performed the services described in the documentation, reviewed and edited the documentation which was dictated to the scribe in my presence, and it accurately records my words and actions.
[2020-01-04 06:54] VITALS: BP 114/60
== END 2020-01-04 07:06 | disposition home or self-care (01) ==
LOC: ER 01:01
DX: J06.9 Acute upper respiratory infection, unspecified (principal); B97.89 Other viral agents as the cause of diseases classified elsewhere; J45.909 Unspecified asthma, uncomplicated; I10 Essential (primary) hypertension; R51 Headache; R11.0 Nausea; R19.7 Diarrhea, unspecified; R42 Dizziness and giddiness; E11.9 Type 2 diabetes mellitus without complications; Z79.84 Long term (current) use of oral hypoglycemic drugs; Z87.01 Personal history of pneumonia (recurrent); Z88.8 Allergy status to other drugs, medicaments and biological substances; Z88.1 Allergy status to other antibiotic agents; Z91.040 Latex allergy status; Z20.828 Contact with and (suspected) exposure to other viral communicable diseases
CPT/HCPCS: 99283; 87635; C9803

== ENCOUNTER 2020-01-09 07:18 | Emergency (ER) | payer MEDICAID ==
[2020-01-09] MEDS ORDERED: METHYLPREDNISOLONE INJ 125 MG/2 ML SDV IV ONE (07:56)
[2020-01-09 08:02] LABS: ABSOLUTE BASOPHILS # (AUTO) 0.1 10^3/uL (0.0-0.2); ABSOLUTE EOSINOPHILS # (AUTO) 0.4 10^3/uL (0.0-0.6); ABSOLUTE LYMPHOCYTES (AUTO) 2.2 10^3/uL (0.5-4.7); ABSOLUTE MONOCYTES (AUTO) 0.4 10^3/uL (0.1-1.4); ABSOLUTE NEUT (AUTO) 7.5 10^3/uL (1.7-8.2); BASOPHILS % (AUTO) 0.5 % (0-2); EOSINOPHILS % (AUTO) 3.8 % (0-6); HEMOGLOBIN 11.1 g/dL (12.0-15.5); LYMPHOCYTES % (AUTO) 21.1 % (13-45); MEAN CORPUSCULAR HEMOGLOBIN 26.2 pg (27.0-33.4); MEAN CORPUSCULAR HGB CONC 32.7 g/dL (32.0-36.0); MEAN CORPUSCULAR VOLUME 80 fl (80-97); PLATELET COUNT 287 10^3/uL (150-450); RED BLOOD COUNT 4.24 10^6/uL (3.72-5.28); RED CELL DISTRIBUTION WIDTH 15.6 % (11.5-14.0); SEGMENTED NEUTROPHILS % (AUTO) 70.6 % (42-78); TOTAL CELLS COUNTED % (AUTO) 100 %; WHITE BLOOD COUNT 10.6 10^3/uL (4.0-10.5)
[2020-01-09 08:18] LABS: ALBUMIN 3.7 g/dL (3.5-5.0); ALKALINE PHOSPHATASE 88 U/L (38-126); ANION GAP 7 (5-19); ASPARTATE AMINO TRANSFERASE 20 U/L (14-36); BILIRUBIN,DIRECT 0.2 mg/dL (0.0-0.4); BILIRUBIN,TOTAL 0.4 mg/dL (0.2-1.3); BLOOD UREA NITROGEN 8 mg/dL (7-20); CALCIUM 8.8 mg/dL (8.4-10.2); CARBON DIOXIDE 27 mmol/L (22-30); CHLORIDE 103 mmol/L (98-107); GLUCOSE 84 mg/dL (75-110); POTASSIUM 3.9 mmol/L (3.6-5.0)
--- NOTE | 2020-01-09 09:33 | RADIOLOGY REPORT (SQ) ---
EXAM DESCRIPTION: CT CHEST WITHOUT IMAGES COMPLETED DATE/TIME: 01/09/2020 9:11 am REASON FOR STUDY: cough/sob/neg xray COMPARISON: Chest x-ray dated 10/01/2019 TECHNIQUE: CT scan performed of the chest without intravenous contrast. Images reviewed with lung, soft tissue and bone windows. Reconstructed coronal and sagittal MPR images reviewed. All images st ored on PACS. All CT scanners at this facility use dose modulation, iterative reconstruction, and/or weight based d osing when appropriate to reduce radiation dose to as low as reasonably achievable (ALARA). [facility]: Dose Right [facility]: CareDose [facility]: Dose Right [facility]: Teradose 4D [facility]: [employer] RADIATION DOSE: CT Rad equipment meets quality standard of care and radiation dose reduction techniq ues were employed. CTDIvol: 21.1 mGy. DLP: 752 mGy-cm. mGy. LIMITATIONS: No technical limitations. FINDINGS: LUNGS AND PLEURA: No masses, infiltrates, or pneumothorax. No pleural effusions or pleura l calcifications. Left lung is slightly under expanded compared to the right. Etiology of this is u ncertain. No endobronchial lesions. No focal areas of atelectasis. HILAR AND MEDIASTINAL STRUCTURES: No identified masses or abnormal nodes. No obvious aneurysm. HEART AND VASCULAR STRUCTURES: No aneurysm. No pericardial effusion. UPPER ABDOMEN: No significant findings. Limited exam. THYROID AND OTHER SOFT TISSUES: No masses. No adenopathy. BONES: No significant finding. HARDWARE: None in the chest. OTHER: No other significant findings. IMPRESSION: NO SIGNIFICANT FINDING ON NON-CONTRASTED CHEST CT. TECHNICAL DOCUMENTATION: JOB ID: [id number] Quality ID # [id number]: Final reports with documentation of one or more dose reduction techniques (e.g., Au tomated exposure control, adjustment of the mA and/or kV according to patient size, use of iterative reconstruction technique) 2010 [employer]- All Rights Reserved Reading location - IP/workstation name: [email or web address]
--- NOTE | 2020-01-09 10:03 | ER Document Report ---
ED General - General Chief Complaint: Shortness Of Breath Stated Complaint: SHORTNESS OF BREATH Time Seen by Provider: 01/09/20 07:38 Primary Care Provider: ANDREA CABEZAS MD [Primary Care Provider] - Follow up as needed Information source: Patient TRAVEL OUTSIDE OF THE [place] IN LAST 30 DAYS: No - HPI Notes: Patient presents complaint of shortness of breath. She states is been progressively getting worse over the last several days. It is worse with exertion is better with rest. She denies any significant pain. She states she has had a mild nonproductive cough. She states she does have a history of asthma. She states she has been using her inhalers with no relief at home. Patient has multiple visits here for similar complaints in the past with unremarkable work-ups. She states she was recently tested for COVID and this was negative. This was last week. Patient denies any vomiting diarrhea. No fevers. No previous history of DVTs. - Related Data Allergies/Adverse Reactions: aspirin [Aspirin] Allergy (Severe, Verified 01/09/20 07:49) Edema ciprofloxacin [From Cipro] Allergy (Verified 01/09/20 07:49) Edema Iodinated Contrast Media Allergy (Verified 01/09/20 07:49) Hives lisinopril Allergy (Verified 01/09/20 07:49) Edema Home Medications: Plavix Past Medical History - General Information source: Patient - Social History Smoking Status: Never Smoker Chew tobacco use (# tins/day): No Frequency of alcohol use: None Drug Abuse: None Family History: Reviewed & Not Pertinent, Arthritis, CVA, DM, Hyperlipidemia, Hypertension - Past Medical History Cardiac Medical History: Reports: Hx Hypertension Denies: Hx Coronary Artery Disease, Hx Heart Attack Pulmonary Medical History: Reports: Hx Asthma, Hx Pneumonia - Apr 2010 Denies: Hx Bronchitis, Hx COPD Neurological Medical History: Reports: Hx Cerebrovascular Accident. Denies: Hx Seizures Endocrine Medical History: Reports: Hx Diabetes Mellitus Type 2 Renal/ Medical History: Denies: Hx Peritoneal Dialysis Musculoskeletal Medical History: Denies Hx Arthritis Past Surgical History: Reports: Hx Cholecystectomy, Hx Oral Surgery - Various dental surgeries. Denies: Hx Pacemaker - Immunizations Immunizations up to date: No Hx Diphtheria, Pertussis, Tetanus Vaccination: No Review of Systems - Review of Systems Constitutional: Malaise, Weakness. denies: Chills, Fever Cardiovascular: denies: Chest pain, Palpitations Respiratory: Cough, Short of breath -: Yes All other systems reviewed and negative Physical Exam - Vital signs Vitals: Temp Pulse Resp BP Pulse Ox 98.3 F 85 20 126/70 H 100 01/09/20 07:22 01/09/20 07:22 01/09/20 07:22 01/09/20 07:22 01/09/20 07:22 Course - Re-evaluation Re-evalutation: 01/09/20 10:06 Patient presents with complaints of shortness of breath. Patient is vital signs are stable. Of note she is 100% on room air even with a mask on. She her respirations are nonlabored. Her breath sounds are clear. A chest CT shows no evidence of any abnormalities. She has had negative DVT studies in the past. S he is PERC negative. Unable to find any cause that would explain the patient's shortness of breath. I am going to try her on a short course of steroids to see if possible inflammatory bronchial changes are a cause of her shortness of breath. - Vital Signs Vital signs: Temp Pulse Resp BP Pulse Ox 98.3 F 85 22 H 126/73 H 100 01/09/20 07:22 01/09/20 07:22 01/09/20 09:06 01/09/20 08:00 01/09/20 08:01 - Laboratory Result Diagrams: 01/09/20 07:41 01/09/20 07:41 Laboratory results interpreted by me: 01/09/20 01/09/20 07:41 07:41 WBC 10.6 H Hgb 11.1 L Hct 34.0 L MCH 26.2 L RDW 15.6 H Sodium 136.8 L - Diagnostic Test Radiology reviewed: Image reviewed, Reports reviewed - EKG Interpretation by Me EKG shows normal: Sinus rhythm Rate: Normal - 72 Rhythm: NSR Voltage: Consistent with LVH Discharge - Discharge Clinical Impression: Dyspnea Qualifiers: Dyspnea type: shortness of breath Qualified Code(s): R06.02 - Shortness of breath; R06.00 - Dyspnea, unspecified; R06.01 - Orthopnea Condition: Stable Disposition: HOME, SELF-CARE Instructions: Dyspnea, Nonspecific ([facility]) Prescriptions: Prednisone [Deltasone 20 mg Tablet] 60 mg PO DAILY 5 Days #15 tablet Referrals: ANDREA CABEZAS MD [Primary Care Provider] - Follow up in 3-5 days
[2020-01-09 10:24] VITALS: BP 128/79
--- NOTE | 2020-01-09 19:05 | EKG REPORT ---
SEVERITY:- ABNORMAL ECG - SINUS RHYTHM PROBABLE LEFT VENTRICULAR HYPERTROPHY : Confirmed by: Nathaniel Morales 09-Jan-2020 19:05:03
== END 2020-01-09 10:24 | disposition home or self-care (01) ==
LOC: ER 07:18
DX: J45.909 Unspecified asthma, uncomplicated (principal); R06.02 Shortness of breath; R06.01 Orthopnea; R05 Cough; R53.81 Other malaise; R53.1 Weakness; E11.9 Type 2 diabetes mellitus without complications; I10 Essential (primary) hypertension; Z79.899 Other long term (current) drug therapy; Z88.8 Allergy status to other drugs, medicaments and biological substances; Z88.1 Allergy status to other antibiotic agents; Z91.041 Radiographic dye allergy status; Z79.02 Long term (current) use of antithrombotics/antiplatelets; Z87.01 Personal history of pneumonia (recurrent)
CPT/HCPCS: 93005; 99285; 96374; 36415; 85025; 80053; 71250; 93010; J2930

== ENCOUNTER 2020-02-09 23:37 | Emergency (ER) | payer MEDICAID ==
--- NOTE | 2020-02-10 00:05 | ER Document Report ---
ED Medical Screen (RME) - General Chief Complaint: Chest Pain Stated Complaint: CHEST PAINS PRESSURE DIFFICULTY BREATHING Time Seen by Provider: 02/09/20 23:55 Primary Care Provider: ANDREA CABEZAS MD [Primary Care Provider] - Follow up as needed Notes: Patient is a 34-year-old female who presents emergency department with a chief complaint of chest pain patient states that she has had chest pain on and off for the past few days, but up progressively worse today. Patient also reports a headache with nausea and vomiting. Patient is currently on Plavix. Patient states that she has a family member at home who has been positive for COVID-19. States that she has been distancing them from the home. Exam: Tachypneic. I have greeted and performed a rapid initial assessment of this patient. A comprehensive ED assessment and evaluation of the patient, analysis of test results and completion of medical decision making process will be conducted by an additional ED providers. TRAVEL OUTSIDE OF THE [place] IN LAST 30 DAYS: No - Related Data Allergies/Adverse Reactions: aspirin [Aspirin] Allergy (Severe, Verified 01/09/20 07:49) Edema ciprofloxacin [From Cipro] Allergy (Verified 01/09/20 07:49) Edema Iodinated Contrast Media Allergy (Verified 01/09/20 07:49) Hives lisinopril Allergy (Verified 01/09/20 07:49) Edema Past Medical History - Social History Frequency of alcohol use: None Drug Abuse: None - Past Medical History Cardiac Medical History: Reports: Hx Hypertension Denies: Hx Coronary Artery Disease, Hx Heart Attack Pulmonary Medical History: Reports: Hx Asthma, Hx Pneumonia - Apr 2010 Denies: Hx Bronchitis, Hx COPD Neurological Medical History: Reports: Hx Cerebrovascular Accident. Denies: Hx Seizures Endocrine Medical History: Reports: Hx Diabetes Mellitus Type 2 Renal/ Medical History: Denies: Hx Peritoneal Dialysis Musculoskeltal Medical History: Denies Hx Arthritis Past Surgical History: Reports: Hx Cholecystectomy, Hx Oral Surgery - Various dental surgeries. Denies: Hx Pacemaker - Immunizations Immunizations up to date: No Hx Diphtheria, Pertussis, Tetanus Vaccination: No Physical Exam - Vital signs Vitals: Temp Pulse Resp BP Pulse Ox 98.2 F 79 26 H 146/77 H 99 02/09/20 23:47 02/09/20 23:47 02/09/20 23:47 02/09/20 23:47 02/09/20 23:47 Course - Vital Signs Vital signs: Temp Pulse Resp BP Pulse Ox 98.2 F 79 26 H 146/77 H 99 02/09/20 23:47 02/09/20 23:47 02/09/20 23:47 02/09/20 23:47 02/09/20 23:47 Doctor's Discharge - Discharge Referrals: ANDREA CABEZAS MD [Primary Care Provider] - Follow up as needed
[2020-02-10 00:42] LABS: ABSOLUTE EOSINOPHILS # (AUTO) 0.3 10^3/uL (0.0-0.6); ABSOLUTE LYMPHOCYTES (AUTO) 2.7 10^3/uL (0.5-4.7); ABSOLUTE MONOCYTES (AUTO) 0.6 10^3/uL (0.1-1.4); ABSOLUTE NEUT (AUTO) 7.6 10^3/uL (1.7-8.2); BASOPHILS % (AUTO) 0.4 % (0-2); EOSINOPHILS % (AUTO) 2.4 % (0-6); HEMATOCRIT 33.1 % (36.0-47.0); HEMOGLOBIN 11.1 g/dL (12.0-15.5); LYMPHOCYTES % (AUTO) 24.2 % (13-45); MEAN CORPUSCULAR HEMOGLOBIN 26.7 pg (27.0-33.4); MEAN CORPUSCULAR HGB CONC 33.7 g/dL (32.0-36.0); MEAN CORPUSCULAR VOLUME 79 fl (80-97); MONOCYTES % (AUTO) 5.3 % (3-13); PLATELET COUNT 318 10^3/uL (150-450); RED BLOOD COUNT 4.17 10^6/uL (3.72-5.28); RED CELL DISTRIBUTION WIDTH 15.7 % (11.5-14.0); SEGMENTED NEUTROPHILS % (AUTO) 67.7 % (42-78); TOTAL CELLS COUNTED % (AUTO) 100 %; WHITE BLOOD COUNT 11.2 10^3/uL (4.0-10.5)
[2020-02-10 00:52] LABS: ALBUMIN 3.6 g/dL (3.5-5.0); ALKALINE PHOSPHATASE 80 U/L (38-126); ANION GAP 6 (5-19); ASPARTATE AMINO TRANSFERASE 22 U/L (14-36); BILIRUBIN,DIRECT 0.2 mg/dL (0.0-0.4); BILIRUBIN,TOTAL 0.4 mg/dL (0.2-1.3); BLOOD UREA NITROGEN 12 mg/dL (7-20); CALCIUM 9.2 mg/dL (8.4-10.2); CARBON DIOXIDE 26 mmol/L (22-30); CHLORIDE 103 mmol/L (98-107); CREATINE KINASE 167 U/L (30-135); GLUCOSE 117 mg/dL (75-110); TOTAL PROTEIN 6.6 g/dL (6.3-8.2)
[2020-02-10 01:08] LABS: CREATINE KINASE MB 0.53 ng/mL (<4.55); TROPONIN I < 0.012 ng/mL
--- NOTE | 2020-02-10 01:18 | RADIOLOGY REPORT (SQ) ---
EXAM DESCRIPTION: X-ray, single view of the chest CLINICAL HISTORY: 34 years Female, shortness of breath, chest pain COMPARISON: Single view of the chest October 01, 2019 FINDINGS: Exam is overpenetrated. Lungs: Lungs are clear. No pneumonia or edema. No pneumothorax or pleural effusion. Mediastinum: Cardiac and mediastinal silhouette are normal. Bones: Osseous structures are normal. IMPRESSION: No acute process. No significant interval change.
[2020-02-10] MEDS ORDERED: ONDANSETRON HCL INJ/PF 4 MG/2 ML SDV IV ONE (01:36)
--- NOTE | 2020-02-10 01:41 | ER Document Report ---
ED General - General Chief Complaint: Chest Pain Stated Complaint: CHEST PAINS PRESSURE DIFFICULTY BREATHING Time Seen by Provider: 02/09/20 23:55 Primary Care Provider: ANDREA CABEZAS MD [Primary Care Provider] - Follow up as needed TRAVEL OUTSIDE OF THE [place] IN LAST 30 DAYS: No - HPI Context: This is a 34-year-old female with a history of multiple medical problems present ing to the emergency department with multiple medical complaints. Patient states that she is been having intermittent chest pain on and off for the past 4 to 5 days but the chest pain has become progressively worse today. She describes it as sharp rates it as a 4 out of 5 and localizes it to her left chest. Patient states she also has a headache that she rates as a 4 out of 5 and has associated nausea and vomiting. Patient has a history of CVA in the past and she also states that she is better at home with family member who has been positive for COVID-19. Patient states that she has been trying to distance herself from them at home. Patient denies loss of sense of taste or sense of smell. Patient states there are no alleviating factors for her chest pain, headache or nausea and vomiting. Patient states that deep breathing and exertion worsen her chest pain. Associated symptoms: Other - See HPI Exacerbated by: Other - See HPI Relieved by: Other - See HPI - Related Data Allergies/Adverse Reactions: aspirin [Aspirin] Allergy (Severe, Verified 01/09/20 07:49) Edema ciprofloxacin [From Cipro] Allergy (Verified 01/09/20 07:49) Edema Iodinated Contrast Media Allergy (Verified 01/09/20 07:49) Hives lisinopril Allergy (Verified 01/09/20 07:49) Edema Past Medical History - General Information source: Patient - Social History Smoking Status: Never Smoker Frequency of alcohol use: None Drug Abuse: None Family History: Reviewed & Not Pertinent, Arthritis, CVA, DM, Hyperlipidemia, Hypertension Patient has homicidal ideation: No - Past Medical History Cardiac Medical History: Reports: Hx Hypertension Denies: Hx Coronary Artery Disease, Hx Heart Attack Pulmonary Medical History: Reports: Hx Asthma, Hx Pneumonia - Apr 2010 Denies: Hx Bronchitis, Hx COPD Neurological Medical History: Reports: Hx Cerebrovascular Accident. Denies: Hx Seizures Endocrine Medical History: Reports: Hx Diabetes Mellitus Type 2 Renal/ Medical History: Denies: Hx Peritoneal Dialysis Musculoskeletal Medical History: Denies Hx Arthritis Past Surgical History: Reports: Hx Cholecystectomy, Hx Oral Surgery - Various dental surgeries. Denies: Hx Pacemaker - Immunizations Immunizations up to date: No Hx Diphtheria, Pertussis, Tetanus Vaccination: No Review of Systems - Review of Systems Constitutional: No symptoms reported EENT: No symptoms reported Cardiovascular: Chest pain Respiratory: No symptoms reported Gastrointestinal: Nausea, Vomiting Genitourinary: No symptoms reported Female Genitourinary: No symptoms reported Musculoskeletal: No symptoms reported Skin: No symptoms reported Hematologic/Lymphatic: No symptoms reported Neurological/Psychological: Headaches -: Yes All other systems reviewed and negative Physical Exam - Vital signs Vitals: Temp Pulse Resp BP Pulse Ox 98.2 F 79 26 H 146/77 H 99 02/09/20 23:47 02/09/20 23:47 02/09/20 23:47 02/09/20 23:47 02/09/20 23:47 - Notes Notes: CONSTITUTIONAL [Vital signs reviewed, Patient appears comfortable, Alert and oriented X 3, Normal stature.] HEAD [Atraumatic, Normocephalic.] EYES [Eyes are normal to inspection, No discharge from eyes, Extraocular muscles intact, Sclera are normal, Conjunctiva are normal.] NECK [Normal ROM, No jugular venous distention, No meningeal signs, no carotid bruit.] RESPIRATORY CHEST [Chest is nontender, Breath sounds normal, No respiratory distress.] CARDIOVASCULAR [RRR, No murmurs, Normal S1 S2, No rub, No gallop.] ABDOMEN [Abdomen is nontender, No pulsatile masses, No other masses, Bowel sounds normal, No distension, No peritoneal signs, No hernias.] BACK [There is no CVA Tenderness, There is no tenderness to palpation, Normal inspection.] UPPER EXTREMITY [Inspection normal, No cyanosis, No clubbing, No edema, 2+ radial pulses.] LOWER EXTREMITY [Inspection normal, No cyanosis, No clubbing, No edema, No calf tenderness, 2+ femoral pulses.] NEURO [No focal motor deficits, No focal sensory deficits, Speech normal.] SKIN [Skin is warm, Skin is dry, Skin is normal color.] PSYCHIATRIC [Normal affect. ] Course - Re-evaluation Re-evalutation: 02/10/20 05:01 Results of ED MSE discussed with patient. All questions were answered prior to discharge. Covid precautions discussed with patient. Emergency signs and symptoms, reasons to return to the emergency department discussed with patient. - Vital Signs Vital signs: Temp Pulse Resp BP Pulse Ox 98.1 F 79 19 128/72 H 99 02/10/20 03:06 02/09/20 23:47 02/10/20 03:06 02/10/20 03:06 02/10/20 03:06 - Laboratory Result Diagrams: 02/10/20 00:15 02/10/20 00:15 Laboratory results interpreted by me: 02/10/20 02/10/20 00:15 00:15 WBC 11.2 H Hgb 11.1 L Hct 33.1 L MCV 79 L MCH 26.7 L RDW 15.7 H Sodium 135.1 L Glucose 117 H Creatine Kinase 167 H - Diagnostic Test Radiology reviewed: Reports reviewed - EKG Interpretation by Me Additional EKG results interpreted by me: 02/10/20 04:56 EKG obtained on 02/09/2020 at 2341 hrs. was interpreted by this MD. Findings: Normal sinus rhythm, rate 79, normal axis, IL interval appears to be within nor mal limits, P waves proceed QRS complexes, QRS complexes appear narrow, QTC is 422, there are no obvious patterns of ST segment elevation or depression or reciprocal changes seen to suggest acute myocardial ischemia or infarction. When compared to prior EKG from 01/09/2020 there do not appear to be any acute changes in the gross morphology of the 2 EKGs appears grossly the same. Impression: Normal sinus rhythm with nonspecific ST segments. Discharge - Discharge Clinical Impression: Encounter for laboratory testing for COVID-19 virus Chest pain Qualifiers: Chest pain type: unspecified Qualified Code(s): R07.9 - Chest pain, unspecified Dyspnea Qualifiers: Dyspnea type: unspecified Qualified Code(s): R06.00 - Dyspnea, unspecified Condition: Stable Disposition: HOME, SELF-CARE Instructions: COVID-19 Guidance for Persons Under Investigation, Chest Pain of Unclear Cause ([facility]) Referrals: ANDREA CABEZAS MD [Primary Care Provider] - Follow up as needed
--- NOTE | 2020-02-10 02:52 | RADIOLOGY REPORT (SQ) ---
CLINICAL HISTORY: headache, h/o cva COMPARISON: None. TECHNIQUE: CT HEAD WITHOUT IV CONTRAST on 02/10/2020 1:34 AM CDT This exam was performed according to our departmental dose-optimization program, which includes automated exposure control, adjustment of the mA and/or kV according to patient size and/or use of iterative reconstruction technique. FINDINGS: There is no acute hemorrhage, mass effect or midline shift. Mata-white differentiation is preserved. There is no hydrocephalus. There is no significant volume loss for age. The calvarium is intact. Orbits and globes are unremarkable. The paranasal sinuses are clear. Mastoid air cells are clear. IMPRESSION: No acute intracranial findings.
[2020-02-10 05:19] VITALS: BP 132/71
--- NOTE | 2020-02-10 16:28 | EKG REPORT ---
SEVERITY:- ABNORMAL ECG - SINUS RHYTHM PROBABLE LEFT VENTRICULAR HYPERTROPHY : Confirmed by: Nathaniel Morales 10-Feb-2020 16:28:28
== END 2020-02-10 05:18 | disposition home or self-care (01) ==
LOC: ER 23:37
DX: R07.9 Chest pain, unspecified (principal); R06.00 Dyspnea, unspecified; R51.9 Headache, unspecified; R11.2 Nausea with vomiting, unspecified; I10 Essential (primary) hypertension; Z20.828 Contact with and (suspected) exposure to other viral communicable diseases; E11.9 Type 2 diabetes mellitus without complications; Z86.73 Personal history of transient ischemic attack (TIA), and cerebral infarction without residual deficits; Z90.49 Acquired absence of other specified parts of digestive tract; Z88.6 Allergy status to analgesic agent; Z88.3 Allergy status to other anti-infective agents
CPT/HCPCS: 93005; 99285; 96374; 36415; 82553; 82550; 85025; 87635; 80053; 84484; 71045; 70450; 93010; J2405; C9803

== ENCOUNTER 2020-02-12 02:23 | Emergency (ER) | payer MEDICAID ==
--- NOTE | 2020-02-12 03:59 | ER Document Report ---
ED General - General Stated Complaint: DIFFICULTY BREATHING Time Seen by Provider: 02/12/20 03:59 Primary Care Provider: ANDREA CABEZAS MD [Primary Care Provider] - Follow up as needed TRAVEL OUTSIDE OF THE [place] IN LAST 30 DAYS: No - HPI Notes: 34-year-old female presents with vomiting. Patient states she has been vomiting all day today. She states that she has a metallic taste in her mouth and feels like her throat is on fire and as if something is stuck in it. She states she is having some right upper abdominal pain which started before the vomiting. She states she had her gallbladder removed and 2010. She also reports feeling feverish. She mentions that she was here in the emergency department 2 days ago for some chest pressure, she was Covid tested at that time which is negative. She states that her son has Covid, however she has not been living with him recently, she has had 2 negative Covid test since he was positive. - Related Data Allergies/Adverse Reactions: aspirin [Aspirin] Allergy (Severe, Verified 01/09/20 07:49) Edema ciprofloxacin [From Cipro] Allergy (Verified 01/09/20 07:49) Edema Iodinated Contrast Media Allergy (Verified 01/09/20 07:49) Hives lisinopril Allergy (Verified 01/09/20 07:49) Edema Past Medical History - General Information source: Patient - Social History Smoking Status: Unknown if Ever Smoked Family History: Reviewed & Not Pertinent, Arthritis, CVA, DM, Hyperlipidemia, Hypertension - Past Medical History Cardiac Medical History: Reports: Hx Hypertension Denies: Hx Coronary Artery Disease, Hx Heart Attack Pulmonary Medical History: Reports: Hx Asthma, Hx Pneumonia - Apr 2010 Denies: Hx Bronchitis, Hx COPD Neurological Medical History: Reports: Hx Cerebrovascular Accident. Denies: Hx Seizures Endocrine Medical History: Reports: Hx Diabetes Mellitus Type 2 Renal/ Medical History: Denies: Hx Peritoneal Dialysis Musculoskeletal Medical History: Denies Hx Arthritis Past Surgical History: Reports: Hx Cholecystectomy, Hx Oral Surgery - Various dental surgeries. Denies: Hx Pacemaker - Immunizations Immunizations up to date: No Hx Diphtheria, Pertussis, Tetanus Vaccination: No Review of Systems - Review of Systems Constitutional: Fever EENT: Throat pain Cardiovascular: denies: Chest pain Respiratory: denies: Short of breath Gastrointestinal: Abdominal pain, Nausea, Vomiting Genitourinary: No symptoms reported Female Genitourinary: No symptoms reported Musculoskeletal: No symptoms reported Hematologic/Lymphatic: No symptoms reported Neurological/Psychological: No symptoms reported Physical Exam - Vital signs Vitals: Temp Pulse Resp BP Pulse Ox 99.1 F 76 20 111/74 100 02/12/20 02:47 02/12/20 02:47 02/12/20 02:47 02/12/20 02:47 02/12/20 02:47 - General General appearance: Appears well, Alert In distress: None - HEENT Head: Normocephalic, Atraumatic Extraocular movements intact: Yes Pupils: PERRL Notes: Phonation normal - Respiratory Chest status: Nontender Breath sounds: Normal - Cardiovascular Rhythm: Regular Heart sounds: Normal auscultation - Abdominal Inspection: Morbidly Obese Distension: No distension Bowel sounds: Normal Tenderness: Nontender - Extremities General upper extremity: Normal ROM General lower extremity: Normal ROM - Neurological Neuro grossly intact: Yes Cognition: Normal Orientation: AAOx4 - Psychological Associated symptoms: Normal affect - Skin Skin Temperature: Warm Course - Re-evaluation Re-evalutation: 34-year-old female with vomiting on set today, also additionally ports some right upper quadrant abdominal pain, status post cholecystectomy several years ago. On exam she is well-appearing, nontoxic, afebrile and vital signs stable. She has no appreciable areas of abdominal tenderness, abdomen is soft and is without rebound or guarding. I have a low suspicion for acute intra-abdominal pathology at this time. Will assess with labs and if any abnormalities are present then would pursue imaging. Likely has a viral illness. Will treat symptomatically with Zofran and GI cocktail. Her exam is not consistent with food bolus, suspecting some irritation from vomiting. She has had Covid negative x2. 02/12/20 05:48 No major laboratory abnormalities. No consolidation on chest x-ray. Patient reports improvement in her symptoms. Her urine has some pyuria and positive leuk esterase, I asked her if she was having any UTI symptoms and she states that he is having some dysuria. We will treat this as UTI. Rx Keflex peer return precautions given, patient stable at time of discharge. - Vital Signs Vital signs: Temp Pulse Resp BP Pulse Ox 97.9 F 69 16 121/68 100 02/12/20 06:16 02/12/20 06:16 02/12/20 06:16 02/12/20 06:16 02/12/20 06:16 - Laboratory Result Diagrams: 02/12/20 04:25 02/12/20 04:25 Laboratory results interpreted by me: 02/12/20 02/12/20 02/12/20 04:25 04:25 05:05 Hgb 11.3 L Hct 34.2 L MCH 26.5 L RDW 15.6 H Sodium 135.8 L Urine Blood SMALL H Ur Leukocyte Esterase MODERATE H - Diagnostic Test Radiology reviewed: Image reviewed, Reports reviewed Discharge - Discharge Clinical Impression: Nausea and vomiting in adult, Bacterial UTI Disposition: HOME, SELF-CARE Additional Instructions: Please begin course of antibiotics. Continue all other medications as prescribed peer return to the emergency department for any concerning worsening symptoms. Prescriptions: Cephalexin Monohydrate [Keflex 500 mg Capsule] 500 mg PO BID 7 Days #14 capsule Referrals: ANDREA CABEZAS MD [Primary Care Provider] - Follow up as needed
[2020-02-12] MEDS ORDERED: FAMOTIDINE INJ/PF 20 MG/2 ML SDV IV ONE (04:15)
[2020-02-12] MEDS ORDERED: ONDANSETRON HCL INJ/PF 4 MG/2 ML SDV IV ONE (04:15)
[2020-02-12] MEDS ORDERED: LIDOCAINE 2% VISCOUS SOLN 15 ML UDCUP PO ONE (04:16)
[2020-02-12] MEDS ORDERED: MAG HYDROX/AL HYDROX/SIMETH SUSP 30 ML UDCUP PO ONE (04:16)
[2020-02-12 04:44] LABS: ABSOLUTE EOSINOPHILS # (AUTO) 0.3 10^3/uL (0.0-0.6); ABSOLUTE LYMPHOCYTES (AUTO) 2.5 10^3/uL (0.5-4.7); ABSOLUTE MONOCYTES (AUTO) 0.6 10^3/uL (0.1-1.4); BASOPHILS % (AUTO) 0.3 % (0-2); EOSINOPHILS % (AUTO) 3.2 % (0-6); HEMATOCRIT 34.2 % (36.0-47.0); HEMOGLOBIN 11.3 g/dL (12.0-15.5); LYMPHOCYTES % (AUTO) 24.1 % (13-45); MEAN CORPUSCULAR HEMOGLOBIN 26.5 pg (27.0-33.4); MEAN CORPUSCULAR VOLUME 80 fl (80-97); MONOCYTES % (AUTO) 5.3 % (3-13); PLATELET COUNT 316 10^3/uL (150-450); RED BLOOD COUNT 4.26 10^6/uL (3.72-5.28); RED CELL DISTRIBUTION WIDTH 15.6 % (11.5-14.0); SEGMENTED NEUTROPHILS % (AUTO) 67.1 % (42-78); TOTAL CELLS COUNTED % (AUTO) 100 %; WHITE BLOOD COUNT 10.4 10^3/uL (4.0-10.5)
[2020-02-12 05:04] LABS: ALBUMIN 3.8 g/dL (3.5-5.0); ALKALINE PHOSPHATASE 87 U/L (38-126); ANION GAP 8 (5-19); ASPARTATE AMINO TRANSFERASE 20 U/L (14-36); BILIRUBIN,DIRECT 0.2 mg/dL (0.0-0.4); BILIRUBIN,TOTAL 0.4 mg/dL (0.2-1.3); BLOOD UREA NITROGEN 7 mg/dL (7-20); CALCIUM 8.9 mg/dL (8.4-10.2); CARBON DIOXIDE 27 mmol/L (22-30); CHLORIDE 101 mmol/L (98-107); GLUCOSE 87 mg/dL (75-110); POTASSIUM 3.8 mmol/L (3.6-5.0); TOTAL PROTEIN 6.9 g/dL (6.3-8.2)
--- NOTE | 2020-02-12 05:09 | RADIOLOGY REPORT (SQ) ---
CHEST X-RAY 1 VIEW on 02/12/2020 at 4:43 AM CLINICAL INDICATION: Shortness of breath COMPARISON: 02/10/2020 FINDINGS: The lungs are clear. Cardiac, hilar and mediastinal contours are within normal limits. Pulmonary vascularity is within normal limits. No bony abnormality is noted. IMPRESSION: No active disease.
[2020-02-12 05:25] LABS: APPEARANCE,URINE SLIGHTLY-CLOUDY; BILIRUBIN,URINE NEGATIVE (NEGATIVE); COLOR,URINE YELLOW; GLUCOSE, URINE NEGATIVE (NEGATIVE); KETONES,URINE NEGATIVE (NEGATIVE); LEUKOCYTE ESTERASE,URINE MODERATE (NEGATIVE); NITRITE,URINE NEGATIVE (NEGATIVE); PROTEIN,URINE NEGATIVE (NEGATIVE); URINE SPECIFIC GRAVITY 1.018; UROBILINOGEN,URINE NEGATIVE mg/dL (<2.0)
[2020-02-12 06:17] VITALS: BP 121/68
== END 2020-02-12 06:25 | disposition home or self-care (01) ==
LOC: ER 02:23
DX: N39.0 Urinary tract infection, site not specified (principal); B96.89 Other specified bacterial agents as the cause of diseases classified elsewhere; R11.2 Nausea with vomiting, unspecified; R06.00 Dyspnea, unspecified; R43.9 Unspecified disturbances of smell and taste; I10 Essential (primary) hypertension; E11.9 Type 2 diabetes mellitus without complications; E66.01 Morbid (severe) obesity due to excess calories; Z90.49 Acquired absence of other specified parts of digestive tract
CPT/HCPCS: 99284; 96374; 96375; 36415; 83690; 85025; 81025; 80053; 81001; 71045; J3490 ×2; J2405; S0028

== ENCOUNTER → 2020-03-25 | Outpatient (CLI) | payer MEDICAID ==
--- NOTE | 2020-03-25 18:55 | XCELERA REPORT ---
[address] [address] Transthoracic Echocardiogram Report Name: LUZ PUENTES Age: 34 yrs Gender: Female : 1985 Patient Status: Outpatient Patient Location: Study Date: 03/25/2020 01:20 PM History: Cardiac murmur Height: 67 in Weight: 340 lb BSA: 2.5 m2 Procedure: A complete two-dimensional transthoracic echocardiogram was performed (2D, M-mode, spectral and color flow Doppler). The study was technically adequate with some images being suboptimal in quality. Reason For Study: MURMUR Previous Evaluation: A previous study was performed on 03/09/2019 LVEF was normal. History: Cardiac murmur. Ordering Physician: ABILIO HICKMAN Performed By: Roshni Castano Interpretation Summary Left ventricular systolic function is normal. The Ejection Fraction estimate is 55-60% The right ventricle is normal in size and function. There is no mitral regurgitation noted. There is no aortic valve stenosis There is a trace or physiologic amount of tricuspid regurgitation There is no pericardial effusion. MMode/2D Measurements & Calculations RVDd: 3.1 cm LVIDd: 4.8 cm FS: 39.6 % Ao root diam: IVSd: 1.0 cm LVIDs: 2.9 cm EDV(Teich): 3.0 cm LVPWd: 1.1 cm 109.7 ml Ao root area: ESV(Teich): 7.1 cm2 32.8 ml LA dimension: EF(Teich): 70.1 % 4.1 cm LVLd ap4: 8.3 cm SV(MOD-sp4): 80.0 ml EDV(MOD-sp4): 146.0 ml LVLs ap4: 6.9 cm ESV(MOD-sp4): 66.0 ml EF(MOD-sp4): 54.8 % Doppler Measurements & Calculations MV E max cristy: MV P1/2t max cristy: Ao V2 max: LV V1 max P.9 cm/sec 128.0 cm/sec 150.9 cm/sec 6.6 mmHg MV A max cristy: MV P1/2t: 57.6 msec Ao max PG: LV V1 max: 45.9 cm/sec MVA(P1/2t): 3.8 cm2 9.1 mmHg 128.6 cm/sec MV E/A: 1.9 MV dec slope: 651.4 cm/sec2 MV dec time: 0.22 sec PA V2 max: MV P1/2t-pr_phl: 100.8 cm/sec 57.6 msec PA max P.1 mmHg Left Ventricle The left ventricle is normal in size. There is borderline concentric left ventricular hypertrophy. Left ventricular systolic function is normal. The Ejection Fraction estimate is 55-60%. Doppler measurements suggest normal left ventricular diastolic function. No regional wall motion abnormalities noted. Right Ventricle The right ventricle is normal in size and function. Atria The right atrium is normal. The left atrium is mildly dilated. The interatrial septum is intact with no evidence for an atrial septal defect. There is no Doppler evidence for an interatrial shunt. Mitral Valve The mitral valve is grossly normal. There is no evidence of mitral valve prolapse. There is no mitral valve stenosis. There is no mitral regurgitation noted. Aortic Valve The aortic valve opens well. The aortic valve is trileaflet. The aortic valve is normal in structure and function. There is no aortic valve stenosis. No aortic regurgitation is present. Tricuspid Valve The tricuspid valve is normal in structure and function. There is no tricuspid stenosis. There is a trace or physiologic amount of tricuspid regurgitation. Tricuspid regurgitation jet envelope not well defined to measure RV systolic pressure accurately. Pulmonic Valve The pulmonic valve is normal in structure and function. There is no pulmonic valvular stenosis. There is a mild amount of pulmonic regurgitation. Great Vessels The aortic root is normal size. The inferior vena cava appeared normal and decreased > 50% with respiration (RAP 5-10 mmHg). Effusions There is no pericardial effusion. : ABILIO HICKMAN Anil
== END ==
LOC: SP 12:32
PROVIDERS: ATTEND Internal Medicine
DX: I49.3 Ventricular premature depolarization (principal); R01.1 Cardiac murmur, unspecified
CPT/HCPCS: 93306

== ENCOUNTER → 2020-04-21 | Outpatient (CLI) | payer MEDICAID | LOC: OD 12:07 | PROVIDERS: ATTEND Otolaryngology | DX: J30.9 Allergic rhinitis, unspecified (principal) | CPT/HCPCS: 36415; 82785; 86003 ==

== ENCOUNTER 2020-05-19 21:13 | Emergency (ER) | payer MEDICAID ==
[2020-05-19 21:41] VITALS: BP 135/82
[2020-05-19] MEDS ORDERED: AMOXICILLIN TRIHYDRATE 500 MG CAPSULE PO ONE (22:11)
--- NOTE | 2020-05-19 22:18 | ER Document Report ---
HPI - HPI Patient complains to provider of: Bilateral ear pain Time Seen by Provider: 05/19/20 22:07 Pain Level: 4 Context: 34-year-old female past medical history significant for hypertension, CVA, hyperlipidemia, diabetes presents to the emergency room complaining of bilateral ear pain for the past 2 weeks. States symptoms worsened today. States she feels dizzy when she is turning her head side to side but denies any nausea, vomiting, no headaches, no chest pain, no shortness of breath. Denies any trauma to her ears. No recent swimming or flying. Has been taking Tylenol with minimal relief. No ill contacts. Eating and drinking normally. Associated Symptoms: None Exacerbated by: Denies Relieved by: Denies Similar symptoms previously: No Recently seen / treated by doctor: No - ROS Systems Reviewed and Negative: Yes All other systems reviewed and negative - CONSTITUTIONAL Constitutional: DENIES: Fever - EENT EENT: REPORTS: Ear Pain. DENIES: Nasal Drainage-Clear, Nasal Drainage-Purulent, Congestion - NEURO Neurology: REPORTS: Dizzinesss / Vertigo. DENIES: Headache, Weakness - CARDIOVASCULAR Cardiovascular: DENIES: Chest pain - RESPIRATORY Respiratory: DENIES: Trouble Breathing, Coughing - REPRODUCTIVE Reproductive: DENIES: : - DERM Skin Color: Normal Skin Problems: None Past Medical History - General Information source: Patient - Social History Smoking Status: Never Smoker Frequency of alcohol use: None Drug Abuse: None Family History: Reviewed & Not Pertinent, Arthritis, CVA, DM, Hyperlipidemia, Hypertension - Past Medical History Cardiac Medical History: Reports: Hx Hypertension Denies: Hx Coronary Artery Disease, Hx Heart Attack Pulmonary Medical History: Reports: Hx Asthma, Hx Pneumonia - Apr 2010 Denies: Hx Bronchitis, Hx COPD Neurological Medical History: Reports: Hx Cerebrovascular Accident. Denies: Hx Seizures Endocrine Medical History: Reports: Hx Diabetes Mellitus Type 2 Renal/ Medical History: Denies: Hx Peritoneal Dialysis Musculoskeletal Medical History: Denies Hx Arthritis Past Surgical History: Reports: Hx Cholecystectomy, Hx Oral Surgery - Various dental surgeries. Denies: Hx Pacemaker - Immunizations Immunizations up to date: No Hx Diphtheria, Pertussis, Tetanus Vaccination: No Vertical Provider Document - CONSTITUTIONAL Agree With Documented VS: Yes Exam Limitations: No Limitations General Appearance: Mild Distress - INFECTION CONTROL TRAVEL OUTSIDE OF THE [place] IN LAST 30 DAYS: No - HEENT HEENT: Atraumatic, Normocephalic. negative: Pharyngeal Exudate, Pharyngeal Tenderness, Pharyngeal Erythema Notes: Left tympanic membrane dull retracted with clear fluid noted behind the TM. Left outer ear canal without erythema or swelling. Right tympanic membrane with erythema bulging, clear fluid noted behind the TM. Right outer ear canal with erythema and swelling. No discharge or draining noted. - NECK Neck: Normal Inspection, Supple. negative: Lymphadenopathy-Left, Lymphadenopathy-Right - RESPIRATORY Respiratory: Breath Sounds Normal, No Respiratory Distress, Chest Non-Tender - CARDIOVASCULAR Cardiovascular: Regular Rate, Regular Rhythm, No Murmur - NEURO Level of Consciousness: Awake, Alert, Appropriate Motor/Sensory: No Motor Deficit, No Sensory Deficit - DERM Integumentary: Warm, Dry, No Rash Course - Re-evaluation Re-evalutation: 05/19/20 22:15 Reviewed diagnosis with patient. Counseled to take oral antibiotics and use eardrops as prescribed. Outpatient follow-up with primary care physician if not improving in 2 to 3 days. Can take Tylenol as needed for pain. Patient was given strict return to the emergency room guidelines. Return for any new or worsening symptoms. All questions were answered. Patient verbalized understanding and agrees with plan of care. - Vital Signs Vital signs: Temp Pulse Resp BP Pulse Ox 98.2 F 72 18 135/82 H 97 05/19/20 21:40 05/19/20 21:40 05/19/20 21:40 05/19/20 21:40 05/19/20 21:40 - Laboratory Results Critical Laboratory Results Reviewed: No Critical Results - Radiology Results Critical Radiology Results Reviewed: No Critical Results Discharge - Discharge Clinical Impression: Dysfunction of left eustachian tube Right otitis media Qualifiers: Otitis media type: unspecified Qualified Code(s): H66.91 - Otitis media, unspecified, right ear Right otitis externa Qualifiers: Otitis externa type: unspecified type Chronicity: acute Qualified Code(s): H60.501 - Unspecified acute noninfective otitis externa, right ear Condition: Stable Disposition: HOME, SELF-CARE Instructions: Use of Ear Drops ([facility]), Otitis Externa ([facility]), Otitis Media ([facility]) Additional Instructions: Tylenol as needed for pain. Warm compresses 20 minutes 3 times a day. Oral antibiotics and eardrops as prescribed. Follow-up with primary care physician if not improving in 2 to 3 days. Return to emergency room for any new or worsening symptoms. Prescriptions: Amoxicillin 1 tab PO TID #30 tab Neomy Sulf/Polymyx B Sulf/Hc [Cortisporin Otic Susp] 4 drop BTH_EAR QID 7 Days #1 bottle Referrals: SANDEEP SOUTH DO [Primary Care Provider] - Follow up as needed
== END 2020-05-19 22:15 | disposition home or self-care (01) ==
LOC: ER 21:13
DX: H60.501 Unspecified acute noninfective otitis externa, right ear (principal); H66.91 Otitis media, unspecified, right ear; H83.8X2 Other specified diseases of left inner ear; H92.03 Otalgia, bilateral; R42 Dizziness and giddiness; I10 Essential (primary) hypertension; E78.5 Hyperlipidemia, unspecified; E11.9 Type 2 diabetes mellitus without complications; Z86.73 Personal history of transient ischemic attack (TIA), and cerebral infarction without residual deficits; Z90.49 Acquired absence of other specified parts of digestive tract
CPT/HCPCS: 99283

== ENCOUNTER 2020-05-22 00:16 | Emergency (ER) | payer MEDICAID ==
--- NOTE | 2020-05-22 00:24 | ER Document Report ---
ED Allergic Reaction - General Stated Complaint: ALLERGIC REACTION Time Seen by Provider: 05/22/20 00:24 Primary Care Provider: SANDEEP SOUTH DO [Primary Care Provider] - Follow up as needed Mode of Arrival: Wheelchair Information source: Patient Notes: LAST PRIOR ED VISIT by RICKI OSBORN Date: 05/19/20 22:15 Patient complains to provider of: Bilateral ear pain 34-year-old female past medical history significant for hypertension, CVA, hyperlipidemia, diabetes presents to the emergency room complaining of bilateral ear pain for the past 2 weeks. States symptoms worsened today. States she feels dizzy when she is turning her head side to side but denies any nausea, vomiting, no headaches, no chest pain, no shortness of breath. Denies any trauma to her ears. No recent swimming or flying. Has been taking Tylenol with minimal relief. No ill contacts. Eating and drinking normally. Associated Symptoms: None Exacerbated by: Denies HEENT: Atraumatic, Normocephalic. negative: Pharyngeal Exudate, Pharyngeal Tenderness, Pharyngeal Erythema Notes: Left tympanic membrane dull retracted with clear fluid noted behind the TM. Left outer ear canal without erythema or swelling. Right tympanic membrane with erythema bulging, clear fluid noted behind the TM. Right outer ear canal with erythema and swelling. No discharge or draining noted. MY NOTES [id number] on 22 May 2020 34-year-old black female arrives by POV with chief complaint of having pruritic face pruritic arms hives pruritic back and buttocks but has no irritation to her feet or legs yet. Her left hands are erythemic where she has been scratching. She has edema of her face. Oral pharyngeal house mild edema. She has pain on opening her mouth to her right ear. She has been on amoxicillin now for 2 days. She denies any prior history of any penicillin products or amoxicillin products. She took Benadryl around 2 hours prior to arrival. The symptoms began around 2200 hrs. on 21 May. They began as a few hive bumps to her left shoulder. She denies any other medications. She denies any shortness of breath or problems swallowing at this time. TRAVEL OUTSIDE OF THE [place] IN LAST 30 DAYS: No - HPI Onset: Just prior to arrival Onset/Duration: Sudden, Persistent, Worse Quality of pain: Fullness - And itchiness Severity: Moderate Pain Level: 3 Medication Exposure: Antibiotic Skin rash / itching: Facial, Trunk, Extremities Swelling: Face, Lip(s), Hands Similar symptoms previously: No Recently seen / treated by doctor: No - Related Data Allergies/Adverse Reactions: aspirin [Aspirin] Allergy (Severe, Verified 05/19/20 22:07) Edema ciprofloxacin [From Cipro] Allergy (Verified 05/19/20 22:07) Edema Iodinated Contrast Media Allergy (Verified 05/19/20 22:07) Hives lisinopril Allergy (Verified 05/19/20 22:07) Edema Past Medical History - General Information source: Patient - Social History Smoking Status: Never Smoker Cigarette use (# per day): No Chew tobacco use (# tins/day): No Smoking Education Provided: No Frequency of alcohol use: None Drug Abuse: None Lives with: Family Family History: Reviewed & Not Pertinent, Arthritis, CVA, DM, Hyperlipidemia, Hypertension Patient has suicidal ideation: No Patient has homicidal ideation: No - Past Medical History Cardiac Medical History: Reports: Hx Hypertension Denies: Hx Coronary Artery Disease, Hx Heart Attack Pulmonary Medical History: Reports: Hx Asthma, Hx Pneumonia - Apr 2010 Denies: Hx Bronchitis, Hx COPD Neurological Medical History: Reports: Hx Cerebrovascular Accident. Denies: Hx Seizures Endocrine Medical History: Reports: Hx Diabetes Mellitus Type 2 Renal/ Medical History: Denies: Hx Peritoneal Dialysis Musculoskeletal Medical History: Denies Hx Arthritis Past Surgical History: Reports: Hx Cholecystectomy, Hx Oral Surgery - Various dental surgeries. Denies: Hx Pacemaker - Immunizations Immunizations up to date: No Hx Diphtheria, Pertussis, Tetanus Vaccination: No Review of Systems - Review of Systems Constitutional: No symptoms reported EENT: See HPI, Mouth swelling, Other - Facial swelling Cardiovascular: No symptoms reported Respiratory: No symptoms reported Gastrointestinal: No symptoms reported Genitourinary: No symptoms reported Female Genitourinary: No symptoms reported Musculoskeletal: No symptoms reported Skin: See HPI, Change in color, Rash - Erythema and urticaria and swelling of bilateral hands left greater than right Hematologic/Lymphatic: No symptoms reported Neurological/Psychological: No symptoms reported -: Yes All other systems reviewed and negative Physical Exam - Vital signs Vitals: Temp 98.6 F 05/22/20 00:50 Interpretation: Normal - General General appearance: Appears well, Alert - HEENT Head: Normocephalic, Other - Erythemic facial skin with edema of periorbital and perioral skin. Nasolabial fold with some edema. Tenderness on right TMJ on opening mouth. Eyes: Normal Pupils: PERRL Sinus: Normal Mouth/Lips: Angioedema Mucous membranes: Moist Pharynx: Uvular edema Neck: Normal - Respiratory Respiratory status: No respiratory distress Chest status: Nontender Breath sounds: Normal Chest palpation: Normal - Cardiovascular Rhythm: Regular Heart sounds: Normal auscultation Murmur: No - Abdominal Inspection: Normal Distension: No distension Bowel sounds: Normal Tenderness: Nontender Organomegaly: No organomegaly - Rectal Hemorrhoids: Other - Deferred - Genitourinary Bimanuel exam: Other - Deferred - Back Back: Normal, Nontender - Extremities General upper extremity: Normal inspection, Nontender, Normal color, Normal ROM, Normal temperature General lower extremity: Normal inspection, Nontender, Normal color, Normal ROM, Normal temperature, Normal weight bearing. No: Shana's sign - Neurological Neuro grossly intact: Yes Cognition: Normal Orientation: AAOx4 Callender Coma Scale Eye Opening: Spontaneous Callender Coma Scale Verbal: Oriented Callender Coma Scale Motor: Obeys Commands Callender Coma Scale Total: 15 Speech: Normal Motor strength normal: LUE, RUE, LLE, RLE Sensory: Normal - Psychological Associated symptoms: Normal affect, Normal mood - Skin Skin Temperature: Warm Skin Moisture: Dry Skin Color: Normal Course - Vital Signs Vital signs: Temp Pulse Resp BP Pulse Ox 98.6 F 05/22/20 00:55 - Laboratory Results Critical Laboratory Results Reviewed: No Critical Results Attending or Supervising Physician who Reviewed Labs: HUBER YE JR - Radiology Results Critical Radiology Results Reviewed: No Critical Results Attending or Supervising Physician who Reviewed Radiology: HUBER YE JR Critical Care Note - Critical Care Note Comments: Patient received IV to the right antecubital by nursing staff and received Decadron 10 IV Pepcid IV Benadryl IV and breathing treatment of racemic epi x1 recheck on this patient at 0 130 reveals patient is much improved with less reddened skin no hives face appears to be nonswollen at this time. She is sleepy and lights were turned out for her. Discharge - Discharge Clinical Impression: Allergic reaction caused by a drug Qualifiers: Encounter type: initial encounter Qualified Code(s): T78.40XA - Allergy, unspecified, initial encounter Condition: Stable Disposition: HOME, SELF-CARE Additional Instructions: Avoid hot showers for the next 2 days. Avoid using any amoxicillin and call your pharmacy and doctor's office to advise no more amoxicillin in your future. Also take steroid tablets 1 daily for 5 days. Also take Pepcid medication twice a day. Also take Atarax 1 tablet 4 times a day. Avoid dangerous machinery while taking your medicines for the next several days. Avoid driving. Off work while taking this medicines as well. Be aware of any drowsiness and try to avoid excessive movements so we will not fall down and get hurt. Prescriptions: Hydroxyzine HCl [Atarax 10 mg Tablet] 10 mg PO TID PRN 5 Days #15 tablet PRN Reason: pruritic Dexamethasone [Decadron 4 Mg Tablet] 4 mg PO DAILY #5 tablet Famotidine [Pepcid 20 mg Tablet] 20 mg PO BID #12 tablet Forms: Return to Work Referrals: SANDEEP SOUTH DO [Primary Care Provider] - Follow up as needed
[2020-05-22] MEDS ORDERED: DEXAMETHASONE SOD PHOS INJ 10 MG/1 ML VIAL IV ONE (00:28)
[2020-05-22] MEDS ORDERED: RACEPINEPHRINE HCL 2.25% NEB 0.5 ML AMPUL NEB ONE (00:29)
[2020-05-22] MEDS ORDERED: FAMOTIDINE INJ/PF 20 MG/2 ML SDV IV ONE (00:29)
[2020-05-22] MEDS ORDERED: DIPHENHYDRAMINE HCL 50 MG/ML VIAL IV ONE (00:29)
[2020-05-22 03:24] VITALS: BP 117/70
== END 2020-05-22 03:41 | disposition home or self-care (01) ==
LOC: ER 00:16
DX: L50.0 Allergic urticaria (principal); T36.0X5A Adverse effect of penicillins, initial encounter; H92.03 Otalgia, bilateral; R42 Dizziness and giddiness; J45.909 Unspecified asthma, uncomplicated; I10 Essential (primary) hypertension; E11.9 Type 2 diabetes mellitus without complications; Z88.8 Allergy status to other drugs, medicaments and biological substances; Z88.1 Allergy status to other antibiotic agents; Z91.041 Radiographic dye allergy status
CPT/HCPCS: 94640; 99284; 96374; 96375; J1200; S0028; J1100; J3490